=== PATIENT | male | born 1970 | race Two or more races ===

== ENCOUNTER 2016-11-27 11:19 | Inpatient (IN) | payer OTHER ==
[2016-11-27 11:47] VITALS: BMI 34.3
--- NOTE | 2016-11-27 13:26 | HP ---
CIWA Score - CIWA Score Nausea/Vomitin-No Nausea/No Vomiting Muscle Tremors: 4-Moderate,w/Arms Extend Anxiety: 4-Mod. Anxious/Guarded Agitation: 4-Moderately Restless Paroxysmal Sweats: 3 Orientation: 0-Oriented Tacttile Disturbances: 0-None Auditory Disturbances: 0-None Visual Disturbances: 0-None Headache: 1-Very Mild CIWA-Ar Total Score: 16 Admission ROS BHS - HPI Chief Complaint: I need to stop using and get my life back. Allergies/Adverse Reactions: Allergies Allergy/AdvReac Type Severity Reaction Status Date / Time No Known Allergies Allergy Verified 11/27/16 13:07 History of Present Illness: pt is a 46yr old male with a history of alcohol dependence seeking detox for treatment. Exam Limitations: No Limitations - Ebola screening Have you traveled outside of the country in the last 21 days: No Have you had contact with anyone from an Ebola affected area: No Have you been sick,other than usual withdrawal symptoms: No Do you have a fever: No - Review of Systems Constitutional: Chills, Diaphoresis, Loss of Appetite, Night Sweats, Unintentional Wgt. Loss EENT: reports: Tearing, Nose Congestion Respiratory: reports: Cough Cardiac: reports: No Symptoms Reported GI: reports: Diarrhea, Nausea, Poor Appetite, Poor Fluid Intake, Indigestion : reports: No Symptoms Reported Musculoskeletal: reports: Joint Pain Integumentary: reports: Flushing, Sweating Neuro: reports: Headache, Tingling, Tremors Endocrine: reports: Excessive Sweating, Flushing, Intolerance to Cold, Intolerance to Heat Hematology: reports: No Symptoms Reported Psychiatric: reports: Judgement Intact, Mood/Affect Appropiate, Orientated x3, Agitated, Anxious Other Systems: Reviewed and Negative Patient History - Patient Medical History Hx Anemia: No Hx Asthma: Yes (ALBUTEROL INHALER) Hx Chronic Obstructive Pulmonary Disease (COPD): No Hx Cancer: No Hx Cardiac Disorders: No Hx Congestive Heart Failure: No Hx Hypertension: Yes (ON MEDS) Hx Hypercholesterolemia: No Hx Pacemaker: No HX Cerebrovascular Accident: No Hx Seizures: No Hx Dementia: No Hx Diabetes: Yes (type 2 insulin dependent) Hx Gastrointestinal Disorders: Yes (GERD) Hx Liver Disease: No Hx Genitourinary Disorders: No Hx Sexually Transmitted Disorders: No Hx Renal Disease (ESRD): No Hx Thyroid Disease: No Hx Human Immunodeficiency Virus (HIV): No (NEGATIVE HX) Hx Hepatitis C: No Hx Depression: Yes (not seeing psychiatrist) Hx Suicide Attempt: No (DENIES) Hx Bipolar Disorder: No Hx Schizophrenia: No - Patient Surgical History Past Surgical History: Yes Hx Neurologic Surgery: No Hx Cataract Extraction: No Hx Cardiac Surgery: No Hx Lung Surgery: No Hx Breast Surgery: No Hx Breast Biopsy: No Hx Abdominal Surgery: No Hx Appendectomy: No Hx Cholecystectomy: No Hx Genitourinary Surgery: No Hx Section: No Hx Orthopedic Surgery: No Other Surgical History: removed cyst in the right buttock in 2013 Anesthesia Reaction: No - PPD History Previous Implant?: Yes Documented Results: Negative w/o proof PPD to be Administered?: Yes - Reproductive History Patient is a Female of Child Bearing Age (11 -55 yrs old): No - Smoking Cessation Smoking history: Current every day smoker Have you smoked in the past 12 months: Yes Aproximately how many cigarettes per day: 4 Hx Chewing Tobacco Use: No Initiated information on smoking cessation: Yes 'Breaking Loose' booklet given: 11/27/16 - Substance & Tx. History Hx Alcohol Use: Yes Hx Substance Use: Yes Substance Use Type: Alcohol, Cocaine Hx Substance Use Treatment: Yes - Substances Abused Crack Route: Smoking Frequency: Daily Amount used: $50 Age of first use: 23 Date of Last Use: 11/26/16 Alcohol-rum/beer Route: Oral Frequency: Daily Amount used: 1 pt./2-6 pks. Age of first use: 23 Date of Last Use: 11/26/16 Family Disease History - Family Disease History Family Disease History: Diabetes: Mother, Sister, CA: Mother, Respiratory: Mother, Brother, Sister, Daughter Admission Physical Exam S - Vital Signs Vital Signs: Vital Signs - 24 hr 11/27/16 11:46 Temperature 96.2 F L Pulse Rate 97 H Respiratory 20 Rate Blood Pressure 167/100 - Physical General Appearance: Yes: Appropriately Dressed, Moderate Distress, Obese, Tremorous, Irritable, Sweating, Anxious HEENTM: Yes: Normal Voice, Nasal Congestion, Rhinorrhea Respiratory: Yes: Lungs Clear, Normal Breath Sounds, No Respiratory Distress Neck: Yes: No masses,lesions,Nodules Breast: Yes: Within Normal Limits, No masses Cardiology: Yes: Regular Rhythm, Regular Rate, S1, S2 Abdominal: Yes: Normal Bowel Sounds, Non Tender, Soft Genitourinary: Yes: Within Normal Limits Back: Yes: Normal Inspection Musculoskeletal: Yes: full range of Motion Extremities: Yes: Normal Capillary Refill, Normal Inspection, Non-Tender, Tremors Neurological: Yes: Fully Oriented, Alert, Normal Response Integumentary: Yes: Normal Color, Diaphoresis Lymphatic: Yes: Within Normal Limits - Diagnostic (1) Alcohol dependence with uncomplicated withdrawal Current Visit: Yes Status: Chronic (2) Asthma Current Visit: Yes Status: Chronic Qualifiers: Asthma severity: mild intermittent Asthma complication type: uncomplicated Qualified Code(s): J45.20 - Mild intermittent asthma, uncomplicated (3) Diabetes type 2, uncontrolled Current Visit: Yes Status: Chronic Qualifiers: Diabetes mellitus complication status: without complication (4) H/O hearing loss Current Visit: Yes Status: Chronic Comment: childhood trauma (5) Hypertension Current Visit: Yes Status: Chronic Qualifiers: Hypertension type: essential hypertension Qualified Code(s): I10 - Essential (primary) hypertension (6) Nicotine dependence Current Visit: Yes Status: Chronic Qualifiers: Nicotine product type: cigarettes Substance use status: uncomplicated Qualified Code(s): F17.210 - Nicotine dependence, cigarettes, uncomplicated Cleared for Admission S - Detox or Rehab [facility] Level of Care: Medically Managed Detox Regimen/Protocol: Librium [facility] Breath Alcohol Content Breath Alcohol Content: 0 Urine Drug Screen - Results Drug Screen Negative: No Urine Drug Screen Results: YUE-Cocaine
[2016-11-27] MEDS ORDERED: ACETAMINOPHEN 325 MG TABLET (FP) PO PRN (14:44)
[2016-11-27] MEDS ORDERED: MENTHOL/PHENOL 1 EACH UD MM PRN (14:44)
[2016-11-27] MEDS ORDERED: diphenhydrAMINE HCL 50 MG CAPSULE PO PRN (14:44)
[2016-11-27] MEDS ORDERED: LOPERAMIDE HCL 2 MG CAPSULE PO PRN (14:44)
[2016-11-27] MEDS ORDERED: MAGNESIUM HYDROX 2400MG/30ML ORAL SUSPENSION 30 ML CUP PO PRN (14:44)
[2016-11-27] MEDS ORDERED: MAGNESIUM CITRATE 300 ML BOTTLE PO PRN (14:44)
[2016-11-27] MEDS ORDERED: IBUPROFEN 400 MG TABLET (FP) PO PRN (14:44)
[2016-11-27] MEDS ORDERED: P-EPHED 60MG/TRIPROLIDI 2.5MG TABLET PO PRN (14:44)
[2016-11-27] MEDS ORDERED: NICOTINE POLACRILEX 4 MG GUM BUC PRN (14:44)
[2016-11-27] MEDS ORDERED: MAG HYDROX/AL HYDROX/SIMETH 30 ML UNIT-DOSE CUP PO PRN (14:44)
[2016-11-27] MEDS ORDERED: hydrOXYzine PAMOATE 50 MG CAPSULE (FP) PO PRN (14:44)
[2016-11-27] MEDS ORDERED: chlordiazePOXIDE HCL 25 MG CAPSULE PO PRN (14:44)
[2016-11-27] MEDS ORDERED: ALBUTEROL SO4 6.7 GM HFA INHALER IH PRN (14:49)
[2016-11-27] MEDS ORDERED: SODIUM CHLORIDE NASAL SPRAY 44 ML BOTTLE NS PRN (14:50)
[2016-11-27] MEDS ORDERED: chlordiazePOXIDE HCL 25 MG CAPSULE PO ONE (15:41)
[2016-11-27] MEDS: amLODIPine BESYLATE 10 MG TABLET (FP) PO SCH (15:56)
[2016-11-27] MEDS: chlordiazePOXIDE HCL 25 MG CAPSULE PO SCH ×2 (17:10→22:40)
[2016-11-27] MEDS ORDERED: INSULIN (NOVOLOG) ASPART 100 UNITS/ML 10ML VIAL ONE (17:22)
--- NOTE | 2016-11-27 17:22 | CONSULT ---
[facility] Psychiatric Consult - Data Date of interview: 11/27/16 Admission source: [facility] Identifying data: Readmission to [facility] for this 46 y/o AA male seking detox treatment on for alcohol and cocaine dependence.Patient is single ( common-law),a father of three,homeless,unemployed and reportedly deprived of any source of income. Substance Abuse History: - Smoking Cessation. Smoking history: Current every day smoker. Have you smoked in the past 12 months: Yes. Aproximately how many cigarettes per day: 4. Hx Chewing Tobacco Use: No. Initiated information on smoking cessation: Yes. 'Breaking Loose' booklet given: 11/27/16. - Substance & Tx. History. Hx Alcohol Use: Yes. Hx Substance Use: Yes. Substance Use Type : Alcohol, Cocaine. Hx Substance Use Treatment: Yes. - Substances Abused. Crack. Route: Smoking. Frequency: Daily. Amount used: $50. Age of first use : 23. Date of Last Use: 11/26/16. Alcohol-rum/beer. Route: Oral. Frequency: Daily. Amount used: 1 pt./2-6 pks. Age of first use: 23. Date of Last Use: 11/26/16. Confirmed by the patient in this session. Medical History: Hypertension,GERD,hearing loss (left ear),bronchial asthma and diabetes mellitus. Psychiatric History: Patient denies. Physical/Sexual Abuse/Trauma History: Patient denies. Additional Comment: Urine Drug Screen Results: YUE-Cocaine.Noted. Mental Status Exam - Mental Status Exam Alert and Oriented to: Time, Place, Person Cognitive Function: Good Patient Appearance: Well Groomed Mood: Hopeful, Euthymic Affect: Appropriate, Normal Range Patient Behavior: Fatigued, Appropriate, Cooperative Speech Pattern: Clear, Appropriate Voice Loudness: Normal Thought Process: Goal Oriented Thought Disorder: Not Present Hallucinations: Denies Suicidal Ideation: Denies Homicidal Ideation: Denies Insight/Judgement: Poor Sleep: Poorly, Difficulty falling asleep Appetite: Good Muscle strength/Tone: Normal Gait/Station: Normal Psychiatric Findings - Problem List ([place] 1, 2,3) (1) Alcohol dependence with uncomplicated withdrawal Current Visit: Yes Status: Acute (2) Nicotine dependence Current Visit: Yes Status: Acute Qualifiers: Nicotine product type: cigarettes Substance use status: uncomplicated Qualified Code(s): F17.210 - Nicotine dependence, cigarettes, uncomplicated (3) Cocaine dependence Current Visit: Yes Status: Acute (4) Asthma Current Visit: Yes Status: Chronic Qualifiers: Asthma severity: mild intermittent Asthma complication type: uncomplicated Qualified Code(s): J45.20 - Mild intermittent asthma, uncomplicated (5) Diabetes type 2, uncontrolled Current Visit: Yes Status: Chronic Qualifiers: Diabetes mellitus complication status: without complication (6) H/O hearing loss Current Visit: Yes Status: Chronic Comment: childhood trauma (7) Hypertension Current Visit: Yes Status: Chronic Qualifiers: Hypertension type: essential hypertension Qualified Code(s): I10 - Essential (primary) hypertension (8) Insomnia Current Visit: Yes Status: Acute - Initial Treatment Plan Initial Treatment Plan: Psychoeducation.Detoxification.Zolpidem 10 mg po hs prn.Patient made aware of parasomnias.He agrees with this careplan.Observation.
[2016-11-27] MEDS ORDERED: ZOLPIDEM TARTRATE 10 MG TABLET (PARK CARE ONLY) PO PRN (17:30)
[2016-11-27] MEDS: metFORMIN HCL 500 MG TABLET (FP) PO SCH (17:35)
[2016-11-27] MEDS: INSULIN (NOVOLOG) ASPART 100 UNITS/ML 10ML VIAL SQ SCH (17:38)
[2016-11-27] MEDS: THIAMINE HCL 100 MG TABLET (FP) PO SCH (22:40)
[2016-11-27] MEDS: INSULIN DETEMIR 100 UNITS/ML MDV SQ SCH (22:43)
[2016-11-28 03:05] LABS: URINE APPEARANCE CLEAR; URINE BILIRUBIN NEGATIVE (NEGATIVE); URINE BLOOD NEGATIVE (NEGATIVE); URINE COLOR STRAW; URINE GLUCOSE (UA) 3+ (NEGATIVE); URINE KETONE NEGATIVE (NEGATIVE); URINE NITRITE NEGATIVE (NEGATIVE); URINE UROBILINOGEN NEGATIVE E.U./dl (0.2-1.0)
[2016-11-28 03:30] LABS: URINE LEUK ESTERASE 1+ (NEGATIVE); URINE PROTEIN 1+ (NEGATIVE)
[2016-11-28 03:42] LABS: URINE BACTERIA MODERATE /hpf (NONE SEEN); URINE HYALINE CAST 1 /lpf; URINE MUCUS RARE; URINE RBC 4 /hpf (0-3); URINE WBC 6 /hpf (3-5); YEAST FEW
[2016-11-28] MEDS: chlordiazePOXIDE HCL 25 MG CAPSULE PO SCH ×4 (06:21→23:18)
[2016-11-28] MEDS ORDERED: INSULIN (NOVOLOG) ASPART 100 UNITS/ML 10ML VIAL SQ SCH (07:00)
[2016-11-28] MEDS: metFORMIN HCL 500 MG TABLET (FP) PO SCH ×2 (07:30→17:06)
[2016-11-28] MEDS ORDERED: INSULIN (NOVOLOG) ASPART 100 UNITS/ML 10ML VIAL ONE ×3 (08:28→17:03)
[2016-11-28] MEDS: INSULIN (NOVOLOG) ASPART 100 UNITS/ML 10ML VIAL SQ SCH ×3 (08:33→17:09)
--- NOTE | 2016-11-28 10:44 | PN ---
S CIWA - CIWA Score Nausea/Vomitin Muscle Tremors: 3 Anxiety: 3 Agitation: 2 Paroxysmal Sweats: 1-Minimal Palms Moist Orientation: 0-Oriented Tacttile Disturbances: 1-Very Mild Itch/Numbness Auditory Disturbances: 1-Very Mild Visual Disturbances: 1-Very Mild Sensitivity Headache: 2-Mild CIWA-Ar Total Score: 17 BHS Progress Note (SOAP) Subjective: ALERT,IRRITABLE,ANXIOUS,INTERRUPTED SLEEP,TREMOR Objective: 11/28/16 10:41 Vital Signs Temperature 98.1 F 11/28/16 09:39 Pulse Rate 89 11/28/16 09:39 Respiratory Rate 18 11/28/16 09:39 Blood Pressure 154/99 11/28/16 09:39 O2 Sat by Pulse Oximetry (%) EKG NSR,NORMAL ECG Laboratory Last Values POC Glucometer 291 UNITS (()) 11/28/16 07:33 Urine Color Straw 11/27/16 23:04 Urine Appearance Clear 11/27/16 23:04 Urine pH 6.0 (5.0-8.0) 11/27/16 23:04 Ur Specific [place] 1.029 (1.001-1.035) 11/27/16 23:04 Urine Protein 1+ (NEGATIVE) H 11/27/16 23:04 Urine Glucose (UA) 3+ (NEGATIVE) H 11/27/16 23:04 Urine Ketones Negative (NEGATIVE) 11/27/16 23:04 Urine Blood Negative (NEGATIVE) 11/27/16 23:04 Urine Nitrite Negative (NEGATIVE) 11/27/16 23:04 Urine Bilirubin Negative (NEGATIVE) 11/27/16 23:04 Urine Urobilinogen Negative E.U./dl (0.2-1.0) 11/27/16 23:04 Ur Leukocyte Esterase 1+ (NEGATIVE) H 11/27/16 23:04 Urine RBC 4 /hpf (0-3) 11/27/16 23:04 Urine WBC 6 /hpf (3-5) 11/27/16 23:04 Ur Epithelial Cells Rare /hpf (FEW) 11/27/16 23:04 Urine Bacteria Moderate /hpf (NONE SEEN) 11/27/16 23:04 Hyaline Casts 1 /lpf 11/27/16 23:04 Urine Mucus Rare 11/27/16 23:04 Urine Yeast Few 11/27/16 23:04 LABS PENDING Assessment: 11/28/16 10:43 WITHDRAWAL SYMPTOM Plan: CONTINUE DETOX,BGM MONITORING
[2016-11-28] MEDS: PANTOPRAZOLE 20 MG TABLET (FP) PO SCH (10:49)
[2016-11-28] MEDS: PRENATAL VITAMINS W/ FOLIC ACID TABLET (FP) PO SCH (10:49)
[2016-11-28] MEDS: amLODIPine BESYLATE 10 MG TABLET (FP) PO SCH (10:49)
[2016-11-28] MEDS: NICOTINE 21 MG/24 HOURS TOPICAL PATCH TD SCH (10:51)
[2016-11-28 11:08] LABS: MCH 30.1 pg (25.7-33.7); MCHC 32.5 g/dl (32.0-35.9); MEAN CELL VOLUME 92.7 fl (80-96); MEAN PLT VOLUME 9.2 fl (7.5-11.1); PLATELET COUNT 164 K/MM3 (134-434); RDW 16.1 % (11.9-15.9); WHITE BLOOD COUNT 3.2 K/mm3 (4.0-10.0)
[2016-11-28 11:15] LABS: ALBUMIN 3.4 g/dl (3.4-5.0); ANION GAP 9 (8-16); CALCIUM 9.3 mg/dL (8.5-10.1); CO2 25 mmol/L (21-32)
[2016-11-28 11:19] LABS: ALK PHOS 184 U/L (45-117); BILIRUBIN,TOTAL 0.3 mg/dL (0.2-1.0); CREATININE 1.2 mg/dL (0.7-1.3); SGOT/AST 12 U/L (15-37); SGPT/ALT 28 U/L (12-78); TOT PROT 7.7 g/dl (6.4-8.2)
[2016-11-28 11:25] LABS: GLUCOSE,RANDOM 430 mg/dL (74-106)
--- NOTE | 2016-11-28 13:40 | EKG ---
Test Reason : Blood Pressure : / mmHG Vent. Rate : 072 BPM Atrial Rate : 072 BPM P-R Int : 180 ms QRS Dur : 098 ms QT Int : 376 ms P-R-T Axes : 058 -01 021 degrees QTc Int : 411 ms NORMAL SINUS RHYTHM NORMAL ECG NO PREVIOUS ECGS AVAILABLE Confirmed by AGNES ARNDT MD ([id number]) on 11/28/2016 1:40:05 PM Referred By: Confirmed By:AGNES ARNDT MD
[2016-11-28] MEDS: TOLNAFTATE 1% CREAM 15 GM TUBE TP SCH ×2 (14:26→23:07)
[2016-11-28] MEDS: guaiFENesin/D-METHORPHAN HB 10 ML UNIT-DOSE CUPS PO PRN (18:26)
[2016-11-28] MEDS: THIAMINE HCL 100 MG TABLET (FP) PO SCH ×2 (23:07→23:18)
[2016-11-28] MEDS: INSULIN DETEMIR 100 UNITS/ML MDV SQ SCH ×2 (23:07→23:20)
[2016-11-29] MEDS: metFORMIN HCL 500 MG TABLET (FP) PO SCH ×2 (07:39→17:45)
[2016-11-29] MEDS: chlordiazePOXIDE HCL 25 MG CAPSULE PO SCH ×2 (07:39→11:34)
[2016-11-29] MEDS: INSULIN (NOVOLOG) ASPART 100 UNITS/ML 10ML VIAL SQ SCH ×3 (07:40→17:20)
[2016-11-29] MEDS ORDERED: INSULIN (NOVOLOG) ASPART 100 UNITS/ML 10ML VIAL ONE ×2 (11:33→17:20)
[2016-11-29] MEDS: amLODIPine BESYLATE 10 MG TABLET (FP) PO SCH (11:34)
[2016-11-29] MEDS: PANTOPRAZOLE 20 MG TABLET (FP) PO SCH (11:34)
[2016-11-29] MEDS: NICOTINE 21 MG/24 HOURS TOPICAL PATCH TD SCH (11:34)
[2016-11-29] MEDS: TOLNAFTATE 1% CREAM 15 GM TUBE TP SCH ×2 (11:35→22:48)
[2016-11-29] MEDS: PRENATAL VITAMINS W/ FOLIC ACID TABLET (FP) PO SCH (11:35)
--- NOTE | 2016-11-29 13:26 | PN ---
[facility] CIWA - CIWA Score Nausea/Vomitin-No Nausea/No Vomiting Muscle Tremors: 3 Anxiety: 4-Mod. Anxious/Guarded Agitation: 4-Moderately Restless Paroxysmal Sweats: 3 Orientation: 0-Oriented Tacttile Disturbances: 0-None Auditory Disturbances: 0-None Visual Disturbances: 0-None Headache: 0-None Present CIWA-Ar Total Score: 14 BHS Progress Note (SOAP) Subjective: anxiety,tremors,sweating,interrupted sleep,restless Objective: 11/29/16 13:35 Vital Signs - 8 hr 11/29/16 11/29/16 06:00 10:00 Temperature 98.2 F 98.5 F Pulse Rate 82 109 H Respiratory 20 20 Rate Blood Pressure 149/101 137/101 Laboratory Last Values WBC 3.2 K/mm3 (4.0-10.0) L 11/28/16 06:20 RBC 4.74 M/mm3 (4.00-5.60) 11/28/16 06:20 Hgb 14.2 GM/dL (11.7-16.9) D 11/28/16 06:20 Hct 43.9 % (35.4-49) 11/28/16 06:20 MCV 92.7 fl (80-96) 11/28/16 06:20 MCHC 32.5 g/dl (32.0-35.9) 11/28/16 06:20 RDW 16.1 % (11.9-15.9) H 11/28/16 06:20 Plt Count 164 K/MM3 (134-434) 11/28/16 06:20 MPV 9.2 fl (7.5-11.1) 11/28/16 06:20 Sodium 138 mmol/L (136-145) 11/28/16 06:20 Potassium 4.1 mmol/L (3.5-5.1) 11/28/16 06:20 Chloride 104 mmol/L (98-107) 11/28/16 06:20 Carbon Dioxide 25 mmol/L (21-32) 11/28/16 06:20 Anion Gap 9 (8-16) 11/28/16 06:20 BUN 11 mg/dL (7-18) D 11/28/16 06:20 Creatinine 1.2 mg/dL (0.7-1.3) 11/28/16 06:20 Creat Clearance w eGFR > 60 (>60) 11/28/16 06:20 POC Glucometer 338 UNITS (()) 11/29/16 11:29 Random Glucose 430 mg/dL (74-106) H* 11/28/16 06:20 Calcium 9.3 mg/dL (8.5-10.1) 11/28/16 06:20 Total Bilirubin 0.3 mg/dL (0.2-1.0) 11/28/16 06:20 AST 12 U/L (15-37) L 11/28/16 06:20 ALT 28 U/L (12-78) 11/28/16 06:20 Alkaline Phosphatase 184 U/L (45-117) H D 11/28/16 06:20 Total Protein 7.7 g/dl (6.4-8.2) 11/28/16 06:20 Albumin 3.4 g/dl (3.4-5.0) 11/28/16 06:20 Urine Color Straw 11/27/16 23:04 Urine Appearance Clear 11/27/16 23:04 Urine pH 6.0 (5.0-8.0) 11/27/16 23:04 Ur Specific [place] 1.029 (1.001-1.035) 11/27/16 23:04 Urine Protein 1+ (NEGATIVE) H 11/27/16 23:04 Urine Glucose (UA) 3+ (NEGATIVE) H 11/27/16 23:04 Urine Ketones Negative (NEGATIVE) 11/27/16 23:04 Urine Blood Negative (NEGATIVE) 11/27/16 23:04 Urine Nitrite Negative (NEGATIVE) 11/27/16 23:04 Urine Bilirubin Negative (NEGATIVE) 11/27/16 23:04 Urine Urobilinogen Negative E.U./dl (0.2-1.0) 11/27/16 23:04 Ur Leukocyte Esterase 1+ (NEGATIVE) H 11/27/16 23:04 Urine RBC 4 /hpf (0-3) 11/27/16 23:04 Urine WBC 6 /hpf (3-5) 11/27/16 23:04 Ur Epithelial Cells Rare /hpf (FEW) 11/27/16 23:04 Urine Bacteria Moderate /hpf (NONE SEEN) 11/27/16 23:04 Hyaline Casts 1 /lpf 11/27/16 23:04 Urine Mucus Rare 11/27/16 23:04 Urine Yeast Few 11/27/16 23:04 RPR Titer Nonreactive (NONREACTIVE) 11/28/16 06:20 labs noted,repeat u/a Assessment: 11/29/16 13:36 withdrawal sx. Plan: continue detox
[2016-11-29] MEDS: chlordiazePOXIDE 5 MG CAPSULE PO SCH ×2 (17:44→22:48)
[2016-11-29] MEDS: INSULIN DETEMIR 100 UNITS/ML MDV SQ SCH (22:47)
[2016-11-29] MEDS: THIAMINE HCL 100 MG TABLET (FP) PO SCH (22:48)
[2016-11-30] MEDS: chlordiazePOXIDE 5 MG CAPSULE PO SCH ×2 (05:39→10:35)
[2016-11-30] MEDS ORDERED: INSULIN (NOVOLOG) ASPART 100 UNITS/ML 10ML VIAL ONE ×3 (07:35→17:21)
[2016-11-30] MEDS: metFORMIN HCL 500 MG TABLET (FP) PO SCH ×2 (07:46→17:40)
[2016-11-30] MEDS: INSULIN (NOVOLOG) ASPART 100 UNITS/ML 10ML VIAL SQ SCH ×3 (07:46→17:42)
[2016-11-30] MEDS: NICOTINE 21 MG/24 HOURS TOPICAL PATCH TD SCH (10:34)
[2016-11-30] MEDS: PANTOPRAZOLE 20 MG TABLET (FP) PO SCH (10:35)
[2016-11-30] MEDS: PRENATAL VITAMINS W/ FOLIC ACID TABLET (FP) PO SCH (10:35)
[2016-11-30] MEDS: TOLNAFTATE 1% CREAM 15 GM TUBE TP SCH ×2 (10:35→22:16)
[2016-11-30] MEDS: amLODIPine BESYLATE 10 MG TABLET (FP) PO SCH (10:35)
--- NOTE | 2016-11-30 11:17 | PN ---
BHS Progress Note (SOAP) Subjective: interrupted sleep, sweats, shakes, diarrhea, nee s and feet hurt Objective: 11/30/16 11:16 Vital Signs Temperature 96.8 F L 11/30/16 10:00 Pulse Rate 112 H 11/30/16 10:00 Respiratory Rate 18 11/30/16 10:00 Blood Pressure 145/102 11/30/16 10:00 O2 Sat by Pulse Oximetry (%) Laboratory Tests 11/27/16 11/27/16 11/27/16 13:26 16:31 21:54 WBC RBC Hgb Hct MCV MCHC RDW Plt Count MPV Sodium Potassium Chloride Carbon Dioxide Anion Gap BUN Creatinine Creat Clearance w eGFR POC Glucometer 351 351 222 Random Glucose Calcium Total Bilirubin AST ALT Alkaline Phosphatase Total Protein Albumin Urine Color Urine Appearance Urine pH Ur Specific [place] Urine Protein Urine Glucose (UA) Urine Ketones Urine Blood Urine Nitrite Urine Bilirubin Urine Urobilinogen Ur Leukocyte Esterase Urine RBC Urine WBC Ur Epithelial Cells Urine Bacteria Hyaline Casts Urine Mucus Urine Yeast RPR Titer 11/27/16 11/28/16 11/28/16 23:04 06:20 06:20 WBC 3.2 L RBC 4.74 Hgb 14.2 D Hct 43.9 MCV 92.7 MCHC 32.5 RDW 16.1 H Plt Count 164 MPV 9.2 Sodium 138 Potassium 4.1 Chloride 104 Carbon Dioxide 25 Anion Gap 9 BUN 11 D Creatinine 1.2 Creat Clearance w eGFR > 60 POC Glucometer Random Glucose 430 H* Calcium 9.3 Total Bilirubin 0.3 AST 12 L ALT 28 Alkaline Phosphatase 184 H D Total Protein 7.7 Albumin 3.4 Urine Color Straw Urine Appearance Clear Urine pH 6.0 Ur Specific [place] 1.029 Urine Protein 1+ H Urine Glucose (UA) 3+ H Urine Ketones Negative Urine Blood Negative Urine Nitrite Negative Urine Bilirubin Negative Urine Urobilinogen Negative Ur Leukocyte Esterase 1+ H Urine RBC 4 Urine WBC 6 Ur Epithelial Cells Rare Urine Bacteria Moderate Hyaline Casts 1 Urine Mucus Rare Urine Yeast Few RPR Titer 11/28/16 11/28/16 11/28/16 06:20 07:33 11:47 WBC RBC Hgb Hct MCV MCHC RDW Plt Count MPV Sodium Potassium Chloride Carbon Dioxide Anion Gap BUN Creatinine Creat Clearance w eGFR POC Glucometer 291 314 Random Glucose Calcium Total Bilirubin AST ALT Alkaline Phosphatase Total Protein Albumin Urine Color Urine Appearance Urine pH Ur Specific [place] Urine Protein Urine Glucose (UA) Urine Ketones Urine Blood Urine Nitrite Urine Bilirubin Urine Urobilinogen Ur Leukocyte Esterase Urine RBC Urine WBC Ur Epithelial Cells Urine Bacteria Hyaline Casts Urine Mucus Urine Yeast RPR Titer Nonreactive 11/28/16 11/29/16 11/29/16 16:40 11:29 16:44 WBC RBC Hgb Hct MCV MCHC RDW Plt Count MPV Sodium Potassium Chloride Carbon Dioxide Anion Gap BUN Creatinine Creat Clearance w eGFR POC Glucometer 238 338 272 Random Glucose Calcium Total Bilirubin AST ALT Alkaline Phosphatase Total Protein Albumin Urine Color Urine Appearance Urine pH Ur Specific [place] Urine Protein Urine Glucose (UA) Urine Ketones Urine Blood Urine Nitrite Urine Bilirubin pt aox3 in nad ambulating Urine Urobilinogen Ur Leukocyte Esterase Urine RBC Urine WBC Ur Epithelial Cells Urine Bacteria Hyaline Casts Urine Mucus Urine Yeast RPR Titer pt aox3 in nad ambulating Assessment: 11/30/16 11:16 withdrawl sx;s Plan: cont. detox increase fluids d/c in am
[2016-11-30] MEDS: chlordiazePOXIDE HCL 10 MG CAPSULE PO SCH ×2 (17:40→22:17)
[2016-11-30] MEDS ORDERED: ZOLPIDEM TARTRATE 5 MG TABLET PO ONE (22:05)
[2016-11-30] MEDS: METHYL SALICYLATE/MENTHOL OINT 30 GM TUBE TP SCH (22:16)
[2016-11-30] MEDS: guaiFENesin/D-METHORPHAN HB 10 ML UNIT-DOSE CUPS PO PRN (22:17)
[2016-11-30] MEDS: THIAMINE HCL 100 MG TABLET (FP) PO SCH (22:17)
[2016-11-30] MEDS: INSULIN DETEMIR 100 UNITS/ML MDV SQ SCH (22:50)
[2016-12-01] MEDS: chlordiazePOXIDE HCL 10 MG CAPSULE PO SCH ×2 (05:35→10:19)
[2016-12-01] MEDS: metFORMIN HCL 500 MG TABLET (FP) PO SCH (07:46)
[2016-12-01] MEDS: INSULIN (NOVOLOG) ASPART 100 UNITS/ML 10ML VIAL SQ SCH ×2 (07:47→11:38)
--- NOTE | 2016-12-01 09:31 | DS ---
[facility] Detox Discharge Summary Admission Date: 11/27/16 Discharge Date: 12/01/16 - History Present History: Alcohol Dependence, Cocaine Dependence - Physical Exam Results Vital Signs: Vital Signs Temperature 98.2 F 12/01/16 06:30 Pulse Rate 92 H 12/01/16 06:30 Respiratory Rate 20 12/01/16 06:30 Blood Pressure 123/87 12/01/16 06:30 O2 Sat by Pulse Oximetry (%) - Treatment Hospital Course: Detox Protocol Followed, Detoxed Safely, Responded well, Discharged Condition Good, Rehab Referral Accepted - Medication Discharge Medications: Ambulatory Orders Metformin HCl [Glucophage -] 1,000 mg PO BID 03/25/13 Albuterol Sulfate Inhaler - [Ventolin HFA Inhaler -] 2 inh PO Q6H PRN 07/04/14 Amlodipine Besylate [Norvasc -] 10 mg PO DAILY 11/14/14 Famotidine [Pepcid -] 20 mg PO BID 11/14/14 Insulin Glargine,Hum.rec.anlog [Lantus (10mL VIAL) -] 26 units SQ HS 11/14/14 - Diagnosis (1) Alcohol dependence with uncomplicated withdrawal Current Visit: Yes Status: Chronic (2) Asthma Current Visit: Yes Status: Chronic Qualifiers: Asthma severity: mild intermittent Asthma complication type: uncomplicated Qualified Code(s): J45.20 - Mild intermittent asthma, uncomplicated (3) Diabetes type 2, uncontrolled Current Visit: Yes Status: Chronic Qualifiers: Diabetes mellitus complication status: without complication (4) H/O hearing loss Current Visit: Yes Status: Chronic (5) Hypertension Current Visit: Yes Status: Chronic Qualifiers: Hypertension type: essential hypertension Qualified Code(s): I10 - Essential (primary) hypertension (6) Nicotine dependence Current Visit: Yes Status: Acute Qualifiers: Nicotine product type: cigarettes Substance use status: uncomplicated Qualified Code(s): F17.210 - Nicotine dependence, cigarettes, uncomplicated - AMA Did Patient Leave Against Medical Advice: No
[2016-12-01 10:02] VITALS: BP 151/92; PULSE 117; TEMP 97.7
[2016-12-01] MEDS: TOLNAFTATE 1% CREAM 15 GM TUBE TP SCH (10:18)
[2016-12-01] MEDS: NICOTINE 21 MG/24 HOURS TOPICAL PATCH TD SCH (10:18)
[2016-12-01] MEDS: METHYL SALICYLATE/MENTHOL OINT 30 GM TUBE TP SCH (10:18)
[2016-12-01] MEDS: PRENATAL VITAMINS W/ FOLIC ACID TABLET (FP) PO SCH (10:19)
[2016-12-01] MEDS: amLODIPine BESYLATE 10 MG TABLET (FP) PO SCH (10:19)
[2016-12-01] MEDS: PANTOPRAZOLE 20 MG TABLET (FP) PO SCH (10:19)
[2016-12-01] MEDS ORDERED: INSULIN (NOVOLOG) ASPART 100 UNITS/ML 10ML VIAL ONE (11:37)
== END 2016-12-01 12:13 | disposition other institution (70) | DRG 774 ==
LOC: YASAS 11:19 → Y6N 13:45
PROVIDERS: ADMIT Internal Medicine; ATTEND Internal Medicine
PROC: HZ2ZZZZ Detoxification Services for Substance Abuse Treatment (ICD-10-PCS; principal; 2016-12-01)
DX: F10.230 Alcohol dependence with withdrawal, uncomplicated (principal); F14.20 Cocaine dependence, uncomplicated; F17.210 Nicotine dependence, cigarettes, uncomplicated; I10 Essential (primary) hypertension; J45.20 Mild intermittent asthma, uncomplicated; E11.9 Type 2 diabetes mellitus without complications; Z79.4 Long term (current) use of insulin; Z79.84 Long term (current) use of oral hypoglycemic drugs; G47.00 Insomnia, unspecified
CPT/HCPCS: 36415; 80053; 81003; 81015; 85027; 86593; 93005; 93010

== ENCOUNTER 2016-12-01 12:19 | Inpatient (IN) | payer OTHER ==
[2016-12-01] MEDS ORDERED: guaiFENesin/D-METHORPHAN HB 10 ML UNIT-DOSE CUPS PO PRN (13:36)
[2016-12-01] MEDS ORDERED: ACETAMINOPHEN 325 MG TABLET (FP) PO PRN (13:36)
[2016-12-01] MEDS ORDERED: MENTHOL/PHENOL 1 EACH UD MM PRN (13:36)
[2016-12-01] MEDS ORDERED: MAG HYDROX/AL HYDROX/SIMETH 30 ML UNIT-DOSE CUP PO PRN (13:36)
[2016-12-01] MEDS ORDERED: MAGNESIUM CITRATE 300 ML BOTTLE PO PRN (13:36)
[2016-12-01] MEDS ORDERED: NICOTINE POLACRILEX 4 MG GUM BUC PRN (13:36)
[2016-12-01] MEDS ORDERED: P-EPHED 60MG/TRIPROLIDI 2.5MG TABLET PO PRN (13:36)
[2016-12-01] MEDS ORDERED: MAGNESIUM HYDROX 2400MG/30ML ORAL SUSPENSION 30 ML CUP PO PRN (13:36)
[2016-12-01] MEDS ORDERED: LOPERAMIDE HCL 2 MG CAPSULE PO PRN (13:36)
[2016-12-01 13:56] VITALS: BMI 33.4
--- NOTE | 2016-12-01 15:06 | HP ---
Psychiatrist Admission - Data Date of interview: 12/01/16 Admission source: 6N Identifying data: This is the second [facility] admission for this undomiciled 46 year old single black male, father of 3 , unemployed. Medical History: Arthritis, Diabetes Mellitus, HTN, Asthma, GERD. Obese. Smokes cigarettes, 4 daily; does consider himself to be addicted to Nicotine. Psychiatric History: Reports no history of psychiatric treatment Medical History: Arthritis, Diabetes Mellitus, HTN, Asthma, GERD. Obese. Smokes cigarettes, 4 daily.. Psychiatric History: Denies history of psychiatric treatment. Physical/Sexual Abuse/Trauma History: Denies history of sexual physical and verbal abuse. Additional Comment: Reports longest period of "clean time" was during a period of incarceration from 1994 to 1999. Vital Signs: Vital Signs - 24 hr 12/01/16 14:33 Temperature 97.5 F L Pulse Rate 107 H Respiratory 18 Rate Blood Pressure 139/94 Allergies/Adverse Reactions: Allergies Allergy/AdvReac Type Severity Reaction Status Date / Time No Known Allergies Allergy Verified 11/27/16 13:07 Date of last physical exam: 11/27/16 Concur with the findings of this exam: Yes - Substance Abuse/Tx History Hx Alcohol Use: Yes (1 pint of liquor, 2-6 pks of beer) Hx Substance Use: Yes Substance Use Type: Cocaine ($50 daily) Hx Substance Use Treatment: Yes - Admission Criteria Previous failed treatment: Yes Poor recovery environment: Yes Comorbidities: No Lacks judgement: Yes Mental Status Exam - Mental Status Exam Alert and Oriented to: Time, Place, Person Cognitive Function: Good Patient Appearance: Well Groomed Mood: Hopeful Affect: Appropriate, Mood Congruent Patient Behavior: Appropriate, Cooperative Speech Pattern: Clear, Appropriate Voice Loudness: Normal Thought Process: Intact, Goal Oriented Thought Disorder: Not Present Hallucinations: Denies Suicidal Ideation: Denies Homicidal Ideation: Denies Insight/Judgement: Fair Sleep: Fair Appetite: Good Muscle strength/Tone: Normal Gait/Station: Normal Psychiatric Findings - Problem List ([place] 1, 2,3) (1) Cocaine dependence Current Visit: No Status: Acute (2) Nicotine dependence Current Visit: No Status: Acute Qualifiers: (3) Asthma Current Visit: No Status: Chronic Qualifiers: (4) Diabetes type 2, uncontrolled Current Visit: No Status: Chronic (5) H/O hearing loss Current Visit: No Status: Chronic Comment: childhood trauma (6) Hypertension Current Visit: No Status: Chronic Qualifiers: (7) Alcohol dependence Current Visit: Yes Status: Acute - Initial Treatment Plan Initial Treatment Plan: will monitor progress as needed.
--- NOTE | 2016-12-01 16:20 | HP ---
[facility] Rehab Assess/Revision - Admission History Admitted to Rehab from: [facility] Date of Admission to Rehab: 12/01/16 - Vital signs Vital Signs: Vital Signs Period Temp Pulse Resp BP Sys/Leija Pulse Ox Last 24 Hr 97.5 F 107 18 139/94 - Findings Detox History & Physical reviewed: Yes Concur with findings: Yes Comments/Additional Findings: transferred from detox to rehab admission as per protocol
[2016-12-01] MEDS: metFORMIN HCL 500 MG TABLET (FP) PO SCH (17:02)
[2016-12-01] MEDS: INSULIN SLIDING SCALE (NOVOLOG) 1 VIAL SQ SCH (17:03)
[2016-12-01] MEDS ORDERED: INSULIN (NOVOLOG) ASPART 100 UNITS/ML 10ML VIAL ONE (21:21)
[2016-12-01] MEDS: INSULIN DETEMIR 100 UNITS/ML MDV SQ SCH (21:22)
[2016-12-01] MEDS: TOLNAFTATE 1% CREAM 15 GM TUBE TP SCH (21:23)
[2016-12-01] MEDS: THIAMINE HCL 100 MG TABLET (FP) PO SCH (21:23)
[2016-12-01] MEDS: diphenhydrAMINE HCL 50 MG CAPSULE PO PRN (21:24)
[2016-12-02] MEDS: INSULIN SLIDING SCALE (NOVOLOG) 1 VIAL SQ SCH ×4 (07:18→21:35)
[2016-12-02] MEDS: metFORMIN HCL 500 MG TABLET (FP) PO SCH ×2 (07:18→16:48)
[2016-12-02] MEDS ORDERED: INSULIN (NOVOLOG) ASPART 100 UNITS/ML 10ML VIAL ONE ×4 (07:20→22:16)
[2016-12-02] MEDS: amLODIPine BESYLATE 10 MG TABLET (FP) PO SCH (09:26)
[2016-12-02] MEDS: PRENATAL VITAMINS W/ FOLIC ACID TABLET (FP) PO SCH (09:26)
[2016-12-02] MEDS: TOLNAFTATE 1% CREAM 15 GM TUBE TP SCH ×2 (09:27→21:15)
[2016-12-02] MEDS: NICOTINE 21 MG/24 HOURS TOPICAL PATCH TD SCH (09:27)
[2016-12-02] MEDS: THIAMINE HCL 100 MG TABLET (FP) PO SCH (21:14)
[2016-12-02] MEDS: diphenhydrAMINE HCL 50 MG CAPSULE PO PRN (21:14)
[2016-12-02] MEDS: INSULIN DETEMIR 100 UNITS/ML MDV SQ SCH (21:14)
[2016-12-02] MEDS: METHYL SALICYLATE/MENTHOL OINT 30 GM TUBE TP SCH (21:15)
[2016-12-03] MEDS: metFORMIN HCL 500 MG TABLET (FP) PO SCH ×2 (06:51→16:39)
[2016-12-03] MEDS: INSULIN SLIDING SCALE (NOVOLOG) 1 VIAL SQ SCH ×4 (06:53→21:15)
[2016-12-03] MEDS: amLODIPine BESYLATE 10 MG TABLET (FP) PO SCH (09:37)
[2016-12-03] MEDS: PRENATAL VITAMINS W/ FOLIC ACID TABLET (FP) PO SCH (09:37)
[2016-12-03] MEDS: NICOTINE 21 MG/24 HOURS TOPICAL PATCH TD SCH (09:39)
[2016-12-03] MEDS: METHYL SALICYLATE/MENTHOL OINT 30 GM TUBE TP SCH ×2 (09:39→21:14)
[2016-12-03] MEDS: TOLNAFTATE 1% CREAM 15 GM TUBE TP SCH ×2 (09:40→22:55)
[2016-12-03] MEDS ORDERED: INSULIN (NOVOLOG) ASPART 100 UNITS/ML 10ML VIAL ONE ×3 (11:28→21:11)
[2016-12-03] MEDS: diphenhydrAMINE HCL 50 MG CAPSULE PO PRN (21:12)
[2016-12-03] MEDS: THIAMINE HCL 100 MG TABLET (FP) PO SCH (21:12)
[2016-12-03] MEDS: INSULIN DETEMIR 100 UNITS/ML MDV SQ SCH (21:14)
[2016-12-04] MEDS: metFORMIN HCL 500 MG TABLET (FP) PO SCH ×2 (07:17→16:26)
[2016-12-04] MEDS: INSULIN SLIDING SCALE (NOVOLOG) 1 VIAL SQ SCH ×4 (07:17→21:29)
[2016-12-04] MEDS ORDERED: INSULIN (NOVOLOG) ASPART 100 UNITS/ML 10ML VIAL ONE ×4 (07:26→21:27)
[2016-12-04] MEDS: PRENATAL VITAMINS W/ FOLIC ACID TABLET (FP) PO SCH (09:50)
[2016-12-04] MEDS: amLODIPine BESYLATE 10 MG TABLET (FP) PO SCH (09:50)
[2016-12-04] MEDS: NICOTINE 21 MG/24 HOURS TOPICAL PATCH TD SCH (09:50)
[2016-12-04] MEDS: METHYL SALICYLATE/MENTHOL OINT 30 GM TUBE TP SCH ×2 (09:50→21:26)
[2016-12-04] MEDS: TOLNAFTATE 1% CREAM 15 GM TUBE TP SCH ×2 (09:51→21:26)
[2016-12-04] MEDS: diphenhydrAMINE HCL 50 MG CAPSULE PO PRN (21:28)
[2016-12-04] MEDS: THIAMINE HCL 100 MG TABLET (FP) PO SCH (21:28)
[2016-12-04] MEDS: INSULIN DETEMIR 100 UNITS/ML MDV SQ SCH (21:29)
[2016-12-05] MEDS: metFORMIN HCL 500 MG TABLET (FP) PO SCH ×2 (07:06→16:55)
[2016-12-05] MEDS: INSULIN SLIDING SCALE (NOVOLOG) 1 VIAL SQ SCH ×4 (07:07→21:32)
[2016-12-05] MEDS ORDERED: INSULIN (NOVOLOG) ASPART 100 UNITS/ML 10ML VIAL ONE ×2 (07:07→11:42)
[2016-12-05] MEDS: PRENATAL VITAMINS W/ FOLIC ACID TABLET (FP) PO SCH (09:45)
[2016-12-05] MEDS: METHYL SALICYLATE/MENTHOL OINT 30 GM TUBE TP SCH ×2 (09:45→21:32)
[2016-12-05] MEDS: TOLNAFTATE 1% CREAM 15 GM TUBE TP SCH ×2 (09:45→21:28)
[2016-12-05] MEDS: amLODIPine BESYLATE 10 MG TABLET (FP) PO SCH (09:45)
[2016-12-05] MEDS: NICOTINE 21 MG/24 HOURS TOPICAL PATCH TD SCH (09:45)
[2016-12-05] MEDS: ALBUTEROL SO4 6.7 GM HFA INHALER IH PRN (09:46)
[2016-12-05] MEDS: THIAMINE HCL 100 MG TABLET (FP) PO SCH (21:30)
[2016-12-05] MEDS: diphenhydrAMINE HCL 50 MG CAPSULE PO PRN (21:31)
[2016-12-05] MEDS: INSULIN DETEMIR 100 UNITS/ML MDV SQ SCH (21:32)
[2016-12-06] MEDS: INSULIN SLIDING SCALE (NOVOLOG) 1 VIAL SQ SCH ×4 (07:23→21:09)
[2016-12-06] MEDS: metFORMIN HCL 500 MG TABLET (FP) PO SCH ×2 (07:23→16:40)
[2016-12-06] MEDS: PRENATAL VITAMINS W/ FOLIC ACID TABLET (FP) PO SCH (09:39)
[2016-12-06] MEDS: TOLNAFTATE 1% CREAM 15 GM TUBE TP SCH ×2 (09:39→21:10)
[2016-12-06] MEDS: amLODIPine BESYLATE 10 MG TABLET (FP) PO SCH (09:39)
[2016-12-06] MEDS: METHYL SALICYLATE/MENTHOL OINT 30 GM TUBE TP SCH ×2 (09:40→21:10)
[2016-12-06] MEDS: NICOTINE 21 MG/24 HOURS TOPICAL PATCH TD SCH (09:40)
[2016-12-06] MEDS ORDERED: INSULIN (NOVOLOG) ASPART 100 UNITS/ML 10ML VIAL ONE ×2 (11:42→21:56)
[2016-12-06] MEDS: INSULIN DETEMIR 100 UNITS/ML MDV SQ SCH (21:09)
[2016-12-06] MEDS: THIAMINE HCL 100 MG TABLET (FP) PO SCH (21:10)
[2016-12-06] MEDS: diphenhydrAMINE HCL 50 MG CAPSULE PO PRN (21:10)
[2016-12-07] MEDS: metFORMIN HCL 500 MG TABLET (FP) PO SCH ×2 (07:06→16:30)
[2016-12-07] MEDS: INSULIN SLIDING SCALE (NOVOLOG) 1 VIAL SQ SCH ×4 (07:10→21:29)
[2016-12-07] MEDS: PRENATAL VITAMINS W/ FOLIC ACID TABLET (FP) PO SCH (09:47)
[2016-12-07] MEDS: METHYL SALICYLATE/MENTHOL OINT 30 GM TUBE TP SCH ×2 (09:48→21:29)
[2016-12-07] MEDS: TOLNAFTATE 1% CREAM 15 GM TUBE TP SCH ×2 (09:48→21:25)
[2016-12-07] MEDS: NICOTINE 21 MG/24 HOURS TOPICAL PATCH TD SCH (09:48)
[2016-12-07] MEDS: amLODIPine BESYLATE 10 MG TABLET (FP) PO SCH (09:48)
[2016-12-07] MEDS: ALBUTEROL SO4 6.7 GM HFA INHALER IH PRN (10:01)
[2016-12-07] MEDS ORDERED: INSULIN (NOVOLOG) ASPART 100 UNITS/ML 10ML VIAL ONE ×3 (12:07→21:25)
[2016-12-07] MEDS: THIAMINE HCL 100 MG TABLET (FP) PO SCH (21:25)
[2016-12-07] MEDS: diphenhydrAMINE HCL 50 MG CAPSULE PO PRN (21:25)
[2016-12-07] MEDS: INSULIN DETEMIR 100 UNITS/ML MDV SQ SCH (21:29)
[2016-12-08] MEDS: metFORMIN HCL 500 MG TABLET (FP) PO SCH ×2 (06:24→17:02)
[2016-12-08] MEDS: INSULIN SLIDING SCALE (NOVOLOG) 1 VIAL SQ SCH ×4 (06:26→21:14)
[2016-12-08] MEDS: amLODIPine BESYLATE 10 MG TABLET (FP) PO SCH (09:51)
[2016-12-08] MEDS: PRENATAL VITAMINS W/ FOLIC ACID TABLET (FP) PO SCH (09:51)
[2016-12-08] MEDS: TOLNAFTATE 1% CREAM 15 GM TUBE TP SCH ×2 (09:52→23:24)
[2016-12-08] MEDS: METHYL SALICYLATE/MENTHOL OINT 30 GM TUBE TP SCH ×2 (09:52→23:24)
[2016-12-08] MEDS: NICOTINE 21 MG/24 HOURS TOPICAL PATCH TD SCH (09:53)
[2016-12-08] MEDS ORDERED: INSULIN (NOVOLOG) ASPART 100 UNITS/ML 10ML VIAL ONE ×3 (11:43→21:11)
[2016-12-08] MEDS ORDERED: PANTOPRAZOLE 40 MG TABLET (FP) PO ONE (14:49)
[2016-12-08] MEDS: IBUPROFEN 400 MG TABLET (FP) PO PRN (15:13)
[2016-12-08] MEDS: THIAMINE HCL 100 MG TABLET (FP) PO SCH (21:12)
[2016-12-08] MEDS: diphenhydrAMINE HCL 50 MG CAPSULE PO PRN (21:12)
[2016-12-08] MEDS: INSULIN DETEMIR 100 UNITS/ML MDV SQ SCH (21:14)
[2016-12-09] MEDS: INSULIN SLIDING SCALE (NOVOLOG) 1 VIAL SQ SCH ×4 (06:26→21:14)
[2016-12-09] MEDS ORDERED: INSULIN (NOVOLOG) ASPART 100 UNITS/ML 10ML VIAL ONE ×4 (06:26→22:14)
[2016-12-09] MEDS: metFORMIN HCL 500 MG TABLET (FP) PO SCH ×2 (06:26→16:49)
[2016-12-09] MEDS: METHYL SALICYLATE/MENTHOL OINT 30 GM TUBE TP SCH ×2 (09:27→21:15)
[2016-12-09] MEDS: NICOTINE 21 MG/24 HOURS TOPICAL PATCH TD SCH (09:27)
[2016-12-09] MEDS: amLODIPine BESYLATE 10 MG TABLET (FP) PO SCH (09:27)
[2016-12-09] MEDS: PRENATAL VITAMINS W/ FOLIC ACID TABLET (FP) PO SCH (09:27)
[2016-12-09] MEDS: PANTOPRAZOLE 40 MG TABLET (FP) PO SCH (09:27)
[2016-12-09] MEDS: TOLNAFTATE 1% CREAM 15 GM TUBE TP SCH ×2 (09:27→21:15)
[2016-12-09] MEDS: INSULIN DETEMIR 100 UNITS/ML MDV SQ SCH (21:14)
[2016-12-09] MEDS: THIAMINE HCL 100 MG TABLET (FP) PO SCH (21:15)
[2016-12-09] MEDS: diphenhydrAMINE HCL 50 MG CAPSULE PO PRN (21:15)
[2016-12-10] MEDS: INSULIN SLIDING SCALE (NOVOLOG) 1 VIAL SQ SCH ×4 (06:10→22:01)
[2016-12-10] MEDS: metFORMIN HCL 500 MG TABLET (FP) PO SCH ×2 (06:10→16:52)
[2016-12-10] MEDS: amLODIPine BESYLATE 10 MG TABLET (FP) PO SCH (09:34)
[2016-12-10] MEDS: NICOTINE 21 MG/24 HOURS TOPICAL PATCH TD SCH (09:34)
[2016-12-10] MEDS: PRENATAL VITAMINS W/ FOLIC ACID TABLET (FP) PO SCH (09:34)
[2016-12-10] MEDS: PANTOPRAZOLE 40 MG TABLET (FP) PO SCH (09:34)
[2016-12-10] MEDS: METHYL SALICYLATE/MENTHOL OINT 30 GM TUBE TP SCH ×2 (09:35→22:00)
[2016-12-10] MEDS: TOLNAFTATE 1% CREAM 15 GM TUBE TP SCH ×2 (09:35→22:01)
[2016-12-10] MEDS ORDERED: INSULIN (NOVOLOG) ASPART 100 UNITS/ML 10ML VIAL ONE (11:36)
[2016-12-10] MEDS: IBUPROFEN 400 MG TABLET (FP) PO PRN (16:52)
[2016-12-10] MEDS: THIAMINE HCL 100 MG TABLET (FP) PO SCH (21:51)
[2016-12-10] MEDS: diphenhydrAMINE HCL 50 MG CAPSULE PO PRN (21:51)
[2016-12-10] MEDS: INSULIN DETEMIR 100 UNITS/ML MDV SQ SCH (22:00)
[2016-12-11] MEDS: metFORMIN HCL 500 MG TABLET (FP) PO SCH ×2 (06:20→16:41)
[2016-12-11] MEDS: INSULIN SLIDING SCALE (NOVOLOG) 1 VIAL SQ SCH ×4 (06:22→21:13)
[2016-12-11] MEDS: IBUPROFEN 400 MG TABLET (FP) PO PRN (08:37)
[2016-12-11] MEDS: NICOTINE 21 MG/24 HOURS TOPICAL PATCH TD SCH (10:05)
[2016-12-11] MEDS: PANTOPRAZOLE 40 MG TABLET (FP) PO SCH (10:06)
[2016-12-11] MEDS: PRENATAL VITAMINS W/ FOLIC ACID TABLET (FP) PO SCH (10:06)
[2016-12-11] MEDS: amLODIPine BESYLATE 10 MG TABLET (FP) PO SCH (10:06)
[2016-12-11] MEDS: METHYL SALICYLATE/MENTHOL OINT 30 GM TUBE TP SCH ×2 (10:07→21:13)
[2016-12-11] MEDS: TOLNAFTATE 1% CREAM 15 GM TUBE TP SCH ×2 (10:07→21:13)
[2016-12-11] MEDS ORDERED: INSULIN (NOVOLOG) ASPART 100 UNITS/ML 10ML VIAL ONE ×2 (12:10→21:50)
[2016-12-11] MEDS: INSULIN DETEMIR 100 UNITS/ML MDV SQ SCH (21:12)
[2016-12-11] MEDS: THIAMINE HCL 100 MG TABLET (FP) PO SCH (21:13)
[2016-12-11] MEDS: diphenhydrAMINE HCL 50 MG CAPSULE PO PRN (21:13)
[2016-12-12] MEDS: metFORMIN HCL 500 MG TABLET (FP) PO SCH ×2 (06:44→16:35)
[2016-12-12] MEDS: INSULIN SLIDING SCALE (NOVOLOG) 1 VIAL SQ SCH ×4 (06:47→21:41)
[2016-12-12] MEDS ORDERED: INSULIN (NOVOLOG) ASPART 100 UNITS/ML 10ML VIAL ONE ×3 (06:53→16:35)
[2016-12-12] MEDS: amLODIPine BESYLATE 10 MG TABLET (FP) PO SCH (09:29)
[2016-12-12] MEDS: PRENATAL VITAMINS W/ FOLIC ACID TABLET (FP) PO SCH (09:29)
[2016-12-12] MEDS: NICOTINE 21 MG/24 HOURS TOPICAL PATCH TD SCH (09:29)
[2016-12-12] MEDS: PANTOPRAZOLE 40 MG TABLET (FP) PO SCH (09:29)
[2016-12-12] MEDS: METHYL SALICYLATE/MENTHOL OINT 30 GM TUBE TP SCH ×2 (09:29→21:41)
[2016-12-12] MEDS: TOLNAFTATE 1% CREAM 15 GM TUBE TP SCH ×2 (09:29→21:41)
[2016-12-12] MEDS: THIAMINE HCL 100 MG TABLET (FP) PO SCH (21:33)
[2016-12-12] MEDS: diphenhydrAMINE HCL 50 MG CAPSULE PO PRN (21:33)
[2016-12-12] MEDS: INSULIN DETEMIR 100 UNITS/ML MDV SQ SCH (21:41)
[2016-12-13] MEDS: metFORMIN HCL 500 MG TABLET (FP) PO SCH ×2 (06:54→16:34)
[2016-12-13] MEDS: INSULIN SLIDING SCALE (NOVOLOG) 1 VIAL SQ SCH ×4 (06:56→21:09)
[2016-12-13] MEDS ORDERED: INSULIN (NOVOLOG) ASPART 100 UNITS/ML 10ML VIAL ONE ×4 (07:47→21:06)
[2016-12-13] MEDS: TOLNAFTATE 1% CREAM 15 GM TUBE TP SCH ×2 (09:37→21:09)
[2016-12-13] MEDS: PANTOPRAZOLE 40 MG TABLET (FP) PO SCH (09:37)
[2016-12-13] MEDS: amLODIPine BESYLATE 10 MG TABLET (FP) PO SCH (09:37)
[2016-12-13] MEDS: PRENATAL VITAMINS W/ FOLIC ACID TABLET (FP) PO SCH (09:37)
[2016-12-13] MEDS: METHYL SALICYLATE/MENTHOL OINT 30 GM TUBE TP SCH ×2 (09:37→21:09)
[2016-12-13] MEDS: NICOTINE 21 MG/24 HOURS TOPICAL PATCH TD SCH (09:37)
[2016-12-13] MEDS: diphenhydrAMINE HCL 50 MG CAPSULE PO PRN (21:07)
[2016-12-13] MEDS: THIAMINE HCL 100 MG TABLET (FP) PO SCH (21:07)
[2016-12-13] MEDS: INSULIN DETEMIR 100 UNITS/ML MDV SQ SCH (21:09)
[2016-12-14] MEDS: INSULIN SLIDING SCALE (NOVOLOG) 1 VIAL SQ SCH ×4 (07:16→21:38)
[2016-12-14] MEDS: metFORMIN HCL 500 MG TABLET (FP) PO SCH ×2 (07:16→17:02)
[2016-12-14] MEDS ORDERED: INSULIN (NOVOLOG) ASPART 100 UNITS/ML 10ML VIAL ONE ×3 (07:17→22:17)
[2016-12-14] MEDS: PANTOPRAZOLE 40 MG TABLET (FP) PO SCH (09:47)
[2016-12-14] MEDS: amLODIPine BESYLATE 10 MG TABLET (FP) PO SCH (09:47)
[2016-12-14] MEDS: PRENATAL VITAMINS W/ FOLIC ACID TABLET (FP) PO SCH (09:47)
[2016-12-14] MEDS: IBUPROFEN 400 MG TABLET (FP) PO PRN (09:47)
[2016-12-14] MEDS: TOLNAFTATE 1% CREAM 15 GM TUBE TP SCH ×2 (09:48→21:38)
[2016-12-14] MEDS: NICOTINE 21 MG/24 HOURS TOPICAL PATCH TD SCH (09:49)
[2016-12-14] MEDS: METHYL SALICYLATE/MENTHOL OINT 30 GM TUBE TP SCH ×2 (09:49→21:39)
[2016-12-14] MEDS: diphenhydrAMINE HCL 50 MG CAPSULE PO PRN (21:39)
[2016-12-14] MEDS: INSULIN DETEMIR 100 UNITS/ML MDV SQ SCH (21:39)
[2016-12-14] MEDS: THIAMINE HCL 100 MG TABLET (FP) PO SCH (21:39)
[2016-12-15] MEDS: metFORMIN HCL 500 MG TABLET (FP) PO SCH ×2 (06:15→16:35)
[2016-12-15] MEDS: INSULIN SLIDING SCALE (NOVOLOG) 1 VIAL SQ SCH ×4 (06:16→21:32)
[2016-12-15] MEDS ORDERED: INSULIN (NOVOLOG) ASPART 100 UNITS/ML 10ML VIAL ONE ×4 (08:02→21:30)
[2016-12-15] MEDS: PRENATAL VITAMINS W/ FOLIC ACID TABLET (FP) PO SCH (09:38)
[2016-12-15] MEDS: PANTOPRAZOLE 40 MG TABLET (FP) PO SCH (09:39)
[2016-12-15] MEDS: amLODIPine BESYLATE 10 MG TABLET (FP) PO SCH (09:39)
[2016-12-15] MEDS: TOLNAFTATE 1% CREAM 15 GM TUBE TP SCH ×2 (09:39→21:33)
[2016-12-15] MEDS: ALBUTEROL SO4 6.7 GM HFA INHALER IH PRN (09:39)
[2016-12-15] MEDS: METHYL SALICYLATE/MENTHOL OINT 30 GM TUBE TP SCH ×2 (09:40→21:32)
[2016-12-15] MEDS: NICOTINE 21 MG/24 HOURS TOPICAL PATCH TD SCH (09:40)
[2016-12-15] MEDS: diphenhydrAMINE HCL 50 MG CAPSULE PO PRN (21:31)
[2016-12-15] MEDS: THIAMINE HCL 100 MG TABLET (FP) PO SCH (21:31)
[2016-12-15] MEDS: INSULIN DETEMIR 100 UNITS/ML MDV SQ SCH (21:32)
[2016-12-16] MEDS ORDERED: INSULIN (NOVOLOG) ASPART 100 UNITS/ML 10ML VIAL ONE ×3 (07:25→17:02)
[2016-12-16] MEDS: metFORMIN HCL 500 MG TABLET (FP) PO SCH ×2 (07:25→17:03)
[2016-12-16] MEDS: INSULIN SLIDING SCALE (NOVOLOG) 1 VIAL SQ SCH ×4 (07:25→21:05)
[2016-12-16] MEDS: NICOTINE 21 MG/24 HOURS TOPICAL PATCH TD SCH (09:34)
[2016-12-16] MEDS: PANTOPRAZOLE 40 MG TABLET (FP) PO SCH (09:34)
[2016-12-16] MEDS: METHYL SALICYLATE/MENTHOL OINT 30 GM TUBE TP SCH ×2 (09:34→22:51)
[2016-12-16] MEDS: PRENATAL VITAMINS W/ FOLIC ACID TABLET (FP) PO SCH (09:34)
[2016-12-16] MEDS: amLODIPine BESYLATE 10 MG TABLET (FP) PO SCH (09:34)
[2016-12-16] MEDS: TOLNAFTATE 1% CREAM 15 GM TUBE TP SCH ×2 (09:35→22:52)
[2016-12-16] MEDS: IBUPROFEN 400 MG TABLET (FP) PO PRN ×2 (11:24→21:10)
--- NOTE | 2016-12-16 15:11 | PN ---
BHS Progress Note (SOAP) Subjective: left buttock abscess Objective: 12/16/16 15:09 Vital Signs Temperature 97.9 F 12/16/16 07:38 Pulse Rate 102 H 12/16/16 10:02 Respiratory Rate 18 12/16/16 10:02 Blood Pressure 146/83 12/16/16 10:02 O2 Sat by Pulse Oximetry (%) left buttock abscess, tender 2.5 cm x 1 .5 Assessment: 12/16/16 15:10 left buttock abscess dm Plan: doxycycline 100mg bid warm compresses glycemic cntrol
[2016-12-16] MEDS: DOXYCYCLINE HYCLATE 100 MG TABLET PO SCH (17:42)
[2016-12-16] MEDS: diphenhydrAMINE HCL 50 MG CAPSULE PO PRN (21:08)
[2016-12-16] MEDS: THIAMINE HCL 100 MG TABLET (FP) PO SCH (21:09)
[2016-12-16] MEDS: INSULIN DETEMIR 100 UNITS/ML MDV SQ SCH (22:50)
[2016-12-17] MEDS: metFORMIN HCL 500 MG TABLET (FP) PO SCH ×2 (06:30→17:05)
[2016-12-17] MEDS: INSULIN SLIDING SCALE (NOVOLOG) 1 VIAL SQ SCH ×4 (06:33→21:23)
[2016-12-17] MEDS ORDERED: INSULIN (NOVOLOG) ASPART 100 UNITS/ML 10ML VIAL ONE ×4 (07:47→20:27)
[2016-12-17] MEDS: DOXYCYCLINE HYCLATE 100 MG TABLET PO SCH ×2 (09:32→17:58)
[2016-12-17] MEDS: METHYL SALICYLATE/MENTHOL OINT 30 GM TUBE TP SCH ×2 (09:32→22:32)
[2016-12-17] MEDS: NICOTINE 21 MG/24 HOURS TOPICAL PATCH TD SCH (09:32)
[2016-12-17] MEDS: amLODIPine BESYLATE 10 MG TABLET (FP) PO SCH (09:32)
[2016-12-17] MEDS: PANTOPRAZOLE 40 MG TABLET (FP) PO SCH (09:32)
[2016-12-17] MEDS: PRENATAL VITAMINS W/ FOLIC ACID TABLET (FP) PO SCH (09:32)
[2016-12-17] MEDS: IBUPROFEN 400 MG TABLET (FP) PO PRN ×2 (09:33→16:01)
[2016-12-17] MEDS: TOLNAFTATE 1% CREAM 15 GM TUBE TP SCH ×2 (09:33→22:32)
[2016-12-17] MEDS: THIAMINE HCL 100 MG TABLET (FP) PO SCH (21:22)
[2016-12-17] MEDS: diphenhydrAMINE HCL 50 MG CAPSULE PO PRN (21:22)
[2016-12-17] MEDS: INSULIN DETEMIR 100 UNITS/ML MDV SQ SCH (21:23)
[2016-12-18] MEDS: IBUPROFEN 400 MG TABLET (FP) PO PRN ×2 (06:15→17:42)
[2016-12-18] MEDS: metFORMIN HCL 500 MG TABLET (FP) PO SCH ×2 (07:37→16:46)
[2016-12-18] MEDS: INSULIN SLIDING SCALE (NOVOLOG) 1 VIAL SQ SCH ×4 (07:37→21:11)
[2016-12-18] MEDS ORDERED: INSULIN (NOVOLOG) ASPART 100 UNITS/ML 10ML VIAL ONE ×3 (07:38→22:54)
[2016-12-18] MEDS: METHYL SALICYLATE/MENTHOL OINT 30 GM TUBE TP SCH ×2 (09:33→21:12)
[2016-12-18] MEDS: TOLNAFTATE 1% CREAM 15 GM TUBE TP SCH ×2 (09:33→21:12)
[2016-12-18] MEDS: PANTOPRAZOLE 40 MG TABLET (FP) PO SCH (09:34)
[2016-12-18] MEDS: NICOTINE 21 MG/24 HOURS TOPICAL PATCH TD SCH (09:34)
[2016-12-18] MEDS: PRENATAL VITAMINS W/ FOLIC ACID TABLET (FP) PO SCH (09:34)
[2016-12-18] MEDS: amLODIPine BESYLATE 10 MG TABLET (FP) PO SCH (09:34)
[2016-12-18] MEDS: DOXYCYCLINE HYCLATE 100 MG TABLET PO SCH ×2 (09:35→17:41)
[2016-12-18] MEDS ORDERED: PT OWN MED DRAWER 7, Y5N ONE (19:13)
[2016-12-18] MEDS: diphenhydrAMINE HCL 50 MG CAPSULE PO PRN (21:10)
[2016-12-18] MEDS: THIAMINE HCL 100 MG TABLET (FP) PO SCH (21:10)
[2016-12-18] MEDS: INSULIN DETEMIR 100 UNITS/ML MDV SQ SCH (21:11)
[2016-12-19] MEDS: IBUPROFEN 400 MG TABLET (FP) PO PRN ×4 (00:06→23:47)
[2016-12-19] MEDS: diphenhydrAMINE HCL 50 MG CAPSULE PO PRN ×3 (00:07→23:47)
[2016-12-19] MEDS: metFORMIN HCL 500 MG TABLET (FP) PO SCH ×2 (07:13→16:42)
[2016-12-19] MEDS ORDERED: INSULIN (NOVOLOG) ASPART 100 UNITS/ML 10ML VIAL ONE ×4 (07:13→22:27)
[2016-12-19] MEDS: INSULIN SLIDING SCALE (NOVOLOG) 1 VIAL SQ SCH ×4 (07:13→21:18)
[2016-12-19] MEDS ORDERED: PT OWN MED DRAWER 7, Y5N ONE ×3 (09:33→22:29)
[2016-12-19] MEDS: METHYL SALICYLATE/MENTHOL OINT 30 GM TUBE TP SCH ×2 (09:34→21:19)
[2016-12-19] MEDS: TOLNAFTATE 1% CREAM 15 GM TUBE TP SCH ×2 (09:34→21:19)
[2016-12-19] MEDS: PRENATAL VITAMINS W/ FOLIC ACID TABLET (FP) PO SCH (09:34)
[2016-12-19] MEDS: amLODIPine BESYLATE 10 MG TABLET (FP) PO SCH (09:34)
[2016-12-19] MEDS: PANTOPRAZOLE 40 MG TABLET (FP) PO SCH (09:34)
[2016-12-19] MEDS: DOXYCYCLINE HYCLATE 100 MG TABLET PO SCH ×2 (09:34→17:29)
[2016-12-19] MEDS: NICOTINE 21 MG/24 HOURS TOPICAL PATCH TD SCH (09:36)
[2016-12-19] MEDS: INSULIN DETEMIR 100 UNITS/ML MDV SQ SCH (21:19)
[2016-12-19] MEDS: THIAMINE HCL 100 MG TABLET (FP) PO SCH (21:20)
[2016-12-20] MEDS: IBUPROFEN 400 MG TABLET (FP) PO PRN ×2 (06:11→13:21)
[2016-12-20] MEDS: metFORMIN HCL 500 MG TABLET (FP) PO SCH ×2 (07:29→16:42)
[2016-12-20] MEDS ORDERED: INSULIN (NOVOLOG) ASPART 100 UNITS/ML 10ML VIAL ONE ×4 (07:29→22:09)
[2016-12-20] MEDS: INSULIN SLIDING SCALE (NOVOLOG) 1 VIAL SQ SCH ×4 (07:29→21:13)
[2016-12-20] MEDS: PANTOPRAZOLE 40 MG TABLET (FP) PO SCH (09:31)
[2016-12-20] MEDS: DOXYCYCLINE HYCLATE 100 MG TABLET PO SCH ×2 (09:31→17:19)
[2016-12-20] MEDS: amLODIPine BESYLATE 10 MG TABLET (FP) PO SCH (09:31)
[2016-12-20] MEDS: METHYL SALICYLATE/MENTHOL OINT 30 GM TUBE TP SCH ×2 (09:31→21:13)
[2016-12-20] MEDS: PRENATAL VITAMINS W/ FOLIC ACID TABLET (FP) PO SCH (09:32)
[2016-12-20] MEDS: NICOTINE 21 MG/24 HOURS TOPICAL PATCH TD SCH (09:32)
[2016-12-20] MEDS: TOLNAFTATE 1% CREAM 15 GM TUBE TP SCH ×2 (09:32→21:13)
[2016-12-20] MEDS: diphenhydrAMINE HCL 50 MG CAPSULE PO PRN ×2 (21:11→23:29)
[2016-12-20] MEDS: THIAMINE HCL 100 MG TABLET (FP) PO SCH (21:11)
[2016-12-20] MEDS: INSULIN DETEMIR 100 UNITS/ML MDV SQ SCH (21:13)
[2016-12-21] MEDS: metFORMIN HCL 500 MG TABLET (FP) PO SCH (06:35)
[2016-12-21] MEDS: INSULIN SLIDING SCALE (NOVOLOG) 1 VIAL SQ SCH (06:37)
[2016-12-21] MEDS ORDERED: INSULIN (NOVOLOG) ASPART 100 UNITS/ML 10ML VIAL ONE (06:39)
--- NOTE | 2016-12-21 06:51 | PN ---
Psychiatric Progress Note Vital Signs: Vital Signs Period Temp Pulse Resp BP Sys/Leija Pulse Ox Last 24 Hr 97 18 142/93 Date of Session: 12/21/16 Chief Complaint:: Psychiatrist Discharge Note HPI: Patient addressing Alcohol and Cocaine Dependence comorbid with Nicotine Dependence ROS: Asthma, type II DM, HTN were medically managed Current Medications: Active Medications Generic Name Dose Route Start Last Admin Trade Name Freq PRN Reason Stop Dose Admin Acetaminophen 650 mg 12/01/16 13:36 12/17/16 21:22 Tylenol - PO 650 mg Q4H PRN Administration FEVER OR PAIN Al Hydroxide/Mg Hydroxide 30 ml 12/01/16 13:36 Mylanta Oral Suspension - PO Q6H PRN DYSPEPSIA Albuterol Sulfate 2 puff 12/01/16 13:38 12/15/16 09:39 Ventolin Hfa Inhaler - IH 2 inh Q6H PRN Administration ASTHMA Amlodipine Besylate 10 mg 12/02/16 10:00 12/20/16 09:31 Norvasc - PO 10 mg DAILY LAURA Administration Diphenhydramine HCl 50 mg 12/01/16 13:36 12/20/16 23:29 Benadryl - PO 50 mg HSMR1 PRN Administration FOR ITCHING Doxycycline Hyclate 100 mg 12/16/16 18:00 12/20/16 17:19 Vibratab - PO 100 mg BID@1000,1800 LAURA Administration Eucalyptus/Menthol/Phenol/Sorbitol 1 each 12/01/16 13:36 Cepastat Lozenge - MM Q4H PRN SORE THROAT Guaifenesin 10 ml 12/01/16 13:36 Robitussin Dm - PO Q6H PRN COUGH Ibuprofen 400 mg 12/01/16 13:36 12/20/16 13:21 Motrin - PO 400 mg Q6H PRN Administration PAIN Insulin Aspart 1 vial 12/02/16 22:00 12/21/16 06:37 Novolog Vial Sliding Scale - SQ 2 units ACHS LAURA Administration Protocol Insulin Detemir 26 units 12/01/16 22:00 12/20/16 21:13 Levemir Vial SQ 26 units HS LAURA Administration Loperamide HCl 4 mg 12/01/16 13:36 12/01/16 21:24 Imodium - PO 4 mg Q6H PRN Administration DIARRHEA Magnesium Hydroxide 30 ml 12/01/16 13:36 Milk Of Magnesia - PO DAILY PRN CONSTIPATION Metformin HCl 1,000 mg 12/01/16 16:30 12/21/16 06:35 Glucophage - PO 1,000 mg BID@0700,1630 LAURA Administration Methyl Salicylate 1 applic 12/02/16 22:00 12/20/16 21:13 Jay Jay-Leos - TP 1 applic BID LAURA Administration Nicotine 21 mg 12/02/16 10:00 12/20/16 09:32 Nicoderm Patch - TD Not Given DAILY LAURA Nicotine Polacrilex 4 mg 12/01/16 13:36 Nicorette Gum - BUC Q2H PRN NICOTINE REPLACEMENT RX Pantoprazole Sodium 40 mg 12/09/16 10:00 12/20/16 09:31 Protonix - PO 40 mg DAILY LAURA Administration Multivit/Folic Acid/Iron 1 tab 12/02/16 10:00 12/20/16 09:32 Vitamins (Sjr) - PO 1 tab DAILY LAURA Administration Pseudoephedrine/Triprolidine 1 combo 12/01/16 13:36 Actifed - PO TID PRN NASAL CONGESTION Thiamine HCl 100 mg 12/01/16 22:00 12/20/16 21:11 Vitamin B1 - PO 100 mg HS LAURA Administration Tolnaftate 1 applic 12/01/16 22:00 12/20/16 21:13 Tinactin 1% Cream - TP Not Given BID LAURA Current Side Effect: No Lab tests ordered: Yes Lab tests reviewed: Yes Provider note:: Patient has completed this program today. Has met his treatment goals and sravanthi continue to address his issues in outpatient treatment at [facility]. 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 He is stable for discharge today Total face to face time:: 35 Mental Status Exam - Mental Status Exam Alert and Oriented to: Time, Place, Person Cognitive Function: Fair Patient Appearance: Well Groomed Mood: Hopeful, Euthymic Affect: Appropriate Patient Behavior: Cooperative Speech Pattern: Clear Voice Loudness: Normal Thought Process: Intact, Goal Oriented Thought Disorder: Not Present Hallucinations: Denies Suicidal Ideation: Denies Homicidal Ideation: Denies Insight/Judgement: Fair Sleep: Fair Appetite: Good Muscle strength/Tone: Normal Gait/Station: Normal Psychiatric Treatment Plan - Problem List (1) Alcohol dependence Current Visit: Yes (2) Cocaine dependence Current Visit: No (3) Nicotine dependence Current Visit: No Qualifiers: (4) Asthma Current Visit: No Qualifiers: (5) Diabetes type 2, uncontrolled Current Visit: No (6) H/O hearing loss Current Visit: No Comment: childhood trauma (7) Hypertension Current Visit: No Qualifiers: Initial treatment plan: Patient is discharged today and referred to [facility] for outpatient treatment
[2016-12-21 07:25] VITALS: TEMP 98.3
[2016-12-21 10:15] VITALS: BP 135/92; PULSE 112
== END 2016-12-21 09:55 | disposition home or self-care (01) | DRG 772 ==
LOC: YASAS 12:19 → Y3W 12:21
PROVIDERS: ADMIT Psychiatry & Neurology Psychiatry; ATTEND Psychiatry & Neurology Psychiatry
PROC: HZ42ZZZ Group Counseling for Substance Abuse Treatment, Cognitive-Behavioral (ICD-10-PCS; principal; 2016-12-01)
DX: F10.20 Alcohol dependence, uncomplicated (principal); F14.20 Cocaine dependence, uncomplicated; F17.210 Nicotine dependence, cigarettes, uncomplicated; J45.909 Unspecified asthma, uncomplicated; E11.65 Type 2 diabetes mellitus with hyperglycemia; Z79.4 Long term (current) use of insulin; I10 Essential (primary) hypertension; H91.90 Unspecified hearing loss, unspecified ear; L02.31 Cutaneous abscess of buttock; E66.9 Obesity, unspecified; Z68.33 Body mass index [BMI] 33.0-33.9, adult; K21.9 Gastro-esophageal reflux disease without esophagitis

== ENCOUNTER 2017-02-10 11:04 | Inpatient (IN) | payer OTHER ==
[2017-02-10 13:21] VITALS: BMI 34.2
--- NOTE | 2017-02-10 14:49 | HP ---
CIWA Score - CIWA Score Nausea/Vomitin-Int. Nausea w/Dry Heave Muscle Tremors: 4-Moderate,w/Arms Extend Anxiety: 4-Mod. Anxious/Guarded Agitation: 3 Paroxysmal Sweats: 1-Minimal Palms Moist Orientation: 0-Oriented Tacttile Disturbances: 3-Moderate Itch/Numb/Burn Auditory Disturbances: 0-None Visual Disturbances: 0-None Headache: 1-Very Mild CIWA-Ar Total Score: 20 Admission ROS S - HPI Chief Complaint: DETOX TX FOR ALCOHOL DEPENDENCE. Allergies/Adverse Reactions: Allergies Allergy/AdvReac Type Severity Reaction Status Date / Time No Known Allergies Allergy Verified 11/27/16 13:07 History of Present Illness: 46 Y/O AA/MALE WITH A HX OF ALCOHOL AND COCAINE DEPENDENCE SEEKING DETOX TX Exam Limitations: No Limitations - Ebola screening Have you traveled outside of the country in the last 21 days: No Have you had contact with anyone from an Ebola affected area: No Have you been sick,other than usual withdrawal symptoms: No Do you have a fever: No - Review of Systems Constitutional: Chills, Night Sweats, Changes in sleep EENT: reports: Blurred Vision, Tearing, Nose Congestion, Sinus Pressure, Dental Problems (MISSING TEETH) Respiratory: reports: Shortness of Breath (HX ASTHMA), Wheezing Cardiac: reports: Chest Pain (ON/OFF---CHECKED OUT AT [facility] BUT TOLD "EVERYTHING IS ALRIGHT".), Lightheadedness, Chest Tightness (NO KNOWN CAUSE....ON/OFF) GI: reports: Constipated, Diarrhea, Nausea, Vomiting, Abdominal cramping : reports: Frequency Musculoskeletal: reports: Back Pain, Joint Pain (KNEE PAIN/WEAKNESS), Muscle Pain Integumentary: reports: Rash (ITCHY FEET), Other (RIGHT BUTTOCK SX FOR CYST LATER PART LAST YEAR 2015.) Neuro: reports: Headache, Tremors, Unsteady Gait, Dizziness Endocrine: reports: No Symptoms Reported Hematology: reports: Other (MILD VARICOSE VEINS ESPECIALLY LEFT LOWER LEG) Psychiatric: reports: Orientated x3, Anxious, Depressed Other Systems: Reviewed and Negative Patient History - Patient Medical History Hx Anemia: No Hx Asthma: Yes (MDI) Hx Chronic Obstructive Pulmonary Disease (COPD): No Hx Cancer: No Hx Cardiac Disorders: No Hx Congestive Heart Failure: No Hx Hypertension: Yes (ON NORVASC) Hx Hypercholesterolemia: No Hx Pacemaker: No HX Cerebrovascular Accident: No Hx Seizures: No Hx Dementia: No Hx Diabetes: Yes (METFORMIN 1000 MG BID) Hx Gastrointestinal Disorders: Yes (GERD-PEPCID) Hx Liver Disease: No Hx Genitourinary Disorders: No Hx Sexually Transmitted Disorders: No Hx Renal Disease (ESRD): No Hx Thyroid Disease: No Hx Human Immunodeficiency Virus (HIV): No (NEGATIVE HX) Hx Hepatitis C: No Hx Depression: No Hx Suicide Attempt: No (DENIES) Hx Bipolar Disorder: No Hx Schizophrenia: No - Patient Surgical History Past Surgical History: Yes Hx Neurologic Surgery: No Hx Cataract Extraction: No Hx Cardiac Surgery: No Hx Lung Surgery: No Hx Breast Surgery: No Hx Breast Biopsy: No Hx Abdominal Surgery: No Hx Appendectomy: No Hx Cholecystectomy: No Hx Genitourinary Surgery: No Hx Orthopedic Surgery: No Other Surgical History: removed cyst in the right buttock in 2013 & 2016. Anesthesia Reaction: No - PPD History Previous Implant?: Yes Documented Results: Negative w/proof Date: 11/29/16 Results: 0 mm PPD to be Administered?: No - Reproductive History Patient is a Female of Child Bearing Age (11 -55 yrs old): No (MALE) - Smoking Cessation Smoking history: Current every day smoker Have you smoked in the past 12 months: Yes Aproximately how many cigarettes per day: 4 Hx Chewing Tobacco Use: No Initiated information on smoking cessation: Yes 'Breaking Loose' booklet given: 02/10/17 - Substance & Tx. History Hx Alcohol Use: Yes (VODKA/BEER) Hx Substance Use: Yes (COCAINE) Substance Use Type: Alcohol, Cocaine Hx Substance Use Treatment: Yes ([facility]-DETOX) - Substances Abused Alcohol Route: Oral Frequency: Daily Amount used: 2 6PKS/I PT Age of first use: 23 Date of Last Use: 02/10/17 Cocaine Route: Smoking (AND INHALATION) Frequency: Daily Amount used: $50 Age of first use: 23 Date of Last Use: 02/09/17 Family Disease History - Family Disease History Family Disease History: Diabetes: Mother, Sister, CA: Mother, Respiratory: Mother, Brother, Sister, Daughter Admission Physical Exam BHS - Vital Signs Vital Signs: Vital Signs - 24 hr 02/10/17 13:19 Temperature 97.8 F Pulse Rate 97 H Respiratory 20 Rate Blood Pressure 142/94 - Physical General Appearance: Yes: Moderate Distress, Obese, Irritable, Anxious HEENTM: Yes: EOMI, Normocephalic, DENITA, Pharynx Normal, Nasal Congestion, Rhinorrhea Respiratory: Yes: Chest Non-Tender, Lungs Clear, Normal Breath Sounds, No Respiratory Distress Neck: Yes: No masses,lesions,Nodules, Supple, Trachea in good position Breast: Yes: Breast Exam Deferred Cardiology: Yes: Regular Rhythm, Regular Rate, S1, S2 Abdominal: Yes: Normal Bowel Sounds, Soft, Protuberent, Tenderness Genitourinary: Yes: Other (N/C) Back: Yes: Within Normal Limits, Vertebral Tenderness Musculoskeletal: Yes: Gait Steady Extremities: Yes: Normal Range of Motion, Non-Tender 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 NML intact, Fully Oriented, Alert Integumentary: Yes: Dry, Warm, Rash (DRY SCALY FEET) Lymphatic: Yes: Within Normal Limits - Diagnostic (1) Nicotine dependence Current Visit: Yes Status: Acute Qualifiers: Nicotine product type: cigarettes Substance use status: in withdrawal Qualified Code(s): F17.213 - Nicotine dependence, cigarettes, with withdrawal (2) Alcohol dependence with uncomplicated withdrawal Current Visit: Yes Status: Acute (3) Asthma Current Visit: Yes Status: Chronic Qualifiers: Asthma severity: mild intermittent Asthma complication type: uncomplicated Qualified Code(s): J45.20 - Mild intermittent asthma, uncomplicated (4) Diabetes type 2, uncontrolled Current Visit: Yes Status: Chronic (5) Hypertension Current Visit: Yes Status: Chronic Qualifiers: Hypertension type: essential hypertension Qualified Code(s): I10 - Essential (primary) hypertension (6) Cocaine dependence, uncomplicated Current Visit: Yes Status: Acute (7) Tinea pedis Current Visit: Yes Status: Acute Qualifiers: Laterality: bilateral Qualified Code(s): B35.3 - Tinea pedis Cleared for Admission BHS - Detox or Rehab [facility] Level of Care: Medically Managed Detox Regimen/Protocol: Librium [facility] Breath Alcohol Content Breath Alcohol Content: 0 Urine Drug Screen - Results Drug Screen Negative: No Urine Drug Screen Results: YUE-Cocaine, OPI-Opiates, BZO-Benzodiazepines
[2017-02-10] MEDS ORDERED: chlordiazePOXIDE HCL 25 MG CAPSULE PO PRN (15:03)
[2017-02-10] MEDS ORDERED: MAG HYDROX/AL HYDROX/SIMETH 30 ML UNIT-DOSE CUP PO PRN (15:03)
[2017-02-10] MEDS ORDERED: MENTHOL/PHENOL 1 EACH UD MM PRN (15:03)
[2017-02-10] MEDS ORDERED: P-EPHED 60MG/TRIPROLIDI 2.5MG TABLET PO PRN (15:03)
[2017-02-10] MEDS ORDERED: LOPERAMIDE HCL 2 MG CAPSULE PO PRN (15:03)
[2017-02-10] MEDS ORDERED: NICOTINE POLACRILEX 2 MG GUM BC PRN (15:03)
[2017-02-10] MEDS ORDERED: IBUPROFEN 400 MG TABLET (FP) PO PRN (15:03)
[2017-02-10] MEDS ORDERED: guaiFENesin/D-METHORPHAN HB 10 ML UNIT-DOSE CUPS PO PRN (15:03)
[2017-02-10] MEDS ORDERED: MAGNESIUM CITRATE 300 ML BOTTLE PO PRN (15:03)
[2017-02-10] MEDS ORDERED: MAGNESIUM HYDROX 2400MG/30ML ORAL SUSPENSION 30 ML CUP PO PRN (15:03)
[2017-02-10] MEDS ORDERED: hydrOXYzine PAMOATE 25 MG CAPSULE (FP) PO PRN (15:03)
[2017-02-10] MEDS ORDERED: ALBUTEROL SO4 6.7 GM HFA INHALER IH PRN (16:24)
[2017-02-10] MEDS ORDERED: chlordiazePOXIDE HCL 25 MG CAPSULE PO ONE (17:45)
[2017-02-10] MEDS ORDERED: INSULIN (NOVOLOG) ASPART 100 UNITS/ML 10ML VIAL ONE ×2 (18:47→22:08)
[2017-02-10] MEDS: metFORMIN HCL 500 MG TABLET (FP) PO SCH (18:48)
[2017-02-10] MEDS: NICOTINE 14 MG/24 HOURS TOPICAL PATCH TD SCH (18:49)
[2017-02-10] MEDS: chlordiazePOXIDE HCL 25 MG CAPSULE PO SCH ×2 (18:49→22:04)
[2017-02-10] MEDS: INSULIN SLIDING SCALE (NOVOLOG) 1 VIAL SQ SCH ×2 (18:49→22:08)
[2017-02-10] MEDS: ACETAMINOPHEN 325 MG TABLET (FP) PO PRN (18:52)
[2017-02-10 21:35] LABS: URINE APPEARANCE CLEAR; URINE BILIRUBIN NEGATIVE (NEGATIVE); URINE BLOOD NEGATIVE (NEGATIVE); URINE COLOR STRAW; URINE GLUCOSE (UA) 3+ (NEGATIVE); URINE KETONE NEGATIVE (NEGATIVE); URINE NITRITE NEGATIVE (NEGATIVE); URINE UROBILINOGEN NEGATIVE E.U./dl (0.2-1.0)
[2017-02-10 21:40] LABS: URINE LEUK ESTERASE TRACE (NEGATIVE); URINE PROTEIN 1+ (NEGATIVE)
[2017-02-10 22:03] LABS: URINE RBC 2 /hpf (0-3); URINE WBC 9 /hpf (3-5)
[2017-02-10] MEDS: THIAMINE HCL 100 MG TABLET (FP) PO SCH (22:04)
[2017-02-10] MEDS: RANITIDINE HCL 150 MG TABLET (FP) PO SCH (22:04)
[2017-02-10] MEDS: TOLNAFTATE 1% CREAM 15 GM TUBE TP SCH (22:05)
[2017-02-10] MEDS: diphenhydrAMINE HCL 50 MG CAPSULE PO PRN (22:09)
[2017-02-10] MEDS: INSULIN DETEMIR 100 UNITS/ML MDV SQ SCH (22:09)
[2017-02-11] MEDS: chlordiazePOXIDE HCL 25 MG CAPSULE PO SCH ×4 (06:03→22:12)
[2017-02-11] MEDS: metFORMIN HCL 500 MG TABLET (FP) PO SCH ×2 (06:05→16:59)
[2017-02-11] MEDS ORDERED: INSULIN (NOVOLOG) ASPART 100 UNITS/ML 10ML VIAL ONE ×4 (06:37→21:28)
[2017-02-11] MEDS: INSULIN SLIDING SCALE (NOVOLOG) 1 VIAL SQ SCH ×4 (06:58→21:34)
[2017-02-11] MEDS: RANITIDINE HCL 150 MG TABLET (FP) PO SCH ×2 (10:07→22:12)
[2017-02-11] MEDS: PRENATAL VITAMINS W/ FOLIC ACID TABLET (FP) PO SCH (10:07)
[2017-02-11] MEDS: amLODIPine BESYLATE 10 MG TABLET (FP) PO SCH (10:07)
[2017-02-11] MEDS: ASPIRIN 81 MG CHEWABLE TABLETS PO SCH (10:07)
[2017-02-11] MEDS: TOLNAFTATE 1% CREAM 15 GM TUBE TP SCH ×2 (10:08→22:12)
[2017-02-11] MEDS: NICOTINE 14 MG/24 HOURS TOPICAL PATCH TD SCH (10:08)
[2017-02-11] MEDS: ACETAMINOPHEN 325 MG TABLET (FP) PO PRN ×3 (10:08→22:26)
[2017-02-11 10:11] LABS: MCH 30.3 pg (25.7-33.7); MCHC 32.9 g/dl (32.0-35.9); MEAN PLT VOLUME 9.3 fl (7.5-11.1); PLATELET COUNT 195 K/MM3 (134-434); RDW 14.8 % (11.9-15.9); WHITE BLOOD COUNT 3.6 K/mm3 (4.0-10.0)
[2017-02-11 10:32] LABS: ALBUMIN 3.3 g/dl (3.4-5.0); ANION GAP 11 (8-16); CO2 25 mmol/L (21-32)
[2017-02-11 10:37] LABS: ALK PHOS 168 U/L (45-117); BILIRUBIN,TOTAL 0.4 mg/dL (0.2-1.0); COCKROFT - GAULT 118.55; CREATININE 1.1 mg/dL (0.7-1.3); SGOT/AST 15 U/L (15-37); SGPT/ALT 37 U/L (12-78); TOT PROT 7.3 g/dl (6.4-8.2)
[2017-02-11 10:39] LABS: GLUCOSE,RANDOM 358 mg/dL (74-106)
--- NOTE | 2017-02-11 11:15 | PN ---
[facility] CIWA - CIWA Score Nausea/Vomitin-No Nausea/No Vomiting Muscle Tremors: 4-Moderate,w/Arms Extend Anxiety: 4-Mod. Anxious/Guarded Agitation: 4-Moderately Restless Paroxysmal Sweats: 1-Minimal Palms Moist Orientation: 0-Oriented Tacttile Disturbances: 3-Moderate Itch/Numb/Burn Auditory Disturbances: 0-None Visual Disturbances: 0-None Headache: 0-None Present CIWA-Ar Total Score: 16 BHS Progress Note (SOAP) Subjective: ANXIETY,SWEATS, TREMORS, INTERMITTENT SLEEP. Objective: 02/11/17 11:09 Vital Signs Temperature 97.5 F L 02/11/17 09:18 Pulse Rate 83 02/11/17 09:18 Respiratory Rate 18 02/11/17 09:18 Blood Pressure 159/115 02/11/17 09:18 O2 Sat by Pulse Oximetry (%) Laboratory Last Values WBC 3.6 K/mm3 (4.0-10.0) L 02/11/17 06:00 RBC 4.82 M/mm3 (4.00-5.60) 02/11/17 06:00 Hgb 14.6 GM/dL (11.7-16.9) 02/11/17 06:00 Hct 44.4 % (35.4-49) 02/11/17 06:00 MCV 92.0 fl (80-96) 02/11/17 06:00 MCHC 32.9 g/dl (32.0-35.9) 02/11/17 06:00 RDW 14.8 % (11.9-15.9) 02/11/17 06:00 Plt Count 195 K/MM3 (134-434) 02/11/17 06:00 MPV 9.3 fl (7.5-11.1) 02/11/17 06:00 Sodium 138 mmol/L (136-145) 02/11/17 06:00 Potassium 4.2 mmol/L (3.5-5.1) 02/11/17 06:00 Chloride 102 mmol/L (98-107) 02/11/17 06:00 Carbon Dioxide 25 mmol/L (21-32) 02/11/17 06:00 Anion Gap 11 (8-16) 02/11/17 06:00 BUN 12 mg/dL (7-18) 02/11/17 06:00 Creatinine 1.1 mg/dL (0.7-1.3) 02/11/17 06:00 Creat Clearance w eGFR > 60 (>60) 02/11/17 06:00 POC Glucometer 301 UNITS (()) 02/11/17 06:02 Random Glucose 358 mg/dL (74-106) H* 02/11/17 06:00 Calcium 9.0 mg/dL (8.5-10.1) 02/11/17 06:00 Total Bilirubin 0.4 mg/dL (0.2-1.0) D 02/11/17 06:00 AST 15 U/L (15-37) D 02/11/17 06:00 ALT 37 U/L (12-78) D 02/11/17 06:00 Alkaline Phosphatase 168 U/L (45-117) H 02/11/17 06:00 Total Protein 7.3 g/dl (6.4-8.2) 02/11/17 06:00 Albumin 3.3 g/dl (3.4-5.0) L 02/11/17 06:00 Urine Color Straw 02/10/17 21:20 Urine Appearance Clear 02/10/17 21:20 Urine pH 6.0 (5.0-8.0) 02/10/17 21:20 Ur Specific [place] 1.022 (1.001-1.035) 02/10/17 21:20 Urine Protein 1+ (NEGATIVE) H 02/10/17 21:20 Urine Glucose (UA) 3+ (NEGATIVE) H 02/10/17 21:20 Urine Ketones Negative (NEGATIVE) 02/10/17 21:20 Urine Blood Negative (NEGATIVE) 02/10/17 21:20 Urine Nitrite Negative (NEGATIVE) 02/10/17 21:20 Urine Bilirubin Negative (NEGATIVE) 02/10/17 21:20 Urine Urobilinogen Negative E.U./dl (0.2-1.0) 02/10/17 21:20 Ur Leukocyte Esterase Trace (NEGATIVE) H 02/10/17 21:20 Urine RBC 2 /hpf (0-3) 02/10/17 21:20 Urine WBC 9 /hpf (3-5) 02/10/17 21:20 Assessment: 02/11/17 11:09 WITHDRAWAL SX Plan: CONTINUE DETOX
--- NOTE | 2017-02-11 13:34 | EKG ---
Test Reason : Blood Pressure : / mmHG Vent. Rate : 085 BPM Atrial Rate : 085 BPM P-R Int : 180 ms QRS Dur : 098 ms QT Int : 366 ms P-R-T Axes : 060 -03 028 degrees QTc Int : 435 ms NORMAL SINUS RHYTHM POSSIBLE LEFT ATRIAL ENLARGEMENT BORDERLINE ECG WHEN COMPARED WITH ECG OF 27-NOV-2016 14:44, NO SIGNIFICANT CHANGE WAS FOUND Confirmed by JAVIER GAINES MD ([id number]) on 02/11/2017 1:34:28 PM Referred By: Confirmed By:JAVIER GAINES MD
[2017-02-11] MEDS ORDERED: chlordiazePOXIDE HCL 25 MG CAPSULE PO ONE (14:00)
[2017-02-11 20:23] LABS: URINE APPEARANCE CLEAR; URINE BILIRUBIN NEGATIVE (NEGATIVE); URINE BLOOD NEGATIVE (NEGATIVE); URINE COLOR STRAW; URINE GLUCOSE (UA) 3+ (NEGATIVE); URINE KETONE NEGATIVE (NEGATIVE); URINE NITRITE NEGATIVE (NEGATIVE); URINE UROBILINOGEN NEGATIVE E.U./dl (0.2-1.0)
[2017-02-11 21:19] LABS: URINE LEUK ESTERASE 1+ (NEGATIVE); URINE PROTEIN 1+ (NEGATIVE)
[2017-02-11] MEDS: INSULIN DETEMIR 100 UNITS/ML MDV SQ SCH (21:34)
[2017-02-11] MEDS ORDERED: cloNIDine HCL 0.1 MG TABLET PO ONE (21:58)
[2017-02-11] MEDS: THIAMINE HCL 100 MG TABLET (FP) PO SCH (22:12)
[2017-02-11] MEDS: diphenhydrAMINE HCL 50 MG CAPSULE PO PRN (22:25)
[2017-02-11 22:48] LABS: URINE RBC 8 /hpf (0-3); URINE WBC 27 /hpf (3-5)
[2017-02-11 22:49] LABS: CALCIUM OXALATE CRYSTALS RARE /hpf (NONE SEEN); URINE BACTERIA RARE /hpf (NONE SEEN); URINE MUCUS RARE
[2017-02-12] MEDS: metFORMIN HCL 500 MG TABLET (FP) PO SCH ×2 (06:02→17:33)
[2017-02-12] MEDS: INSULIN SLIDING SCALE (NOVOLOG) 1 VIAL SQ SCH ×4 (06:04→21:45)
[2017-02-12] MEDS ORDERED: INSULIN (NOVOLOG) ASPART 100 UNITS/ML 10ML VIAL ONE ×5 (06:04→21:46)
[2017-02-12] MEDS: ACETAMINOPHEN 325 MG TABLET (FP) PO PRN (06:08)
[2017-02-12] MEDS: chlordiazePOXIDE HCL 25 MG CAPSULE PO SCH ×2 (06:09→10:05)
[2017-02-12] MEDS: IBUPROFEN 400 MG TABLET (FP) PO PRN ×2 (10:04→21:47)
[2017-02-12] MEDS: PRENATAL VITAMINS W/ FOLIC ACID TABLET (FP) PO SCH (10:05)
[2017-02-12] MEDS: TOLNAFTATE 1% CREAM 15 GM TUBE TP SCH ×2 (10:05→21:50)
[2017-02-12] MEDS: NICOTINE 14 MG/24 HOURS TOPICAL PATCH TD SCH (10:05)
[2017-02-12] MEDS: ASPIRIN 81 MG CHEWABLE TABLETS PO SCH (10:05)
[2017-02-12] MEDS: amLODIPine BESYLATE 10 MG TABLET (FP) PO SCH (10:05)
[2017-02-12] MEDS: RANITIDINE HCL 150 MG TABLET (FP) PO SCH ×2 (10:06→21:47)
--- NOTE | 2017-02-12 12:12 | PN ---
[facility] CIWA - CIWA Score Nausea/Vomitin-No Nausea/No Vomiting Muscle Tremors: 3 Anxiety: 4-Mod. Anxious/Guarded Agitation: 4-Moderately Restless Paroxysmal Sweats: 3 Orientation: 0-Oriented Tacttile Disturbances: 1-Very Mild Itch/Numbness Auditory Disturbances: 0-None Visual Disturbances: 0-None Headache: 0-None Present CIWA-Ar Total Score: 15 BHS Progress Note (SOAP) Subjective: Anxiety,tremors,sweating,interrupted sleep,restless. Objective: 02/12/17 12:10 Vital Signs - 8 hr 02/12/17 02/12/17 06:35 09:25 Temperature 96.6 F L 96.9 F L Pulse Rate 86 105 H Respiratory 18 20 Rate Blood Pressure 126/92 135/91 Laboratory Tests 02/10/17 02/10/17 02/10/17 16:07 18:42 21:20 WBC RBC Hgb Hct MCV MCHC RDW Plt Count MPV Sodium Potassium Chloride Carbon Dioxide Anion Gap BUN Creatinine Creat Clearance w eGFR POC Glucometer 427 337 Random Glucose Calcium Total Bilirubin AST ALT Alkaline Phosphatase Total Protein Albumin Urine Color Straw Urine Appearance Clear Urine pH 6.0 Ur Specific [place] 1.022 Urine Protein 1+ H Urine Glucose (UA) 3+ H Urine Ketones Negative Urine Blood Negative Urine Nitrite Negative Urine Bilirubin Negative Urine Urobilinogen Negative Ur Leukocyte Esterase Trace H Urine RBC 2 Urine WBC 9 Ur Epithelial Cells Calcium Oxalate Crystal Urine Bacteria Urine Mucus RPR Titer 02/10/17 02/11/17 02/11/17 22:05 06:00 06:00 WBC 3.6 L RBC 4.82 Hgb 14.6 Hct 44.4 MCV 92.0 MCHC 32.9 RDW 14.8 Plt Count 195 MPV 9.3 Sodium 138 Potassium 4.2 Chloride 102 Carbon Dioxide 25 Anion Gap 11 BUN 12 Creatinine 1.1 Creat Clearance w eGFR > 60 POC Glucometer 269 Random Glucose 358 H* Calcium 9.0 Total Bilirubin 0.4 D AST 15 D ALT 37 D Alkaline Phosphatase 168 H Total Protein 7.3 Albumin 3.3 L Urine Color Urine Appearance Urine pH Ur Specific [place] Urine Protein Urine Glucose (UA) Urine Ketones Urine Blood Urine Nitrite Urine Bilirubin Urine Urobilinogen Ur Leukocyte Esterase Urine RBC Urine WBC Ur Epithelial Cells Calcium Oxalate Crystal Urine Bacteria Urine Mucus RPR Titer 02/11/17 02/11/1702/11/17 06:00 06:02 11:36 WBC RBC Hgb Hct MCV MCHC RDW Plt Count MPV Sodium Potassium Chloride Carbon Dioxide Anion Gap BUN Creatinine Creat Clearance w eGFR POC Glucometer 301 314 Random Glucose Calcium Total Bilirubin AST ALT Alkaline Phosphatase Total Protein Albumin Urine Color Urine Appearance Urine pH Ur Specific [place] Urine Protein Urine Glucose (UA) Urine Ketones Urine Blood Urine Nitrite Urine Bilirubin Urine Urobilinogen Ur Leukocyte Esterase Urine RBC Urine WBC Ur Epithelial Cells Calcium Oxalate Crystal Urine Bacteria Urine Mucus RPR Titer Nonreactive 02/11/17 02/11/17 02/11/17 16:25 19:45 21:22 WBC RBC Hgb Hct MCV MCHC RDW Plt Count MPV Sodium Potassium Chloride Carbon Dioxide Anion Gap BUN Creatinine Creat Clearance w eGFR POC Glucometer 305 312 Random Glucose Calcium Total Bilirubin AST ALT Alkaline Phosphatase Total Protein Albumin Urine Color Straw Urine Appearance Clear Urine pH 7.0 Ur Specific [place] 1.022 Urine Protein 1+ H Urine Glucose (UA) 3+ H Urine Ketones Negative Urine Blood Negative Urine Nitrite Negative Urine Bilirubin Negative Urine Urobilinogen Negative Ur Leukocyte Esterase 1+ H Urine RBC 8 Urine WBC 27 Ur Epithelial Cells Rare Calcium Oxalate Crystal Rare Urine Bacteria Rare Urine Mucus Rare RPR Titer 02/12/17 02/12/17 06:01 11:47 WBC RBC Hgb Hct MCV MCHC RDW Plt Count MPV Sodium Potassium Chloride Carbon Dioxide Anion Gap BUN Creatinine Creat Clearance w eGFR POC Glucometer 244 267 Random Glucose Calcium Total Bilirubin AST ALT Alkaline Phosphatase Total Protein Albumin Urine Color Urine Appearance Urine pH Ur Specific [place] Urine Protein Urine Glucose (UA) Urine Ketones Urine Blood Urine Nitrite Urine Bilirubin Urine Urobilinogen Ur Leukocyte Esterase Urine RBC Urine WBC Ur Epithelial Cells Calcium Oxalate Crystal Urine Bacteria Urine Mucus RPR Titer labs noted Assessment: 02/12/17 12:11 Withdrawal sx. Plan: Continue detox
[2017-02-12] MEDS: chlordiazePOXIDE 5 MG CAPSULE PO SCH ×2 (17:34→22:01)
[2017-02-12] MEDS: THIAMINE HCL 100 MG TABLET (FP) PO SCH (21:47)
[2017-02-12] MEDS: diphenhydrAMINE HCL 50 MG CAPSULE PO PRN (21:47)
[2017-02-12] MEDS: INSULIN DETEMIR 100 UNITS/ML MDV SQ SCH (21:49)
[2017-02-13] MEDS: IBUPROFEN 400 MG TABLET (FP) PO PRN (05:50)
[2017-02-13] MEDS: chlordiazePOXIDE 5 MG CAPSULE PO SCH ×2 (05:51→10:16)
[2017-02-13] MEDS: metFORMIN HCL 500 MG TABLET (FP) PO SCH ×2 (08:00→16:30)
[2017-02-13] MEDS: INSULIN SLIDING SCALE (NOVOLOG) 1 VIAL SQ SCH ×4 (08:12→22:05)
[2017-02-13] MEDS: RANITIDINE HCL 150 MG TABLET (FP) PO SCH ×2 (10:15→22:04)
[2017-02-13] MEDS: ASPIRIN 81 MG CHEWABLE TABLETS PO SCH (10:15)
[2017-02-13] MEDS: amLODIPine BESYLATE 10 MG TABLET (FP) PO SCH (10:15)
[2017-02-13] MEDS: NICOTINE 14 MG/24 HOURS TOPICAL PATCH TD SCH (10:16)
[2017-02-13] MEDS: PRENATAL VITAMINS W/ FOLIC ACID TABLET (FP) PO SCH (10:16)
[2017-02-13] MEDS: TOLNAFTATE 1% CREAM 15 GM TUBE TP SCH ×2 (10:16→22:46)
[2017-02-13] MEDS ORDERED: INSULIN (NOVOLOG) ASPART 100 UNITS/ML 10ML VIAL ONE ×3 (11:14→21:58)
[2017-02-13] MEDS: LIDOCAINE 5% TOPICAL PATCH TP SCH (11:15)
--- NOTE | 2017-02-13 15:31 | PN ---
BHS Progress Note (SOAP) Subjective: Stomach Ache, Sweating, Interrupted sleep, Back Ache, Diarrhea, Tremors. Objective: PT. A & O X 3, OBSERVED AMBULATING ON UNIT. PT. DENIES CHEST PAIN. 02/13/17 15:28 Vital Signs Temperature 98.0 F 02/13/17 13:43 Pulse Rate 104 H 02/13/17 13:43 Respiratory Rate 18 02/13/17 13:43 Blood Pressure 140/96 02/13/17 13:43 O2 Sat by Pulse Oximetry (%) Laboratory Last Values WBC 3.6 K/mm3 (4.0-10.0) L 02/11/17 06:00 RBC 4.82 M/mm3 (4.00-5.60) 02/11/17 06:00 Hgb 14.6 GM/dL (11.7-16.9) 02/11/17 06:00 Hct 44.4 % (35.4-49) 02/11/17 06:00 MCV 92.0 fl (80-96) 02/11/17 06:00 MCHC 32.9 g/dl (32.0-35.9) 02/11/17 06:00 RDW 14.8 % (11.9-15.9) 02/11/17 06:00 Plt Count 195 K/MM3 (134-434) 02/11/17 06:00 MPV 9.3 fl (7.5-11.1) 02/11/17 06:00 Sodium 138 mmol/L (136-145) 02/11/17 06:00 Potassium 4.2 mmol/L (3.5-5.1) 02/11/17 06:00 Chloride 102 mmol/L (98-107) 02/11/17 06:00 Carbon Dioxide 25 mmol/L (21-32) 02/11/17 06:00 Anion Gap 11 (8-16) 02/11/17 06:00 BUN 12 mg/dL (7-18) 02/11/17 06:00 Creatinine 1.1 mg/dL (0.7-1.3) 02/11/17 06:00 Creat Clearance w eGFR > 60 (>60) 02/11/17 06:00 POC Glucometer 353 UNITS (()) 02/13/17 10:44 Random Glucose 358 mg/dL (74-106) H* 02/11/17 06:00 Calcium 9.0 mg/dL (8.5-10.1) 02/11/17 06:00 Total Bilirubin 0.4 mg/dL (0.2-1.0) D 02/11/17 06:00 AST 15 U/L (15-37) D 02/11/17 06:00 ALT 37 U/L (12-78) D 02/11/17 06:00 Alkaline Phosphatase 168 U/L (45-117) H 02/11/17 06:00 Total Protein 7.3 g/dl (6.4-8.2) 02/11/17 06:00 Albumin 3.3 g/dl (3.4-5.0) L 02/11/17 06:00 Urine Color Straw 02/11/17 19:45 Urine Appearance Clear 02/11/17 19:45 Urine pH 7.0 (5.0-8.0) 02/11/17 19:45 Ur Specific [place] 1.022 (1.001-1.035) 02/11/17 19:45 Urine Protein 1+ (NEGATIVE) H 02/11/17 19:45 Urine Glucose (UA) 3+ (NEGATIVE) H 02/11/17 19:45 Urine Ketones Negative (NEGATIVE) 02/11/17 19:45 Urine Blood Negative (NEGATIVE) 02/11/17 19:45 Urine Nitrite Negative (NEGATIVE) 02/11/17 19:45 Urine Bilirubin Negative (NEGATIVE) 02/11/17 19:45 Urine Urobilinogen Negative E.U./dl (0.2-1.0) 02/11/17 19:45 Ur Leukocyte Esterase 1+ (NEGATIVE) H 02/11/17 19:45 Urine RBC 8 /hpf (0-3) 02/11/17 19:45 Urine WBC 27 /hpf (3-5) 02/11/17 19:45 Ur Epithelial Cells Rare /hpf (FEW) 02/11/17 19:45 Calcium Oxalate Crystal Rare /hpf (NONE SEEN) 02/11/17 19:45 Urine Bacteria Rare /hpf (NONE SEEN) 02/11/17 19:45 Urine Mucus Rare 02/11/17 19:45 RPR Titer Nonreactive (NONREACTIVE) 02/11/17 06:00 LABS NOTED. Assessment: 02/13/17 15:30 WITHDRAWAL SYMPTOMS. Plan: CONTINUE DETOX. ADVISED PATIENT TO FOLLOW-UP WITH SALES PROJECT ENGINEER / REHAB MEDICAL PROVIDER AFTER DISCHARGE FROM DETOX FOR GENERAL MEDICAL ASSESSMENT AND FOR ABNORMAL ADMISSION LAB VALUES.
[2017-02-13] MEDS: chlordiazePOXIDE HCL 10 MG CAPSULE PO SCH ×2 (17:39→22:05)
[2017-02-13] MEDS: THIAMINE HCL 100 MG TABLET (FP) PO SCH (22:04)
[2017-02-13] MEDS: INSULIN DETEMIR 100 UNITS/ML MDV SQ SCH (22:05)
[2017-02-13] MEDS: cloNIDine HCL 0.1 MG TABLET PO PRN (22:05)
[2017-02-13] MEDS: diphenhydrAMINE HCL 50 MG CAPSULE PO PRN (22:07)
[2017-02-14] MEDS: chlordiazePOXIDE HCL 10 MG CAPSULE PO SCH ×2 (05:30→10:05)
[2017-02-14] MEDS: IBUPROFEN 400 MG TABLET (FP) PO PRN ×2 (05:31→23:31)
[2017-02-14] MEDS ORDERED: INSULIN (NOVOLOG) ASPART 100 UNITS/ML 10ML VIAL ONE ×3 (06:12→16:35)
[2017-02-14] MEDS: metFORMIN HCL 500 MG TABLET (FP) PO SCH ×2 (07:09→16:46)
[2017-02-14] MEDS: INSULIN SLIDING SCALE (NOVOLOG) 1 VIAL SQ SCH ×4 (07:10→22:22)
[2017-02-14] MEDS: PRENATAL VITAMINS W/ FOLIC ACID TABLET (FP) PO SCH (10:05)
[2017-02-14] MEDS: TOLNAFTATE 1% CREAM 15 GM TUBE TP SCH ×2 (10:05→22:22)
[2017-02-14] MEDS: ASPIRIN 81 MG CHEWABLE TABLETS PO SCH (10:05)
[2017-02-14] MEDS: LIDOCAINE 5% TOPICAL PATCH TP SCH (10:05)
[2017-02-14] MEDS: amLODIPine BESYLATE 10 MG TABLET (FP) PO SCH (10:05)
[2017-02-14] MEDS: RANITIDINE HCL 150 MG TABLET (FP) PO SCH ×2 (10:05→22:25)
[2017-02-14] MEDS: NICOTINE 14 MG/24 HOURS TOPICAL PATCH TD SCH (10:05)
[2017-02-14] MEDS: LEVOFLOXACIN 500 MG TABLET (FP) PO SCH (14:55)
--- NOTE | 2017-02-14 14:57 | PN ---
S Progress Note (SOAP) Subjective: Stomach ache, diarrhea, interrupted sleep Objective: 02/14/17 14:52 Last Vital Signs Temp Pulse Resp BP Pulse Ox 98 F 71 20 142/101 02/14/17 13:37 02/14/17 13:37 02/14/17 13:37 02/14/17 13:37 Laboratory Tests 02/10/17 02/10/17 02/10/17 16:07 18:42 21:20 WBC RBC Hgb Hct MCV MCHC RDW Plt Count MPV Sodium Potassium Chloride Carbon Dioxide Anion Gap BUN Creatinine Creat Clearance w eGFR POC Glucometer 427 337 Random Glucose Calcium Total Bilirubin AST ALT Alkaline Phosphatase Total Protein Albumin Urine Color Straw Urine Appearance Clear Urine pH 6.0 Ur Specific [place] 1.022 Urine Protein 1+ H Urine Glucose (UA) 3+ H Urine Ketones Negative Urine Blood Negative Urine Nitrite Negative Urine Bilirubin Negative Urine Urobilinogen Negative Ur Leukocyte Esterase Trace H Urine RBC 2 Urine WBC 9 Ur Epithelial Cells Calcium Oxalate Crystal Urine Bacteria Urine Mucus RPR Titer 02/10/17 02/11/17 02/11/17 22:05 06:00 06:00 WBC 3.6 L RBC 4.82 Hgb 14.6 Hct 44.4 MCV 92.0 MCHC 32.9 RDW 14.8 Plt Count 195 MPV 9.3 Sodium 138 Potassium 4.2 Chloride 102 Carbon Dioxide 25 Anion Gap 11 BUN 12 Creatinine 1.1 Creat Clearance w eGFR > 60 POC Glucometer 269 Random Glucose 358 H* Calcium 9.0 Total Bilirubin 0.4 D AST 15 D ALT 37 D Alkaline Phosphatase 168 H Total Protein 7.3 Albumin 3.3 L Urine Color Urine Appearance Urine pH Ur Specific [place] Urine Protein Urine Glucose (UA) Urine Ketones Urine Blood Urine Nitrite Urine Bilirubin Urine Urobilinogen Ur Leukocyte Esterase Urine RBC Urine WBC Ur Epithelial Cells Calcium Oxalate Crystal Urine Bacteria Urine Mucus RPR Titer 02/11/17 02/11/17 02/11/17 06:00 06:02 11:36 WBC RBC Hgb Hct MCV MCHC RDW Plt Count MPV Sodium Potassium Chloride Carbon Dioxide Anion Gap BUN Creatinine Creat Clearance w eGFR POC Glucometer 301 314 Random Glucose Calcium Total Bilirubin AST ALT Alkaline Phosphatase Total Protein Albumin Urine Color Urine Appearance Urine pH Ur Specific [place] Urine Protein Urine Glucose (UA) Urine Ketones Urine Blood Urine Nitrite Urine Bilirubin Urine Urobilinogen Ur Leukocyte Esterase Urine RBC Urine WBC Ur Epithelial Cells Calcium Oxalate Crystal Urine Bacteria Urine Mucus RPR Titer Nonreactive 02/11/17 02/11/17 02/11/17 16:25 19:45 21:22 WBC RBC Hgb Hct MCV MCHC RDW Plt Count MPV Sodium Potassium Chloride Carbon Dioxide Anion Gap BUN Creatinine Creat Clearance w eGFR POC Glucometer 305 312 Random Glucose Calcium Total Bilirubin AST ALT Alkaline Phosphatase Total Protein Albumin Urine Color Straw Urine Appearance Clear Urine pH 7.0 Ur Specific [place] 1.022 Urine Protein 1+ H Urine Glucose (UA) 3+ H Urine Ketones Negative Urine Blood Negative Urine Nitrite Negative Urine Bilirubin Negative Urine Urobilinogen Negative Ur Leukocyte Esterase 1+ H Urine RBC 8 Urine WBC 27 Ur Epithelial Cells Rare Calcium Oxalate Crystal Rare Urine Bacteria Rare Urine Mucus Rare RPR Titer 02/12/17 02/12/17 02/12/17 06:01 11:47 16:43 WBC RBC Hgb Hct MCV MCHC RDW Plt Count MPV Sodium Potassium Chloride Carbon Dioxide Anion Gap BUN Creatinine Creat Clearance w eGFR POC Glucometer 244 267 207 Random Glucose Calcium Total Bilirubin AST ALT Alkaline Phosphatase Total Protein Albumin Urine Color Urine Appearance Urine pH Ur Specific [place] Urine Protein Urine Glucose (UA) Urine Ketones Urine Blood Urine Nitrite Urine Bilirubin Urine Urobilinogen Ur Leukocyte Esterase Urine RBC Urine WBC Ur Epithelial Cells Calcium Oxalate Crystal Urine Bacteria Urine Mucus RPR Titer 02/12/17 02/13/17 02/13/17 21:41 05:54 10:44 WBC RBC Hgb Hct MCV MCHC RDW Plt Count MPV Sodium Potassium Chloride Carbon Dioxide Anion Gap BUN Creatinine Creat Clearance w eGFR POC Glucometer 367 153 353 Random Glucose Calcium Total Bilirubin AST ALT Alkaline Phosphatase Total Protein Albumin Urine Color Urine Appearance Urine pH Ur Specific [place] Urine Protein Urine Glucose (UA) Urine Ketones Urine Blood Urine Nitrite Urine Bilirubin Urine Urobilinogen Ur Leukocyte Esterase Urine RBC Urine WBC Ur Epithelial Cells Calcium Oxalate Crystal Urine Bacteria Urine Mucus RPR Titer 02/13/17 02/13/17 02/14/17 16:25 21:38 05:33 WBC RBC Hgb Hct MCV MCHC RDW Plt Count MPV Sodium Potassium Chloride Carbon Dioxide Anion Gap BUN Creatinine Creat Clearance w eGFR POC Glucometer 240 304 240 Random Glucose Calcium Total Bilirubin AST ALT Alkaline Phosphatase Total Protein Albumin Urine Color Urine Appearance Urine pH Ur Specific [place] Urine Protein Urine Glucose (UA) Urine Ketones Urine Blood Urine Nitrite Urine Bilirubin Urine Urobilinogen Ur Leukocyte Esterase Urine RBC Urine WBC Ur Epithelial Cells Calcium Oxalate Crystal Urine Bacteria Urine Mucus RPR Titer 02/14/17 11:25 WBC RBC Hgb Hct MCV MCHC RDW Plt Count MPV Sodium Potassium Chloride Carbon Dioxide Anion Gap BUN Creatinine Creat Clearance w eGFR POC Glucometer 301 Random Glucose Calcium Total Bilirubin AST ALT Alkaline Phosphatase Total Protein Albumin Urine Color Urine Appearance Urine pH Ur Specific [place] Urine Protein Urine Glucose (UA) Urine Ketones Urine Blood Urine Nitrite Urine Bilirubin Urine Urobilinogen Ur Leukocyte Esterase Urine RBC Urine WBC Ur Epithelial Cells Calcium Oxalate Crystal Urine Bacteria Urine Mucus RPR Titer Labs noted: As per microbiology report for Urine C&S: Strep Agalactiae group B > 100,000 and E. coli >10,000, sensitivity to levaquin <2 Assessment: 02/14/17 14:55 Withdrawal symptoms Noted with complicated UTI Plan: Continue detox Complicated UTI: encouraged to drink lots of water, start levaquin 500mg PO daily x 10 days (first dose today), follow up with PCP within 1-2 weeks post discharge, recommends Urology consult outpatient (can be arranged by PCP).
[2017-02-14] MEDS: diphenhydrAMINE HCL 50 MG CAPSULE PO PRN ×2 (22:21→23:31)
[2017-02-14] MEDS: THIAMINE HCL 100 MG TABLET (FP) PO SCH (22:21)
[2017-02-14] MEDS: INSULIN DETEMIR 100 UNITS/ML MDV SQ SCH (22:22)
[2017-02-15] MEDS: IBUPROFEN 400 MG TABLET (FP) PO PRN ×3 (06:03→22:04)
[2017-02-15] MEDS: metFORMIN HCL 500 MG TABLET (FP) PO SCH ×2 (06:06→17:28)
[2017-02-15] MEDS: cloNIDine HCL 0.1 MG TABLET PO PRN (06:06)
[2017-02-15] MEDS ORDERED: INSULIN (NOVOLOG) ASPART 100 UNITS/ML 10ML VIAL ONE ×4 (06:28→21:24)
[2017-02-15] MEDS: LEVOFLOXACIN 500 MG TABLET (FP) PO SCH (06:29)
[2017-02-15] MEDS: INSULIN SLIDING SCALE (NOVOLOG) 1 VIAL SQ SCH ×4 (06:30→22:09)
[2017-02-15] MEDS: PRENATAL VITAMINS W/ FOLIC ACID TABLET (FP) PO SCH (10:05)
[2017-02-15] MEDS: ASPIRIN 81 MG CHEWABLE TABLETS PO SCH (10:05)
[2017-02-15] MEDS: RANITIDINE HCL 150 MG TABLET (FP) PO SCH ×2 (10:05→22:04)
[2017-02-15] MEDS: LIDOCAINE 5% TOPICAL PATCH TP SCH (10:05)
[2017-02-15] MEDS: amLODIPine BESYLATE 10 MG TABLET (FP) PO SCH (10:05)
[2017-02-15] MEDS: NICOTINE 14 MG/24 HOURS TOPICAL PATCH TD SCH (10:05)
[2017-02-15] MEDS: TOLNAFTATE 1% CREAM 15 GM TUBE TP SCH ×2 (10:06→22:04)
--- NOTE | 2017-02-15 11:47 | PN ---
[facility] Progress Note (SOAP) Subjective: Pt. has completed detox,however he will be picked up for rehab tomorrow. Objective: 02/15/17 11:46 Vital Signs - 8 hr 02/15/17 02/15/17 06:44 09:17 Temperature 96.7 F L 97.1 F L Pulse Rate 87 88 Respiratory 18 20 Rate Blood Pressure 159/115 141/106 Laboratory Last Values WBC 3.6 K/mm3 (4.0-10.0) L 02/11/17 06:00 RBC 4.82 M/mm3 (4.00-5.60) 02/11/17 06:00 Hgb 14.6 GM/dL (11.7-16.9) 02/11/17 06:00 Hct 44.4 % (35.4-49) 02/11/17 06:00 MCV 92.0 fl (80-96) 02/11/17 06:00 MCHC 32.9 g/dl (32.0-35.9) 02/11/17 06:00 RDW 14.8 % (11.9-15.9) 02/11/17 06:00 Plt Count 195 K/MM3 (134-434) 02/11/17 06:00 MPV 9.3 fl (7.5-11.1) 02/11/17 06:00 Sodium 138 mmol/L (136-145) 02/11/17 06:00 Potassium 4.2 mmol/L (3.5-5.1) 02/11/17 06:00 Chloride 102 mmol/L (98-107) 02/11/17 06:00 Carbon Dioxide 25 mmol/L (21-32) 02/11/17 06:00 Anion Gap 11 (8-16) 02/11/17 06:00 BUN 12 mg/dL (7-18) 02/11/17 06:00 Creatinine 1.1 mg/dL (0.7-1.3) 02/11/17 06:00 Creat Clearance w eGFR > 60 (>60) 02/11/17 06:00 POC Glucometer 265 UNITS (()) 02/15/17 06:05 Random Glucose 358 mg/dL (74-106) H* 02/11/17 06:00 Calcium 9.0 mg/dL (8.5-10.1) 02/11/17 06:00 Total Bilirubin 0.4 mg/dL (0.2-1.0) D 02/11/17 06:00 AST 15 U/L (15-37) D 02/11/17 06:00 ALT 37 U/L (12-78) D 02/11/17 06:00 Alkaline Phosphatase 168 U/L (45-117) H 02/11/17 06:00 Total Protein 7.3 g/dl (6.4-8.2) 02/11/17 06:00 Albumin 3.3 g/dl (3.4-5.0) L 02/11/17 06:00 Urine Color Straw 02/11/17 19:45 Urine Appearance Clear 02/11/17 19:45 Urine pH 7.0 (5.0-8.0) 02/11/17 19:45 Ur Specific [place] 1.022 (1.001-1.035) 02/11/17 19:45 Urine Protein 1+ (NEGATIVE) H 02/11/17 19:45 Urine Glucose (UA) 3+ (NEGATIVE) H 02/11/17 19:45 Urine Ketones Negative (NEGATIVE) 02/11/17 19:45 Urine Blood Negative (NEGATIVE) 02/11/17 19:45 Urine Nitrite Negative (NEGATIVE) 02/11/17 19:45 Urine Bilirubin Negative (NEGATIVE) 02/11/17 19:45 Urine Urobilinogen Negative E.U./dl (0.2-1.0) 02/11/17 19:45 Ur Leukocyte Esterase 1+ (NEGATIVE) H 02/11/17 19:45 Urine RBC 8 /hpf (0-3) 02/11/17 19:45 Urine WBC 27 /hpf (3-5) 02/11/17 19:45 Ur Epithelial Cells Rare /hpf (FEW) 02/11/17 19:45 Calcium Oxalate Crystal Rare /hpf (NONE SEEN) 02/11/17 19:45 Urine Bacteria Rare /hpf (NONE SEEN) 02/11/17 19:45 Urine Mucus Rare 02/11/17 19:45 RPR Titer Nonreactive (NONREACTIVE) 02/11/17 06:00 Microbiology 02/11/17 19:45 Urine - Urine Clean Catch Urine Culture - Preliminary Strep Agalactiae Group B Escherichia Coli on levaquin for UTI Assessment: 02/15/17 11:46 Withdrawal sx. UTI Plan: Continue present care
[2017-02-15] MEDS ORDERED: INSULIN DETEMIR 100 UNITS/ML MDV SQ ONE (21:26)
[2017-02-15] MEDS: THIAMINE HCL 100 MG TABLET (FP) PO SCH (22:04)
[2017-02-15] MEDS: INSULIN DETEMIR 100 UNITS/ML MDV SQ SCH (22:08)
[2017-02-16] MEDS: LEVOFLOXACIN 500 MG TABLET (FP) PO SCH (05:15)
[2017-02-16] MEDS: metFORMIN HCL 500 MG TABLET (FP) PO SCH (06:05)
[2017-02-16] MEDS: INSULIN SLIDING SCALE (NOVOLOG) 1 VIAL SQ SCH ×2 (06:07→11:27)
[2017-02-16] MEDS ORDERED: INSULIN (NOVOLOG) ASPART 100 UNITS/ML 10ML VIAL ONE ×2 (06:08→11:27)
[2017-02-16] MEDS: ASPIRIN 81 MG CHEWABLE TABLETS PO SCH (09:36)
[2017-02-16] MEDS: RANITIDINE HCL 150 MG TABLET (FP) PO SCH (09:36)
[2017-02-16] MEDS: PRENATAL VITAMINS W/ FOLIC ACID TABLET (FP) PO SCH (09:36)
[2017-02-16] MEDS: TOLNAFTATE 1% CREAM 15 GM TUBE TP SCH (09:36)
[2017-02-16] MEDS: LIDOCAINE 5% TOPICAL PATCH TP SCH (09:36)
[2017-02-16] MEDS: amLODIPine BESYLATE 10 MG TABLET (FP) PO SCH (09:36)
[2017-02-16] MEDS: IBUPROFEN 400 MG TABLET (FP) PO PRN (09:38)
[2017-02-16] MEDS: NICOTINE 14 MG/24 HOURS TOPICAL PATCH TD SCH (09:40)
--- NOTE | 2017-02-16 10:07 | DS ---
[facility] Detox Discharge Summary Admission Date: 02/10/17 Discharge Date: 02/16/17 - History Present History: Alcohol Dependence, Cocaine Dependence Pertinent Past History: HTN Type II DM - Physical Exam Results Vital Signs: Vital Signs Temperature 98.4 F 02/16/17 09:47 Pulse Rate 91 H 02/16/17 09:47 Respiratory Rate 18 02/16/17 09:47 Blood Pressure 154/112 02/16/17 09:47 O2 Sat by Pulse Oximetry (%) Pertinent Admission Physical Exam Findings: Withdrawal sx. Laboratory Last Values WBC 3.6 K/mm3 (4.0-10.0) L 02/11/17 06:00 RBC 4.82 M/mm3 (4.00-5.60) 02/11/17 06:00 Hgb 14.6 GM/dL (11.7-16.9) 02/11/17 06:00 Hct 44.4 % (35.4-49) 02/11/17 06:00 MCV 92.0 fl (80-96) 02/11/17 06:00 MCHC 32.9 g/dl (32.0-35.9) 02/11/17 06:00 RDW 14.8 % (11.9-15.9) 02/11/17 06:00 Plt Count 195 K/MM3 (134-434) 02/11/17 06:00 MPV 9.3 fl (7.5-11.1) 02/11/17 06:00 Sodium 138 mmol/L (136-145) 02/11/17 06:00 Potassium 4.2 mmol/L (3.5-5.1) 02/11/17 06:00 Chloride 102 mmol/L (98-107) 02/11/17 06:00 Carbon Dioxide 25 mmol/L (21-32) 02/11/17 06:00 Anion Gap 11 (8-16) 02/11/17 06:00 BUN 12 mg/dL (7-18) 02/11/17 06:00 Creatinine 1.1 mg/dL (0.7-1.3) 02/11/17 06:00 Creat Clearance w eGFR > 60 (>60) 02/11/17 06:00 POC Glucometer 285 UNITS (()) 02/16/17 05:17 Random Glucose 358 mg/dL (74-106) H* 02/11/17 06:00 Calcium 9.0 mg/dL (8.5-10.1) 02/11/17 06:00 Total Bilirubin 0.4 mg/dL (0.2-1.0) D 02/11/17 06:00 AST 15 U/L (15-37) D 02/11/17 06:00 ALT 37 U/L (12-78) D 02/11/17 06:00 Alkaline Phosphatase 168 U/L (45-117) H 02/11/17 06:00 Total Protein 7.3 g/dl (6.4-8.2) 02/11/17 06:00 Albumin 3.3 g/dl (3.4-5.0) L 02/11/17 06:00 Urine Color Straw 02/11/17 19:45 Urine Appearance Clear 02/11/17 19:45 Urine pH 7.0 (5.0-8.0) 02/11/17 19:45 Ur Specific [place] 1.022 (1.001-1.035) 02/11/17 19:45 Urine Protein 1+ (NEGATIVE) H 02/11/17 19:45 Urine Glucose (UA) 3+ (NEGATIVE) H 02/11/17 19:45 Urine Ketones Negative (NEGATIVE) 02/11/17 19:45 Urine Blood Negative (NEGATIVE) 02/11/17 19:45 Urine Nitrite Negative (NEGATIVE) 02/11/17 19:45 Urine Bilirubin Negative (NEGATIVE) 02/11/17 19:45 Urine Urobilinogen Negative E.U./dl (0.2-1.0) 02/11/17 19:45 Ur Leukocyte Esterase 1+ (NEGATIVE) H 02/11/17 19:45 Urine RBC 8 /hpf (0-3) 02/11/17 19:45 Urine WBC 27 /hpf (3-5) 02/11/17 19:45 Ur Epithelial Cells Rare /hpf (FEW) 02/11/17 19:45 Calcium Oxalate Crystal Rare /hpf (NONE SEEN) 02/11/17 19:45 Urine Bacteria Rare /hpf (NONE SEEN) 02/11/17 19:45 Urine Mucus Rare 02/11/17 19:45 RPR Titer Nonreactive (NONREACTIVE) 02/11/17 06:00 labs noted - Treatment Hospital Course: Detox Protocol Followed, Detoxed Safely, Responded well, Discharged Condition Good, Rehab Referral Accepted Patient has Accepted a Rehab Referral to: [facility] - Medication Discharge Medications: Ambulatory Orders Insulin Glargine,Hum.rec.anlog [Lantus (10mL VIAL) -] 26 units SQ HS 11/14/14 Levofloxacin [Levaquin] 500 mg PO DAILY 9 Days 02/14/17 Albuterol Sulfate Inhaler - [Ventolin HFA Inhaler -] 2 inh PO Q4H PRN #1 inhaler 02/16/17 Amlodipine Besylate [Norvasc -] 10 mg PO DAILY #30 tablet 02/16/17 Aspirin [ASA -] 81 mg PO DAILY #30 mg 02/16/17 Famotidine [Pepcid -] 20 mg PO BID #60 mg 02/16/17 Levofloxacin [Levaquin -] 500 mg PO DAILY@0600 #5 tablet 02/16/17 Metformin HCl [Glucophage -] 1,000 mg PO BID #60 tablet 02/16/17 - Diagnosis (1) Alcohol dependence with uncomplicated withdrawal Current Visit: Yes Status: Acute (2) Cocaine dependence, uncomplicated Current Visit: Yes Status: Acute (3) Nicotine dependence Current Visit: Yes Status: Acute Qualifiers: Nicotine product type: cigarettes Substance use status: in withdrawal Qualified Code(s): F17.213 - Nicotine dependence, cigarettes, with withdrawal (4) Tinea pedis Current Visit: Yes Status: Acute Qualifiers: Laterality: bilateral Qualified Code(s): B35.3 - Tinea pedis (5) Asthma Current Visit: Yes Status: Chronic Qualifiers: Asthma severity: mild intermittent Asthma complication type: uncomplicated Qualified Code(s): J45.20 - Mild intermittent asthma, uncomplicated (6) Diabetes type 2, uncontrolled Current Visit: Yes Status: Chronic Qualifiers: Diabetes mellitus complication status: without complication 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
[2017-02-16 13:10] VITALS: BP 143/98; PULSE 114; TEMP 98.7
== END 2017-02-16 13:17 | disposition home or self-care (01) | DRG 774 ==
LOC: YASAS 11:04 → Y3N 17:17
PROVIDERS: ADMIT Internal Medicine; ATTEND Internal Medicine
PROC: HZ2ZZZZ Detoxification Services for Substance Abuse Treatment (ICD-10-PCS; principal; 2017-02-10)
DX: F10.230 Alcohol dependence with withdrawal, uncomplicated (principal); F14.20 Cocaine dependence, uncomplicated; F17.210 Nicotine dependence, cigarettes, uncomplicated; J45.20 Mild intermittent asthma, uncomplicated; I10 Essential (primary) hypertension; G47.00 Insomnia, unspecified; N39.0 Urinary tract infection, site not specified; E11.65 Type 2 diabetes mellitus with hyperglycemia; E66.9 Obesity, unspecified; Z68.34 Body mass index [BMI] 34.0-34.9, adult; K21.9 Gastro-esophageal reflux disease without esophagitis; B95.1 Streptococcus, group B, as the cause of diseases classified elsewhere; B35.3 Tinea pedis
CPT/HCPCS: 36415; 80053; 81003; 81015; 85027; 86593; 87086; 87186; 93005; 93010

== ENCOUNTER 2017-07-19 14:33 | Inpatient (IN) | payer OTHER ==
[2017-07-19 16:23] VITALS: BMI 32.8
--- NOTE | 2017-07-19 21:15 | HP ---
CIWA Score - CIWA Score Nausea/Vomitin Muscle Tremors: 4-Moderate,w/Arms Extend Anxiety: 4-Mod. Anxious/Guarded Agitation: 4-Moderately Restless Paroxysmal Sweats: 3 Orientation: 0-Oriented Tacttile Disturbances: 0-None Auditory Disturbances: 0-None Visual Disturbances: 0-None Headache: 2-Mild CIWA-Ar Total Score: 20 Admission ROS BHS - HPI Chief Complaint: C/O ALCOHOL WITHDRAWAL SX'S. SEEKING DETOX TXMENT Allergies/Adverse Reactions: Allergies Allergy/AdvReac Type Severity Reaction Status Date / Time tomato Allergy Severe Nausea Verified 07/19/17 17:31 No Known Drug Allergies Allergy Verified 07/19/17 17:31 History of Present Illness: 46 Y.O. MALE WITH LONG HISOTRY OF ALCOHOLISM ADMITTED TO DETOX. CLIENT IS KNOWN TO [facility]. LAST HERE 12/2016. REFERRED BY OUTREACH PERSON. REPORTS LONGEST CLEAN TIME 5 YEARS WHILE INCARCERATED. DETOX: 5X REHAB: 5X Exam Limitations: No Limitations - Ebola screening Have you traveled outside of the country in the last 21 days: No Have you had contact with anyone from an Ebola affected area: No Have you been sick,other than usual withdrawal symptoms: No - Review of Systems Constitutional: Chills, Loss of Appetite, Malaise, Night Sweats, Changes in sleep EENT: reports: Nose Congestion, Other (GAKONA L EAR) Respiratory: reports: Cough Cardiac: reports: No Symptoms Reported GI: reports: Nausea, Poor Appetite : reports: No Symptoms Reported Musculoskeletal: reports: Back Pain Integumentary: reports: No Symptoms Reported Neuro: reports: No Symptoms reported Endocrine: reports: Other (DM) Hematology: reports: No Symptoms Reported Psychiatric: reports: Anxious Other Systems: Reviewed and Negative Patient History - Patient Medical History Hx Anemia: No Hx Asthma: Yes (Pt is on MDI.) Hx Chronic Obstructive Pulmonary Disease (COPD): No Hx Cancer: No Hx Cardiac Disorders: No Hx Congestive Heart Failure: No Hx Hypertension: Yes (on meds.) Hx Hypercholesterolemia: No Hx Pacemaker: No HX Cerebrovascular Accident: No Hx Seizures: No Hx Dementia: No Hx Diabetes: Yes (Type II) Hx Gastrointestinal Disorders: Yes (GERD) Hx Liver Disease: No Hx Genitourinary Disorders: No Hx Sexually Transmitted Disorders: No Hx Renal Disease (ESRD): No Hx Thyroid Disease: No Hx Human Immunodeficiency Virus (HIV): No Hx Hepatitis C: No Hx Depression: No Hx Suicide Attempt: No Hx Bipolar Disorder: No Hx Schizophrenia: No Other Medical History: DENIES - Patient Surgical History Past Surgical History: Yes Hx Neurologic Surgery: No Hx Cataract Extraction: No Hx Cardiac Surgery: No Hx Lung Surgery: No Hx Breast Surgery: No Hx Breast Biopsy: No Hx Abdominal Surgery: No Hx Appendectomy: No Hx Cholecystectomy: No Hx Genitourinary Surgery: No Hx Section: No Hx Orthopedic Surgery: No Other Surgical History: removed cyst in the right buttock in 2013 & 2015. Anesthesia Reaction: No - PPD History Previous Implant?: Yes Documented Results: Negative w/proof Implanted On Prior [facility] Admission?: Yes Date: 11/29/16 Results: 0 mm PPD to be Administered?: No - Smoking Cessation Smoking history: Current every day smoker Have you smoked in the past 12 months: Yes Aproximately how many cigarettes per day: 4 Cigars Per Day: 0 Hx Chewing Tobacco Use: No Initiated information on smoking cessation: Yes 'Breaking Loose' booklet given: 07/19/17 - Substance & Tx. History Hx Alcohol Use: Yes Hx Substance Use: Yes Substance Use Type: Alcohol, Cocaine Hx Substance Use Treatment: Yes ([facility]) - Substances Abused Alcohol Route: Oral Frequency: Daily Amount used: 1 pint cognac Age of first use: 23 Date of Last Use: 07/18/17 Crack Route: Smoking Frequency: Daily Amount used: $50 Age of first use: 23 Date of Last Use: 07/18/17 Family Disease History - Family Disease History Family Disease History: Diabetes: Mother, Sister, CA: Mother, Respiratory: Mother, Brother, Sister, Daughter Admission Physical Exam [facility] - Vital Signs Vital Signs: Vital Signs - 24 hr 07/19/17 16:20 Temperature 97.2 F L Pulse Rate 89 Respiratory 20 Rate Blood Pressure 147/104 - Physical General Appearance: Yes: Tremorous, Other (MALODUROUS) HEENTM: Yes: EOMI, Normocephalic, Pharynx Normal, Nasal Congestion, Other (POOR DENTITION) Respiratory: Yes: Chest Non-Tender, Lungs Clear, Normal Breath Sounds, No Respiratory Distress, No Accessory Muscle Use Neck: Yes: No masses,lesions,Nodules, Supple, Trachea in good position Breast: Yes: Breast Exam Deferred Cardiology: Yes: Regular Rhythm, Regular Rate, S1, S2 Abdominal: Yes: Normal Bowel Sounds, Non Tender, Soft Genitourinary: Yes: Within Normal Limits Back: Yes: Normal Inspection Musculoskeletal: Yes: full range of Motion, Gait Steady Extremities: Yes: Non-Tender, Tremors Neurological: Yes: Fully Oriented, Alert, Motor Strength 5/5 Integumentary: Yes: Normal Color, Dry, Warm Lymphatic: Yes: Within Normal Limits - Diagnostic (1) Alcohol dependence with uncomplicated withdrawal Current Visit: Yes Status: Chronic (2) Cocaine dependence, uncomplicated Current Visit: Yes Status: Chronic (3) Nicotine dependence Current Visit: Yes Status: Chronic Qualifiers: Nicotine product type: cigarettes Substance use status: in withdrawal Qualified Code(s): F17.213 - Nicotine dependence, cigarettes, with withdrawal; F17.213 - Nicotine dependence, cigarettes, with withdrawal (4) Asthma Current Visit: Yes Status: Chronic Qualifiers: Asthma severity: mild Asthma complication type: uncomplicated Qualified Code(s): - (5) Diabetes type 2, uncontrolled Current Visit: Yes Status: Chronic Qualifiers: Diabetes mellitus complication status: without complication 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: without oil heaterman use Qualified Code(s): E11.65 - Type 2 diabetes mellitus with hyperglycemia; E11.65 - Type 2 diabetes mellitus with hyperglycemia; E11.65 - Type 2 diabetes mellitus with hyperglycemia; E11.65 - Type 2 diabetes mellitus with hyperglycemia (6) H/O hearing loss Current Visit: Yes Status: Chronic Comment: childhood trauma (7) Hypertension Current Visit: Yes Status: Chronic Qualifiers: Hypertension type: essential hypertension Qualified Code(s): I10 - Essential (primary) hypertension; I10 - Essential (primary) hypertension; I10 - Essential (primary) hypertension Cleared for Admission [facility] - Detox or Rehab [facility] Level of Care: Medically Managed Detox Regimen/Protocol: Librium [facility] Breath Alcohol Content Breath Alcohol Content: 0 Urine Drug Screen - Results Drug Screen Negative: No Urine Drug Screen Results: YUE-Cocaine
[2017-07-19] MEDS ORDERED: MAGNESIUM CITRATE 300 ML BOTTLE PO PRN (21:16)
[2017-07-19] MEDS ORDERED: P-EPHED 60MG/TRIPROLIDI 2.5MG TABLET PO PRN (21:16)
[2017-07-19] MEDS ORDERED: NICOTINE POLACRILEX 2 MG GUM BC PRN (21:16)
[2017-07-19] MEDS ORDERED: MAGNESIUM HYDROX 2400MG/30ML ORAL SUSPENSION 30 ML CUP PO PRN (21:16)
[2017-07-19] MEDS ORDERED: hydrOXYzine PAMOATE 50 MG CAPSULE (FP) PO PRN (21:16)
[2017-07-19] MEDS ORDERED: MAG HYDROX/AL HYDROX/SIMETH 30 ML UNIT-DOSE CUP PO PRN (21:16)
[2017-07-19] MEDS ORDERED: guaiFENesin/D-METHORPHAN HB 10 ML UNIT-DOSE CUPS PO PRN (21:16)
[2017-07-19] MEDS ORDERED: MENTHOL/PHENOL 1 EACH UD MM PRN (21:16)
[2017-07-19] MEDS ORDERED: chlordiazePOXIDE HCL 25 MG CAPSULE PO PRN (21:16)
[2017-07-19] MEDS ORDERED: ACETAMINOPHEN 325 MG TABLET (FP) PO PRN (21:16)
[2017-07-19] MEDS ORDERED: ALBUTEROL SO4 18 GM HFA INHALER IH PRN (21:18)
[2017-07-19] MEDS: chlordiazePOXIDE HCL 25 MG CAPSULE PO SCH (22:38)
[2017-07-19] MEDS: THIAMINE HCL 100 MG TABLET (FP) PO SCH (22:38)
[2017-07-19] MEDS: diphenhydrAMINE HCL 50 MG CAPSULE PO PRN (22:39)
[2017-07-19] MEDS: INSULIN DETEMIR 100 UNITS/ML MDV SQ SCH (22:42)
[2017-07-19] MEDS: NICOTINE 14 MG/24 HOURS TOPICAL PATCH TD SCH (22:47)
[2017-07-19 23:23] LABS: URINE APPEARANCE SLCLOUDY; URINE BILIRUBIN NEGATIVE (NEGATIVE); URINE BLOOD 1+ (NEGATIVE); URINE COLOR LTYELLOW; URINE GLUCOSE (UA) 3+ (NEGATIVE); URINE KETONE NEGATIVE (NEGATIVE); URINE NITRITE NEGATIVE (NEGATIVE); URINE UROBILINOGEN NEGATIVE mg/dL (0.2-1.0)
[2017-07-19 23:29] LABS: URINE LEUK ESTERASE 3+ (NEGATIVE); URINE PROTEIN 2+ (NEGATIVE)
[2017-07-19 23:31] LABS: URINE MUCUS RARE; URINE RBC 9 /hpf (0-3); URINE WBC 50 /hpf (3-5)
[2017-07-20] MEDS: chlordiazePOXIDE HCL 25 MG CAPSULE PO SCH ×4 (06:05→23:33)
[2017-07-20] MEDS: metFORMIN HCL 500 MG TABLET (FP) PO SCH ×2 (06:54→17:29)
[2017-07-20 09:36] LABS: MCH 30.6 pg (25.7-33.7); MCHC 33.1 g/dl (32.0-35.9); MEAN CELL VOLUME 92.6 fl (80-96); MEAN PLT VOLUME 8.6 fl (7.5-11.1); PLATELET COUNT 164 K/MM3 (134-434); RDW 14.1 % (11.9-15.9); WHITE BLOOD COUNT 4.1 K/mm3 (4.0-10.0)
--- NOTE | 2017-07-20 09:57 | EKG ---
Test Reason : Blood Pressure : / mmHG Vent. Rate : 065 BPM Atrial Rate : 065 BPM P-R Int : 180 ms QRS Dur : 094 ms QT Int : 396 ms P-R-T Axes : 058 -11 025 degrees QTc Int : 411 ms NORMAL SINUS RHYTHM NORMAL ECG WHEN COMPARED WITH ECG OF 10-FEB-2017 17:54, NO SIGNIFICANT CHANGE WAS FOUND Confirmed by DEMETRIUS DE LA TORRE MD ([id number]) on 07/20/2017 9:57:12 AM Referred By: Confirmed By:DEMETRIUS DE LA TORRE MD
[2017-07-20 10:21] LABS: ALBUMIN 2.9 g/dl (3.4-5.0); ALK PHOS 136 U/L (45-117); ANION GAP 7 (8-16); BILIRUBIN,TOTAL 0.2 mg/dL (0.2-1.0); CO2 27 mmol/L (21-32); CREATININE 1.1 mg/dL (0.7-1.3); SGOT/AST 11 U/L (15-37); SGPT/ALT 22 U/L (12-78); TOT PROT 6.7 g/dl (6.4-8.2)
[2017-07-20 10:30] LABS: GLUCOSE,RANDOM 403 mg/dL (74-106)
[2017-07-20] MEDS: amLODIPine BESYLATE 10 MG TABLET (FP) PO SCH (10:40)
[2017-07-20] MEDS: ASPIRIN 81 MG CHEWABLE TABLETS PO SCH (10:40)
[2017-07-20] MEDS: PANTOPRAZOLE 20 MG TABLET (FP) PO SCH (10:40)
[2017-07-20] MEDS: PRENATAL VITAMINS W/ FOLIC ACID TABLET (FP) PO SCH (10:40)
[2017-07-20] MEDS: LOPERAMIDE HCL 2 MG CAPSULE PO PRN (10:42)
[2017-07-20] MEDS: NICOTINE 14 MG/24 HOURS TOPICAL PATCH TD SCH (10:43)
[2017-07-20] MEDS: INSULIN SLIDING SCALE (NOVOLOG) 1 VIAL SQ SCH ×3 (11:46→22:28)
[2017-07-20] MEDS ORDERED: INSULIN (NOVOLOG) ASPART 100 UNITS/ML 10ML VIAL ONE ×3 (11:47→22:30)
--- NOTE | 2017-07-20 12:40 | PN ---
[facility] CIWA - CIWA Score Nausea/Vomitin-No Nausea/No Vomiting Muscle Tremors: 4-Moderate,w/Arms Extend Anxiety: 4-Mod. Anxious/Guarded Agitation: 4-Moderately Restless Paroxysmal Sweats: 1-Minimal Palms Moist Orientation: 0-Oriented Tacttile Disturbances: 3-Moderate Itch/Numb/Burn Auditory Disturbances: 0-None Visual Disturbances: 0-None Headache: 0-None Present CIWA-Ar Total Score: 16 S Progress Note (SOAP) Subjective: ANXIETY,TREMORS, SWEATS,FATIGUE. ELEVATED BP--PT STATES HAS NOT TAKEN BP MED FOR ONE WEEK. Objective: 07/20/17 12:36 Vital Signs Temperature 97.8 F 07/20/17 09:13 Pulse Rate 85 07/20/17 09:13 Respiratory Rate 18 07/20/17 09:13 Blood Pressure 165/110 07/20/17 09:13 O2 Sat by Pulse Oximetry (%) Laboratory Last Values WBC 4.1 K/mm3 (4.0-10.0) 07/20/17 08:00 RBC 4.76 M/mm3 (4.00-5.60) 07/20/17 08:00 Hgb 14.6 GM/dL (11.7-16.9) 07/20/17 08:00 Hct 44.1 % (35.4-49) 07/20/17 08:00 MCV 92.6 fl (80-96) 07/20/17 08:00 MCH 30.6 pg (25.7-33.7) 07/20/17 08:00 MCHC 33.1 g/dl (32.0-35.9) 07/20/17 08:00 RDW 14.1 % (11.9-15.9) 07/20/17 08:00 Plt Count 164 K/MM3 (134-434) 07/20/17 08:00 MPV 8.6 fl (7.5-11.1) 07/20/17 08:00 Sodium 139 mmol/L (136-145) 07/20/17 08:00 Potassium 4.0 mmol/L (3.5-5.1) 07/20/17 08:00 Chloride 105 mmol/L (98-107) 07/20/17 08:00 Carbon Dioxide 27 mmol/L (21-32) 07/20/17 08:00 Anion Gap 7 (8-16) L 07/20/17 08:00 BUN 15 mg/dL (7-18) D 07/20/17 08:00 Creatinine 1.1 mg/dL (0.7-1.3) 07/20/17 08:00 Creat Clearance w eGFR > 60 (>60) 07/20/17 08:00 POC Glucometer 332 UNITS (()) 07/20/17 11:42 Random Glucose 403 mg/dL (74-106) H* 07/20/17 08:00 Calcium 9.0 mg/dL (8.5-10.1) 07/20/17 08:00 Total Bilirubin 0.2 mg/dL (0.2-1.0) D 07/20/17 08:00 AST 11 U/L (15-37) L D 07/20/17 08:00 ALT 22 U/L (12-78) D 07/20/17 08:00 Alkaline Phosphatase 136 U/L (45-117) H 07/20/17 08:00 Total Protein 6.7 g/dl (6.4-8.2) 07/20/17 08:00 Albumin 2.9 g/dl (3.4-5.0) L 07/20/17 08:00 Urine Color Ltyellow 07/19/17 23:10 Urine Appearance Slcloudy 07/19/17 23:10 Urine pH 6.0 (5.0-8.0) 07/19/17 23:10 Ur Specific [place] 1.025 (1.005-1.025) 07/19/17 23:10 Urine Protein 2+ (NEGATIVE) H 07/19/17 23:10 Urine Glucose (UA) 3+ (NEGATIVE) H 07/19/17 23:10 Urine Ketones Negative (NEGATIVE) 07/19/17 23:10 Urine Blood 1+ (NEGATIVE) H 07/19/17 23:10 Urine Nitrite Negative (NEGATIVE) 07/19/17 23:10 Urine Bilirubin Negative (NEGATIVE) 07/19/17 23:10 Urine Urobilinogen Negative mg/dL (0.2-1.0) 07/19/17 23:10 Urine RBC 9 /hpf (0-3) 07/19/17 23:10 Urine WBC 50 /hpf (3-5) 07/19/17 23:10 Ur Epithelial Cells Rare /hpf (FEW) 07/19/17 23:10 Urine Mucus Rare 07/19/17 23:10 RPR Titer Nonreactive (NONREACTIVE) 07/20/17 08:00 LABS NOTED Assessment: 07/20/17 12:36 WITHDRAWAL SX Plan: CONTINUE DETOX REPEAT UA
[2017-07-20] MEDS: THIAMINE HCL 100 MG TABLET (FP) PO SCH (22:26)
[2017-07-20] MEDS: INSULIN DETEMIR 100 UNITS/ML MDV SQ SCH (22:26)
[2017-07-20] MEDS: cloNIDine HCL 0.1 MG TABLET PO SCH (22:26)
[2017-07-21] MEDS: chlordiazePOXIDE HCL 25 MG CAPSULE PO SCH ×3 (06:32→17:26)
[2017-07-21] MEDS ORDERED: INSULIN (NOVOLOG) ASPART 100 UNITS/ML 10ML VIAL ONE ×4 (06:45→21:16)
[2017-07-21] MEDS: metFORMIN HCL 500 MG TABLET (FP) PO SCH ×2 (06:48→17:26)
[2017-07-21] MEDS: INSULIN SLIDING SCALE (NOVOLOG) 1 VIAL SQ SCH ×4 (06:48→22:21)
[2017-07-21] MEDS: PANTOPRAZOLE 20 MG TABLET (FP) PO SCH (10:17)
[2017-07-21] MEDS: ASPIRIN 81 MG CHEWABLE TABLETS PO SCH (10:17)
[2017-07-21] MEDS: amLODIPine BESYLATE 10 MG TABLET (FP) PO SCH (10:17)
[2017-07-21] MEDS: PRENATAL VITAMINS W/ FOLIC ACID TABLET (FP) PO SCH (10:17)
[2017-07-21] MEDS: cloNIDine HCL 0.1 MG TABLET PO SCH ×2 (10:18→22:17)
[2017-07-21] MEDS: LOPERAMIDE HCL 2 MG CAPSULE PO PRN (10:19)
[2017-07-21] MEDS: NICOTINE 14 MG/24 HOURS TOPICAL PATCH TD SCH (10:45)
--- NOTE | 2017-07-21 12:47 | PN ---
[facility] CIWA - CIWA Score Nausea/Vomitin-No Nausea/No Vomiting Muscle Tremors: 4-Moderate,w/Arms Extend Anxiety: 4-Mod. Anxious/Guarded Agitation: 4-Moderately Restless Paroxysmal Sweats: 1-Minimal Palms Moist Orientation: 0-Oriented Tacttile Disturbances: 3-Moderate Itch/Numb/Burn Auditory Disturbances: 0-None Visual Disturbances: 0-None Headache: 0-None Present CIWA-Ar Total Score: 16 S Progress Note (SOAP) Subjective: ANXIETY,SWEATS,BACK PAIN,IRRITABILITY,INTERMITTENT SLEEP,FATIGUE. Objective: 07/21/17 12:47 Vital Signs 07/21/17 07/21/17 06:28 09:25 Temperature 97.8 F 97.8 F Pulse Rate 102 H 110 H Respiratory 18 20 Rate Blood Pressure 135/84 150/91 Laboratory Last Values WBC 4.1 K/mm3 (4.0-10.0) 07/20/17 08:00 RBC 4.76 M/mm3 (4.00-5.60) 07/20/17 08:00 Hgb 14.6 GM/dL (11.7-16.9) 07/20/17 08:00 Hct 44.1 % (35.4-49) 07/20/17 08:00 MCV 92.6 fl (80-96) 07/20/17 08:00 MCH 30.6 pg (25.7-33.7) 07/20/17 08:00 MCHC 33.1 g/dl (32.0-35.9) 07/20/17 08:00 RDW 14.1 % (11.9-15.9) 07/20/17 08:00 Plt Count 164 K/MM3 (134-434) 07/20/17 08:00 MPV 8.6 fl (7.5-11.1) 07/20/17 08:00 Sodium 139 mmol/L (136-145) 07/20/17 08:00 Potassium 4.0 mmol/L (3.5-5.1) 07/20/17 08:00 Chloride 105 mmol/L (98-107) 07/20/17 08:00 Carbon Dioxide 27 mmol/L (21-32) 07/20/17 08:00 Anion Gap 7 (8-16) L 07/20/17 08:00 BUN 15 mg/dL (7-18) D 07/20/17 08:00 Creatinine 1.1 mg/dL (0.7-1.3) 07/20/17 08:00 Creat Clearance w eGFR > 60 (>60) 07/20/17 08:00 POC Glucometer 339 UNITS (()) 07/21/17 11:42 Random Glucose 403 mg/dL (74-106) H* 07/20/17 08:00 Calcium 9.0 mg/dL (8.5-10.1) 07/20/17 08:00 Total Bilirubin 0.2 mg/dL (0.2-1.0) D 07/20/17 08:00 AST 11 U/L (15-37) L D 07/20/17 08:00 ALT 22 U/L (12-78) D 07/20/17 08:00 Alkaline Phosphatase 136 U/L (45-117) H 07/20/17 08:00 Total Protein 6.7 g/dl (6.4-8.2) 07/20/17 08:00 Albumin 2.9 g/dl (3.4-5.0) L 07/20/17 08:00 Urine Color Ltyellow 07/19/17 23:10 Urine Appearance Slcloudy 07/19/17 23:10 Urine pH 6.0 (5.0-8.0) 07/19/17 23:10 Ur Specific [place] 1.025 (1.005-1.025) 07/19/17 23:10 Urine Protein 2+ (NEGATIVE) H 07/19/17 23:10 Urine Glucose (UA) 3+ (NEGATIVE) H 07/19/17 23:10 Urine Ketones Negative (NEGATIVE) 07/19/17 23:10 Urine Blood 1+ (NEGATIVE) H 07/19/17 23:10 Urine Nitrite Negative (NEGATIVE) 07/19/17 23:10 Urine Bilirubin Negative (NEGATIVE) 07/19/17 23:10 Urine Urobilinogen Negative mg/dL (0.2-1.0) 07/19/17 23:10 Urine RBC 9 /hpf (0-3) 07/19/17 23:10 Urine WBC 50 /hpf (3-5) 07/19/17 23:10 Ur Epithelial Cells Rare /hpf (FEW) 07/19/17 23:10 Urine Mucus Rare 07/19/17 23:10 RPR Titer Nonreactive (NONREACTIVE) 07/20/17 08:00 Assessment: 07/21/17 12:49 WITHDRAWAL SX Plan: CONTINUE DETOX
[2017-07-21 13:54] LABS: URINE APPEARANCE CLOUDY; URINE BILIRUBIN NEGATIVE (NEGATIVE); URINE BLOOD 2+ (NEGATIVE); URINE COLOR LTYELLOW; URINE GLUCOSE (UA) 3+ (NEGATIVE); URINE KETONE NEGATIVE (NEGATIVE); URINE NITRITE NEGATIVE (NEGATIVE); URINE UROBILINOGEN NEGATIVE mg/dL (0.2-1.0)
[2017-07-21 13:59] LABS: URINE LEUK ESTERASE 3+ (NEGATIVE); URINE PROTEIN 2+ (NEGATIVE)
[2017-07-21 14:03] LABS: URINE BACTERIA RARE /hpf (NONE SEEN); URINE RBC 6 /hpf (0-3); URINE WBC 97 /hpf (3-5)
[2017-07-21] MEDS: THIAMINE HCL 100 MG TABLET (FP) PO SCH (22:17)
[2017-07-21] MEDS: chlordiazePOXIDE 5 MG CAPSULE PO SCH (22:17)
[2017-07-21] MEDS: INSULIN DETEMIR 100 UNITS/ML MDV SQ SCH (22:21)
[2017-07-21] MEDS: diphenhydrAMINE HCL 50 MG CAPSULE PO PRN (23:08)
[2017-07-22] MEDS: chlordiazePOXIDE 5 MG CAPSULE PO SCH ×3 (05:35→17:44)
[2017-07-22] MEDS: metFORMIN HCL 500 MG TABLET (FP) PO SCH ×2 (07:47→17:44)
[2017-07-22] MEDS ORDERED: INSULIN (NOVOLOG) ASPART 100 UNITS/ML 10ML VIAL ONE ×4 (08:03→22:04)
[2017-07-22] MEDS: INSULIN SLIDING SCALE (NOVOLOG) 1 VIAL SQ SCH ×4 (08:07→22:44)
[2017-07-22] MEDS: cloNIDine HCL 0.1 MG TABLET PO SCH ×2 (10:36→22:38)
[2017-07-22] MEDS: PANTOPRAZOLE 20 MG TABLET (FP) PO SCH (10:36)
[2017-07-22] MEDS: amLODIPine BESYLATE 10 MG TABLET (FP) PO SCH (10:36)
[2017-07-22] MEDS: ASPIRIN 81 MG CHEWABLE TABLETS PO SCH (10:36)
[2017-07-22] MEDS: PRENATAL VITAMINS W/ FOLIC ACID TABLET (FP) PO SCH (10:37)
[2017-07-22] MEDS: NICOTINE 14 MG/24 HOURS TOPICAL PATCH TD SCH (10:37)
--- NOTE | 2017-07-22 11:34 | PN ---
[facility] Progress Note (SOAP) Subjective: ANXIETY,SWEATS,LOWER BACK PAIN. Objective: 07/22/17 11:31 Vital Signs Temperature 95.7 F L 07/22/17 09:02 Pulse Rate 110 H 07/22/17 09:02 Respiratory Rate 20 07/22/17 09:02 Blood Pressure 126/97 07/22/17 09:02 O2 Sat by Pulse Oximetry (%) Laboratory Tests 07/19/17 07/19/17 07/19/17 17:47 22:33 23:10 WBC RBC Hgb Hct MCV MCH MCHC RDW Plt Count MPV Sodium Potassium Chloride Carbon Dioxide Anion Gap BUN Creatinine Creat Clearance w eGFR POC Glucometer 304 371 Random Glucose Calcium Total Bilirubin AST ALT Alkaline Phosphatase Total Protein Albumin Urine Color Ltyellow Urine Appearance Slcloudy Urine pH 6.0 Ur Specific [place] 1.025 Urine Protein 2+ H Urine Glucose (UA) 3+ H Urine Ketones Negative Urine Blood 1+ H Urine Nitrite Negative Urine Bilirubin Negative Urine Urobilinogen Negative Urine RBC 9 Urine WBC 50 Ur Epithelial Cells Rare Urine Bacteria Urine Mucus Rare RPR Titer 07/20/17 07/20/17 07/20/17 06:04 08:00 08:00 WBC 4.1 RBC 4.76 Hgb 14.6 Hct 44.1 MCV 92.6 MCH 30.6 MCHC 33.1 RDW 14.1 Plt Count 164 MPV 8.6 Sodium 139 Potassium 4.0 Chloride 105 Carbon Dioxide 27 Anion Gap 7 L BUN 15 D Creatinine 1.1 Creat Clearance w eGFR > 60 POC Glucometer 275 Random Glucose 403 H* Calcium 9.0 Total Bilirubin 0.2 D AST 11 L D ALT 22 D Alkaline Phosphatase 136 H Total Protein 6.7 Albumin 2.9 L Urine Color Urine Appearance Urine pH Ur Specific [place] Urine Protein Urine Glucose (UA) Urine Ketones Urine Blood Urine Nitrite Urine Bilirubin Urine Urobilinogen Urine RBC Urine WBC Ur Epithelial Cells Urine Bacteria Urine Mucus RPR Titer 07/20/17 07/20/17 07/20/17 08:00 11:42 16:26 WBC RBC Hgb Hct MCV MCH MCHC RDW Plt Count MPV Sodium Potassium Chloride Carbon Dioxide Anion Gap BUN Creatinine Creat Clearance w eGFR POC Glucometer 332 220 Random Glucose Calcium Total Bilirubin AST ALT Alkaline Phosphatase Total Protein Albumin Urine Color Urine Appearance Urine pH Ur Specific [place] Urine Protein Urine Glucose (UA) Urine Ketones Urine Blood Urine Nitrite Urine Bilirubin Urine Urobilinogen Urine RBC Urine WBC Ur Epithelial Cells Urine Bacteria Urine Mucus RPR Titer Nonreactive 07/20/17 07/21/17 07/21/17 21:25 06:39 10:50 WBC RBC Hgb Hct MCV MCH MCHC RDW Plt Count MPV Sodium Potassium Chloride Carbon Dioxide Anion Gap BUN Creatinine Creat Clearance w eGFR POC Glucometer 311 289 Random Glucose Calcium Total Bilirubin AST ALT Alkaline Phosphatase Total Protein Albumin Urine Color Ltyellow Urine Appearance Cloudy Urine pH 5.0 Ur Specific [place] 1.025 Urine Protein 2+ H Urine Glucose (UA) 3+ H Urine Ketones Negative Urine Blood 2+ H Urine Nitrite Negative Urine Bilirubin Negative Urine Urobilinogen Negative Urine RBC 6 Urine WBC 97 Ur Epithelial Cells Rare Urine Bacteria Rare Urine Mucus RPR Titer 07/21/17 07/21/17 07/21/17 11:42 16:25 20:49 WBC RBC Hgb Hct MCV MCH MCHC RDW Plt Count MPV Sodium Potassium Chloride Carbon Dioxide Anion Gap BUN Creatinine Creat Clearance w eGFR POC Glucometer 339 283 226 Random Glucose Calcium Total Bilirubin AST ALT Alkaline Phosphatase Total Protein Albumin Urine Color Urine Appearance Urine pH Ur Specific [place] Urine Protein Urine Glucose (UA) Urine Ketones Urine Blood Urine Nitrite Urine Bilirubin Urine Urobilinogen Urine RBC Urine WBC Ur Epithelial Cells Urine Bacteria Urine Mucus RPR Titer 07/22/17 07/22/17 05:32 10:40 WBC RBC Hgb Hct MCV MCH MCHC RDW Plt Count MPV Sodium Potassium Chloride Carbon Dioxide Anion Gap BUN Creatinine Creat Clearance w eGFR POC Glucometer 306 275 Random Glucose Calcium Total Bilirubin AST ALT Alkaline Phosphatase Total Protein Albumin Urine Color Urine Appearance Urine pH Ur Specific [place] Urine Protein Urine Glucose (UA) Urine Ketones Urine Blood Urine Nitrite Urine Bilirubin Urine Urobilinogen Urine RBC Urine WBC Ur Epithelial Cells Urine Bacteria Urine Mucus RPR Titer Assessment: 07/22/17 11:32 WITHDRAWAL SX Plan: CONTINUE DETOX UA;UC TODAY
[2017-07-22] MEDS: IBUPROFEN 400 MG TABLET (FP) PO PRN ×2 (11:47→22:40)
--- NOTE | 2017-07-22 22:06 | PN ---
[facility] Progress Note Note: received nurse call that the patient refuses librium 15 mg due to sleepiness fall precaution continue detox
[2017-07-22 22:11] LABS: URINE APPEARANCE SLCLOUDY; URINE BILIRUBIN NEGATIVE (NEGATIVE); URINE BLOOD 1+ (NEGATIVE); URINE COLOR LTYELLOW; URINE GLUCOSE (UA) 3+ (NEGATIVE); URINE KETONE TRACE (NEGATIVE); URINE NITRITE NEGATIVE (NEGATIVE); URINE UROBILINOGEN NEGATIVE mg/dL (0.2-1.0)
[2017-07-22 22:14] LABS: URINE PROTEIN 1+ (NEGATIVE)
[2017-07-22 22:19] LABS: URINE HYALINE CAST 3 /lpf; URINE MUCUS RARE; URINE RBC 19 /hpf (0-3); URINE WBC 61 /hpf (3-5)
[2017-07-22] MEDS: chlordiazePOXIDE HCL 10 MG CAPSULE PO SCH (22:38)
[2017-07-22] MEDS: THIAMINE HCL 100 MG TABLET (FP) PO SCH (22:38)
[2017-07-22] MEDS: diphenhydrAMINE HCL 50 MG CAPSULE PO PRN (22:40)
[2017-07-22] MEDS: INSULIN DETEMIR 100 UNITS/ML MDV SQ SCH (22:43)
[2017-07-22 23:19] LABS: URINE LEUK ESTERASE 1+ (NEGATIVE)
[2017-07-23] MEDS: chlordiazePOXIDE HCL 10 MG CAPSULE PO SCH ×3 (05:39→18:43)
[2017-07-23] MEDS ORDERED: INSULIN (NOVOLOG) ASPART 100 UNITS/ML 10ML VIAL ONE ×2 (06:45→17:00)
[2017-07-23] MEDS: metFORMIN HCL 500 MG TABLET (FP) PO SCH ×2 (06:48→18:40)
[2017-07-23] MEDS: INSULIN SLIDING SCALE (NOVOLOG) 1 VIAL SQ SCH ×3 (06:49→18:38)
--- NOTE | 2017-07-23 09:13 | DS ---
[facility] Detox Discharge Summary Admission Date: 07/19/17 Discharge Date: 07/23/17 - History Present History: Alcohol Dependence, Cocaine Dependence Additional Comments: DETOX COMPLETED. ALERT AND ORIENTED X 3. NAD. PT ENCOURAGED TO FOLLOW UP WITH PMD AT [facility]. Pertinent Past History: HTN, ASTHMA, DM TYPE 2, TINEA PEDIS, NICOTINE DEPENDENCE, INSOMNIA, H/O HEARING LOSS - Physical Exam Results Vital Signs: Vital Signs Temperature 96.6 F L 07/23/17 06:49 Pulse Rate 83 07/23/17 06:49 Respiratory Rate 16 07/23/17 06:49 Blood Pressure 124/90 07/23/17 06:49 O2 Sat by Pulse Oximetry (%) Laboratory Last Values WBC 4.1 K/mm3 (4.0-10.0) 07/20/17 08:00 RBC 4.76 M/mm3 (4.00-5.60) 07/20/17 08:00 Hgb 14.6 GM/dL (11.7-16.9) 07/20/17 08:00 Hct 44.1 % (35.4-49) 07/20/17 08:00 MCV 92.6 fl (80-96) 07/20/17 08:00 MCH 30.6 pg (25.7-33.7) 07/20/17 08:00 MCHC 33.1 g/dl (32.0-35.9) 07/20/17 08:00 RDW 14.1 % (11.9-15.9) 07/20/17 08:00 Plt Count 164 K/MM3 (134-434) 07/20/17 08:00 MPV 8.6 fl (7.5-11.1) 07/20/17 08:00 Sodium 139 mmol/L (136-145) 07/20/17 08:00 Potassium 4.0 mmol/L (3.5-5.1) 07/20/17 08:00 Chloride 105 mmol/L (98-107) 07/20/17 08:00 Carbon Dioxide 27 mmol/L (21-32) 07/20/17 08:00 Anion Gap 7 (8-16) L 07/20/17 08:00 BUN 15 mg/dL (7-18) D 07/20/17 08:00 Creatinine 1.1 mg/dL (0.7-1.3) 07/20/17 08:00 Creat Clearance w eGFR > 60 (>60) 07/20/17 08:00 POC Glucometer 254 UNITS (()) 07/23/17 05:38 Random Glucose 403 mg/dL (74-106) H* 07/20/17 08:00 Calcium 9.0 mg/dL (8.5-10.1) 07/20/17 08:00 Total Bilirubin 0.2 mg/dL (0.2-1.0) D 07/20/17 08:00 AST 11 U/L (15-37) L D 07/20/17 08:00 ALT 22 U/L (12-78) D 07/20/17 08:00 Alkaline Phosphatase 136 U/L (45-117) H 07/20/17 08:00 Total Protein 6.7 g/dl (6.4-8.2) 07/20/17 08:00 Albumin 2.9 g/dl (3.4-5.0) L 07/20/17 08:00 Urine Color Ltyellow 07/22/17 21:30 Urine Appearance Slcloudy 07/22/17 21:30 Urine pH 6.0 (5.0-8.0) 07/22/17 21:30 Ur Specific [place] 1.020 (1.005-1.025) 07/22/17 21:30 Urine Protein 1+ (NEGATIVE) H 07/22/17 21:30 Urine Glucose (UA) 3+ (NEGATIVE) H 07/22/17 21:30 Urine Ketones Trace (NEGATIVE) H 07/22/17 21:30 Urine Blood 1+ (NEGATIVE) H 07/22/17 21:30 Urine Nitrite Negative (NEGATIVE) 07/22/17 21:30 Urine Bilirubin Negative (NEGATIVE) 07/22/17 21:30 Urine Urobilinogen Negative mg/dL (0.2-1.0) 07/22/17 21:30 Ur Leukocyte Esterase 1+ (NEGATIVE) H 07/22/17 21:30 Urine RBC 19 /hpf (0-3) 07/22/17 21:30 Urine WBC 61 /hpf (3-5) 07/22/17 21:30 Ur Epithelial Cells Few /hpf (FEW) 07/22/17 21:30 Urine Bacteria Rare /hpf (NONE SEEN) 07/21/17 10:50 Hyaline Casts 3 /lpf 07/22/17 21:30 Urine Mucus Rare 07/22/17 21:30 RPR Titer Nonreactive (NONREACTIVE) 07/20/17 08:00 LABS REVIEWED, POORLY CONTROLLED DM, REFERRED TO PMD FOR FOLLOW UP. - Treatment Hospital Course: Detox Protocol Followed, Detoxed Safely, Responded well, Discharged Condition Good, Rehab Referral Accepted Patient has Accepted a Rehab Referral to: [facility] - Medication Discharge Medications: Ambulatory Orders Insulin Glargine,Hum.rec.anlog [Lantus (10mL VIAL) -] 26 units SQ HS 11/14/14 Albuterol Sulfate Inhaler - [Ventolin HFA Inhaler -] 2 inh PO Q4H PRN #1 inhaler 02/16/17 Amlodipine Besylate [Norvasc -] 10 mg PO DAILY #30 tablet 02/16/17 Aspirin [ASA -] 81 mg PO DAILY #30 mg 02/16/17 Famotidine [Pepcid -] 20 mg PO BID #60 mg 02/16/17 Metformin HCl [Glucophage -] 1,000 mg PO BID #60 tablet 02/16/17 - Diagnosis (1) Alcohol dependence with uncomplicated withdrawal Current Visit: Yes Status: Acute (2) Cocaine dependence, uncomplicated Current Visit: Yes Status: Acute (3) Nicotine dependence Current Visit: Yes Status: Acute Qualifiers: Nicotine product type: cigarettes Substance use status: in withdrawal Qualified Code(s): F17.213 - Nicotine dependence, cigarettes, with withdrawal; F17.213 - Nicotine dependence, cigarettes, with withdrawal (4) Asthma Current Visit: Yes Status: Chronic Qualifiers: Asthma severity: mild Asthma complication type: uncomplicated (5) Diabetes type 2, uncontrolled Current Visit: Yes Status: Chronic Qualifiers: Diabetes mellitus complication status: with hyperglycemia Diabetes mellitus meterman insulin use: without meterman use Qualified Code(s): E11.65 - Type 2 diabetes mellitus with hyperglycemia; E11.65 - Type 2 diabetes mellitus with hyperglycemia; E11.65 - Type 2 diabetes mellitus with hyperglycemia; E11.65 - Type 2 diabetes mellitus with hyperglycemia (6) H/O hearing loss Current Visit: Yes Status: Chronic (7) Hypertension Current Visit: Yes Status: Chronic Qualifiers: Hypertension type: essential hypertension Qualified Code(s): I10 - Essential (primary) hypertension; I10 - Essential (primary) hypertension; I10 - Essential (primary) hypertension (8) Insomnia Current Visit: Yes Status: Chronic (9) Tinea pedis Current Visit: No Status: Chronic Qualifiers: Laterality: bilateral Qualified Code(s): B35.3 - Tinea pedis; B35.3 - Tinea pedis - AMA Did Patient Leave Against Medical Advice: No
[2017-07-23] MEDS: PRENATAL VITAMINS W/ FOLIC ACID TABLET (FP) PO SCH (10:35)
[2017-07-23] MEDS: PANTOPRAZOLE 20 MG TABLET (FP) PO SCH (10:35)
[2017-07-23] MEDS: ASPIRIN 81 MG CHEWABLE TABLETS PO SCH (10:35)
[2017-07-23] MEDS: amLODIPine BESYLATE 10 MG TABLET (FP) PO SCH (10:35)
[2017-07-23] MEDS: NICOTINE 14 MG/24 HOURS TOPICAL PATCH TD SCH (10:35)
[2017-07-23] MEDS: cloNIDine HCL 0.1 MG TABLET PO SCH (10:35)
[2017-07-23 17:29] VITALS: BP 128/84; PULSE 99; TEMP 98.6
== END 2017-07-23 18:04 | disposition other institution (70) | DRG 774 ==
LOC: YASAS 14:33 → Y3N 18:50
PROVIDERS: ADMIT Internal Medicine; ATTEND Internal Medicine
PROC: HZ2ZZZZ Detoxification Services for Substance Abuse Treatment (ICD-10-PCS; principal; 2017-07-19)
DX: F10.230 Alcohol dependence with withdrawal, uncomplicated (principal); F14.20 Cocaine dependence, uncomplicated; F17.213 Nicotine dependence, cigarettes, with withdrawal; J45.20 Mild intermittent asthma, uncomplicated; E11.65 Type 2 diabetes mellitus with hyperglycemia; H91.92 Unspecified hearing loss, left ear; I10 Essential (primary) hypertension; G47.00 Insomnia, unspecified; B35.3 Tinea pedis; K21.9 Gastro-esophageal reflux disease without esophagitis; Z91.018 Allergy to other foods; Z79.4 Long term (current) use of insulin; Z79.84 Long term (current) use of oral hypoglycemic drugs
CPT/HCPCS: 36415; 80053; 81003; 81015; 85027; 86593; 87086; 87186; 93005; 93010

== ENCOUNTER 2017-07-23 18:29 | Inpatient (IN) | payer OTHER ==
[2017-07-23] MEDS ORDERED: MAGNESIUM CITRATE 300 ML BOTTLE PO PRN (19:26)
[2017-07-23] MEDS ORDERED: P-EPHED 60MG/TRIPROLIDI 2.5MG TABLET PO PRN (19:26)
[2017-07-23] MEDS ORDERED: NICOTINE POLACRILEX 2 MG GUM BUC PRN (19:26)
[2017-07-23] MEDS ORDERED: LOPERAMIDE HCL 2 MG CAPSULE PO PRN (19:26)
[2017-07-23] MEDS ORDERED: NICOTINE 14 MG/24 HOURS TOPICAL PATCH TD PRN (19:26)
[2017-07-23] MEDS ORDERED: IBUPROFEN 400 MG TABLET (FP) PO PRN (19:26)
[2017-07-23] MEDS ORDERED: guaiFENesin/D-METHORPHAN HB 10 ML UNIT-DOSE CUPS PO PRN (19:26)
[2017-07-23] MEDS ORDERED: MAGNESIUM HYDROX 2400MG/30ML ORAL SUSPENSION 30 ML CUP PO PRN (19:26)
[2017-07-23] MEDS ORDERED: MENTHOL/PHENOL 1 EACH UD MM PRN (19:26)
[2017-07-23] MEDS ORDERED: ALBUTEROL SO4 2.5/IPRATROPIUM 0.5 INH SOL 3 ML VIAL.NEB. NEB PRN (19:27)
[2017-07-23] MEDS ORDERED: ALBUTEROL SO4 18 GM HFA INHALER IH PRN (19:27)
--- NOTE | 2017-07-23 19:36 | HP ---
RISSA ROMANO Rehab Assess/Revision - Admission History Admitted to Rehab from: [facility] [place] Date of Admission to Rehab: 07/23/17 - Findings Detox History & Physical reviewed: Yes Concur with findings: Yes Comments/Additional Findings: TRANSFERRED FROM DETOX TO REHAB ADMISSION PER PROTOCOL
--- NOTE | 2017-07-23 19:36 | HP ---
Admission ROS [facility] Allergies/Adverse Reactions: Allergies Allergy/AdvReac Type Severity Reaction Status Date / Time tomato Allergy Severe Nausea Verified 07/19/17 17:31 No Known Drug Allergies Allergy Verified 07/19/17 17:31 - Ebola screening Have you traveled outside of the country in the last 21 days: No Have you had contact with anyone from an Ebola affected area: No Do you have a fever: No Patient History - Patient Medical History Hx Anemia: No Hx Asthma: Yes Hx Chronic Obstructive Pulmonary Disease (COPD): No Hx Cancer: No Hx Cardiac Disorders: No Hx Congestive Heart Failure: No Hx Hypertension: Yes Hx Hypercholesterolemia: No Hx Pacemaker: No HX Cerebrovascular Accident: No Hx Seizures: No Hx Dementia: No Hx Diabetes: Yes Hx Gastrointestinal Disorders: Yes (GERD) Hx Liver Disease: No Hx Genitourinary Disorders: No Hx Sexually Transmitted Disorders: No Hx Renal Disease (ESRD): No Hx Thyroid Disease: No Hx Human Immunodeficiency Virus (HIV): No Hx Hepatitis C: No Hx Depression: No Hx Suicide Attempt: No Hx Bipolar Disorder: No Hx Schizophrenia: No - Patient Surgical History Past Surgical History: Yes Hx Neurologic Surgery: No Hx Cataract Extraction: No Hx Cardiac Surgery: No Hx Lung Surgery: No Hx Breast Surgery: No Hx Breast Biopsy: No Hx Abdominal Surgery: No Hx Appendectomy: No Hx Cholecystectomy: No Hx Genitourinary Surgery: No Hx Section: No Hx Orthopedic Surgery: No Other Surgical History: removed cyst in the right buttock in 2013 & 2015. Anesthesia Reaction: No - PPD History Previous Implant?: Yes Documented Results: Negative w/proof Implanted On Prior [facility] Admission?: Yes Date: 11/29/16 Results: 0MM - Smoking Cessation Smoking history: Smoker current status UNK Aproximately how many cigarettes per day: 0 Cigars Per Day: 0 Hx Chewing Tobacco Use: No Initiated information on smoking cessation: No - Substances Abused Alcohol Route: Oral Frequency: Daily Amount used: 1 pint of cognac, 6pack beer Age of first use: 23 Date of Last Use: 07/18/17 Crack Route: Smoking Frequency: Daily Amount used: $50 Age of first use: 23 Date of Last Use: 07/18/17 Family Disease History - Family Disease History Family Disease History: Diabetes: Mother, Sister, CA: Mother, Respiratory: Mother, Brother, Sister, Daughter [facility] Breath Alcohol Content Breath Alcohol Content: 0 Inpatient Rehab Admission - Initial Determination Are CD services needed?: Yes Free of communicable disease: Yes Not in need of hospitalization: Yes - Rehab Admission Criteria Previous failed treatment: Yes Poor recovery environment: Yes Comorbidities: Yes Lacks judgement: No Patient is meeting Inpatient Rehab admission criteria:: Yes
[2017-07-23] MEDS: INSULIN DETEMIR 100 UNITS/ML MDV SQ SCH (21:24)
[2017-07-23] MEDS: RANITIDINE HCL 150 MG TABLET (FP) PO SCH (21:24)
[2017-07-23] MEDS: diphenhydrAMINE HCL 50 MG CAPSULE PO PRN (21:24)
[2017-07-23] MEDS: THIAMINE HCL 100 MG TABLET (FP) PO SCH (21:24)
[2017-07-23] MEDS: ACETAMINOPHEN 325 MG TABLET (FP) PO PRN (21:25)
[2017-07-24] MEDS: diphenhydrAMINE HCL 50 MG CAPSULE PO PRN ×2 (01:19→21:15)
[2017-07-24] MEDS: ACETAMINOPHEN 325 MG TABLET (FP) PO PRN ×3 (06:48→21:19)
[2017-07-24] MEDS: metFORMIN HCL 500 MG TABLET (FP) PO SCH ×2 (06:48→16:46)
[2017-07-24] MEDS ORDERED: INSULIN (NOVOLOG) ASPART 100 UNITS/ML 10ML VIAL ONE ×4 (06:57→20:52)
[2017-07-24] MEDS: INSULIN SLIDING SCALE (NOVOLOG) 1 VIAL SQ SCH ×4 (07:17→21:16)
[2017-07-24] MEDS: ASPIRIN 81 MG CHEWABLE TABLETS PO SCH (10:04)
[2017-07-24] MEDS: PRENATAL VITAMINS W/ FOLIC ACID TABLET (FP) PO SCH (10:04)
[2017-07-24] MEDS: amLODIPine BESYLATE 10 MG TABLET (FP) PO SCH (10:05)
[2017-07-24] MEDS: RANITIDINE HCL 150 MG TABLET (FP) PO SCH ×2 (10:05→21:15)
[2017-07-24] MEDS: THIAMINE HCL 100 MG TABLET (FP) PO SCH (21:15)
[2017-07-24] MEDS: INSULIN DETEMIR 100 UNITS/ML MDV SQ SCH (21:17)
[2017-07-25] MEDS ORDERED: INSULIN (NOVOLOG) ASPART 100 UNITS/ML 10ML VIAL ONE ×4 (03:50→16:35)
[2017-07-25] MEDS: ACETAMINOPHEN 325 MG TABLET (FP) PO PRN ×2 (06:52→21:07)
[2017-07-25] MEDS: metFORMIN HCL 500 MG TABLET (FP) PO SCH ×2 (06:52→16:37)
[2017-07-25] MEDS: INSULIN SLIDING SCALE (NOVOLOG) 1 VIAL SQ SCH ×4 (06:57→21:10)
[2017-07-25] MEDS: amLODIPine BESYLATE 10 MG TABLET (FP) PO SCH ×2 (07:31→10:06)
[2017-07-25] MEDS: ASPIRIN 81 MG CHEWABLE TABLETS PO SCH (10:06)
[2017-07-25] MEDS: PRENATAL VITAMINS W/ FOLIC ACID TABLET (FP) PO SCH (10:06)
[2017-07-25] MEDS: RANITIDINE HCL 150 MG TABLET (FP) PO SCH ×2 (10:06→21:06)
[2017-07-25] MEDS: THIAMINE HCL 100 MG TABLET (FP) PO SCH (21:06)
[2017-07-25] MEDS: diphenhydrAMINE HCL 50 MG CAPSULE PO PRN (21:06)
[2017-07-25] MEDS: INSULIN DETEMIR 100 UNITS/ML MDV SQ SCH (21:08)
[2017-07-26] MEDS: INSULIN SLIDING SCALE (NOVOLOG) 1 VIAL SQ SCH ×4 (06:15→21:18)
[2017-07-26] MEDS: metFORMIN HCL 500 MG TABLET (FP) PO SCH ×2 (06:15→17:00)
[2017-07-26] MEDS: ACETAMINOPHEN 325 MG TABLET (FP) PO PRN (06:17)
[2017-07-26] MEDS ORDERED: INSULIN (NOVOLOG) ASPART 100 UNITS/ML 10ML VIAL ONE ×4 (06:41→22:11)
--- NOTE | 2017-07-26 09:27 | HP ---
Psychiatrist Admission - Data Date of interview: 07/26/17 Identifying data: This is the third [facility] inpatient [facility] [place] admission for this undomiciled 46 year old single black male, father of 3, unemployed. Medical History: Arthritis, Diabetes Mellitus, HTN, Asthma, GERD, removed cyst in the right buttock in 2014 & 2016, Obesity. Smokes cigarettes, 4 daily. Psychiatric History: Denies history of psychiatric treatment Physical/Sexual Abuse/Trauma History: Denies history of sexual physical and verbal abuse. Additional Comment: Reports longest period of "clean time" was during a period of incarceration from 1994 to 1999. Vital Signs: Vital Signs - 24 hr 07/25/17 07/26/17 07/26/17 10:00 00:30 03:30 Temperature Pulse Rate 117 H Respiratory 16 16 Rate Blood Pressure 133/91 07/26/17 06:40 Temperature 98.4 F Pulse Rate 95 H Respiratory 18 Rate Blood Pressure 133/94 Allergies/Adverse Reactions: Allergies Allergy/AdvReac Type Severity Reaction Status Date / Time tomato Allergy Severe Nausea Verified 07/19/17 17:31 No Known Drug Allergies Allergy Verified 07/19/17 17:31 Date of last physical exam: 07/19/17 Concur with the findings of this exam: Yes - Substance Abuse/Tx History Hx Alcohol Use: Yes (started at age of 23) Hx Substance Use: Yes Substance Use Type: Alcohol (daily 1 pint of cognag/beer 12cans), Cocaine ( started at age of 23, daily use for $50) Hx Substance Use Treatment: Yes Mental Status Exam - Mental Status Exam Alert and Oriented to: Time, Place, Person Cognitive Function: Good Patient Appearance: Well Groomed Mood: Anxious Affect: Appropriate, Mood Congruent Patient Behavior: Appropriate, Cooperative Speech Pattern: Clear, Appropriate Voice Loudness: Normal Thought Process: Intact, Goal Oriented Thought Disorder: Not Present Hallucinations: Denies Suicidal Ideation: Denies Homicidal Ideation: Denies Insight/Judgement: Fair Sleep: Fair Appetite: Good Muscle strength/Tone: Normal Gait/Station: Normal Psychiatric Findings - Problem List ([place] 1, 2,3) (1) Nicotine dependence Current Visit: No Status: Acute Qualifiers: Nicotine product type: cigarettes Substance use status: in withdrawal Qualified Code(s): F17.213 - Nicotine dependence, cigarettes, with withdrawal; F17.213 - Nicotine dependence, cigarettes, with withdrawal (2) Cocaine dependence Current Visit: Yes Status: Acute (3) Alcohol dependence Current Visit: Yes Status: Acute
[2017-07-26] MEDS: PRENATAL VITAMINS W/ FOLIC ACID TABLET (FP) PO SCH (10:13)
[2017-07-26] MEDS: amLODIPine BESYLATE 10 MG TABLET (FP) PO SCH (10:13)
[2017-07-26] MEDS: ASPIRIN 81 MG CHEWABLE TABLETS PO SCH (10:13)
[2017-07-26] MEDS: RANITIDINE HCL 150 MG TABLET (FP) PO SCH ×2 (10:13→21:14)
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
[2017-07-26] MEDS: GABAPENTIN 100 MG CAPSULE (FP) PO SCH ×2 (14:45→21:14)
[2017-07-26] MEDS: LIDOCAINE 5% TOPICAL PATCH TP SCH (14:45)
[2017-07-26] MEDS: CYCLOBENZAPRINE HCL 10 MG TABLET (FP) PO SCH ×2 (14:45→21:14)
[2017-07-26] MEDS: THIAMINE HCL 100 MG TABLET (FP) PO SCH (21:14)
[2017-07-26] MEDS: diphenhydrAMINE HCL 50 MG CAPSULE PO PRN (21:14)
[2017-07-26] MEDS: LIDOCAINE PATCH REMOVAL MC SCH (21:15)
[2017-07-26] MEDS: AMITRIPTYLINE HCL 25 MG TABLET (FP) PO SCH (21:15)
[2017-07-26] MEDS: INSULIN DETEMIR 100 UNITS/ML MDV SQ SCH (21:16)
[2017-07-27] MEDS: INSULIN SLIDING SCALE (NOVOLOG) 1 VIAL SQ SCH ×4 (06:34→21:24)
[2017-07-27] MEDS: metFORMIN HCL 500 MG TABLET (FP) PO SCH ×2 (06:34→17:21)
[2017-07-27] MEDS: GABAPENTIN 100 MG CAPSULE (FP) PO SCH ×3 (06:34→21:22)
[2017-07-27] MEDS: CYCLOBENZAPRINE HCL 10 MG TABLET (FP) PO SCH ×3 (06:34→21:22)
[2017-07-27] MEDS ORDERED: INSULIN (NOVOLOG) ASPART 100 UNITS/ML 10ML VIAL ONE ×4 (06:50→22:26)
[2017-07-27] MEDS: PRENATAL VITAMINS W/ FOLIC ACID TABLET (FP) PO SCH (10:31)
[2017-07-27] MEDS: RANITIDINE HCL 150 MG TABLET (FP) PO SCH ×2 (10:31→21:22)
[2017-07-27] MEDS: amLODIPine BESYLATE 10 MG TABLET (FP) PO SCH (10:31)
[2017-07-27] MEDS: ASPIRIN 81 MG CHEWABLE TABLETS PO SCH (10:31)
[2017-07-27] MEDS: ACETAMINOPHEN 325 MG TABLET (FP) PO PRN ×2 (10:33→21:25)
[2017-07-27] MEDS: LIDOCAINE 5% TOPICAL PATCH TP SCH (10:34)
[2017-07-27] MEDS: INSULIN DETEMIR 100 UNITS/ML MDV SQ SCH (21:23)
[2017-07-27] MEDS: AMITRIPTYLINE HCL 25 MG TABLET (FP) PO SCH (21:23)
[2017-07-27] MEDS: diphenhydrAMINE HCL 50 MG CAPSULE PO PRN (21:24)
[2017-07-27] MEDS: LIDOCAINE PATCH REMOVAL MC SCH (21:24)
[2017-07-27] MEDS: THIAMINE HCL 100 MG TABLET (FP) PO SCH (21:24)
[2017-07-28] MEDS: GABAPENTIN 100 MG CAPSULE (FP) PO SCH ×3 (06:43→21:13)
[2017-07-28] MEDS: metFORMIN HCL 500 MG TABLET (FP) PO SCH ×2 (06:43→17:10)
[2017-07-28] MEDS: CYCLOBENZAPRINE HCL 10 MG TABLET (FP) PO SCH ×3 (06:44→21:13)
[2017-07-28] MEDS: INSULIN SLIDING SCALE (NOVOLOG) 1 VIAL SQ SCH ×4 (06:44→21:12)
[2017-07-28] MEDS ORDERED: INSULIN (NOVOLOG) ASPART 100 UNITS/ML 10ML VIAL ONE ×2 (07:00→12:14)
[2017-07-28] MEDS: PRENATAL VITAMINS W/ FOLIC ACID TABLET (FP) PO SCH (10:12)
[2017-07-28] MEDS: ASPIRIN 81 MG CHEWABLE TABLETS PO SCH (10:12)
[2017-07-28] MEDS: RANITIDINE HCL 150 MG TABLET (FP) PO SCH ×2 (10:12→21:13)
[2017-07-28] MEDS: LIDOCAINE 5% TOPICAL PATCH TP SCH (10:12)
[2017-07-28] MEDS: amLODIPine BESYLATE 10 MG TABLET (FP) PO SCH (10:12)
[2017-07-28] MEDS: INSULIN DETEMIR 100 UNITS/ML MDV SQ SCH (21:12)
[2017-07-28] MEDS: AMITRIPTYLINE HCL 25 MG TABLET (FP) PO SCH (21:13)
[2017-07-28] MEDS: THIAMINE HCL 100 MG TABLET (FP) PO SCH (21:13)
[2017-07-28] MEDS: diphenhydrAMINE HCL 50 MG CAPSULE PO PRN (21:13)
[2017-07-28] MEDS: ACETAMINOPHEN 325 MG TABLET (FP) PO PRN (21:14)
[2017-07-28] MEDS: LIDOCAINE PATCH REMOVAL MC SCH (21:25)
[2017-07-29] MEDS: metFORMIN HCL 500 MG TABLET (FP) PO SCH ×2 (06:28→16:53)
[2017-07-29] MEDS: CYCLOBENZAPRINE HCL 10 MG TABLET (FP) PO SCH ×3 (06:29→21:10)
[2017-07-29] MEDS: ACETAMINOPHEN 325 MG TABLET (FP) PO PRN ×2 (06:29→16:56)
[2017-07-29] MEDS: INSULIN SLIDING SCALE (NOVOLOG) 1 VIAL SQ SCH ×4 (06:29→21:13)
[2017-07-29] MEDS: GABAPENTIN 100 MG CAPSULE (FP) PO SCH ×3 (06:29→21:10)
[2017-07-29] MEDS ORDERED: INSULIN (NOVOLOG) ASPART 100 UNITS/ML 10ML VIAL ONE ×4 (06:46→22:11)
[2017-07-29] MEDS: PRENATAL VITAMINS W/ FOLIC ACID TABLET (FP) PO SCH (10:00)
[2017-07-29] MEDS: RANITIDINE HCL 150 MG TABLET (FP) PO SCH ×2 (10:00→21:10)
[2017-07-29] MEDS: ASPIRIN 81 MG CHEWABLE TABLETS PO SCH (10:00)
[2017-07-29] MEDS: amLODIPine BESYLATE 10 MG TABLET (FP) PO SCH (10:00)
[2017-07-29] MEDS: LIDOCAINE 5% TOPICAL PATCH TP SCH (10:01)
[2017-07-29] MEDS: THIAMINE HCL 100 MG TABLET (FP) PO SCH (21:10)
[2017-07-29] MEDS: AMITRIPTYLINE HCL 25 MG TABLET (FP) PO SCH (21:10)
[2017-07-29] MEDS: INSULIN DETEMIR 100 UNITS/ML MDV SQ SCH (21:11)
[2017-07-29] MEDS: LIDOCAINE PATCH REMOVAL MC SCH (21:12)
[2017-07-30] MEDS: metFORMIN HCL 500 MG TABLET (FP) PO SCH ×2 (06:31→16:50)
[2017-07-30] MEDS: CYCLOBENZAPRINE HCL 10 MG TABLET (FP) PO SCH ×3 (06:31→21:15)
[2017-07-30] MEDS: GABAPENTIN 100 MG CAPSULE (FP) PO SCH ×3 (06:31→21:15)
[2017-07-30] MEDS: ACETAMINOPHEN 325 MG TABLET (FP) PO PRN (06:32)
[2017-07-30] MEDS ORDERED: INSULIN (NOVOLOG) ASPART 100 UNITS/ML 10ML VIAL ONE ×2 (07:14→12:52)
[2017-07-30] MEDS: INSULIN SLIDING SCALE (NOVOLOG) 1 VIAL SQ SCH ×4 (07:29→21:16)
[2017-07-30] MEDS: LIDOCAINE 5% TOPICAL PATCH TP SCH (09:58)
[2017-07-30] MEDS: amLODIPine BESYLATE 10 MG TABLET (FP) PO SCH (09:58)
[2017-07-30] MEDS: RANITIDINE HCL 150 MG TABLET (FP) PO SCH ×2 (09:58→21:15)
[2017-07-30] MEDS: ASPIRIN 81 MG CHEWABLE TABLETS PO SCH (09:58)
[2017-07-30] MEDS: PRENATAL VITAMINS W/ FOLIC ACID TABLET (FP) PO SCH (09:58)
[2017-07-30] MEDS ORDERED: cloNIDine HCL 0.1 MG TABLET PO ONE (11:51)
[2017-07-30] MEDS: AMITRIPTYLINE HCL 25 MG TABLET (FP) PO SCH (21:15)
[2017-07-30] MEDS: THIAMINE HCL 100 MG TABLET (FP) PO SCH (21:15)
[2017-07-30] MEDS: INSULIN DETEMIR 100 UNITS/ML MDV SQ SCH (21:16)
[2017-07-30] MEDS: LIDOCAINE PATCH REMOVAL MC SCH (21:17)
[2017-07-30] MEDS: diphenhydrAMINE HCL 50 MG CAPSULE PO PRN (21:18)
[2017-07-31] MEDS: CYCLOBENZAPRINE HCL 10 MG TABLET (FP) PO SCH ×3 (06:49→21:09)
[2017-07-31] MEDS: INSULIN SLIDING SCALE (NOVOLOG) 1 VIAL SQ SCH ×4 (06:50→21:09)
[2017-07-31] MEDS: GABAPENTIN 100 MG CAPSULE (FP) PO SCH ×3 (06:50→21:09)
[2017-07-31] MEDS: metFORMIN HCL 500 MG TABLET (FP) PO SCH ×2 (06:50→17:00)
[2017-07-31] MEDS ORDERED: INSULIN (NOVOLOG) ASPART 100 UNITS/ML 10ML VIAL ONE ×4 (07:10→22:04)
[2017-07-31] MEDS: amLODIPine BESYLATE 10 MG TABLET (FP) PO SCH (10:28)
[2017-07-31] MEDS: ASPIRIN 81 MG CHEWABLE TABLETS PO SCH (10:28)
[2017-07-31] MEDS: PRENATAL VITAMINS W/ FOLIC ACID TABLET (FP) PO SCH (10:28)
[2017-07-31] MEDS: RANITIDINE HCL 150 MG TABLET (FP) PO SCH ×2 (10:28→21:09)
[2017-07-31] MEDS: ACETAMINOPHEN 325 MG TABLET (FP) PO PRN ×2 (10:29→21:11)
[2017-07-31] MEDS: LIDOCAINE 5% TOPICAL PATCH TP SCH (10:29)
[2017-07-31] MEDS: MAG HYDROX/AL HYDROX/SIMETH 30 ML UNIT-DOSE CUP PO PRN (20:41)
[2017-07-31] MEDS: diphenhydrAMINE HCL 50 MG CAPSULE PO PRN (21:09)
[2017-07-31] MEDS: AMITRIPTYLINE HCL 25 MG TABLET (FP) PO SCH (21:09)
[2017-07-31] MEDS: THIAMINE HCL 100 MG TABLET (FP) PO SCH (21:09)
[2017-07-31] MEDS: INSULIN DETEMIR 100 UNITS/ML MDV SQ SCH (21:10)
[2017-07-31] MEDS: LIDOCAINE PATCH REMOVAL MC SCH (21:11)
[2017-08-01] MEDS: metFORMIN HCL 500 MG TABLET (FP) PO SCH ×2 (07:03→17:00)
[2017-08-01] MEDS: INSULIN SLIDING SCALE (NOVOLOG) 1 VIAL SQ SCH ×4 (07:04→21:10)
[2017-08-01] MEDS: GABAPENTIN 100 MG CAPSULE (FP) PO SCH ×3 (07:04→21:11)
[2017-08-01] MEDS: CYCLOBENZAPRINE HCL 10 MG TABLET (FP) PO SCH ×3 (07:04→21:11)
[2017-08-01] MEDS: ACETAMINOPHEN 325 MG TABLET (FP) PO PRN (07:06)
[2017-08-01] MEDS ORDERED: INSULIN (NOVOLOG) ASPART 100 UNITS/ML 10ML VIAL ONE ×3 (07:18→21:48)
[2017-08-01] MEDS: ASPIRIN 81 MG CHEWABLE TABLETS PO SCH (10:06)
[2017-08-01] MEDS: RANITIDINE HCL 150 MG TABLET (FP) PO SCH ×2 (10:06→21:11)
[2017-08-01] MEDS: PRENATAL VITAMINS W/ FOLIC ACID TABLET (FP) PO SCH (10:06)
[2017-08-01] MEDS: LIDOCAINE 5% TOPICAL PATCH TP SCH (10:06)
[2017-08-01] MEDS: amLODIPine BESYLATE 10 MG TABLET (FP) PO SCH (10:06)
[2017-08-01] MEDS: MAG HYDROX/AL HYDROX/SIMETH 30 ML UNIT-DOSE CUP PO PRN (19:32)
[2017-08-01] MEDS: INSULIN DETEMIR 100 UNITS/ML MDV SQ SCH (21:09)
[2017-08-01] MEDS: THIAMINE HCL 100 MG TABLET (FP) PO SCH (21:11)
[2017-08-01] MEDS: diphenhydrAMINE HCL 50 MG CAPSULE PO PRN (21:11)
[2017-08-01] MEDS: AMITRIPTYLINE HCL 25 MG TABLET (FP) PO SCH (21:11)
[2017-08-01] MEDS: LIDOCAINE PATCH REMOVAL MC SCH (21:12)
[2017-08-02] MEDS: GABAPENTIN 100 MG CAPSULE (FP) PO SCH ×3 (06:34→21:16)
[2017-08-02] MEDS: CYCLOBENZAPRINE HCL 10 MG TABLET (FP) PO SCH ×3 (06:34→21:16)
[2017-08-02] MEDS: metFORMIN HCL 500 MG TABLET (FP) PO SCH ×2 (06:34→16:58)
[2017-08-02] MEDS: ACETAMINOPHEN 325 MG TABLET (FP) PO PRN ×2 (06:35→21:18)
[2017-08-02] MEDS: INSULIN SLIDING SCALE (NOVOLOG) 1 VIAL SQ SCH ×4 (06:36→21:20)
[2017-08-02] MEDS ORDERED: INSULIN (NOVOLOG) ASPART 100 UNITS/ML 10ML VIAL ONE ×3 (06:40→23:13)
[2017-08-02] MEDS: amLODIPine BESYLATE 10 MG TABLET (FP) PO SCH (09:53)
[2017-08-02] MEDS: PRENATAL VITAMINS W/ FOLIC ACID TABLET (FP) PO SCH (09:53)
[2017-08-02] MEDS: LIDOCAINE 5% TOPICAL PATCH TP SCH (09:53)
[2017-08-02] MEDS: RANITIDINE HCL 150 MG TABLET (FP) PO SCH ×2 (09:53→21:16)
[2017-08-02] MEDS: ASPIRIN 81 MG CHEWABLE TABLETS PO SCH (09:53)
[2017-08-02] MEDS: AMITRIPTYLINE HCL 25 MG TABLET (FP) PO SCH (21:16)
[2017-08-02] MEDS: LIDOCAINE PATCH REMOVAL MC SCH (21:16)
[2017-08-02] MEDS: THIAMINE HCL 100 MG TABLET (FP) PO SCH (21:17)
[2017-08-02] MEDS: diphenhydrAMINE HCL 50 MG CAPSULE PO PRN (21:17)
[2017-08-02] MEDS: INSULIN DETEMIR 100 UNITS/ML MDV SQ SCH (21:17)
[2017-08-02] MEDS: MAG HYDROX/AL HYDROX/SIMETH 30 ML UNIT-DOSE CUP PO PRN (23:47)
[2017-08-03] MEDS: diphenhydrAMINE HCL 50 MG CAPSULE PO PRN (02:32)
[2017-08-03] MEDS: CYCLOBENZAPRINE HCL 10 MG TABLET (FP) PO SCH ×2 (06:45→13:02)
[2017-08-03] MEDS: GABAPENTIN 100 MG CAPSULE (FP) PO SCH ×2 (06:45→13:02)
[2017-08-03] MEDS: metFORMIN HCL 500 MG TABLET (FP) PO SCH (06:45)
[2017-08-03] MEDS: ACETAMINOPHEN 325 MG TABLET (FP) PO PRN (06:46)
[2017-08-03] MEDS: INSULIN SLIDING SCALE (NOVOLOG) 1 VIAL SQ SCH ×2 (06:47→11:59)
[2017-08-03 07:13] VITALS: TEMP 98.1
[2017-08-03] MEDS ORDERED: INSULIN (NOVOLOG) ASPART 100 UNITS/ML 10ML VIAL ONE ×2 (07:33→12:07)
[2017-08-03] MEDS: PRENATAL VITAMINS W/ FOLIC ACID TABLET (FP) PO SCH (09:35)
[2017-08-03] MEDS: LIDOCAINE 5% TOPICAL PATCH TP SCH (09:35)
[2017-08-03] MEDS: ASPIRIN 81 MG CHEWABLE TABLETS PO SCH (09:35)
[2017-08-03] MEDS: RANITIDINE HCL 150 MG TABLET (FP) PO SCH (09:35)
[2017-08-03] MEDS: amLODIPine BESYLATE 10 MG TABLET (FP) PO SCH (09:35)
[2017-08-03 11:39] VITALS: BP 133/93; PULSE 122
[2017-08-03] MEDS: MAG HYDROX/AL HYDROX/SIMETH 30 ML UNIT-DOSE CUP PO PRN (12:03)
--- NOTE | 2017-08-03 15:38 | PN ---
Psychiatric Progress Note Vital Signs: Vital Signs Period Temp Pulse Resp BP Sys/Leija Pulse Ox Last 24 Hr 98.1 F 103-122 16-18 133-134/93-95 Date of Session: 08/03/17 Chief Complaint:: discharge visit HPI: Patient is addressing alcohol, cocaine, nicotine dependence. ROS: WNL Current Medications: Active Medications Generic Name Dose Route Start Last Admin Trade Name Freq PRN Reason Stop Dose Admin Acetaminophen 650 mg 07/23/17 19:26 08/03/17 06:46 Tylenol - PO 650 mg Q4H PRN Administration FEVER OR PAIN Al Hydroxide/Mg Hydroxide 30 ml 07/23/17 19:26 08/03/17 12:03 Mylanta Oral Suspension - PO 30 ml Q6H PRN Administration DYSPEPSIA Albuterol Sulfate 2 puff 07/23/17 19:27 Ventolin Hfa Inhaler - IH Q4H PRN SHORT OF BREATH/WHEEZING Amitriptyline HCl 50 mg 07/26/17 22:00 08/02/17 21:16 Elavil - PO 50 mg HS LAURA Administration Amlodipine Besylate 10 mg 07/24/17 10:00 08/03/17 09:35 Norvasc - PO 10 mg DAILY LAURA Administration Aspirin 81 mg 07/24/17 10:00 08/03/17 09:35 Asa - PO 81 mg DAILY LAURA Administration Cyclobenzaprine HCl 10 mg 07/26/17 14:00 08/03/17 13:02 Flexeril - PO 10 mg TID LAURA Administration Diphenhydramine HCl 50 mg 07/23/17 19:26 08/03/17 02:32 Benadryl - PO 50 mg HSMR1 PRN Administration FOR ITCHING Eucalyptus/Menthol/Phenol/Sorbitol 1 each 07/23/17 19:26 Cepastat Lozenge - MM Q4H PRN SORE THROAT Gabapentin 100 mg 07/26/17 14:00 08/03/17 13:02 Neurontin - PO 100 mg TID LAURA Administration Guaifenesin 10 ml 07/23/17 19:26 Robitussin Dm - PO Q6H PRN COUGH Insulin Aspart 1 vial 07/24/17 07:00 08/03/17 11:59 Novolog Vial Sliding Scale - SQ 6 units ACHS LAURA Administration Protocol Insulin Detemir 26 units 07/23/17 22:00 10/16/17 21:17 Levemir Vial SQ 26 units HS LAURA Administration Lidocaine 1 patch 07/26/17 12:51 08/03/17 09:35 Lidoderm Patch - TP 1 patch DAILY LAURA Administration Loperamide HCl 4 mg 07/23/17 19:26 Imodium - PO Q6H PRN DIARRHEA Magnesium Hydroxide 30 ml 07/23/17 19:26 Milk Of Magnesia - PO DAILY PRN CONSTIPATION Metformin HCl 1,000 mg 07/24/17 07:00 08/03/17 06:45 Glucophage - PO 1,000 mg BID@0700,1630 LAURA Administration Miscellaneous 1 each 07/26/17 22:00 08/02/17 21:16 Lidoderm Patch Removal MC 1 each DAILY@2200 LAURA Administration Nicotine 14 mg 07/23/17 19:26 Nicoderm Patch - TD DAILY PRN WITHDRAWAL(CONT SUBST) Nicotine Polacrilex 2 mg 07/23/17 19:26 Nicorette Gum - BUC Q2H PRN NICOTINE REPLACEMENT RX Multivit/Folic Acid/Iron 1 tab 07/24/17 10:00 08/03/17 09:35 Vitamins (Sjr) - PO 1 tab DAILY LAURA Administration Pseudoephedrine/Triprolidine 1 combo 07/23/17 19:26 Actifed - PO TID PRN NASAL CONGESTION Ranitidine HCl 150 mg 07/23/17 22:00 08/03/17 09:35 Zantac - PO 150 mg BID LAURA Administration Thiamine HCl 100 mg 07/23/17 22:00 08/02/17 21:17 Vitamin B1 - PO 100 mg HS LAURA Administration Current Side Effect: No Lab tests ordered: No Lab tests reviewed: Yes Provider note:: Patient requested to be discraged today, he completed 11 days, met his short term goals, will continue to address his issues at [place], W[facility] and Able treatment prograam. Patient was encouraged to continue maintain abstinence and utilize all supports to prevent relapses, patient is stable for dischare today. Total face to face time:: 15 Mental Status Exam - Mental Status Exam Alert and Oriented to: Time, Place, Person Cognitive Function: Good Patient Appearance: Well Groomed Mood: Hopeful Affect: Appropriate, Mood Congruent Patient Behavior: Appropriate, Cooperative Speech Pattern: Clear, Appropriate Voice Loudness: Normal Thought Process: Intact, Goal Oriented Thought Disorder: Not Present Hallucinations: Denies Suicidal Ideation: Denies Homicidal Ideation: Denies Insight/Judgement: Fair Sleep: Fair Appetite: Fair Muscle strength/Tone: Normal Gait/Station: Normal Psychiatric Treatment Plan - Problem List (1) Nicotine dependence Current Visit: No Qualifiers: Nicotine product type: cigarettes Substance use status: in withdrawal Qualified Code(s): F17.213 - Nicotine dependence, cigarettes, with withdrawal; F17.213 - Nicotine dependence, cigarettes, with withdrawal (2) Cocaine dependence Current Visit: Yes (3) Alcohol dependence Current Visit: Yes
== END 2017-08-03 16:02 | disposition home or self-care (01) | DRG 772 ==
LOC: YASAS 18:29 → Y5N 18:31
PROVIDERS: ADMIT Psychiatry & Neurology Psychiatry; ATTEND Psychiatry & Neurology Psychiatry
PROC: HZ42ZZZ Group Counseling for Substance Abuse Treatment, Cognitive-Behavioral (ICD-10-PCS; principal; 2017-07-23)
DX: F10.20 Alcohol dependence, uncomplicated (principal); F14.20 Cocaine dependence, uncomplicated; F17.213 Nicotine dependence, cigarettes, with withdrawal; I10 Essential (primary) hypertension; E11.9 Type 2 diabetes mellitus without complications; J45.909 Unspecified asthma, uncomplicated; K21.9 Gastro-esophageal reflux disease without esophagitis; M12.9 Arthropathy, unspecified

== ENCOUNTER 2018-11-22 11:09 | Inpatient (IN) | payer OTHER ==
[2018-11-22 12:44] VITALS: BMI 34.0
--- NOTE | 2018-11-22 14:59 | HP ---
CIWA Score Nausea/Vomitin Muscle Tremors: 3 Anxiety: 2 Agitation: 2 Paroxysmal Sweats: 1-Minimal Palms Moist Orientation: 0-Oriented Tacttile Disturbances: 1-Very Mild Itch/Numbness Auditory Disturbances: 1-Very Mild Visual Disturbances: 0-None Headache: 2-Mild CIWA-Ar Total Score: 15 - Admission Criteria [facility]AS[facility] Guidelines: Admission for Medically Managed Detox: Requires at least one of the followin. CIWA greater than 12 2. Seizures within the past 24 hours 3. Delirium tremens within the past 24 hours 4. Hallucinations within the past 24 hours 5. Acute intervention needed for co occurring medical disorder 6. Acute intervention needed for co occurring psychiatric disorder 7. Severe withdrawal that cannot be handled at a lower level of care (continued vomiting, continued diarrhea, abnormal vital signs) requiring intravenous medication and/or fluids 8. Admission ROS S - HPI Chief Complaint: i need help to stop drinking alcohol and cocaine Allergies/Adverse Reactions: Allergies Allergy/AdvReac Type Severity Reaction Status Date / Time tomato Allergy Severe Nausea Verified 07/19/17 17:31 No Known Drug Allergies Allergy Verified 07/19/17 17:31 History of Present Illness: this 48 years old male with alcohol and cocaine dependence,seeking detox, withdrawal symptom,last treatment [facility] detox 07/19/17 to 07/23/17 and rehab history of hypertension,iddm,asthma old cva with right side weakness insomnia cane for ambulatory aid longest period of sobriety 5 years - Ebola screening Have you traveled outside of the country in the last 21 days: No Have you had contact with anyone from an Ebola affected area: No Have you been sick,other than usual withdrawal symptoms: No Do you have a fever: No - Review of Systems Constitutional: Loss of Appetite, Malaise, Night Sweats, Changes in sleep, Weakness EENT: reports: Nose Congestion Cardiac: reports: Palpitations GI: reports: Nausea, Poor Appetite, Abdominal cramping : reports: No Symptoms Reported Musculoskeletal: reports: Back Pain Integumentary: reports: Dryness Neuro: reports: Headache, Tremors Endocrine: reports: No Symptoms Reported Hematology: reports: Anemia Psychiatric: reports: No Sypmtoms Reported, Judgement Intact, Mood/Affect Appropiate, Orientated x3 Other Systems: Reviewed and Negative (insomnia) Patient History - Patient Medical History Hx Anemia: No Hx Asthma: Yes Hx Chronic Obstructive Pulmonary Disease (COPD): No Hx Cancer: No Hx Cardiac Disorders: No Hx Congestive Heart Failure: No Hx Hypertension: Yes (on med) Hx Hypercholesterolemia: No Hx Pacemaker: No HX Cerebrovascular Accident: No Hx Seizures: No Hx Dementia: No Hx Diabetes: Yes (iddm) Hx Gastrointestinal Disorders: Yes (GERD) Hx Liver Disease: No Hx Genitourinary Disorders: No Hx Sexually Transmitted Disorders: No Hx Renal Disease (ESRD): No Hx Thyroid Disease: No Hx Human Immunodeficiency Virus (HIV): No (last 2017 negative) Hx Hepatitis C: No Hx Depression: No Hx Suicide Attempt: No Hx Bipolar Disorder: No Hx Schizophrenia: No Other Medical History: no suicidal,no homicidal - Patient Surgical History Past Surgical History: Yes Hx Neurologic Surgery: No Hx Cataract Extraction: No Hx Cardiac Surgery: No Hx Lung Surgery: No Hx Breast Surgery: No Hx Breast Biopsy: No Hx Abdominal Surgery: No Hx Appendectomy: No Hx Cholecystectomy: No Hx Genitourinary Surgery: No Hx Section: No Hx Orthopedic Surgery: No Other Surgical History: removed cyst in the right buttock in 2013 & 2015. Anesthesia Reaction: No - PPD History Previous Implant?: Yes Documented Results: Negative w/o proof Implanted On Prior [facility] Admission?: Yes Date: 11/29/16 Results: 0MM PPD to be Administered?: Yes - Smoking Cessation Smoking history: Current every day smoker Have you smoked in the past 12 months: Yes Aproximately how many cigarettes per day: 4 Cigars Per Day: 0 Hx Chewing Tobacco Use: No Initiated information on smoking cessation: Yes 'Breaking Loose' booklet given: 11/29/18 - Substance & Tx. History Hx Alcohol Use: Yes Hx Substance Use: Yes Substance Use Type: Alcohol, Cocaine Hx Substance Use Treatment: Yes ([facility] 07/19/17 to 07/23/17) - Substances Abused Alcohol Route: Oral Frequency: Daily Amount used: 1 pint of Bacardi and then 6 packs of beer Age of first use: 23 Date of Last Use: 11/21/18 Cocaine Route: Smoking Frequency: Daily Amount used: 50 dollars Age of first use: 23 Date of Last Use: 11/21/18 Family Disease History - Family Disease History Family Disease History: Diabetes: Mother, Sister, CA: Mother, Respiratory: Mother, Brother, Sister, Daughter Admission Physical Exam BHS - Vital Signs Vital Signs: Vital Signs - 24 hr 11/22/18 12:43 Temperature 98 F Pulse Rate 101 H Respiratory 20 Rate Blood Pressure 119/83 - Physical General Appearance: Yes: Moderate Distress, Tremorous, Irritable, Sweating, Anxious HEENTM: Yes: Normal ENT Inspection, DENITA, Pharynx Normal Respiratory: Yes: Lungs Clear, Normal Breath Sounds, No Respiratory Distress Neck: Yes: Supple Breast: Yes: Within Normal Limits Cardiology: Yes: Tachycardia Abdominal: Yes: Non Tender, Soft, Increased Bowel Sounds Genitourinary: Yes: Within Normal Limits Back: Yes: Muscle Spasm Musculoskeletal: Yes: Back pain, Muscle Pain Extremities: Yes: Tremors Neurological: Yes: Within Normal Limits, php engineer II-XII NML intact, Fully Oriented, Alert Integumentary: Yes: Dry Lymphatic: Yes: Within Normal Limits - Diagnostic (1) Alcohol dependence with uncomplicated withdrawal Current Visit: No Status: Acute (2) Cocaine dependence, uncomplicated Current Visit: No Status: Acute (3) Nicotine dependence Current Visit: No Status: Acute Qualifiers: Nicotine product type: cigarettes Substance use status: in withdrawal Qualified Code(s): F17.213 - Nicotine dependence, cigarettes, with withdrawal (4) Asthma Current Visit: No Status: Chronic Qualifiers: Asthma severity: mild Asthma complication type: uncomplicated (5) Diabetes type 2, uncontrolled Current Visit: No Status: Chronic (6) H/O hearing loss Current Visit: No Status: Chronic Comment: childhood trauma (7) Hypertension Current Visit: No Status: Chronic Qualifiers: Hypertension type: essential hypertension Qualified Code(s): I10 - Essential (primary) hypertension (8) Insomnia Current Visit: No Status: Chronic (9) Cerebrovascular accident (CVA) with right hemiparesis Current Visit: Yes Status: Acute (10) Use of cane as ambulatory aid Current Visit: Yes Status: Acute Cleared for Admission [facility] - Detox or Rehab [facility] Level of Care: Medically Managed Detox Regimen/Protocol: Librium [facility] Breath Alcohol Content Breath Alcohol Content: 0 Urine Drug Screen - Results Drug Screen Negative: No Urine Drug Screen Results: YUE-Cocaine, BZO-Benzodiazepines
[2018-11-22] MEDS ORDERED: MAGNESIUM CITRATE 300 ML BOTTLE PO PRN (15:22)
[2018-11-22] MEDS ORDERED: MAGNESIUM HYDROX 2400MG/30ML ORAL SUSPENSION 30 ML CUP PO PRN (15:22)
[2018-11-22] MEDS ORDERED: P-EPHED 60MG/TRIPROLIDI 2.5MG TABLET PO PRN (15:22)
[2018-11-22] MEDS ORDERED: chlordiazePOXIDE HCL 25 MG CAPSULE PO PRN (15:22)
[2018-11-22] MEDS ORDERED: hydrOXYzine PAMOATE 25 MG CAPSULE (FP) PO PRN (15:22)
[2018-11-22] MEDS ORDERED: LOPERAMIDE HCL 2 MG CAPSULE PO PRN (15:22)
[2018-11-22] MEDS ORDERED: MAG HYDROX/AL HYDROX/SIMETH 30 ML UNIT-DOSE CUP PO PRN (15:22)
[2018-11-22] MEDS ORDERED: INSULIN SLIDING SCALE (NOVOLOG) 1 VIAL SQ ONE (17:51)
[2018-11-22] MEDS: metFORMIN HCL 500 MG TABLET (FP) PO SCH (17:55)
[2018-11-22] MEDS: chlordiazePOXIDE HCL 25 MG CAPSULE PO SCH ×2 (17:55→22:35)
[2018-11-22] MEDS: guaiFENesin/D-METHORPHAN HB 10 ML UNIT-DOSE CUPS PO PRN (18:01)
[2018-11-22] MEDS: IBUPROFEN 400 MG TABLET (FP) PO PRN (18:01)
[2018-11-22] MEDS: INSULIN (NOVOLOG) ASPART 100 UNITS/ML 10ML VIAL SQ SCH ×2 (18:02→22:29)
[2018-11-22] MEDS: ACETAMINOPHEN 325 MG TABLET (FP) PO PRN (22:25)
[2018-11-22] MEDS: RANITIDINE HCL 150 MG TABLET (FP) PO SCH (22:25)
[2018-11-22] MEDS: MELATONIN 5 MG TABLETS PO PRN (22:25)
[2018-11-22] MEDS: THIAMINE HCL 100 MG TABLET (FP) PO SCH (22:25)
[2018-11-22] MEDS: INSULIN (LEVEMIR) 100 UNITS/ML UNITS SQ SCH (22:28)
[2018-11-23] MEDS: ALBUTEROL SO4 8 GM HFA INHALER IH PRN ×2 (01:07→23:03)
[2018-11-23] MEDS: guaiFENesin/D-METHORPHAN HB 10 ML UNIT-DOSE CUPS PO PRN ×3 (01:08→22:14)
[2018-11-23 01:58] LABS: URINE APPEARANCE TURBID; URINE BILIRUBIN NEGATIVE (<2.0 mg/dL); URINE COLOR AMBER; URINE GLUCOSE (UA) 3+ (NEGATIVE); URINE KETONE NEGATIVE (NEGATIVE); URINE LEUK ESTERASE NEGATIVE (NEGATIVE); URINE NITRITE NEGATIVE (NEGATIVE); URINE PROTEIN 2+ (NEGATIVE); URINE UROBILINOGEN NEGATIVE mg/dL (0.2-1.0)
[2018-11-23 02:07] LABS: EPI CELLS RARE /HPF (FEW); URINE BACTERIA RARE /hpf (NONE SEEN); URINE MUCUS RARE
[2018-11-23] MEDS: chlordiazePOXIDE HCL 25 MG CAPSULE PO SCH ×4 (05:42→22:10)
[2018-11-23] MEDS: IBUPROFEN 400 MG TABLET (FP) PO PRN ×2 (05:43→23:04)
[2018-11-23] MEDS: MENTHOL/PHENOL 1 EACH UD MM PRN ×3 (05:44→22:14)
[2018-11-23] MEDS: metFORMIN HCL 500 MG TABLET (FP) PO SCH ×2 (06:01→17:00)
[2018-11-23] MEDS ORDERED: INSULIN SLIDING SCALE (NOVOLOG) 1 VIAL SQ ONE ×3 (07:54→22:40)
[2018-11-23] MEDS: INSULIN (NOVOLOG) ASPART 100 UNITS/ML 10ML VIAL SQ SCH ×4 (08:03→22:11)
[2018-11-23 10:08] LABS: HEMATOCRIT 36.4 % (35.4-49); HEMOGLOBIN 12.8 GM/dL (11.7-16.9); MCH 32.2 pg (25.7-33.7); MCHC 35.3 g/dl (32.0-35.9); MEAN CELL VOLUME 91.3 fl (80-96); MEAN PLT VOLUME 8.7 fl (7.5-11.1); PLATELET COUNT 241 K/MM3 (134-434); RBC 3.98 M/mm3 (4.00-5.60); WHITE BLOOD COUNT 4.6 K/mm3 (4.0-10.0)
[2018-11-23] MEDS: PRENATAL VITAMINS W/ FOLIC ACID TABLET (FP) PO SCH (10:23)
[2018-11-23] MEDS: ASPIRIN 81 MG CHEWABLE TABLETS PO SCH (10:23)
[2018-11-23] MEDS: RANITIDINE HCL 150 MG TABLET (FP) PO SCH ×2 (10:23→22:10)
[2018-11-23] MEDS: amLODIPine BESYLATE 10 MG TABLET (FP) PO SCH (10:23)
[2018-11-23] MEDS: ACETAMINOPHEN 325 MG TABLET (FP) PO PRN (10:26)
--- NOTE | 2018-11-23 10:40 | PN ---
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 [facility] dry skin itchy skin tremor sweating Objective: 11/23/18 10:40 Vital Signs Temperature 97.2 F L 11/23/18 09:16 Pulse Rate 85 11/23/18 09:16 Respiratory Rate 18 11/23/18 09:16 Blood Pressure 141/96 11/23/18 09:16 O2 Sat by Pulse Oximetry (%) Laboratory Last Values WBC 4.6 K/mm3 (4.0-10.0) 11/23/18 06:00 RBC 3.98 M/mm3 (4.00-5.60) L 11/23/18 06:00 Hgb 12.8 GM/dL (11.7-16.9) 11/23/18 06:00 Hct 36.4 % (35.4-49) D 11/23/18 06:00 MCV 91.3 fl (80-96) 11/23/18 06:00 MCH 32.2 pg (25.7-33.7) 11/23/18 06:00 MCHC 35.3 g/dl (32.0-35.9) 11/23/18 06:00 RDW 15.0 % (11.9-15.9) 11/23/18 06:00 Plt Count 241 K/MM3 (134-434) D 11/23/18 06:00 MPV 8.7 fl (7.5-11.1) 11/23/18 06:00 POC Glucometer 363 UNITS (80-120) 11/23/18 05:41 Urine Color Valentina 11/22/18 22:33 Urine Appearance Turbid 11/22/18 22:33 Urine pH 5.0 (5.0-8.0) 11/22/18 22:33 Ur Specific [place] 1.036 (1.010-1.035) H 11/22/18 22:33 Urine Protein 2+ (NEGATIVE) H 11/22/18 22:33 Urine Glucose (UA) 3+ (NEGATIVE) H 11/22/18 22:33 Urine Ketones Negative (NEGATIVE) 11/22/18 22:33 Urine Blood Negative (NEGATIVE) 11/22/18 22: Urine Nitrite Negative (NEGATIVE) 11/22/18 22: Urine Bilirubin Negative (<2.0 mg/dL) 11/22/18 22: Urine Urobilinogen Negative mg/dL (0.2-1.0) 11/22/18 22:33 Ur Leukocyte Esterase Negative (NEGATIVE) 11/22/18 22:33 Urine WBC (Auto) 11 /hpf (3-5) 11/22/18 22:33 Urine RBC (Auto) 5 /hpf (0-3) 11/22/18 22:33 Ur Epithelial Cells Rare /HPF (FEW) 11/22/18 22:33 Urine Bacteria Rare /hpf (NONE SEEN) 11/22/18 22:33 Urine Mucus Rare 11/22/18 22:33 lab noted received amlopidine 10 mg around 1030am continue monitoring bp 11/23/18 10:42 Assessment: 11/23/18 10:42 withdrawal sx 11/23/18 10:43 hypertension diabetes asthma Plan: continue detox
[2018-11-23 11:40] LABS: ALBUMIN 3.6 g/dl (3.4-5.0); ALK PHOS 166 U/L (45-117); ANION GAP 8 MMOL/L (8-16); BILIRUBIN,TOTAL 0.2 mg/dL (0.2-1); BLOOD UREA NITROGEN 17 mg/dL (7-18); CALCIUM 8.9 mg/dL (8.5-10.1); CHLORIDE 103 mmol/L (98-107); CO2 24 mmol/L (21-32); CREATININE 1.1 mg/dL (0.55-1.3); POTASSIUM 4.2 mmol/L (3.5-5.1); SGOT/AST 27 U/L (15-37); SGPT/ALT 62 U/L (13-61); SODIUM 135 mmol/L (136-145)
--- NOTE | 2018-11-23 11:41 | EKG ---
Test Reason : Blood Pressure : / mmHG Vent. Rate : 092 BPM Atrial Rate : 092 BPM P-R Int : 182 ms QRS Dur : 098 ms QT Int : 364 ms P-R-T Axes : 056 007 035 degrees QTc Int : 450 ms NORMAL SINUS RHYTHM NORMAL ECG WHEN COMPARED WITH ECG OF 19-JUL-2017 22:24, NO SIGNIFICANT CHANGE WAS FOUND Confirmed by KALA CERVANTES MD ([id number]) on 11/23/2018 11:41:17 AM Referred By: Confirmed By:KALA CERVANTES MD
[2018-11-23] MEDS: MINERAL OIL/PETROLAT/WATER TOPICAL CREAM 454 GM JAR TP SCH (13:02)
[2018-11-23 13:53] LABS: GLUCOSE,RANDOM 309 mg/dL (74-106)
[2018-11-23] MEDS: THIAMINE HCL 100 MG TABLET (FP) PO SCH (22:10)
[2018-11-23] MEDS: MELATONIN 5 MG TABLETS PO PRN (22:10)
[2018-11-23] MEDS: INSULIN (LEVEMIR) 100 UNITS/ML UNITS SQ SCH (22:10)
[2018-11-24] MEDS: chlordiazePOXIDE HCL 25 MG CAPSULE PO SCH ×3 (05:45→10:16)
[2018-11-24] MEDS: IBUPROFEN 400 MG TABLET (FP) PO PRN ×2 (05:46→17:37)
[2018-11-24] MEDS: guaiFENesin/D-METHORPHAN HB 10 ML UNIT-DOSE CUPS PO PRN ×2 (05:46→17:38)
[2018-11-24] MEDS: MENTHOL/PHENOL 1 EACH UD MM PRN ×3 (05:46→22:37)
[2018-11-24] MEDS: metFORMIN HCL 500 MG TABLET (FP) PO SCH ×2 (06:31→16:31)
[2018-11-24] MEDS: INSULIN (NOVOLOG) ASPART 100 UNITS/ML 10ML VIAL SQ SCH ×4 (07:30→22:38)
[2018-11-24] MEDS ORDERED: INSULIN SLIDING SCALE (NOVOLOG) 1 VIAL SQ ONE ×3 (07:51→23:04)
[2018-11-24] MEDS: MINERAL OIL/PETROLAT/WATER TOPICAL CREAM 454 GM JAR TP SCH (10:11)
[2018-11-24] MEDS: amLODIPine BESYLATE 10 MG TABLET (FP) PO SCH (10:11)
[2018-11-24] MEDS: ASPIRIN 81 MG CHEWABLE TABLETS PO SCH (10:11)
[2018-11-24] MEDS: RANITIDINE HCL 150 MG TABLET (FP) PO SCH ×2 (10:11→22:34)
[2018-11-24] MEDS: PRENATAL VITAMINS W/ FOLIC ACID TABLET (FP) PO SCH (10:11)
--- NOTE | 2018-11-24 16:06 | PN ---
S CIWA - CIWA Score Nausea/Vomitin-Mild Nausea/No Vomiting Muscle Tremors: 3 Anxiety: 2 Agitation: 2 Paroxysmal Sweats: 1-Minimal Palms Moist Orientation: 1-Uncertain about Date Tacttile Disturbances: 0-None Auditory Disturbances: 0-None Visual Disturbances: 0-None Headache: 2-Mild CIWA-Ar Total Score: 12 S Progress Note (SOAP) Subjective: diabetes x 4 years does not have primary care provider nor endocrainologist admitted using ER as primary care services for medication strong recommend and discuss the purpose of primary health services and the negative consequences of uncontrolled glycemia mild tremor and sweating otherwise feeling ok Objective: 11/24/18 16:10 Vital Signs Temperature 97.5 F L 11/24/18 09:19 Pulse Rate 88 11/24/18 09:19 Respiratory Rate 18 11/24/18 09:19 Blood Pressure 139/99 11/24/18 09:19 O2 Sat by Pulse Oximetry (%) Laboratory Last Values WBC 4.6 K/mm3 (4.0-10.0) 11/23/18 06:00 RBC 3.98 M/mm3 (4.00-5.60) L 11/23/18 06:00 Hgb 12.8 GM/dL (11.7-16.9) 11/23/18 06:00 Hct 36.4 % (35.4-49) D 11/23/18 06:00 MCV 91.3 fl (80-96) 11/23/18 06:00 MCH 32.2 pg (25.7-33.7) 11/23/18 06:00 MCHC 35.3 g/dl (32.0-35.9) 11/23/18 06:00 RDW 15.0 % (11.9-15.9) 11/23/18 06:00 Plt Count 241 K/MM3 (134-434) D 11/23/18 06:00 MPV 8.7 fl (7.5-11.1) 11/23/18 06:00 Sodium 135 mmol/L (136-145) L 11/23/18 06:00 Potassium 4.2 mmol/L (3.5-5.1) 11/23/18 06:00 Chloride 103 mmol/L (98-107) 11/23/18 06:00 Carbon Dioxide 24 mmol/L (21-32) 11/23/18 06:00 Anion Gap 8 MMOL/L (8-16) 11/23/18 06:00 BUN 17 mg/dL (7-18) 11/23/18 06:00 Creatinine 1.1 mg/dL (0.55-1.3) 11/23/18 06:00 Creat Clearance w eGFR > 60 (>60) 11/23/18 06:00 POC Glucometer 250 UNITS (80-120) 11/24/18 11:31 Random Glucose 309 mg/dL (74-106) H* 11/23/18 06:00 Calcium 8.9 mg/dL (8.5-10.1) 11/23/18 06:00 Total Bilirubin 0.2 mg/dL (0.2-1) 11/23/18 06:00 AST 27 U/L (15-37) 11/23/18 06:00 ALT 62 U/L (13-61) H 11/23/18 06:00 Alkaline Phosphatase 166 U/L (45-117) H 11/23/18 06:00 Total Protein 8.0 g/dl (6.4-8.2) 11/23/18 06:00 Albumin 3.6 g/dl (3.4-5.0) 11/23/18 06:00 Urine Color Valentina 11/22/18 22:33 Urine Appearance Turbid 11/22/18 22:33 Urine pH 5.0 (5.0-8.0) 11/22/18 22:33 Ur Specific [place] 1.036 (1.010-1.035) H 11/22/18 22:33 Urine Protein 2+ (NEGATIVE) H 11/22/18 22:33 Urine Glucose (UA) 3+ (NEGATIVE) H 11/22/18 22:33 Urine Ketones Negative (NEGATIVE) 11/22/18 22:33 Urine Blood Negative (NEGATIVE) 11/22/18 22:33 Urine Nitrite Negative (NEGATIVE) 11/22/18 22:33 Urine Bilirubin Negative (<2.0 mg/dL) 11/22/18 22:33 Urine Urobilinogen Negative mg/dL (0.2-1.0) 11/22/18 22:33 Ur Leukocyte Esterase Negative (NEGATIVE) 11/22/18 22:33 Urine WBC (Auto) 11 /hpf (3-5) 11/22/18 22:33 Urine RBC (Auto) 5 /hpf (0-3) 11/22/18 22:33 Ur Epithelial Cells Rare /HPF (FEW) 11/22/18 22:33 Urine Bacteria Rare /hpf (NONE SEEN) 11/22/18 22:33 Urine Mucus Rare 11/22/18 22:33 RPR Titer Nonreactive (NONREACTIVE) 11/23/18 06:00 lab noted Assessment: 11/24/18 16:11 withdrawal sx Plan: continue detox
[2018-11-24] MEDS: chlordiazePOXIDE 5 MG CAPSULE PO SCH ×2 (17:32→22:33)
[2018-11-24] MEDS: THIAMINE HCL 100 MG TABLET (FP) PO SCH (22:34)
[2018-11-24] MEDS: INSULIN (LEVEMIR) 100 UNITS/ML UNITS SQ SCH (22:38)
[2018-11-25] MEDS: guaiFENesin/D-METHORPHAN HB 10 ML UNIT-DOSE CUPS PO PRN ×2 (02:27→17:27)
[2018-11-25] MEDS: MENTHOL/PHENOL 1 EACH UD MM PRN ×2 (02:28→17:31)
[2018-11-25] MEDS: chlordiazePOXIDE 5 MG CAPSULE PO SCH ×2 (06:28→10:19)
[2018-11-25] MEDS: metFORMIN HCL 500 MG TABLET (FP) PO SCH ×2 (06:29→17:23)
[2018-11-25] MEDS: INSULIN (NOVOLOG) ASPART 100 UNITS/ML 10ML VIAL SQ SCH ×4 (06:33→21:52)
[2018-11-25] MEDS ORDERED: INSULIN SLIDING SCALE (NOVOLOG) 1 VIAL SQ ONE ×4 (06:33→22:49)
[2018-11-25] MEDS: PRENATAL VITAMINS W/ FOLIC ACID TABLET (FP) PO SCH (10:19)
[2018-11-25] MEDS: RANITIDINE HCL 150 MG TABLET (FP) PO SCH ×2 (10:19→22:06)
[2018-11-25] MEDS: ASPIRIN 81 MG CHEWABLE TABLETS PO SCH (10:19)
[2018-11-25] MEDS: MINERAL OIL/PETROLAT/WATER TOPICAL CREAM 454 GM JAR TP SCH (10:19)
[2018-11-25] MEDS: amLODIPine BESYLATE 10 MG TABLET (FP) PO SCH (10:19)
--- NOTE | 2018-11-25 15:33 | PN ---
BHS Progress Note (SOAP) Subjective: Sweating, Interrupted Sleep, Diarrhea. Objective: PATIENT A & O X 3, OBSERVED AMBULATING ON UNIT. IN NO ACUTE DISTRESS. 11/25/18 15:33 Vital Signs Temperature 97.7 F 11/25/18 15:15 Pulse Rate 100 H 11/25/18 15:15 Respiratory Rate 20 11/25/18 15:15 Blood Pressure 141/93 11/25/18 15:15 O2 Sat by Pulse Oximetry (%) Laboratory Tests 11/22/18 11/22/18 11/22/18 15:20 17:49 20:59 WBC RBC Hgb Hct MCV MCH MCHC RDW Plt Count MPV Sodium Potassium Chloride Carbon Dioxide Anion Gap BUN Creatinine Creat Clearance w eGFR POC Glucometer 309 305 126 Random Glucose Calcium Total Bilirubin AST ALT Alkaline Phosphatase Total Protein Albumin Urine Color Urine Appearance Urine pH Ur Specific [place] Urine Protein Urine Glucose (UA) Urine Ketones Urine Blood Urine Nitrite Urine Bilirubin Urine Urobilinogen Ur Leukocyte Esterase Urine WBC (Auto) Urine RBC (Auto) Ur Epithelial Cells Urine Bacteria Urine Mucus RPR Titer 11/22/18 11/23/18 11/23/18 22:33 05:41 06:00 WBC 4.6 RBC 3.98 L Hgb 12.8 Hct 36.4 D MCV 91.3 MCH 32.2 MCHC 35.3 RDW 15.0 Plt Count 241 D MPV 8.7 Sodium Potassium Chloride Carbon Dioxide Anion Gap BUN Creatinine Creat Clearance w eGFR POC Glucometer 363 Random Glucose Calcium Total Bilirubin AST ALT Alkaline Phosphatase Total Protein Albumin Urine Color Valentina Urine Appearance Turbid Urine pH 5.0 Ur Specific [place] 1.036 H Urine Protein 2+ H Urine Glucose (UA) 3+ H Urine Ketones Negative Urine Blood Negative Urine Nitrite Negative Urine Bilirubin Negative Urine Urobilinogen Negative Ur Leukocyte Esterase Negative Urine WBC (Auto) 11 Urine RBC (Auto) 5 Ur Epithelial Cells Rare Urine Bacteria Rare Urine Mucus Rare RPR Titer 11/23/18 11/23/18 11/23/18 06:00 06:00 11:17 WBC RBC Hgb Hct MCV MCH MCHC RDW Plt Count MPV Sodium 135 L Potassium 4.2 Chloride 103 Carbon Dioxide 24 Anion Gap 8 BUN 17 Creatinine 1.1 Creat Clearance w eGFR > 60 POC Glucometer 259 Random Glucose 309 H* Calcium 8.9 Total Bilirubin 0.2 AST 27 ALT 62 H Alkaline Phosphatase 166 H Total Protein 8.0 Albumin 3.6 Urine Color Urine Appearance Urine pH Ur Specific [place] Urine Protein Urine Glucose (UA) Urine Ketones Urine Blood Urine Nitrite Urine Bilirubin Urine Urobilinogen Ur Leukocyte Esterase Urine WBC (Auto) Urine RBC (Auto) Ur Epithelial Cells Urine Bacteria Urine Mucus RPR Titer Nonreactive 11/23/18 11/23/18 11/24/18 16:25 20:50 05:44 WBC RBC Hgb Hct MCV MCH MCHC RDW Plt Count MPV Sodium Potassium Chloride Carbon Dioxide Anion Gap BUN Creatinine Creat Clearance w eGFR POC Glucometer 184 277 265 Random Glucose Calcium Total Bilirubin AST ALT Alkaline Phosphatase Total Protein Albumin Urine Color Urine Appearance Urine pH Ur Specific [place] Urine Protein Urine Glucose (UA) Urine Ketones Urine Blood Urine Nitrite Urine Bilirubin Urine Urobilinogen Ur Leukocyte Esterase Urine WBC (Auto) Urine RBC (Auto) Ur Epithelial Cells Urine Bacteria Urine Mucus RPR Titer 11/24/18 11/24/18 11/24/18 11:31 16:30 21:01 WBC RBC Hgb Hct MCV MCH MCHC RDW Plt Count MPV Sodium Potassium Chloride Carbon Dioxide Anion Gap BUN Creatinine Creat Clearance w eGFR POC Glucometer 250 241 295 Random Glucose Calcium Total Bilirubin AST ALT Alkaline Phosphatase Total Protein Albumin Urine Color Urine Appearance Urine pH Ur Specific [place] Urine Protein Urine Glucose (UA) Urine Ketones Urine Blood Urine Nitrite Urine Bilirubin Urine Urobilinogen Ur Leukocyte Esterase Urine WBC (Auto) Urine RBC (Auto) Ur Epithelial Cells Urine Bacteria Urine Mucus RPR Titer 11/25/18 11/25/18 06:26 10:54 WBC RBC Hgb Hct MCV MCH MCHC RDW Plt Count MPV Sodium Potassium Chloride Carbon Dioxide Anion Gap BUN Creatinine Creat Clearance w eGFR POC Glucometer 227 281 Random Glucose Calcium Total Bilirubin AST ALT Alkaline Phosphatase Total Protein Albumin Urine Color Urine Appearance Urine pH Ur Specific [place] Urine Protein Urine Glucose (UA) Urine Ketones Urine Blood Urine Nitrite Urine Bilirubin Urine Urobilinogen Ur Leukocyte Esterase Urine WBC (Auto) Urine RBC (Auto) Ur Epithelial Cells Urine Bacteria Urine Mucus RPR Titer LABS NOTED. Assessment: 11/25/18 15:34 WITHDRAWAL SYMPTOMS. HYPERTENSION. 11/25/18 15:34 Plan: CONTINUE DETOX. BP ELEVATED FOR LAST TWO CONSECUTIVE AFTERNOON READINGS, DESPITE ADMINISTRATION OF AMLODIPINE IN AM. ORDER CLONIDINE, 0.1 MG X 1. PATIENT SCHEDULED FOR D/C TOMORROW.
[2018-11-25] MEDS ORDERED: cloNIDine HCL 0.1 MG TABLET PO ONE (15:56)
[2018-11-25] MEDS: chlordiazePOXIDE HCL 10 MG CAPSULE PO SCH ×2 (17:24→22:07)
[2018-11-25] MEDS: IBUPROFEN 400 MG TABLET (FP) PO PRN (17:28)
[2018-11-25] MEDS: INSULIN (LEVEMIR) 100 UNITS/ML UNITS SQ SCH (21:52)
[2018-11-25] MEDS: THIAMINE HCL 100 MG TABLET (FP) PO SCH (22:06)
[2018-11-25] MEDS: MELATONIN 5 MG TABLETS PO PRN (22:07)
[2018-11-26] MEDS: chlordiazePOXIDE HCL 10 MG CAPSULE PO SCH ×2 (06:32→10:17)
[2018-11-26] MEDS: metFORMIN HCL 500 MG TABLET (FP) PO SCH (07:52)
[2018-11-26] MEDS: INSULIN (NOVOLOG) ASPART 100 UNITS/ML 10ML VIAL SQ SCH ×2 (08:13→11:28)
[2018-11-26 09:17] VITALS: BP 140/87; PULSE 92; TEMP 96.8
[2018-11-26] MEDS: amLODIPine BESYLATE 10 MG TABLET (FP) PO SCH (10:17)
[2018-11-26] MEDS: ALBUTEROL SO4 8 GM HFA INHALER IH PRN (10:17)
[2018-11-26] MEDS: ASPIRIN 81 MG CHEWABLE TABLETS PO SCH (10:17)
[2018-11-26] MEDS: PRENATAL VITAMINS W/ FOLIC ACID TABLET (FP) PO SCH (10:17)
[2018-11-26] MEDS: MINERAL OIL/PETROLAT/WATER TOPICAL CREAM 454 GM JAR TP SCH (10:17)
[2018-11-26] MEDS: RANITIDINE HCL 150 MG TABLET (FP) PO SCH (10:17)
[2018-11-26] MEDS: guaiFENesin/D-METHORPHAN HB 10 ML UNIT-DOSE CUPS PO PRN (10:18)
[2018-11-26] MEDS: MENTHOL/PHENOL 1 EACH UD MM PRN (10:18)
[2018-11-26] MEDS: IBUPROFEN 400 MG TABLET (FP) PO PRN (10:18)
[2018-11-26] MEDS ORDERED: INSULIN SLIDING SCALE (NOVOLOG) 1 VIAL SQ ONE (11:28)
--- NOTE | 2018-11-26 13:35 | DS ---
[facility] Detox Discharge Summary Admission Date: 11/22/18 Discharge Date: 11/26/18 - History Present History: Alcohol Dependence, Cocaine Dependence Additional Comments: PATIENT GOING TO [facility] ([place], [place]) FOR AFTERCARE. PATIENT WAS DISCHARGED FROM DETOX UNIT TO BE TAKEN OVER TO REHAB UNIT IN STABLE MEDICAL CONDITION. Pertinent Past History: HTN, Type II DM, H/O Hearing Loss, History of CVA with Right-Sided Hemiparesis, Nicotine dependence, Use Of Cane As Ambulatory Aid, G.E.R.D. - Physical Exam Results Vital Signs: Vital Signs Temperature 96.8 F L 11/26/18 09:16 Pulse Rate 92 H 11/26/18 09:16 Respiratory Rate 20 11/26/18 09:16 Blood Pressure 140/87 11/26/18 09:16 O2 Sat by Pulse Oximetry (%) Pertinent Admission Physical Exam Findings: WITHDRAWAL SYMPTOMS. Laboratory Tests 11/22/18 11/22/18 11/22/18 15:20 17:49 20:59 WBC RBC Hgb Hct MCV MCH MCHC RDW Plt Count MPV Sodium Potassium Chloride Carbon Dioxide Anion Gap BUN Creatinine Creat Clearance w eGFR POC Glucometer 309 305 126 Random Glucose Hemoglobin A1c % Calcium Total Bilirubin AST ALT Alkaline Phosphatase Total Protein Albumin Urine Color Urine Appearance Urine pH Ur Specific Grant Urine Protein Urine Glucose (UA) Urine Ketones Urine Blood Urine Nitrite Urine Bilirubin Urine Urobilinogen Ur Leukocyte Esterase Urine WBC (Auto) Urine RBC (Auto) Ur Epithelial Cells Urine Bacteria Urine Mucus RPR Titer 11/22/18 11/23/18 11/23/18 22:33 05:41 06:00 WBC 4.6 RBC 3.98 L Hgb 12.8 Hct 36.4 D MCV 91.3 MCH 32.2 MCHC 35.3 RDW 15.0 Plt Count 241 D MPV 8.7 Sodium Potassium Chloride Carbon Dioxide Anion Gap BUN Creatinine Creat Clearance w eGFR POC Glucometer 363 Random Glucose Hemoglobin A1c % Calcium Total Bilirubin AST ALT Alkaline Phosphatase Total Protein Albumin Urine Color Valentina Urine Appearance Turbid Urine pH 5.0 Ur Specific Grant 1.036 H Urine Protein 2+ H Urine Glucose (UA) 3+ H Urine Ketones Negative Urine Blood Negative Urine Nitrite Negative Urine Bilirubin Negative Urine Urobilinogen Negative Ur Leukocyte Esterase Negative Urine WBC (Auto) 11 Urine RBC (Auto) 5 Ur Epithelial Cells Rare Urine Bacteria Rare Urine Mucus Rare RPR Titer 11/23/18 11/23/18 11/23/18 06:00 06:00 11:17 WBC RBC Hgb Hct MCV MCH MCHC RDW Plt Count MPV Sodium 135 L Potassium 4.2 Chloride 103 Carbon Dioxide 24 Anion Gap 8 BUN 17 Creatinine 1.1 Creat Clearance w eGFR > 60 POC Glucometer 259 Random Glucose 309 H* Hemoglobin A1c % Calcium 8.9 Total Bilirubin 0.2 AST 27 ALT 62 H Alkaline Phosphatase 166 H Total Protein 8.0 Albumin 3.6 Urine Color Urine Appearance Urine pH Ur Specific Grant Urine Protein Urine Glucose (UA) Urine Ketones Urine Blood Urine Nitrite Urine Bilirubin Urine Urobilinogen Ur Leukocyte Esterase Urine WBC (Auto) Urine RBC (Auto) Ur Epithelial Cells Urine Bacteria Urine Mucus RPR Titer Nonreactive 11/23/18 11/23/18 11/24/18 16:25 20:50 05:44 WBC RBC Hgb Hct MCV MCH MCHC RDW Plt Count MPV Sodium Potassium Chloride Carbon Dioxide Anion Gap BUN Creatinine Creat Clearance w eGFR POC Glucometer 184 277 265 Random Glucose Hemoglobin A1c % Calcium Total Bilirubin AST ALT Alkaline Phosphatase Total Protein Albumin Urine Color Urine Appearance Urine pH Ur Specific Grant Urine Protein Urine Glucose (UA) Urine Ketones Urine Blood Urine Nitrite Urine Bilirubin Urine Urobilinogen Ur Leukocyte Esterase Urine WBC (Auto) Urine RBC (Auto) Ur Epithelial Cells Urine Bacteria Urine Mucus RPR Titer 11/24/18 11/24/18 11/24/18 11:31 16:30 21:01 WBC RBC Hgb Hct MCV MCH MCHC RDW Plt Count MPV Sodium Potassium Chloride Carbon Dioxide Anion Gap BUN Creatinine Creat Clearance w eGFR POC Glucometer 250 241 295 Random Glucose Hemoglobin A1c % Calcium Total Bilirubin AST ALT Alkaline Phosphatase Total Protein Albumin Urine Color Urine Appearance Urine pH Ur Specific Grant Urine Protein Urine Glucose (UA) Urine Ketones Urine Blood Urine Nitrite Urine Bilirubin Urine Urobilinogen Ur Leukocyte Esterase Urine WBC (Auto) Urine RBC (Auto) Ur Epithelial Cells Urine Bacteria Urine Mucus RPR Titer 11/25/18 11/25/18 11/25/18 06:26 10:54 15:03 WBC RBC Hgb Hct MCV MCH MCHC RDW Plt Count MPV Sodium Potassium Chloride Carbon Dioxide Anion Gap BUN Creatinine Creat Clearance w eGFR POC Glucometer 227 281 Random Glucose Hemoglobin A1c % 10.6 H Calcium Total Bilirubin AST ALT Alkaline Phosphatase Total Protein Albumin Urine Color Urine Appearance Urine pH Ur Specific Grant Urine Protein Urine Glucose (UA) Urine Ketones Urine Blood Urine Nitrite Urine Bilirubin Urine Urobilinogen Ur Leukocyte Esterase Urine WBC (Auto) Urine RBC (Auto) Ur Epithelial Cells Urine Bacteria Urine Mucus RPR Titer 11/25/18 11/25/18 11/26/18 16:19 21:23 06:28 WBC RBC Hgb Hct MCV MCH MCHC RDW Plt Count MPV Sodium Potassium Chloride Carbon Dioxide Anion Gap BUN Creatinine Creat Clearance w eGFR POC Glucometer 238 301 258 Random Glucose Hemoglobin A1c % Calcium Total Bilirubin AST ALT Alkaline Phosphatase Total Protein Albumin Urine Color Urine Appearance Urine pH Ur Specific Grant Urine Protein Urine Glucose (UA) Urine Ketones Urine Blood Urine Nitrite Urine Bilirubin Urine Urobilinogen Ur Leukocyte Esterase Urine WBC (Auto) Urine RBC (Auto) Ur Epithelial Cells Urine Bacteria Urine Mucus RPR Titer 11/26/18 11:24 WBC RBC Hgb Hct MCV MCH MCHC RDW Plt Count MPV Sodium Potassium Chloride Carbon Dioxide Anion Gap BUN Creatinine Creat Clearance w eGFR POC Glucometer 228 Random Glucose Hemoglobin A1c % Calcium Total Bilirubin AST ALT Alkaline Phosphatase Total Protein Albumin Urine Color Urine Appearance Urine pH Ur Specific Grant Urine Protein Urine Glucose (UA) Urine Ketones Urine Blood Urine Nitrite Urine Bilirubin Urine Urobilinogen Ur Leukocyte Esterase Urine WBC (Auto) Urine RBC (Auto) Ur Epithelial Cells Urine Bacteria Urine Mucus RPR Titer LABS NOTED. - Treatment Hospital Course: Detox Protocol Followed, Detoxed Safely, Responded well, Discharged Condition Good, Rehab Referral Accepted Patient has Accepted a Rehab Referral to: [facility] ([place], [place]). - Medication Discharge Medications: Ambulatory Orders Aspirin [ASA -] 81 mg PO DAILY #30 mg 08/03/17 Famotidine [Pepcid -] 20 mg PO BID #60 mg 08/03/17 Albuterol Sulfate Inhaler - [Ventolin HFA Inhaler -] 2 inh PO Q4H PRN #1 inhaler 11/23/18 Amlodipine Besylate [Norvasc -] 10 mg PO DAILY #30 tablet 11/23/18 Insulin Glargine,Hum.rec.anlog [Lantus (10mL VIAL) -] 35 units SQ HS #1 vial 04/05 metFORMIN HCL [Glucophage -] 1,000 mg PO BID #60 tablet 11/23/18 Albuterol Sulfate Inhaler - [Ventolin Hfa Inhaler -] 1 - 2 inh PO Q4H PRN #1 inhaler 11/25/18 Amlodipine Besylate 10 mg PO DAILY #30 tablet 11/25/18 Aspirin 81 mg PO DAILY #30 tab.chew 11/25/18 Famotidine [Pepcid] 20 mg PO DAILY #30 tablet 11/25/18 Insulin Glargine,Hum.rec.anlog [Lantus] 35 unit SQ HS 30 Days #3 vial 11/25/18 Metformin HCl [Glucophage] 1,000 mg PO BID 30 Days #60 tablet 11/25/18 Syrge-Ndl,Ins 0.3 ml Half Dariusz [Insulin Syringe] 1 each HS #1 box 11/25/18 - Diagnosis (1) Cerebrovascular accident (CVA) with right hemiparesis Current Visit: Yes Status: Chronic (2) Use of cane as ambulatory aid Current Visit: Yes Status: Chronic (3) Alcohol dependence with uncomplicated withdrawal Current Visit: Yes Status: Acute (4) Cocaine dependence, uncomplicated Current Visit: Yes Status: Acute (5) Nicotine dependence Current Visit: Yes Status: Chronic Qualifiers: Nicotine product type: cigarettes Substance use status: in withdrawal Qualified Code(s): F17.213 - Nicotine dependence, cigarettes, with withdrawal (6) Asthma Current Visit: Yes Status: Chronic Qualifiers: Asthma severity: unspecified severity Asthma persistence: unspecified Asthma complication type: uncomplicated Qualified Code(s): J45.909 - Unspecified asthma, uncomplicated (7) Diabetes type 2, uncontrolled Current Visit: Yes Status: Chronic (8) Hypertension Current Visit: Yes Status: Chronic Qualifiers: Hypertension type: essential hypertension Qualified Code(s): I10 - Essential (primary) hypertension (9) H/O hearing loss Current Visit: Yes Status: Chronic (10) Insomnia Current Visit: Yes Status: Chronic Qualifiers: Insomnia type: unspecified Qualified Code(s): G47.00 - Insomnia, unspecified - AMA Did Patient Leave Against Medical Advice: No
== END 2018-11-26 12:38 | disposition other institution (70) | DRG 774 ==
LOC: YASAS 11:09 → Y3N 15:10
PROVIDERS: ADMIT Surgery; ATTEND Surgery
PROC: HZ2ZZZZ Detoxification Services for Substance Abuse Treatment (ICD-10-PCS; principal; 2018-11-22)
DX: F10.230 Alcohol dependence with withdrawal, uncomplicated (principal); F14.20 Cocaine dependence, uncomplicated; F17.213 Nicotine dependence, cigarettes, with withdrawal; G47.00 Insomnia, unspecified; J45.909 Unspecified asthma, uncomplicated; E11.9 Type 2 diabetes mellitus without complications; Z79.4 Long term (current) use of insulin; I10 Essential (primary) hypertension; K21.9 Gastro-esophageal reflux disease without esophagitis; H91.90 Unspecified hearing loss, unspecified ear; R26.89 Other abnormalities of gait and mobility; Z99.89 Dependence on other enabling machines and devices; I69.851 Hemiplegia and hemiparesis following other cerebrovascular disease affecting right dominant side
CPT/HCPCS: 36415; 80053; 81003; 81015; 82962; 83036; 85027; 86593; 93005; 93010; J0735

== ENCOUNTER 2018-11-26 12:40 | Inpatient (IN) | payer OTHER ==
[2018-11-26] MEDS ORDERED: MAG HYDROX/AL HYDROX/SIMETH 30 ML UNIT-DOSE CUP PO PRN (13:42)
[2018-11-26] MEDS ORDERED: LOPERAMIDE HCL 2 MG CAPSULE PO PRN (13:42)
[2018-11-26] MEDS ORDERED: MAGNESIUM HYDROX 2400MG/30ML ORAL SUSPENSION 30 ML CUP PO PRN (13:42)
[2018-11-26] MEDS ORDERED: MAGNESIUM CITRATE 300 ML BOTTLE PO PRN (13:42)
--- NOTE | 2018-11-26 13:51 | HP ---
RISSA ROMANO Rehab Assess/Revision - Admission History Admitted to Rehab from: [facility] Date of Admission to Rehab: 11/26/2018 - Vital signs Vital Signs: NOTED; STABLE. - Findings Detox History & Physical reviewed: Yes Concur with findings: Yes Comments/Additional Findings: PATIENT'S MEDICAL / MEDICATION HISTORY REVIEWED PRIOR TO DISCHARGE FROM DETOX UNIT. PATIENT WAS DISCHARGED FROM DETOX UNIT TO BE TAKEN TO REHAB UNIT IN STABLE MEDICAL CONDITION. Inpatient Rehab Admission - Rehab Decision to Admit Inpatient rehab admission?: Yes - Initial Determination Are CD services needed?: Yes Free of communicable disease: Yes Not in need of hospitalization: Yes - Rehab Admission Criteria Previous failed treatment: Yes Poor recovery environment: Yes Comorbidities: Yes Lacks judgement: No Patient is meeting Inpatient Rehab admission criteria:: Yes
[2018-11-26] MEDS: metFORMIN HCL 500 MG TABLET (FP) PO SCH (17:13)
[2018-11-26] MEDS: INSULIN SLIDING SCALE (NOVOLOG) 1 VIAL SQ SCH ×2 (17:15→21:24)
[2018-11-26] MEDS ORDERED: INSULIN (NOVOLOG) ASPART 100 UNITS/ML 10ML VIAL ONE ×2 (17:55→22:05)
[2018-11-26] MEDS: INSULIN (LEVEMIR) 100 UNITS/ML UNITS SQ SCH (21:25)
[2018-11-26] MEDS: THIAMINE HCL 100 MG TABLET (FP) PO SCH (21:26)
[2018-11-26] MEDS: RANITIDINE HCL 150 MG TABLET (FP) PO SCH (21:26)
[2018-11-26] MEDS: ACETAMINOPHEN 325 MG TABLET (FP) PO PRN (21:28)
[2018-11-26] MEDS: P-EPHED 60MG/TRIPROLIDI 2.5MG TABLET PO PRN (21:29)
[2018-11-26] MEDS: MENTHOL/PHENOL 1 EACH UD MM PRN (21:30)
[2018-11-26] MEDS: guaiFENesin/D-METHORPHAN HB 10 ML UNIT-DOSE CUPS PO PRN (21:30)
[2018-11-27] MEDS: metFORMIN HCL 500 MG TABLET (FP) PO SCH ×2 (06:36→16:49)
[2018-11-27] MEDS: INSULIN SLIDING SCALE (NOVOLOG) 1 VIAL SQ SCH ×4 (06:38→21:08)
[2018-11-27] MEDS: ASPIRIN 81 MG CHEWABLE TABLETS PO SCH (09:56)
[2018-11-27] MEDS: RANITIDINE HCL 150 MG TABLET (FP) PO SCH ×2 (09:56→21:09)
[2018-11-27] MEDS: PRENATAL VITAMINS W/ FOLIC ACID TABLET (FP) PO SCH (09:56)
[2018-11-27] MEDS: amLODIPine BESYLATE 10 MG TABLET (FP) PO SCH (09:56)
[2018-11-27] MEDS ORDERED: INSULIN (NOVOLOG) ASPART 100 UNITS/ML 10ML VIAL ONE ×3 (12:05→22:00)
[2018-11-27] MEDS: ACETAMINOPHEN 325 MG TABLET (FP) PO PRN ×2 (12:12→21:10)
[2018-11-27] MEDS: P-EPHED 60MG/TRIPROLIDI 2.5MG TABLET PO PRN ×2 (12:14→21:11)
[2018-11-27] MEDS: INSULIN (LEVEMIR) 100 UNITS/ML UNITS SQ SCH (21:06)
[2018-11-27] MEDS: THIAMINE HCL 100 MG TABLET (FP) PO SCH (21:09)
[2018-11-27] MEDS: MELATONIN 5 MG TABLETS PO PRN (21:11)
[2018-11-27] MEDS: guaiFENesin/D-METHORPHAN HB 10 ML UNIT-DOSE CUPS PO PRN (21:11)
[2018-11-27] MEDS: MENTHOL/PHENOL 1 EACH UD MM PRN (21:12)
[2018-11-28] MEDS: metFORMIN HCL 500 MG TABLET (FP) PO SCH ×2 (06:25→16:41)
[2018-11-28] MEDS: INSULIN SLIDING SCALE (NOVOLOG) 1 VIAL SQ SCH ×4 (06:27→21:09)
[2018-11-28] MEDS ORDERED: INSULIN (NOVOLOG) ASPART 100 UNITS/ML 10ML VIAL ONE ×4 (06:50→16:48)
[2018-11-28] MEDS: amLODIPine BESYLATE 10 MG TABLET (FP) PO SCH (10:01)
[2018-11-28] MEDS: ACETAMINOPHEN 325 MG TABLET (FP) PO PRN ×2 (10:01→21:03)
[2018-11-28] MEDS: RANITIDINE HCL 150 MG TABLET (FP) PO SCH ×2 (10:01→21:03)
[2018-11-28] MEDS: PRENATAL VITAMINS W/ FOLIC ACID TABLET (FP) PO SCH (10:01)
[2018-11-28] MEDS: ASPIRIN 81 MG CHEWABLE TABLETS PO SCH (10:01)
[2018-11-28] MEDS: guaiFENesin/D-METHORPHAN HB 10 ML UNIT-DOSE CUPS PO PRN ×2 (10:04→21:04)
[2018-11-28] MEDS: P-EPHED 60MG/TRIPROLIDI 2.5MG TABLET PO PRN ×2 (10:04→21:04)
[2018-11-28] MEDS: MENTHOL/PHENOL 1 EACH UD MM PRN ×2 (10:05→21:10)
[2018-11-28] MEDS: THIAMINE HCL 100 MG TABLET (FP) PO SCH (21:03)
[2018-11-28] MEDS: INSULIN (LEVEMIR) 100 UNITS/ML UNITS SQ SCH (21:10)
[2018-11-29] MEDS ORDERED: INSULIN (NOVOLOG) ASPART 100 UNITS/ML 10ML VIAL ONE ×2 (06:15→11:36)
[2018-11-29] MEDS: metFORMIN HCL 500 MG TABLET (FP) PO SCH ×2 (06:17→16:42)
[2018-11-29] MEDS: INSULIN SLIDING SCALE (NOVOLOG) 1 VIAL SQ SCH ×4 (06:17→21:11)
[2018-11-29] MEDS: guaiFENesin/D-METHORPHAN HB 10 ML UNIT-DOSE CUPS PO PRN ×2 (06:17→21:13)
[2018-11-29] MEDS: ACETAMINOPHEN 325 MG TABLET (FP) PO PRN ×2 (06:18→21:14)
[2018-11-29] MEDS: amLODIPine BESYLATE 10 MG TABLET (FP) PO SCH (09:44)
[2018-11-29] MEDS: RANITIDINE HCL 150 MG TABLET (FP) PO SCH ×2 (09:44→21:13)
[2018-11-29] MEDS: ASPIRIN 81 MG CHEWABLE TABLETS PO SCH (09:44)
[2018-11-29] MEDS: PRENATAL VITAMINS W/ FOLIC ACID TABLET (FP) PO SCH (09:44)
[2018-11-29] MEDS: GABAPENTIN 100 MG CAPSULE (FP) PO SCH ×2 (11:00→18:19)
[2018-11-29] MEDS: ALBUTEROL SO4 8 GM HFA INHALER IH PRN (18:19)
[2018-11-29] MEDS: INSULIN (LEVEMIR) 100 UNITS/ML UNITS SQ SCH (21:10)
[2018-11-29] MEDS: THIAMINE HCL 100 MG TABLET (FP) PO SCH (21:13)
[2018-11-29] MEDS: MENTHOL/PHENOL 1 EACH UD MM PRN (21:16)
[2018-11-29] MEDS: P-EPHED 60MG/TRIPROLIDI 2.5MG TABLET PO PRN (21:16)
[2018-11-30] MEDS: GABAPENTIN 100 MG CAPSULE (FP) PO SCH ×3 (02:43→21:04)
[2018-11-30] MEDS: P-EPHED 60MG/TRIPROLIDI 2.5MG TABLET PO PRN ×2 (06:31→21:08)
[2018-11-30] MEDS: metFORMIN HCL 500 MG TABLET (FP) PO SCH ×2 (06:31→16:54)
[2018-11-30] MEDS: guaiFENesin/D-METHORPHAN HB 10 ML UNIT-DOSE CUPS PO PRN ×2 (06:31→21:08)
[2018-11-30] MEDS: MENTHOL/PHENOL 1 EACH UD MM PRN ×2 (06:31→21:09)
[2018-11-30] MEDS: ACETAMINOPHEN 325 MG TABLET (FP) PO PRN ×3 (06:32→21:08)
[2018-11-30] MEDS: INSULIN SLIDING SCALE (NOVOLOG) 1 VIAL SQ SCH ×4 (06:33→21:06)
[2018-11-30] MEDS: PRENATAL VITAMINS W/ FOLIC ACID TABLET (FP) PO SCH (09:40)
[2018-11-30] MEDS: ASPIRIN 81 MG CHEWABLE TABLETS PO SCH (09:40)
[2018-11-30] MEDS: amLODIPine BESYLATE 10 MG TABLET (FP) PO SCH (09:40)
[2018-11-30] MEDS: RANITIDINE HCL 150 MG TABLET (FP) PO SCH ×2 (09:40→21:04)
[2018-11-30] MEDS: ALBUTEROL SO4 8 GM HFA INHALER IH PRN (09:40)
[2018-11-30] MEDS ORDERED: INSULIN (NOVOLOG) ASPART 100 UNITS/ML 10ML VIAL ONE ×2 (11:31→16:32)
[2018-11-30] MEDS: THIAMINE HCL 100 MG TABLET (FP) PO SCH (21:04)
[2018-11-30] MEDS: INSULIN (LEVEMIR) 100 UNITS/ML UNITS SQ SCH (21:06)
[2018-12-01] MEDS: MENTHOL/PHENOL 1 EACH UD MM PRN ×2 (06:19→21:40)
[2018-12-01] MEDS: metFORMIN HCL 500 MG TABLET (FP) PO SCH ×2 (06:19→17:07)
[2018-12-01] MEDS: GABAPENTIN 100 MG CAPSULE (FP) PO SCH ×3 (06:19→21:38)
[2018-12-01] MEDS: ACETAMINOPHEN 325 MG TABLET (FP) PO PRN ×4 (06:20→21:38)
[2018-12-01] MEDS: INSULIN SLIDING SCALE (NOVOLOG) 1 VIAL SQ SCH ×4 (06:20→21:43)
[2018-12-01] MEDS: guaiFENesin/D-METHORPHAN HB 10 ML UNIT-DOSE CUPS PO PRN ×2 (06:20→21:40)
[2018-12-01] MEDS: PRENATAL VITAMINS W/ FOLIC ACID TABLET (FP) PO SCH (10:06)
[2018-12-01] MEDS: ASPIRIN 81 MG CHEWABLE TABLETS PO SCH (10:06)
[2018-12-01] MEDS: RANITIDINE HCL 150 MG TABLET (FP) PO SCH ×2 (10:06→21:38)
[2018-12-01] MEDS: amLODIPine BESYLATE 10 MG TABLET (FP) PO SCH (10:06)
[2018-12-01] MEDS ORDERED: INSULIN (NOVOLOG) ASPART 100 UNITS/ML 10ML VIAL ONE ×3 (12:07→21:36)
[2018-12-01] MEDS: THIAMINE HCL 100 MG TABLET (FP) PO SCH (21:38)
[2018-12-01] MEDS: INSULIN (LEVEMIR) 100 UNITS/ML UNITS SQ SCH (21:43)
[2018-12-01] MEDS: MELATONIN 5 MG TABLETS PO PRN (21:49)
[2018-12-02] MEDS: GABAPENTIN 100 MG CAPSULE (FP) PO SCH ×3 (06:13→21:10)
[2018-12-02] MEDS: metFORMIN HCL 500 MG TABLET (FP) PO SCH ×2 (06:13→16:50)
[2018-12-02] MEDS: INSULIN SLIDING SCALE (NOVOLOG) 1 VIAL SQ SCH ×4 (06:15→21:12)
[2018-12-02] MEDS ORDERED: INSULIN (NOVOLOG) ASPART 100 UNITS/ML 10ML VIAL ONE ×4 (06:59→23:47)
[2018-12-02] MEDS: PRENATAL VITAMINS W/ FOLIC ACID TABLET (FP) PO SCH (10:05)
[2018-12-02] MEDS: amLODIPine BESYLATE 10 MG TABLET (FP) PO SCH (10:05)
[2018-12-02] MEDS: ASPIRIN 81 MG CHEWABLE TABLETS PO SCH (10:05)
[2018-12-02] MEDS: RANITIDINE HCL 150 MG TABLET (FP) PO SCH ×2 (10:05→21:10)
[2018-12-02] MEDS: ACETAMINOPHEN 325 MG TABLET (FP) PO PRN ×2 (10:06→21:14)
[2018-12-02] MEDS: guaiFENesin/D-METHORPHAN HB 10 ML UNIT-DOSE CUPS PO PRN ×2 (10:08→21:15)
[2018-12-02] MEDS: MENTHOL/PHENOL 1 EACH UD MM PRN ×2 (10:08→21:16)
[2018-12-02] MEDS: P-EPHED 60MG/TRIPROLIDI 2.5MG TABLET PO PRN ×2 (10:09→21:15)
[2018-12-02] MEDS: INSULIN (LEVEMIR) 100 UNITS/ML UNITS SQ SCH (21:09)
[2018-12-02] MEDS: THIAMINE HCL 100 MG TABLET (FP) PO SCH (21:10)
[2018-12-02] MEDS: MELATONIN 5 MG TABLETS PO PRN (21:15)
[2018-12-03] MEDS: INSULIN SLIDING SCALE (NOVOLOG) 1 VIAL SQ SCH ×4 (06:16→21:06)
[2018-12-03] MEDS: GABAPENTIN 100 MG CAPSULE (FP) PO SCH ×3 (06:17→21:08)
[2018-12-03] MEDS: metFORMIN HCL 500 MG TABLET (FP) PO SCH ×2 (06:17→16:40)
[2018-12-03] MEDS ORDERED: INSULIN (NOVOLOG) ASPART 100 UNITS/ML 10ML VIAL ONE ×4 (06:17→22:10)
[2018-12-03] MEDS: RANITIDINE HCL 150 MG TABLET (FP) PO SCH ×2 (09:55→21:08)
[2018-12-03] MEDS: PRENATAL VITAMINS W/ FOLIC ACID TABLET (FP) PO SCH (09:55)
[2018-12-03] MEDS: amLODIPine BESYLATE 10 MG TABLET (FP) PO SCH (09:55)
[2018-12-03] MEDS: guaiFENesin/D-METHORPHAN HB 10 ML UNIT-DOSE CUPS PO PRN ×2 (09:55→21:08)
[2018-12-03] MEDS: ACETAMINOPHEN 325 MG TABLET (FP) PO PRN ×2 (09:55→21:09)
[2018-12-03] MEDS: ASPIRIN 81 MG CHEWABLE TABLETS PO SCH (09:55)
[2018-12-03] MEDS: P-EPHED 60MG/TRIPROLIDI 2.5MG TABLET PO PRN (21:08)
[2018-12-03] MEDS: MENTHOL/PHENOL 1 EACH UD MM PRN (21:08)
[2018-12-03] MEDS: INSULIN (LEVEMIR) 100 UNITS/ML UNITS SQ SCH (21:08)
[2018-12-03] MEDS: THIAMINE HCL 100 MG TABLET (FP) PO SCH (21:08)
[2018-12-03] MEDS ORDERED: INSULIN (LEVEMIR) 100 UNITS/ML UNITS SQ ONE (22:10)
[2018-12-04] MEDS: GABAPENTIN 100 MG CAPSULE (FP) PO SCH ×3 (05:57→21:05)
[2018-12-04] MEDS: metFORMIN HCL 500 MG TABLET (FP) PO SCH ×2 (06:15→16:39)
[2018-12-04] MEDS: INSULIN SLIDING SCALE (NOVOLOG) 1 VIAL SQ SCH ×4 (06:15→21:03)
[2018-12-04] MEDS ORDERED: INSULIN (NOVOLOG) ASPART 100 UNITS/ML 10ML VIAL ONE ×3 (06:38→16:11)
[2018-12-04] MEDS: RANITIDINE HCL 150 MG TABLET (FP) PO SCH ×2 (09:38→21:05)
[2018-12-04] MEDS: PRENATAL VITAMINS W/ FOLIC ACID TABLET (FP) PO SCH (09:38)
[2018-12-04] MEDS: ASPIRIN 81 MG CHEWABLE TABLETS PO SCH (09:38)
[2018-12-04] MEDS: amLODIPine BESYLATE 10 MG TABLET (FP) PO SCH (09:38)
[2018-12-04] MEDS: ACETAMINOPHEN 325 MG TABLET (FP) PO PRN ×2 (09:41→21:05)
[2018-12-04] MEDS: ALBUTEROL SO4 8 GM HFA INHALER IH PRN (09:42)
[2018-12-04] MEDS: P-EPHED 60MG/TRIPROLIDI 2.5MG TABLET PO PRN ×2 (09:42→21:07)
[2018-12-04] MEDS: guaiFENesin/D-METHORPHAN HB 10 ML UNIT-DOSE CUPS PO PRN ×2 (09:42→21:05)
[2018-12-04] MEDS: MENTHOL/PHENOL 1 EACH UD MM PRN ×2 (09:42→21:07)
[2018-12-04] MEDS: THIAMINE HCL 100 MG TABLET (FP) PO SCH (21:05)
[2018-12-04] MEDS: INSULIN (LEVEMIR) 100 UNITS/ML UNITS SQ SCH (21:06)
[2018-12-05] MEDS: metFORMIN HCL 500 MG TABLET (FP) PO SCH ×2 (06:37→16:46)
[2018-12-05] MEDS: GABAPENTIN 100 MG CAPSULE (FP) PO SCH ×3 (06:37→21:09)
[2018-12-05] MEDS ORDERED: INSULIN (NOVOLOG) ASPART 100 UNITS/ML 10ML VIAL ONE ×4 (06:40→22:20)
[2018-12-05] MEDS: ACETAMINOPHEN 325 MG TABLET (FP) PO PRN ×2 (06:41→21:10)
[2018-12-05] MEDS: INSULIN SLIDING SCALE (NOVOLOG) 1 VIAL SQ SCH ×4 (06:42→21:07)
[2018-12-05] MEDS: MENTHOL/PHENOL 1 EACH UD MM PRN ×2 (06:42→21:12)
[2018-12-05] MEDS: amLODIPine BESYLATE 10 MG TABLET (FP) PO SCH (09:24)
[2018-12-05] MEDS: ASPIRIN 81 MG CHEWABLE TABLETS PO SCH (09:24)
[2018-12-05] MEDS: RANITIDINE HCL 150 MG TABLET (FP) PO SCH ×2 (09:24→21:09)
[2018-12-05] MEDS: PRENATAL VITAMINS W/ FOLIC ACID TABLET (FP) PO SCH (09:24)
[2018-12-05] MEDS: INSULIN (LEVEMIR) 100 UNITS/ML UNITS SQ SCH (21:07)
[2018-12-05] MEDS: P-EPHED 60MG/TRIPROLIDI 2.5MG TABLET PO PRN (21:11)
[2018-12-05] MEDS: MELATONIN 5 MG TABLETS PO PRN (21:11)
[2018-12-05] MEDS: THIAMINE HCL 100 MG TABLET (FP) PO SCH (21:11)
[2018-12-05] MEDS: guaiFENesin/D-METHORPHAN HB 10 ML UNIT-DOSE CUPS PO PRN (21:12)
[2018-12-06] MEDS: GABAPENTIN 100 MG CAPSULE (FP) PO SCH ×3 (06:22→21:03)
[2018-12-06] MEDS: ACETAMINOPHEN 325 MG TABLET (FP) PO PRN ×3 (06:24→21:05)
[2018-12-06] MEDS ORDERED: INSULIN (NOVOLOG) ASPART 100 UNITS/ML 10ML VIAL ONE ×4 (06:52→21:03)
[2018-12-06] MEDS: metFORMIN HCL 500 MG TABLET (FP) PO SCH ×2 (07:17→16:40)
[2018-12-06] MEDS: INSULIN SLIDING SCALE (NOVOLOG) 1 VIAL SQ SCH ×4 (07:18→21:08)
[2018-12-06] MEDS: ASPIRIN 81 MG CHEWABLE TABLETS PO SCH (09:48)
[2018-12-06] MEDS: amLODIPine BESYLATE 10 MG TABLET (FP) PO SCH (09:48)
[2018-12-06] MEDS: RANITIDINE HCL 150 MG TABLET (FP) PO SCH ×2 (09:48→21:03)
[2018-12-06] MEDS: PRENATAL VITAMINS W/ FOLIC ACID TABLET (FP) PO SCH (09:48)
[2018-12-06] MEDS: guaiFENesin/D-METHORPHAN HB 10 ML UNIT-DOSE CUPS PO PRN ×3 (09:50→21:06)
[2018-12-06] MEDS: MENTHOL/PHENOL 1 EACH UD MM PRN ×2 (09:52→14:12)
[2018-12-06] MEDS: P-EPHED 60MG/TRIPROLIDI 2.5MG TABLET PO PRN (14:10)
[2018-12-06] MEDS: THIAMINE HCL 100 MG TABLET (FP) PO SCH (21:03)
[2018-12-06] MEDS: INSULIN (LEVEMIR) 100 UNITS/ML UNITS SQ SCH (21:07)
[2018-12-06] MEDS: MELATONIN 5 MG TABLETS PO PRN (22:26)
[2018-12-07] MEDS: GABAPENTIN 100 MG CAPSULE (FP) PO SCH ×3 (06:39→21:08)
[2018-12-07] MEDS: ACETAMINOPHEN 325 MG TABLET (FP) PO PRN ×3 (06:40→21:10)
[2018-12-07] MEDS: guaiFENesin/D-METHORPHAN HB 10 ML UNIT-DOSE CUPS PO PRN ×2 (06:41→21:09)
[2018-12-07] MEDS: metFORMIN HCL 500 MG TABLET (FP) PO SCH ×2 (06:41→16:51)
[2018-12-07] MEDS ORDERED: INSULIN (NOVOLOG) ASPART 100 UNITS/ML 10ML VIAL ONE ×3 (06:45→16:33)
[2018-12-07] MEDS: INSULIN SLIDING SCALE (NOVOLOG) 1 VIAL SQ SCH ×4 (08:06→21:06)
[2018-12-07] MEDS: ASPIRIN 81 MG CHEWABLE TABLETS PO SCH (10:00)
[2018-12-07] MEDS: RANITIDINE HCL 150 MG TABLET (FP) PO SCH ×2 (10:00→21:08)
[2018-12-07] MEDS: PRENATAL VITAMINS W/ FOLIC ACID TABLET (FP) PO SCH (10:00)
[2018-12-07] MEDS: amLODIPine BESYLATE 10 MG TABLET (FP) PO SCH (10:00)
[2018-12-07] MEDS: INSULIN (LEVEMIR) 100 UNITS/ML UNITS SQ SCH (21:08)
[2018-12-07] MEDS: THIAMINE HCL 100 MG TABLET (FP) PO SCH (21:08)
[2018-12-07] MEDS: MENTHOL/PHENOL 1 EACH UD MM PRN (21:09)
[2018-12-07] MEDS: P-EPHED 60MG/TRIPROLIDI 2.5MG TABLET PO PRN (21:09)
[2018-12-07] MEDS: MELATONIN 5 MG TABLETS PO PRN (21:09)
[2018-12-08] MEDS: GABAPENTIN 100 MG CAPSULE (FP) PO SCH ×3 (06:31→21:04)
[2018-12-08] MEDS: ACETAMINOPHEN 325 MG TABLET (FP) PO PRN ×3 (06:32→21:05)
[2018-12-08] MEDS: guaiFENesin/D-METHORPHAN HB 10 ML UNIT-DOSE CUPS PO PRN ×2 (06:32→21:05)
[2018-12-08] MEDS: MENTHOL/PHENOL 1 EACH UD MM PRN ×2 (06:33→21:06)
[2018-12-08] MEDS: P-EPHED 60MG/TRIPROLIDI 2.5MG TABLET PO PRN ×2 (06:33→21:06)
[2018-12-08] MEDS: metFORMIN HCL 500 MG TABLET (FP) PO SCH ×2 (07:28→16:59)
[2018-12-08] MEDS: INSULIN SLIDING SCALE (NOVOLOG) 1 VIAL SQ SCH ×4 (07:29→21:04)
[2018-12-08] MEDS: ASPIRIN 81 MG CHEWABLE TABLETS PO SCH (10:02)
[2018-12-08] MEDS: amLODIPine BESYLATE 10 MG TABLET (FP) PO SCH (10:03)
[2018-12-08] MEDS: PRENATAL VITAMINS W/ FOLIC ACID TABLET (FP) PO SCH (10:03)
[2018-12-08] MEDS: RANITIDINE HCL 150 MG TABLET (FP) PO SCH ×2 (10:03→21:04)
[2018-12-08] MEDS ORDERED: INSULIN (NOVOLOG) ASPART 100 UNITS/ML 10ML VIAL ONE ×2 (11:56→16:08)
[2018-12-08] MEDS: THIAMINE HCL 100 MG TABLET (FP) PO SCH (21:03)
[2018-12-08] MEDS: INSULIN (LEVEMIR) 100 UNITS/ML UNITS SQ SCH (21:04)
[2018-12-08] MEDS: MELATONIN 5 MG TABLETS PO PRN (21:05)
[2018-12-08] MEDS: ALBUTEROL SO4 8 GM HFA INHALER IH PRN (21:06)
[2018-12-09 06:55] VITALS: TEMP 98.2
[2018-12-09] MEDS: ACETAMINOPHEN 325 MG TABLET (FP) PO PRN (06:56)
[2018-12-09] MEDS: metFORMIN HCL 500 MG TABLET (FP) PO SCH (06:56)
[2018-12-09] MEDS: GABAPENTIN 100 MG CAPSULE (FP) PO SCH (06:57)
[2018-12-09] MEDS: INSULIN SLIDING SCALE (NOVOLOG) 1 VIAL SQ SCH (06:59)
--- NOTE | 2018-12-09 09:17 | PN ---
[facility] Progress Note Note: PT COMPLETED REHAB AND DISCHARGING TODAY. PT MET WITH HIS COUNSELOR, MS HOLT DAMON. REFERRAL TO [facility] ON [address] [place] [address]. PT IS UNDOMICILED AND PT WAS REMINDED TO FOLLOW UP WITH MEDICAL CARE AT [facility] FOR MEDICAL MANAGEMENT OR IN EMERGENCY. COURTESY RX FOR ALL NEEDED MEDS(SEE AMBULATORY MED LIST) ELECTRONICALLY SENT TO [facility] FOR ENSEMBLE MEMBER. Ambulatory Orders Aspirin [ASA -] 81 mg PO DAILY #30 mg 08/03/17 Famotidine [Pepcid -] 20 mg PO BID #60 mg 08/03/17 Albuterol Sulfate Inhaler - [Ventolin HFA Inhaler -] 2 inh PO Q4H PRN #1 inhaler 11/23/18 Amlodipine Besylate [Norvasc -] 10 mg PO DAILY #30 tablet 11/23/18 Insulin Glargine,Hum.rec.anlog [Lantus (10mL VIAL) -] 35 units SQ HS #1 vial 04/05 metFORMIN HCL [Glucophage -] 1,000 mg PO BID #60 tablet 11/23/18 Albuterol Sulfate Inhaler - [Ventolin Hfa Inhaler -] 1 - 2 inh PO Q4H PRN #1 inhaler 11/25/18 Amlodipine Besylate 10 mg PO DAILY #30 tablet 11/25/18 Aspirin 81 mg PO DAILY #30 tab.chew 11/25/18 Famotidine [Pepcid] 20 mg PO DAILY #30 tablet 11/25/18 Insulin Glargine,Hum.rec.anlog [Lantus] 35 unit SQ HS 30 Days #3 vial 11/25/18 Metformin HCl [Glucophage] 1,000 mg PO BID 30 Days #60 tablet 11/25/18 Syrge-Ndl,Ins 0.3 ml Half Dariusz [Insulin Syringe] 1 each HS #1 box 11/25/18 Gabapentin [Neurontin -] 100 mg PO Q8H #90 capsule 11/29/18 Active Medications Generic Name Dose Route Start Last Admin Trade Name Freq PRN Reason Stop Dose Admin Acetaminophen 650 mg 11/26/18 13:42 12/09/18 06:56 Tylenol - PO 650 mg Q4H PRN Administration FEVER Al Hydroxide/Mg Hydroxide 30 ml 11/26/18 13:42 12/06/18 16:06 Mylanta Oral Suspension - PO 30 ml Q6H PRN Administration DYSPEPSIA Albuterol Sulfate 0 puff 11/26/18 13:44 12/08/18 21:06 Ventolin Hfa Inhaler - IH 1 puff Q4H PRN Administration SHORT OF BREATH/WHEEZING Amlodipine Besylate 10 mg 11/27/18 10:00 12/09/18 09:43 Norvasc - PO 10 mg DAILY LAURA Administration Aspirin 81 mg 11/27/18 10:00 12/09/18 09:43 Asa - PO 81 mg DAILY LAURA Administration Eucalyptus/Menthol/Phenol/Sorbitol 1 each 11/26/18 13:42 12/08/18 21:06 Cepastat Lozenge - MM 1 each Q4H PRN Administration SORE THROAT Gabapentin 100 mg 11/30/18 22:00 12/09/18 06:57 Neurontin - PO 100 mg TID LAURA Administration Guaifenesin 10 ml 11/26/18 13:42 12/08/18 21:05 Robitussin Dm - PO 10 ml Q6H PRN Administration COUGH Insulin Aspart 0 vial 11/26/18 16:30 12/09/18 06:59 Novolog Vial Sliding Scale - SQ Not Given ACHS [facility] Protocol Insulin Detemir 35 units 11/26/18 22:00 12/08/18 21:04 Levemir Vial SQ 35 units HS LAURA Administration Loperamide HCl 4 mg 11/26/18 13:42 Imodium - PO Q6H PRN DIARRHEA Magnesium Citrate 300 ml 11/26/18 13:42 Citroma - PO Q48H PRN CONSTIPATION Magnesium Hydroxide 30 ml 11/26/18 13:42 Milk Of Magnesia - PO DAILY PRN CONSTIPATION Melatonin 5 mg 11/26/18 22:00 12/08/18 21:05 Melatonin PO 5 mg HS PRN Administration INSOMNIA Metformin HCl 1,000 mg 11/26/18 16:30 12/09/18 06:56 Glucophage - PO 1,000 mg BID@0700,1630 LAURA Administration Multivit/Folic Acid/Iron 1 tab 11/27/18 10:00 12/09/18 09:43 Vitamins (Sjr) - PO 1 tab DAILY LAURA Administration Pseudoephedrine/Triprolidine 1 combo 11/26/18 13:42 12/08/18 21:06 Actifed - PO 1 combo TID PRN Administration NASAL CONGESTION Ranitidine HCl 150 mg 11/26/18 22:00 12/09/18 09:43 Zantac - PO 150 mg BID LAURA Administration Thiamine HCl 100 mg 11/26/18 22:00 12/08/18 21:03 Vitamin B1 - PO 100 mg HS LAURA Administration Vital Signs - 24 hr 12/09/18 12/09/18 12/09/18 00:30 03:30 06:54 Temperature 98.2 F Pulse Rate 103 H Respiratory 18 18 18 Rate Blood Pressure 126/97 Laboratory Tests 11/26/18 11/26/18 11/27/18 17:12 21:21 06:34 POC Glucometer 271 258 175 11/27/18 11/27/18 11/27/18 11:59 16:47 21:04 POC Glucometer 218 192 257 11/28/18 11/28/18 11/28/18 06:25 11:58 16:38 POC Glucometer 167 239 275 11/28/18 11/29/18 11/29/18 21:06 06:12 11:34 POC Glucometer 248 213 270 11/29/18 11/29/18 11/30/18 16:39 21:09 06:27 POC Glucometer 216 374 209 11/30/18 11/30/18 11/30/18 11:28 16:51 21:03 POC Glucometer 227 239 377 12/01/18 12/01/18 12/01/18 06:15 12:03 17:03 POC Glucometer 207 329 222 12/01/18 12/02/18 12/02/18 21:32 06:12 12:05 POC Glucometer 282 182 289 12/02/18 12/02/18 12/03/18 16:49 21:05 06:13 POC Glucometer 183 262 205 12/03/18 12/03/18 12/03/18 11:46 16:38 21:04 POC Glucometer 301 263 328 12/04/18 12/04/18 12/04/18 05:56 12:03 16:38 POC Glucometer 164 259 287 12/04/18 12/05/18 12/05/18 21:01 06:37 11:51 POC Glucometer 311 156 200 12/05/18 12/05/18 12/06/18 16:40 21:04 06:47 POC Glucometer 207 211 216 12/06/18 12/06/18 12/06/18 11:48 16:36 21:01 POC Glucometer 251 169 318 12/07/18 12/07/18 12/07/18 06:38 11:48 16:49 POC Glucometer 171 309 183 12/07/18 12/08/18 12/08/18 21:06 06:29 11:52 POC Glucometer 293 148 241 12/08/18 12/08/18 12/09/18 16:57 20:38 06:54 POC Glucometer 243 279 148 NAD MEDICALLY STABLE PLAN:FOLLOW UP WITH AFTERCARE RECOMMENDED PLANNED(SEE COUNSELLING DISCHARGE PLANNING). GO TO [facility] FOR MEDICAL MANAGEMENT NEEDED.
[2018-12-09] MEDS: ASPIRIN 81 MG CHEWABLE TABLETS PO SCH (09:43)
[2018-12-09] MEDS: PRENATAL VITAMINS W/ FOLIC ACID TABLET (FP) PO SCH (09:43)
[2018-12-09] MEDS: RANITIDINE HCL 150 MG TABLET (FP) PO SCH (09:43)
[2018-12-09] MEDS: amLODIPine BESYLATE 10 MG TABLET (FP) PO SCH (09:43)
[2018-12-09 11:30] VITALS: BP 119/79; PULSE 97
== END 2018-12-09 10:30 | disposition home or self-care (01) | DRG 772 ==
LOC: YASAS 12:40 → Y5N 12:41
PROVIDERS: ADMIT Neuromusculoskeletal Medicine & OMM; ATTEND Neuromusculoskeletal Medicine & OMM
PROC: HZ42ZZZ Group Counseling for Substance Abuse Treatment, Cognitive-Behavioral (ICD-10-PCS; principal; 2018-11-26)
DX: F10.230 Alcohol dependence with withdrawal, uncomplicated (principal); F14.20 Cocaine dependence, uncomplicated; F17.213 Nicotine dependence, cigarettes, with withdrawal; G47.00 Insomnia, unspecified; J45.909 Unspecified asthma, uncomplicated; I10 Essential (primary) hypertension; E11.9 Type 2 diabetes mellitus without complications; Z79.4 Long term (current) use of insulin; K21.9 Gastro-esophageal reflux disease without esophagitis; I69.851 Hemiplegia and hemiparesis following other cerebrovascular disease affecting right dominant side; R26.89 Other abnormalities of gait and mobility; Z99.89 Dependence on other enabling machines and devices; H91.90 Unspecified hearing loss, unspecified ear
CPT/HCPCS: 82962

== ENCOUNTER 2019-08-16 09:00 | Inpatient (IN) | payer OTHER ==
[2019-08-16 09:21] VITALS: BMI 33.4
--- NOTE | 2019-08-16 09:59 | HP ---
CIWA Score Nausea/Vomitin Muscle Tremors: 4-Moderate,w/Arms Extend Anxiety: 4-Mod. Anxious/Guarded Agitation: 3 Paroxysmal Sweats: No Perspiration Orientation: 0-Oriented Tacttile Disturbances: 1-Very Mild Itch/Numbness Auditory Disturbances: 0-None Visual Disturbances: 1-Very Mild Sensitivity Headache: 1-Very Mild (appropriate for detox) CIWA-Ar Total Score: 17 - Admission Criteria OASAS Guidelines: Admission for Medically Managed Detox: Requires at least one of the followin. CIWA greater than 12 2. Seizures within the past 24 hours 3. Delirium tremens within the past 24 hours 4. Hallucinations within the past 24 hours 5. Acute intervention needed for co occurring medical disorder 6. Acute intervention needed for co occurring psychiatric disorder 7. Severe withdrawal that cannot be handled at a lower level of care (continued vomiting, continued diarrhea, abnormal vital signs) requiring intravenous medication and/or fluids 8. Admitting History and Physical - Admission Chief Complaint: "I want to stop using drugs and alcohol." History of Present Illness: 48 year old black male with alcohold dependence with withdrawals. He has been drinking since the age of [age] years old and became a heavy drinker at 28 years of age. He now drinks a pint of bacardi, or vodka daily, last drank at 8 PM yesterday. He has had blackouts and poor recall. Denies withdrawal seizures. He was last here in 11/2018 and completed detox and rehab but almost immediately relapsed. He uses $50-100 per day of crack, last used yesterday. He uses marijuana sporadically, last used yesterday. He rarely uses marijuana. PMH: Asthma, HTN with two strokes in 08/2018, DM, GERD; walks with cane. Meds: Metformin, norvasc, pepcid, albuterol All: None Psurg: Abscess right buttock 3 months, secondary to infection due to diabetes. Smokes ciggarettes 4 per day, last smoked this morning. [facility] is homeless, [facility]. Patient denies any legal issues. History Source: Patient Limitations to Obtaining History: Physical Impairment (walks with cane due to prior strokes) - Past Medical History Cardiovascular: Yes: HTN Pulmonary: Yes: Asthma Gastrointestinal: Yes: GERD - Past Surgical History Additional Past Surgical History: right buttock abscess - Advance Directives Advance Directives: No: Living Will, Health Care Proxy, DNR - Smoking History Smoking history: Current every day smoker Have you smoked in the past 12 months: Yes Aproximately how many cigarettes per day: 4 - Alcohol/Substance Use Hx Alcohol Use: Yes Number of Drinks Daily: 4 History of Substance Use: reports: Cocaine, Marijuana - Social History Usual Living Arrangement: Yes: Alone Do you think of yourself as: Straight/Heterosexual ADL: Independent 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 He has been drinking since the age of [age] years old and became a heavy drinker at 28 years of age. He now drinks a pint of bacardi, or vodka daily, last drank at 8 PM yesterday. He has had blackouts and poor recall. Denies withdrawal seizures. He was last here in 11/2018 and completed detox and rehab but almost immediately relapsed. He uses $50-100 per day of crack, last used yesterday. He uses marijuana sporadically, last used yesterday. He rarely uses marijuana. PMH: Asthma, HTN with two strokes in 08/2018, DM, GERD; walks with cane. Meds: Metformin, norvasc, pepcid, albuterol All: None Psurg: Abscess right buttock 3 months, secondary to infection due to diabetes. Smokes ciggarettes 4 per day, last smoked this morning. Patient is homeless, [facility]. Patient denies any legal issues. Exam Limitations: Physical Impairment - Ebola screening Have you traveled outside of the country in the last 21 days: No Have you had contact with anyone from an Ebola affected area: No Have you been sick,other than usual withdrawal symptoms: No Do you have a fever: No - Review of Systems Constitutional: Chills EENT: reports: Blurred Vision Respiratory: reports: Cough (mild and non-productive), SOB with Exertion. denies: Wheezing Cardiac: reports: No Symptoms Reported GI: reports: Nausea, Abdominal cramping : reports: No Symptoms Reported Musculoskeletal: reports: Back Pain, Muscle Pain Integumentary: reports: No Symptoms Reported Neuro: reports: No Symptoms reported Endocrine: reports: No Symptoms Reported Hematology: reports: No Symptoms Reported Psychiatric: reports: No Sypmtoms Reported, Judgement Intact, Mood/Affect Appropiate, Orientated x3 Other Systems: Reviewed and Negative Patient History - Patient Medical History Hx Anemia: No Hx Asthma: Yes Hx Chronic Obstructive Pulmonary Disease (COPD): No Hx Cancer: No Hx Cardiac Disorders: No Hx Congestive Heart Failure: No Hx Hypertension: Yes (on med) Hx Hypercholesterolemia: No Hx Pacemaker: No HX Cerebrovascular Accident: No Hx Seizures: No Hx Dementia: No Hx Diabetes: Yes (IDDM) Hx Gastrointestinal Disorders: Yes (GERD) Hx Liver Disease: No Hx Genitourinary Disorders: No Hx Sexually Transmitted Disorders: No Hx Renal Disease (ESRD): No Hx Thyroid Disease: No Hx Human Immunodeficiency Virus (HIV): No (last 2018 negative) Hx Hepatitis C: No Hx Depression: No Hx Suicide Attempt: No Hx Bipolar Disorder: No Hx Schizophrenia: No - Patient Surgical History Past Surgical History: Yes Hx Neurologic Surgery: No Hx Cataract Extraction: No Hx Cardiac Surgery: No Hx Lung Surgery: No Hx Breast Surgery: No Hx Breast Biopsy: No Hx Abdominal Surgery: No Hx Appendectomy: No Hx Cholecystectomy: No Hx Genitourinary Surgery: No Hx Section: No Hx Orthopedic Surgery: No Other Surgical History: removed cyst in the right buttock in 2013 & 2016. Anesthesia Reaction: No - PPD History Date: 11/24/18 Results: 0 mm. - Smoking Cessation Smoking history: Current every day smoker Have you smoked in the past 12 months: Yes Aproximately how many cigarettes per day: 4 Cigars Per Day: 0 Hx Chewing Tobacco Use: No Initiated information on smoking cessation: Yes 'Breaking Loose' booklet given: 08/16/19 - Substances abused Cocaine Substance route: Smoking Frequency: Daily Amount used: $100 Age of first use: 23 Date of last use: 08/15/19 Alcohol Substance route: Oral Frequency: Daily Amount used: 1 pint of barcardi Age of first use: 23 Date of last use: 08/15/19 Admission Physical Exam [facility] - Vital Signs Vital Signs: Vital Signs - 24 hr 08/16/19 09:09 Temperature 97.1 F L Pulse Rate 82 Respiratory 20 Rate Blood Pressure 154/100 - Physical General Appearance: Yes: Moderate Distress HEENTM: Yes: EOMI, Hearing grossly Normal, Normal ENT Inspection, Normocephalic , Normal Voice, DENITA, Pharynx Normal, Tm's normal Respiratory: Yes: Within Normal Limits, Chest Non-Tender, Lungs Clear, No Respiratory Distress, No Accessory Muscle Use Neck: Yes: No masses,lesions,Nodules, Trachea in good position Breast: Yes: Within Normal Limits Cardiology: Yes: Regular Rhythm, Regular Rate, S1, S2 Abdominal: Yes: Normal Bowel Sounds, Non Tender, Soft, Protuberent Genitourinary: Yes: Within Normal Limits Back: Yes: Within Normal Limits Musculoskeletal: Yes: full range of Motion, Gait Steady Extremities: Yes: Normal Capillary Refill, Normal Inspection, Normal Range of Motion, Non-Tender Neurological: Yes: attending radiologist II-XII NML intact, Fully Oriented, Alert, Motor Strength 5/5, Normal Mood/Affect, Normal Response Integumentary: Yes: Normal Color, Warm Lymphatic: Yes: Within Normal Limits - Diagnostic (1) Alcohol dependence with uncomplicated withdrawal Current Visit: Yes Status: Acute (2) Cocaine dependence, uncomplicated Current Visit: Yes Status: Acute (3) Asthma Current Visit: Yes Status: Chronic Qualifiers: Asthma severity: unspecified severity Asthma persistence: unspecified Asthma complication type: uncomplicated Qualified Code(s): J45.909 - Unspecified asthma, uncomplicated (4) Diabetes type 2, uncontrolled Current Visit: Yes Status: Chronic (5) H/O hearing loss Current Visit: Yes Status: Chronic Comment: childhood trauma (6) Hypertension Current Visit: Yes Status: Chronic Qualifiers: Hypertension type: essential hypertension Qualified Code(s): I10 - Essential (primary) hypertension (7) Nicotine dependence Current Visit: Yes Status: Chronic Qualifiers: Nicotine product type: cigarettes Substance use status: in withdrawal Qualified Code(s): F17.213 - Nicotine dependence, cigarettes, with withdrawal (8) Alcohol dependence Current Visit: No Status: Acute Cleared for Admission S - Detox or Rehab [facility] Level of Care: Medically Managed Detox Regimen/Protocol: Librium Claeared for Rehab Admission: No Screened but not Admitted - Documentation of Visit Screened but not Admitted: No Breathalyzer - Breathalyzer Breathalyzer: 0 (yesterday at 8PM) Vital Signs - Vital Signs Vital signs refused: No Urine Drug Screen - Test Device Lot number: [id number] Expiration date: 04/16/21 - Control Is test valid?: Yes - Results Drug screen NEGATIVE: No Urine drug screen results: THC-Marijuana, YUE-Cocaine Inpatient Rehab Admission - Rehab Decision to Admit Inpatient rehab admission?: No
[2019-08-16] MEDS ORDERED: chlordiazePOXIDE HCL 25 MG CAPSULE PO PRN (10:06)
[2019-08-16] MEDS ORDERED: MAGNESIUM HYDROX 2400MG/30ML ORAL SUSPENSION 30 ML CUP PO PRN (10:06)
[2019-08-16] MEDS ORDERED: ACETAMINOPHEN 325 MG TABLET (FP) PO PRN ×2 (10:06)
[2019-08-16] MEDS ORDERED: MELATONIN 5 MG TABLETS PO PRN (10:06)
[2019-08-16] MEDS ORDERED: MAG HYDROX/AL HYDROX/SIMETH 30 ML UNIT-DOSE CUP PO PRN (10:06)
[2019-08-16] MEDS ORDERED: METHOCARBAMOL 500 MG TABLET PO PRN (10:06)
[2019-08-16] MEDS ORDERED: MAGNESIUM CITRATE 300 ML BOTTLE PO PRN (10:06)
[2019-08-16] MEDS ORDERED: MENTHOL/PHENOL 1 EACH UD MM PRN (10:06)
[2019-08-16] MEDS ORDERED: BISMUTH SUBSALICYLATE 262 MG/15 ML BTL PO PRN (10:06)
[2019-08-16] MEDS ORDERED: hydrOXYzine PAMOATE 25 MG CAPSULE (FP) PO PRN (10:06)
[2019-08-16] MEDS ORDERED: ALBUTEROL SO4 8 GM HFA INHALER IH PRN (10:08)
[2019-08-16] MEDS: GABAPENTIN 100 MG CAPSULE (FP) PO SCH ×2 (11:27→18:08)
[2019-08-16] MEDS: chlordiazePOXIDE HCL 25 MG CAPSULE PO SCH ×3 (11:27→23:29)
[2019-08-16 12:17] LABS: HEMATOCRIT 42.4 % (35.4-49); MCH 30.5 pg (25.7-33.7); MCHC 32.9 g/dl (32.0-35.9); MEAN CELL VOLUME 92.8 fl (80-96); PLATELET COUNT 238 K/MM3 (134-434); RBC 4.57 M/mm3 (4.00-5.60); RDW 15.5 % (11.9-15.9); WHITE BLOOD COUNT 2.7 K/mm3 (4.0-10.0)
[2019-08-16 12:42] LABS: BILIRUBIN,TOTAL 0.1 mg/dL (0.2-1); BLOOD UREA NITROGEN 10.9 mg/dL (7-18); CALCIUM 9.3 mg/dL (8.5-10.1); CREATININE 1.2 mg/dL (0.55-1.3); POTASSIUM 4.1 mmol/L (3.5-5.1); TOT PROT 7.1 g/dl (6.4-8.2)
[2019-08-16] MEDS: metFORMIN HCL 500 MG TABLET (FP) PO SCH (18:08)
[2019-08-16] MEDS: IBUPROFEN 400 MG TABLET (FP) PO PRN (18:10)
[2019-08-16] MEDS ORDERED: cloNIDine HCL 0.1 MG TABLET PO ONE (23:27)
[2019-08-16] MEDS: THIAMINE HCL 100 MG TABLET (FP) PO SCH (23:35)
[2019-08-16] MEDS: FAMOTIDINE 20 MG TABLET PO SCH (23:35)
[2019-08-17] MEDS: GABAPENTIN 100 MG CAPSULE (FP) PO SCH ×3 (03:52→17:39)
[2019-08-17] MEDS: chlordiazePOXIDE HCL 25 MG CAPSULE PO SCH ×4 (07:20→22:31)
[2019-08-17] MEDS: metFORMIN HCL 500 MG TABLET (FP) PO SCH ×2 (07:20→17:25)
--- NOTE | 2019-08-17 10:23 | PN ---
S CIWA - CIWA Score Nausea/Vomitin-Mild Nausea/No Vomiting Muscle Tremors: 2 Anxiety: 2 Agitation: 2 Paroxysmal Sweats: No Perspiration Orientation: 0-Oriented Tacttile Disturbances: 1-Very Mild Itch/Numbness Auditory Disturbances: 0-None Visual Disturbances: 0-None Headache: 2-Mild CIWA-Ar Total Score: 10 S Progress Note (SOAP) Subjective: alert,irritable,anxious,pain in body,tremor Objective: 08/17/19 10:22 Vital Signs Temperature 98.1 F 08/17/19 09:22 Pulse Rate 61 08/17/19 09:22 Respiratory Rate 18 08/17/19 09:22 Blood Pressure 139/81 08/17/19 09:22 O2 Sat by Pulse Oximetry (%) Laboratory Last Values WBC 2.7 K/mm3 (4.0-10.0) L 08/16/19 10:15 RBC 4.57 M/mm3 (4.00-5.60) 08/16/19 10:15 Hgb 14.0 GM/dL (11.7-16.9) 08/16/19 10:15 Hct 42.4 % (35.4-49) D 08/16/19 10:15 MCV 92.8 fl (80-96) 08/16/19 10:15 MCH 30.5 pg (25.7-33.7) 08/16/19 10:15 MCHC 32.9 g/dl (32.0-35.9) 08/16/19 10:15 RDW 15.5 % (11.9-15.9) 08/16/19 10:15 Plt Count 238 K/MM3 (134-434) 08/16/19 10:15 MPV 8.0 fl (7.5-11.1) 08/16/19 10:15 Sodium 139 mmol/L (136-145) 08/16/19 10:15 Potassium 4.1 mmol/L (3.5-5.1) 08/16/19 10:15 Chloride 106 mmol/L (98-107) 08/16/19 10:15 Carbon Dioxide 25 mmol/L (21-32) 08/16/19 10:15 Anion Gap 9 MMOL/L (8-16) 08/16/19 10:15 BUN 10.9 mg/dL (7-18) 08/16/19 10:15 Creatinine 1.2 mg/dL (0.55-1.3) 08/16/19 10:15 Est GFR (CKD-EPI)AfAm 81.23 08/16/19 10:15 Est GFR (CKD-EPI)NonAf 70.09 08/16/19 10:15 POC Glucometer 249 UNITS (80-120) 08/16/19 16:39 Random Glucose 314 mg/dL (74-106) H 08/16/19 10:15 Calcium 9.3 mg/dL (8.5-10.1) 08/16/19 10:15 Total Bilirubin 0.1 mg/dL (0.2-1) L 08/16/19 10:15 AST 14 U/L (15-37) L 08/16/19 10:15 ALT 31 U/L (13-61) 08/16/19 10:15 Alkaline Phosphatase 184 U/L (45-117) H 08/16/19 10:15 Total Protein 7.1 g/dl (6.4-8.2) 08/16/19 10:15 Albumin 3.0 g/dl (3.4-5.0) L 08/16/19 10:15 RPR Titer Nonreactive (NONREACTIVE) 08/16/19 10:15 Assessment: 08/17/19 10:23 withdrawal symptom Plan: continue detox librium regimen,bgm monitoring with metformin 1000 mgs po bid
[2019-08-17] MEDS: ASPIRIN 81 MG CHEWABLE TABLETS PO SCH (10:33)
[2019-08-17] MEDS: PRENATAL VITAMINS W/ FOLIC ACID TABLET (FP) PO SCH (10:33)
[2019-08-17] MEDS: amLODIPine BESYLATE 10 MG TABLET (FP) PO SCH (10:33)
[2019-08-17] MEDS: IBUPROFEN 400 MG TABLET (FP) PO PRN ×2 (10:35→22:36)
[2019-08-17] MEDS: FAMOTIDINE 20 MG TABLET PO SCH ×2 (10:39→22:30)
[2019-08-17] MEDS: NICOTINE 7 MG/24 HOURS TOPICAL PATCH TD SCH (10:39)
[2019-08-17] MEDS: THIAMINE HCL 100 MG TABLET (FP) PO SCH (22:30)
[2019-08-17] MEDS ORDERED: INSULIN (LEVEMIR) 100 UNITS/ML UNITS SQ ONE (22:50)
[2019-08-18] MEDS: chlordiazePOXIDE HCL 25 MG CAPSULE PO SCH ×4 (06:12→22:03)
[2019-08-18] MEDS: metFORMIN HCL 500 MG TABLET (FP) PO SCH ×2 (06:12→17:22)
[2019-08-18] MEDS: GABAPENTIN 100 MG CAPSULE (FP) PO SCH ×3 (06:13→21:21)
[2019-08-18] MEDS: amLODIPine BESYLATE 10 MG TABLET (FP) PO SCH (10:18)
[2019-08-18] MEDS: PRENATAL VITAMINS W/ FOLIC ACID TABLET (FP) PO SCH (10:18)
[2019-08-18] MEDS: NICOTINE 7 MG/24 HOURS TOPICAL PATCH TD SCH (10:18)
[2019-08-18] MEDS: FAMOTIDINE 20 MG TABLET PO SCH ×2 (10:18→21:21)
[2019-08-18] MEDS: IBUPROFEN 400 MG TABLET (FP) PO PRN (10:18)
[2019-08-18] MEDS: ASPIRIN 81 MG CHEWABLE TABLETS PO SCH (10:18)
[2019-08-18] MEDS ORDERED: NICOTINE 21 MG/24 HOURS TOPICAL PATCH TD ONE (11:24)
--- NOTE | 2019-08-18 13:53 | PN ---
S CIWA - CIWA Score Nausea/Vomitin-Mild Nausea/No Vomiting Muscle Tremors: 1-None Visible, but [place] Anxiety: 2 Agitation: 1-Slight > Activity Paroxysmal Sweats: 2 Orientation: 0-Oriented Tacttile Disturbances: 1-Very Mild Itch/Numbness Auditory Disturbances: 0-None Visual Disturbances: 0-None Headache: 0-None Present CIWA-Ar Total Score: 8 BHS Progress Note (SOAP) Subjective: interrupted sleep, sweats , shakes Objective: 08/18/19 13:49 Vital Signs Temperature 98.2 F 08/18/19 13:45 Pulse Rate 98 H 08/18/19 13:45 Respiratory Rate 18 08/18/19 13:45 Blood Pressure 124/78 08/18/19 13:45 O2 Sat by Pulse Oximetry (%) Laboratory Tests 08/16/19 08/16/19 08/16/19 10:15 10:15 10:15 WBC 2.7 L RBC 4.57 Hgb 14.0 Hct 42.4 D MCV 92.8 MCH 30.5 MCHC 32.9 RDW 15.5 Plt Count 238 MPV 8.0 Sodium 139 Potassium 4.1 Chloride 106 Carbon Dioxide 25 Anion Gap 9 BUN 10.9 Creatinine 1.2 Est GFR (CKD-EPI)AfAm 81.23 Est GFR (CKD-EPI)NonAf 70.09 POC Glucometer Random Glucose 314 H Calcium 9.3 Total Bilirubin 0.1 L AST 14 L ALT 31 Alkaline Phosphatase 184 H Total Protein 7.1 Albumin 3.0 L RPR Titer Nonreactive 08/16/19 08/16/19 08/17/19 10:15 16:39 16:30 WBC RBC Hgb Hct MCV MCH MCHC RDW Plt Count MPV Sodium Potassium Chloride Carbon Dioxide Anion Gap BUN Creatinine Est GFR (CKD-EPI)AfAm Est GFR (CKD-EPI)NonAf POC Glucometer 317 249 332 Random Glucose Calcium Total Bilirubin AST ALT Alkaline Phosphatase Total Protein Albumin RPR Titer 08/17/19 08/18/19 22:29 06:15 WBC RBC Hgb Hct MCV MCH MCHC RDW Plt Count MPV Sodium Potassium Chloride Carbon Dioxide pt aox3 in nad ambulating Anion Gap BUN Creatinine Est GFR (CKD-EPI)AfAm Est GFR (CKD-EPI)NonAf POC Glucometer 272 272 Random Glucose Calcium Total Bilirubin AST ALT Alkaline Phosphatase Total Protein Albumin RPR Titer pt aox3 in nad ambulating , cooperative Assessment: 08/18/19 13:50 withdrawal sx's DM Plan: cont. detox increase fluids add a sliding scale - insulin
[2019-08-18] MEDS: INSULIN SLIDING SCALE (NOVOLOG) 1 VIAL SQ SCH (17:22)
[2019-08-18] MEDS ORDERED: cloNIDine HCL 0.1 MG TABLET PO ONE (18:30)
[2019-08-18] MEDS: INSULIN (LEVEMIR) 100 UNITS/ML UNITS SQ SCH (21:21)
[2019-08-18] MEDS: THIAMINE HCL 100 MG TABLET (FP) PO SCH (21:21)
[2019-08-19] MEDS ORDERED: chlordiazePOXIDE HCL 10 MG CAPSULE PO PRN
[2019-08-19] MEDS: chlordiazePOXIDE HCL 10 MG CAPSULE PO SCH ×4 (06:00→23:26)
[2019-08-19] MEDS: GABAPENTIN 100 MG CAPSULE (FP) PO SCH ×3 (06:00→23:26)
[2019-08-19] MEDS ORDERED: INSULIN SLIDING SCALE (NOVOLOG) 1 VIAL SQ ONE (07:36)
[2019-08-19] MEDS: metFORMIN HCL 500 MG TABLET (FP) PO SCH ×2 (07:37→18:01)
[2019-08-19] MEDS: INSULIN SLIDING SCALE (NOVOLOG) 1 VIAL SQ SCH ×3 (07:38→18:05)
--- NOTE | 2019-08-19 09:48 | PN ---
S CIWA - CIWA Score Nausea/Vomitin-No Nausea/No Vomiting Muscle Tremors: 2 Anxiety: 1-Mildly Anxious Agitation: 1-Slight > Activity Paroxysmal Sweats: No Perspiration Orientation: 0-Oriented Tacttile Disturbances: 0-None Auditory Disturbances: 0-None Visual Disturbances: 0-None Headache: 0-None Present CIWA-Ar Total Score: 4 BHS Progress Note (SOAP) Subjective: sweats body aches interrupted sleep finger wound Objective: 08/19/19 09:48 Vital Signs Temperature 98.2 F 08/19/19 09:21 Pulse Rate 97 H 08/19/19 09:22 Respiratory Rate 18 08/19/19 09:22 Blood Pressure 146/108 H 08/19/19 09:22 O2 Sat by Pulse Oximetry (%) Laboratory Tests 08/16/19 08/16/19 08/16/19 10:15 10:15 10:15 WBC 2.7 L RBC 4.57 Hgb 14.0 Hct 42.4 D MCV 92.8 MCH 30.5 MCHC 32.9 RDW 15.5 Plt Count 238 MPV 8.0 Sodium 139 Potassium 4.1 Chloride 106 Carbon Dioxide 25 Anion Gap 9 BUN 10.9 Creatinine 1.2 Est GFR (CKD-EPI)AfAm 81.23 Est GFR (CKD-EPI)NonAf 70.09 POC Glucometer Random Glucose 314 H Calcium 9.3 Total Bilirubin 0.1 L AST 14 L ALT 31 Alkaline Phosphatase 184 H Total Protein 7.1 Albumin 3.0 L RPR Titer Nonreactive 08/16/19 08/16/19 08/17/19 10:15 16:39 16:30 WBC RBC Hgb Hct MCV MCH MCHC RDW Plt Count MPV Sodium Potassium Chloride Carbon Dioxide Anion Gap BUN Creatinine Est GFR (CKD-EPI)AfAm Est GFR (CKD-EPI)NonAf POC Glucometer 317 249 332 Random Glucose Calcium Total Bilirubin AST ALT Alkaline Phosphatase Total Protein Albumin RPR Titer 08/17/19 08/18/19 08/18/19 22:29 06:15 16:30 WBC RBC Hgb Hct MCV MCH MCHC RDW Plt Count MPV Sodium Potassium Chloride Carbon Dioxide Anion Gap BUN Creatinine Est GFR (CKD-EPI)AfAm Est GFR (CKD-EPI)NonAf POC Glucometer 272 272 333 Random Glucose Calcium Total Bilirubin AST ALT Alkaline Phosphatase Total Protein Albumin RPR Titer 08/18/19 08/19/19 20:48 07:19 WBC RBC Hgb Hct MCV MCH MCHC RDW Plt Count MPV Sodium Potassium Chloride Carbon Dioxide Anion Gap BUN Creatinine Est GFR (CKD-EPI)AfAm Est GFR (CKD-EPI)NonAf POC Glucometer 314 248 Random Glucose Calcium Total Bilirubin AST ALT Alkaline Phosphatase Total Protein Albumin RPR Titer labs noted aaox3 ambulating with cane no acute distress Assessment: 08/19/19 09:50 withdrawals right index finger assessed; open wound no pus, no drainage noted, slight odor noted Plan: continue detox increase fluids motrin/muscle relaxant prn encourage to keep wound area free from moisture keep wound dry after wound cleansing with N/S, apply bacitracin ointment and cover with bandaid
[2019-08-19] MEDS ORDERED: NICOTINE 21 MG/24 HOURS TOPICAL PATCH TD SCH (10:00)
[2019-08-19] MEDS: ASPIRIN 81 MG CHEWABLE TABLETS PO SCH (10:27)
[2019-08-19] MEDS: FAMOTIDINE 20 MG TABLET PO SCH ×2 (10:27→23:26)
[2019-08-19] MEDS: PRENATAL VITAMINS W/ FOLIC ACID TABLET (FP) PO SCH (10:27)
[2019-08-19] MEDS: amLODIPine BESYLATE 10 MG TABLET (FP) PO SCH (10:27)
[2019-08-19] MEDS: BACITRACIN 15 GM TUBE TOPICAL OINTMENT TP SCH ×2 (10:27→23:25)
[2019-08-19] MEDS: NICOTINE 7 MG/24 HOURS TOPICAL PATCH TD SCH (10:29)
[2019-08-19] MEDS: IBUPROFEN 400 MG TABLET (FP) PO PRN ×2 (10:31→18:03)
[2019-08-19] MEDS: THIAMINE HCL 100 MG TABLET (FP) PO SCH (23:26)
[2019-08-19] MEDS: INSULIN (LEVEMIR) 100 UNITS/ML UNITS SQ SCH (23:26)
[2019-08-20] MEDS: chlordiazePOXIDE HCL 10 MG CAPSULE PO SCH ×2 (06:38→18:06)
[2019-08-20] MEDS: GABAPENTIN 100 MG CAPSULE (FP) PO SCH ×3 (06:38→22:43)
[2019-08-20] MEDS: metFORMIN HCL 500 MG TABLET (FP) PO SCH ×2 (06:38→18:06)
[2019-08-20] MEDS: INSULIN SLIDING SCALE (NOVOLOG) 1 VIAL SQ SCH ×3 (07:42→18:00)
[2019-08-20] MEDS: FAMOTIDINE 20 MG TABLET PO SCH ×2 (11:18→22:43)
[2019-08-20] MEDS: amLODIPine BESYLATE 10 MG TABLET (FP) PO SCH (11:18)
[2019-08-20] MEDS: PRENATAL VITAMINS W/ FOLIC ACID TABLET (FP) PO SCH (11:18)
[2019-08-20] MEDS: ASPIRIN 81 MG CHEWABLE TABLETS PO SCH (11:18)
[2019-08-20] MEDS: BACITRACIN 15 GM TUBE TOPICAL OINTMENT TP SCH ×2 (11:18→22:43)
[2019-08-20] MEDS: NICOTINE 7 MG/24 HOURS TOPICAL PATCH TD SCH (11:18)
[2019-08-20] MEDS ORDERED: INSULIN SLIDING SCALE (NOVOLOG) 1 VIAL SQ ONE (12:13)
--- NOTE | 2019-08-20 13:06 | PN ---
[facility] CIWA - CIWA Score Nausea/Vomitin-No Nausea/No Vomiting Muscle Tremors: 2 Anxiety: 2 Agitation: 0-Normal Activity Paroxysmal Sweats: 2 Orientation: 0-Oriented Tacttile Disturbances: 0-None Auditory Disturbances: 0-None Visual Disturbances: 0-None Headache: 0-None Present CIWA-Ar Total Score: 6 BHS Progress Note (SOAP) Subjective: Stomachache, sweating of beads on face, interrupted sleep Objective: 08/20/19 13:02 Last Vital Signs Temp Pulse Resp BP Pulse Ox 97.9 F 98 H 20 140/95 08/20/19 09:31 08/20/19 09:31 08/20/19 09:31 08/20/19 09:31 Elevated b/p: has htn (on med) Assessment: 08/20/19 13:05 Withdrawal sxs Noted with hyperglycemia r/t DMT2 and hypoalbuminemia Plan: Continue detox Encouraged PO water intake HTN: continue norvasc, monitor b/p DMT2 with hyperglycemia: continue metformin/levemir and diabetic regimen Hypoalbuminemia: encouraged protein intake
[2019-08-20] MEDS: INSULIN (LEVEMIR) 100 UNITS/ML UNITS SQ SCH (22:43)
[2019-08-20] MEDS: THIAMINE HCL 100 MG TABLET (FP) PO SCH (22:43)
[2019-08-21] MEDS ORDERED: chlordiazePOXIDE HCL 10 MG CAPSULE PO ONE (05:00)
[2019-08-21] MEDS: metFORMIN HCL 500 MG TABLET (FP) PO SCH (06:23)
[2019-08-21] MEDS: GABAPENTIN 100 MG CAPSULE (FP) PO SCH (06:24)
[2019-08-21] MEDS: INSULIN SLIDING SCALE (NOVOLOG) 1 VIAL SQ SCH ×2 (06:25→11:52)
--- NOTE | 2019-08-21 08:53 | DS ---
[facility] Detox Discharge Summary Admission Date: 08/16/19 Discharge Date: 08/21/19 - History Present History: Alcohol Dependence, Cocaine Dependence - Physical Exam Results Vital Signs: Vital Signs Temperature 97.7 F 08/20/19 20:41 Pulse Rate 100 H 08/20/19 20:41 Respiratory Rate 18 08/21/19 03:30 Blood Pressure 152/88 08/20/19 20:41 O2 Sat by Pulse Oximetry (%) Pertinent Admission Physical Exam Findings: pt arrived in withdrawals Vital Signs Temperature 97.7 F 08/20/19 20:41 Pulse Rate 100 H 08/20/19 20:41 Respiratory Rate 18 08/21/19 03:30 Blood Pressure 152/88 08/20/19 20:41 O2 Sat by Pulse Oximetry (%) Laboratory Tests 08/16/19 08/16/19 08/16/19 10:15 10:15 10:15 WBC 2.7 L RBC 4.57 Hgb 14.0 Hct 42.4 D MCV 92.8 MCH 30.5 MCHC 32.9 RDW 15.5 Plt Count 238 MPV 8.0 Sodium 139 Potassium 4.1 Chloride 106 Carbon Dioxide 25 Anion Gap 9 BUN 10.9 Creatinine 1.2 Est GFR (CKD-EPI)AfAm 81.23 Est GFR (CKD-EPI)NonAf 70.09 POC Glucometer Random Glucose 314 H Calcium 9.3 Total Bilirubin 0.1 L AST 14 L ALT 31 Alkaline Phosphatase 184 H Total Protein 7.1 Albumin 3.0 L RPR Titer Nonreactive 08/16/19 08/16/19 08/17/19 10:15 16:39 16:30 WBC RBC Hgb Hct MCV MCH MCHC RDW Plt Count MPV Sodium Potassium Chloride Carbon Dioxide Anion Gap BUN Creatinine Est GFR (CKD-EPI)AfAm Est GFR (CKD-EPI)NonAf POC Glucometer 317 249 332 Random Glucose Calcium Total Bilirubin AST ALT Alkaline Phosphatase Total Protein Albumin RPR Titer 08/17/19 08/18/19 08/18/19 22:29 06:15 16:30 WBC RBC Hgb Hct MCV MCH MCHC RDW Plt Count MPV Sodium Potassium Chloride Carbon Dioxide Anion Gap BUN Creatinine Est GFR (CKD-EPI)AfAm Est GFR (CKD-EPI)NonAf POC Glucometer 272 272 333 Random Glucose Calcium Total Bilirubin AST ALT Alkaline Phosphatase Total Protein Albumin RPR Titer 08/18/19 08/19/19 08/19/19 20:48 07:19 11:57 WBC RBC Hgb Hct MCV MCH MCHC RDW Plt Count MPV Sodium Potassium Chloride Carbon Dioxide Anion Gap BUN Creatinine Est GFR (CKD-EPI)AfAm Est GFR (CKD-EPI)NonAf POC Glucometer 314 248 292 Random Glucose Calcium Total Bilirubin AST ALT Alkaline Phosphatase Total Protein Albumin RPR Titer 08/19/19 08/19/19 08/20/19 16:49 20:43 06:21 WBC RBC Hgb Hct MCV MCH MCHC RDW Plt Count MPV Sodium Potassium Chloride Carbon Dioxide Anion Gap BUN Creatinine Est GFR (CKD-EPI)AfAm Est GFR (CKD-EPI)NonAf POC Glucometer 349 352 235 Random Glucose Calcium Total Bilirubin AST ALT Alkaline Phosphatase Total Protein Albumin RPR Titer 08/20/19 08/20/19 11:32 16:48 WBC RBC Hgb Hct MCV MCH MCHC RDW Plt Count MPV Sodium Potassium Chloride Carbon Dioxide Anion Gap BUN Creatinine Est GFR (CKD-EPI)AfAm Est GFR (CKD-EPI)NonAf POC Glucometer 205 234 Random Glucose Calcium Total Bilirubin AST ALT Alkaline Phosphatase Total Protein Albumin RPR Titer today pt is aaox3 ambulating no acute distress no s/s of withdrawals - Treatment Hospital Course: Detox Protocol Followed, Detoxed Safely, Responded well, Discharged Condition Good, Rehab Referral Accepted Patient has Accepted a Rehab Referral to: pt referred [facility] - Medication Discharge Medications: Ambulatory Orders Famotidine [Pepcid -] 20 mg PO BID #60 mg 08/03/17 metFORMIN HCL [Glucophage -] 1,000 mg PO BID #60 tablet 11/23/18 Albuterol Sulfate Inhaler - [Ventolin Hfa Inhaler -] 1 - 2 inh PO Q4H PRN #1 inhaler 11/25/18 Amlodipine Besylate 10 mg PO DAILY #30 tablet 11/25/18 Aspirin 81 mg PO DAILY #30 tab.chew 11/25/18 Gabapentin [Neurontin -] 100 mg PO Q8H #90 capsule 11/29/18 Insulin Glargine,Hum.rec.anlog [Lantus] 35 unit SQ HS 08/17/19 - Diagnosis (1) Alcohol dependence with uncomplicated withdrawal Current Visit: Yes Status: Chronic (2) Cocaine dependence, uncomplicated Current Visit: Yes Status: Chronic (3) Asthma Current Visit: Yes Status: Chronic Qualifiers: Asthma severity: mild Asthma persistence: unspecified Asthma complication type: unspecified Qualified Code(s): J45.909 - Unspecified asthma , uncomplicated (4) Diabetes type 2, uncontrolled Current Visit: Yes Status: Chronic (5) H/O hearing loss Current Visit: Yes Status: Chronic (6) Hypertension Current Visit: Yes Status: Chronic Qualifiers: Hypertension type: essential hypertension Qualified Code(s): I10 - Essential (primary) hypertension (7) Nicotine dependence Current Visit: Yes Status: Chronic Qualifiers: Nicotine product type: cigarettes Substance use status: uncomplicated Qualified Code(s): F17.210 - Nicotine dependence, cigarettes, uncomplicated (8) Cerebrovascular accident (CVA) with right hemiparesis Current Visit: No Status: Chronic (9) Insomnia Current Visit: No Status: Chronic Qualifiers: Insomnia type: unspecified Qualified Code(s): G47.00 - Insomnia, unspecified (10) Use of cane as ambulatory aid Current Visit: Yes Status: Chronic - AMA Did Patient Leave Against Medical Advice: No
[2019-08-21 09:18] VITALS: BP 129/95; PULSE 63; TEMP 97.5
[2019-08-21] MEDS: BACITRACIN 15 GM TUBE TOPICAL OINTMENT TP SCH (10:00)
[2019-08-21] MEDS: NICOTINE 7 MG/24 HOURS TOPICAL PATCH TD SCH (10:00)
[2019-08-21] MEDS: ASPIRIN 81 MG CHEWABLE TABLETS PO SCH (11:00)
[2019-08-21] MEDS: FAMOTIDINE 20 MG TABLET PO SCH (11:00)
[2019-08-21] MEDS: amLODIPine BESYLATE 10 MG TABLET (FP) PO SCH (11:00)
[2019-08-21] MEDS: PRENATAL VITAMINS W/ FOLIC ACID TABLET (FP) PO SCH (11:00)
[2019-08-21] MEDS ORDERED: INSULIN SLIDING SCALE (NOVOLOG) 1 VIAL SQ ONE (11:58)
== END 2019-08-21 12:35 | disposition other institution (70) | DRG 774 ==
LOC: YASAS 09:00 → Y6N 10:46
PROVIDERS: ADMIT Allergy & Immunology; ATTEND Allergy & Immunology
PROC: HZ2ZZZZ Detoxification Services for Substance Abuse Treatment (ICD-10-PCS; principal; 2019-08-16)
DX: F10.230 Alcohol dependence with withdrawal, uncomplicated (principal); F14.20 Cocaine dependence, uncomplicated; F17.210 Nicotine dependence, cigarettes, uncomplicated; I10 Essential (primary) hypertension; E11.65 Type 2 diabetes mellitus with hyperglycemia; J45.909 Unspecified asthma, uncomplicated; H91.90 Unspecified hearing loss, unspecified ear; I69.351 Hemiplegia and hemiparesis following cerebral infarction affecting right dominant side; K21.9 Gastro-esophageal reflux disease without esophagitis; R26.2 Difficulty in walking, not elsewhere classified; Z99.89 Dependence on other enabling machines and devices; S61.200A Unspecified open wound of right index finger without damage to nail, initial encounter; X58.XXXA Exposure to other specified factors, initial encounter; Y93.9 Activity, unspecified; Y92.9 Unspecified place or not applicable; Z79.84 Long term (current) use of oral hypoglycemic drugs; Z91.018 Allergy to other foods
CPT/HCPCS: 36415; 80053; 82962; 85027; 86593; J0735

== ENCOUNTER 2019-08-21 12:47 | Inpatient (IN) | payer OTHER ==
[2019-08-21] MEDS ORDERED: P-EPHED 60MG/TRIPROLIDI 2.5MG TABLET PO PRN (14:13)
[2019-08-21] MEDS ORDERED: MAG HYDROX/AL HYDROX/SIMETH 30 ML UNIT-DOSE CUP PO PRN (14:13)
[2019-08-21] MEDS ORDERED: MAGNESIUM CITRATE 300 ML BOTTLE PO PRN (14:13)
[2019-08-21] MEDS ORDERED: LOPERAMIDE HCL 2 MG CAPSULE PO PRN (14:13)
[2019-08-21] MEDS ORDERED: NICOTINE POLACRILEX 4 MG GUM BUC PRN (14:13)
[2019-08-21] MEDS ORDERED: hydrOXYzine PAMOATE 50 MG CAPSULE (FP) PO PRN (14:13)
[2019-08-21] MEDS ORDERED: MAGNESIUM HYDROX 2400MG/30ML ORAL SUSPENSION 30 ML CUP PO PRN (14:13)
--- NOTE | 2019-08-21 14:13 | HP ---
[facility] Rehab Assess/Revision - Admission History Ad[facility] to Rehab [facility] - Findings Detox History & Physical reviewed: Yes Concur with findings: Yes Inpatient Rehab Admission - Rehab Decision to Admit Inpatient rehab admission?: Yes - Initial Determination Are CD services needed?: Yes Free of communicable disease: Yes Not in need of hospitalization: Yes - Rehab Admission Criteria Previous failed treatment: Yes Poor recovery environment: Yes Comorbidities: Yes Lacks judgement: Yes Patient is meeting Inpatient Rehab admission criteria:: Yes
[2019-08-21] MEDS: metFORMIN HCL 500 MG TABLET (FP) PO SCH (16:54)
[2019-08-21] MEDS: INSULIN (NOVOLOG) ASPART 100 UNITS/ML 10ML VIAL SQ SCH (16:56)
[2019-08-21] MEDS: IBUPROFEN 400 MG TABLET (FP) PO PRN (16:59)
[2019-08-21] MEDS: GABAPENTIN 100 MG CAPSULE (FP) PO SCH (21:36)
[2019-08-21] MEDS: THIAMINE HCL 100 MG TABLET (FP) PO SCH (21:36)
[2019-08-21] MEDS: MELATONIN 5 MG TABLETS PO PRN (21:36)
[2019-08-21] MEDS: INSULIN (LEVEMIR) 100 UNITS/ML UNITS SQ SCH (21:37)
[2019-08-22] MEDS: metFORMIN HCL 500 MG TABLET (FP) PO SCH ×2 (07:23→17:12)
[2019-08-22] MEDS: GABAPENTIN 100 MG CAPSULE (FP) PO SCH ×3 (07:24→21:46)
[2019-08-22] MEDS: IBUPROFEN 400 MG TABLET (FP) PO PRN ×3 (07:25→21:46)
[2019-08-22] MEDS: INSULIN (NOVOLOG) ASPART 100 UNITS/ML 10ML VIAL SQ SCH ×3 (08:30→17:14)
[2019-08-22] MEDS: PRENATAL VITAMINS W/ FOLIC ACID TABLET (FP) PO SCH (10:57)
[2019-08-22] MEDS: amLODIPine BESYLATE 10 MG TABLET (FP) PO SCH (10:57)
[2019-08-22] MEDS: ASPIRIN 81 MG CHEWABLE TABLETS PO SCH (10:57)
[2019-08-22] MEDS: ACETAMINOPHEN 325 MG TABLET (FP) PO PRN (10:57)
[2019-08-22] MEDS: PANTOPRAZOLE 20 MG TABLET (FP) PO SCH (10:57)
[2019-08-22] MEDS: NICOTINE 21 MG/24 HOURS TOPICAL PATCH TD SCH (10:59)
[2019-08-22] MEDS ORDERED: INSULIN (NOVOLOG) ASPART 100 UNITS/ML 10ML VIAL ONE ×2 (11:59→16:31)
[2019-08-22] MEDS: BACITRACIN 15 GM TUBE TOPICAL OINTMENT TP SCH ×2 (13:13→21:45)
[2019-08-22] MEDS: INSULIN (LEVEMIR) 100 UNITS/ML UNITS SQ SCH (21:45)
[2019-08-22] MEDS: THIAMINE HCL 100 MG TABLET (FP) PO SCH (21:46)
[2019-08-22] MEDS: MELATONIN 5 MG TABLETS PO PRN (21:46)
[2019-08-23] MEDS: IBUPROFEN 400 MG TABLET (FP) PO PRN ×2 (06:40→14:10)
[2019-08-23] MEDS: GABAPENTIN 100 MG CAPSULE (FP) PO SCH ×3 (06:41→21:51)
[2019-08-23] MEDS: metFORMIN HCL 500 MG TABLET (FP) PO SCH ×2 (06:41→16:49)
[2019-08-23] MEDS: INSULIN (NOVOLOG) ASPART 100 UNITS/ML 10ML VIAL SQ SCH ×3 (06:43→16:51)
[2019-08-23] MEDS: amLODIPine BESYLATE 10 MG TABLET (FP) PO SCH (10:49)
[2019-08-23] MEDS: ASPIRIN 81 MG CHEWABLE TABLETS PO SCH (10:49)
[2019-08-23] MEDS: PRENATAL VITAMINS W/ FOLIC ACID TABLET (FP) PO SCH (10:49)
[2019-08-23] MEDS: BACITRACIN 15 GM TUBE TOPICAL OINTMENT TP SCH ×2 (10:50→21:56)
[2019-08-23] MEDS: PANTOPRAZOLE 20 MG TABLET (FP) PO SCH (10:50)
[2019-08-23] MEDS: NICOTINE 21 MG/24 HOURS TOPICAL PATCH TD SCH (10:50)
[2019-08-23] MEDS ORDERED: INSULIN (NOVOLOG) ASPART 100 UNITS/ML 10ML VIAL ONE (12:05)
[2019-08-23] MEDS: THIAMINE HCL 100 MG TABLET (FP) PO SCH (21:51)
[2019-08-23] MEDS: ACETAMINOPHEN 325 MG TABLET (FP) PO PRN (21:52)
[2019-08-23] MEDS: INSULIN (LEVEMIR) 100 UNITS/ML UNITS SQ SCH (21:53)
[2019-08-24] MEDS: metFORMIN HCL 500 MG TABLET (FP) PO SCH ×2 (06:48→17:42)
[2019-08-24] MEDS: GABAPENTIN 100 MG CAPSULE (FP) PO SCH ×3 (06:49→21:49)
[2019-08-24] MEDS ORDERED: INSULIN (NOVOLOG) ASPART 100 UNITS/ML 10ML VIAL ONE ×2 (07:33→12:01)
[2019-08-24] MEDS: INSULIN (NOVOLOG) ASPART 100 UNITS/ML 10ML VIAL SQ SCH ×3 (07:49→17:34)
[2019-08-24] MEDS: PRENATAL VITAMINS W/ FOLIC ACID TABLET (FP) PO SCH (10:47)
[2019-08-24] MEDS: NICOTINE 21 MG/24 HOURS TOPICAL PATCH TD SCH (10:47)
[2019-08-24] MEDS: PANTOPRAZOLE 20 MG TABLET (FP) PO SCH (10:47)
[2019-08-24] MEDS: ASPIRIN 81 MG CHEWABLE TABLETS PO SCH (10:47)
[2019-08-24] MEDS: amLODIPine BESYLATE 10 MG TABLET (FP) PO SCH (10:47)
[2019-08-24] MEDS: IBUPROFEN 400 MG TABLET (FP) PO PRN ×2 (10:48→21:50)
[2019-08-24] MEDS: BACITRACIN 15 GM TUBE TOPICAL OINTMENT TP SCH ×2 (10:49→21:50)
[2019-08-24] MEDS: INSULIN (LEVEMIR) 100 UNITS/ML UNITS SQ SCH (21:49)
[2019-08-24] MEDS: THIAMINE HCL 100 MG TABLET (FP) PO SCH (21:49)
[2019-08-24] MEDS: MELATONIN 5 MG TABLETS PO PRN (21:49)
[2019-08-25] MEDS: GABAPENTIN 100 MG CAPSULE (FP) PO SCH ×3 (07:12→22:02)
[2019-08-25] MEDS: metFORMIN HCL 500 MG TABLET (FP) PO SCH ×2 (07:12→17:49)
[2019-08-25] MEDS: IBUPROFEN 400 MG TABLET (FP) PO PRN ×2 (07:13→22:04)
[2019-08-25] MEDS: INSULIN (NOVOLOG) ASPART 100 UNITS/ML 10ML VIAL SQ SCH ×3 (07:18→17:15)
[2019-08-25] MEDS: ASPIRIN 81 MG CHEWABLE TABLETS PO SCH (11:07)
[2019-08-25] MEDS: amLODIPine BESYLATE 10 MG TABLET (FP) PO SCH (11:07)
[2019-08-25] MEDS: PANTOPRAZOLE 20 MG TABLET (FP) PO SCH (11:08)
[2019-08-25] MEDS: PRENATAL VITAMINS W/ FOLIC ACID TABLET (FP) PO SCH (11:08)
[2019-08-25] MEDS: NICOTINE 21 MG/24 HOURS TOPICAL PATCH TD SCH (11:08)
[2019-08-25] MEDS: ACETAMINOPHEN 325 MG TABLET (FP) PO PRN (11:09)
[2019-08-25] MEDS: BACITRACIN 15 GM TUBE TOPICAL OINTMENT TP SCH ×2 (11:09→22:02)
[2019-08-25] MEDS ORDERED: INSULIN (NOVOLOG) ASPART 100 UNITS/ML 10ML VIAL ONE (12:19)
[2019-08-25] MEDS: METHOCARBAMOL 500 MG TABLET PO PRN ×2 (13:07→22:03)
[2019-08-25] MEDS: LIDOCAINE 5% TOPICAL PATCH TP SCH (13:07)
[2019-08-25] MEDS: INSULIN (LEVEMIR) 100 UNITS/ML UNITS SQ SCH (22:01)
[2019-08-25] MEDS: METHYL SALICYLATE/MENTHOL OINT 30 GM TUBE TP SCH (22:02)
[2019-08-25] MEDS: THIAMINE HCL 100 MG TABLET (FP) PO SCH (22:02)
[2019-08-25] MEDS: LIDOCAINE PATCH REMOVAL MC SCH (22:02)
[2019-08-25] MEDS: MELATONIN 5 MG TABLETS PO PRN (22:03)
[2019-08-26] MEDS: metFORMIN HCL 500 MG TABLET (FP) PO SCH ×2 (07:01→17:15)
[2019-08-26] MEDS: METHOCARBAMOL 500 MG TABLET PO PRN (07:01)
[2019-08-26] MEDS: GABAPENTIN 100 MG CAPSULE (FP) PO SCH ×3 (07:01→21:58)
[2019-08-26] MEDS ORDERED: INSULIN (NOVOLOG) ASPART 100 UNITS/ML 10ML VIAL ONE ×3 (07:07→17:17)
[2019-08-26] MEDS: INSULIN (NOVOLOG) ASPART 100 UNITS/ML 10ML VIAL SQ SCH ×3 (07:09→17:15)
[2019-08-26] MEDS: LIDOCAINE 5% TOPICAL PATCH TP SCH (11:14)
[2019-08-26] MEDS: amLODIPine BESYLATE 10 MG TABLET (FP) PO SCH (11:14)
[2019-08-26] MEDS: PANTOPRAZOLE 20 MG TABLET (FP) PO SCH (11:15)
[2019-08-26] MEDS: PRENATAL VITAMINS W/ FOLIC ACID TABLET (FP) PO SCH (11:16)
[2019-08-26] MEDS: ASPIRIN 81 MG CHEWABLE TABLETS PO SCH (11:16)
[2019-08-26] MEDS: BACITRACIN 15 GM TUBE TOPICAL OINTMENT TP SCH ×2 (11:16→22:01)
[2019-08-26] MEDS: ALBUTEROL SO4 8 GM HFA INHALER IH PRN ×2 (11:20→22:08)
[2019-08-26] MEDS: NICOTINE 21 MG/24 HOURS TOPICAL PATCH TD SCH (11:31)
[2019-08-26] MEDS: THIAMINE HCL 100 MG TABLET (FP) PO SCH (21:58)
[2019-08-26] MEDS: LIDOCAINE PATCH REMOVAL MC SCH (22:01)
[2019-08-26] MEDS: INSULIN (LEVEMIR) 100 UNITS/ML UNITS SQ SCH (22:01)
[2019-08-26] MEDS: METHYL SALICYLATE/MENTHOL OINT 30 GM TUBE TP SCH (22:01)
[2019-08-26] MEDS: IBUPROFEN 400 MG TABLET (FP) PO PRN (22:02)
[2019-08-26] MEDS: MELATONIN 5 MG TABLETS PO PRN (22:03)
[2019-08-27] MEDS: metFORMIN HCL 500 MG TABLET (FP) PO SCH ×2 (06:53→17:20)
[2019-08-27] MEDS: GABAPENTIN 100 MG CAPSULE (FP) PO SCH ×3 (06:53→21:06)
[2019-08-27] MEDS: INSULIN (NOVOLOG) ASPART 100 UNITS/ML 10ML VIAL SQ SCH ×3 (06:55→17:19)
[2019-08-27] MEDS: IBUPROFEN 400 MG TABLET (FP) PO PRN ×2 (06:56→21:06)
[2019-08-27] MEDS: ASPIRIN 81 MG CHEWABLE TABLETS PO SCH (11:09)
[2019-08-27] MEDS: BACITRACIN 15 GM TUBE TOPICAL OINTMENT TP SCH ×2 (11:09→21:05)
[2019-08-27] MEDS: LIDOCAINE 5% TOPICAL PATCH TP SCH (11:09)
[2019-08-27] MEDS: amLODIPine BESYLATE 10 MG TABLET (FP) PO SCH (11:10)
[2019-08-27] MEDS: PANTOPRAZOLE 20 MG TABLET (FP) PO SCH (11:10)
[2019-08-27] MEDS: PRENATAL VITAMINS W/ FOLIC ACID TABLET (FP) PO SCH (11:10)
[2019-08-27] MEDS: NICOTINE 21 MG/24 HOURS TOPICAL PATCH TD SCH (11:10)
[2019-08-27] MEDS: LIDOCAINE PATCH REMOVAL MC SCH (21:05)
[2019-08-27] MEDS: METHYL SALICYLATE/MENTHOL OINT 30 GM TUBE TP SCH (21:05)
[2019-08-27] MEDS: ALBUTEROL SO4 8 GM HFA INHALER IH PRN (21:08)
[2019-08-27] MEDS: THIAMINE HCL 100 MG TABLET (FP) PO SCH (21:09)
[2019-08-27] MEDS: MELATONIN 5 MG TABLETS PO PRN (21:10)
[2019-08-27] MEDS: METHOCARBAMOL 500 MG TABLET PO PRN (21:11)
[2019-08-27] MEDS: INSULIN (LEVEMIR) 100 UNITS/ML UNITS SQ SCH (21:14)
[2019-08-28] MEDS: GABAPENTIN 100 MG CAPSULE (FP) PO SCH ×3 (07:46→22:01)
[2019-08-28] MEDS: metFORMIN HCL 500 MG TABLET (FP) PO SCH ×2 (07:46→16:44)
[2019-08-28] MEDS: METHOCARBAMOL 500 MG TABLET PO PRN ×3 (07:46→22:04)
[2019-08-28] MEDS: ACETAMINOPHEN 325 MG TABLET (FP) PO PRN (07:47)
[2019-08-28] MEDS: INSULIN (NOVOLOG) ASPART 100 UNITS/ML 10ML VIAL SQ SCH ×3 (08:01→16:48)
[2019-08-28] MEDS: BACITRACIN 15 GM TUBE TOPICAL OINTMENT TP SCH ×2 (10:59→22:03)
[2019-08-28] MEDS: PRENATAL VITAMINS W/ FOLIC ACID TABLET (FP) PO SCH (10:59)
[2019-08-28] MEDS: PANTOPRAZOLE 20 MG TABLET (FP) PO SCH (10:59)
[2019-08-28] MEDS: ASPIRIN 81 MG CHEWABLE TABLETS PO SCH (10:59)
[2019-08-28] MEDS: amLODIPine BESYLATE 10 MG TABLET (FP) PO SCH (10:59)
[2019-08-28] MEDS: NICOTINE 21 MG/24 HOURS TOPICAL PATCH TD SCH (11:00)
[2019-08-28] MEDS: LIDOCAINE 5% TOPICAL PATCH TP SCH (11:00)
[2019-08-28] MEDS: IBUPROFEN 400 MG TABLET (FP) PO PRN ×2 (11:04→22:01)
[2019-08-28] MEDS ORDERED: INSULIN (NOVOLOG) ASPART 100 UNITS/ML 10ML VIAL ONE ×2 (11:43→16:46)
[2019-08-28] MEDS: INSULIN (LEVEMIR) 100 UNITS/ML UNITS SQ SCH (22:00)
[2019-08-28] MEDS: MELATONIN 5 MG TABLETS PO PRN (22:01)
[2019-08-28] MEDS: THIAMINE HCL 100 MG TABLET (FP) PO SCH (22:01)
[2019-08-28] MEDS: METHYL SALICYLATE/MENTHOL OINT 30 GM TUBE TP SCH (22:02)
[2019-08-28] MEDS: LIDOCAINE PATCH REMOVAL MC SCH (22:02)
[2019-08-29] MEDS: IBUPROFEN 400 MG TABLET (FP) PO PRN ×3 (07:03→22:00)
[2019-08-29] MEDS: GABAPENTIN 100 MG CAPSULE (FP) PO SCH ×3 (07:03→21:59)
[2019-08-29] MEDS: metFORMIN HCL 500 MG TABLET (FP) PO SCH ×2 (07:03→16:52)
[2019-08-29] MEDS: METHOCARBAMOL 500 MG TABLET PO PRN ×3 (07:03→22:02)
[2019-08-29] MEDS: INSULIN (NOVOLOG) ASPART 100 UNITS/ML 10ML VIAL SQ SCH ×3 (07:04→16:55)
[2019-08-29] MEDS ORDERED: INSULIN (NOVOLOG) ASPART 100 UNITS/ML 10ML VIAL ONE ×3 (07:11→16:28)
[2019-08-29] MEDS: NICOTINE 21 MG/24 HOURS TOPICAL PATCH TD SCH (10:35)
[2019-08-29] MEDS: PRENATAL VITAMINS W/ FOLIC ACID TABLET (FP) PO SCH (10:35)
[2019-08-29] MEDS: amLODIPine BESYLATE 10 MG TABLET (FP) PO SCH (10:35)
[2019-08-29] MEDS: LIDOCAINE 5% TOPICAL PATCH TP SCH (10:35)
[2019-08-29] MEDS: ASPIRIN 81 MG CHEWABLE TABLETS PO SCH (10:35)
[2019-08-29] MEDS: PANTOPRAZOLE 20 MG TABLET (FP) PO SCH (10:35)
[2019-08-29] MEDS: BACITRACIN 15 GM TUBE TOPICAL OINTMENT TP SCH ×2 (10:37→22:03)
[2019-08-29] MEDS: ACETAMINOPHEN 325 MG TABLET (FP) PO PRN (10:44)
[2019-08-29] MEDS: THIAMINE HCL 100 MG TABLET (FP) PO SCH (21:59)
[2019-08-29] MEDS: MELATONIN 5 MG TABLETS PO PRN (21:59)
[2019-08-29] MEDS: LIDOCAINE PATCH REMOVAL MC SCH (22:00)
[2019-08-29] MEDS: INSULIN (LEVEMIR) 100 UNITS/ML UNITS SQ SCH (22:02)
[2019-08-29] MEDS: METHYL SALICYLATE/MENTHOL OINT 30 GM TUBE TP SCH (22:04)
[2019-08-30] MEDS: GABAPENTIN 100 MG CAPSULE (FP) PO SCH ×3 (06:41→22:02)
[2019-08-30] MEDS: ACETAMINOPHEN 325 MG TABLET (FP) PO PRN (06:42)
[2019-08-30] MEDS: metFORMIN HCL 500 MG TABLET (FP) PO SCH ×2 (07:05→16:52)
[2019-08-30] MEDS: INSULIN (NOVOLOG) ASPART 100 UNITS/ML 10ML VIAL SQ SCH ×3 (07:05→16:54)
[2019-08-30] MEDS: PANTOPRAZOLE 20 MG TABLET (FP) PO SCH (10:56)
[2019-08-30] MEDS: NICOTINE 21 MG/24 HOURS TOPICAL PATCH TD SCH (10:56)
[2019-08-30] MEDS: BACITRACIN 15 GM TUBE TOPICAL OINTMENT TP SCH ×2 (10:56→22:03)
[2019-08-30] MEDS: ASPIRIN 81 MG CHEWABLE TABLETS PO SCH (10:56)
[2019-08-30] MEDS: amLODIPine BESYLATE 10 MG TABLET (FP) PO SCH (10:56)
[2019-08-30] MEDS: PRENATAL VITAMINS W/ FOLIC ACID TABLET (FP) PO SCH (10:56)
[2019-08-30] MEDS: LIDOCAINE 5% TOPICAL PATCH TP SCH (10:56)
[2019-08-30] MEDS: METHOCARBAMOL 500 MG TABLET PO PRN ×2 (10:57→22:02)
[2019-08-30] MEDS: IBUPROFEN 400 MG TABLET (FP) PO PRN ×2 (10:58→22:02)
[2019-08-30] MEDS ORDERED: INSULIN (NOVOLOG) ASPART 100 UNITS/ML 10ML VIAL ONE ×2 (11:55→16:11)
[2019-08-30] MEDS: INSULIN (LEVEMIR) 100 UNITS/ML UNITS SQ SCH (22:00)
[2019-08-30] MEDS: THIAMINE HCL 100 MG TABLET (FP) PO SCH (22:01)
[2019-08-30] MEDS: MELATONIN 5 MG TABLETS PO PRN (22:02)
[2019-08-30] MEDS: LIDOCAINE PATCH REMOVAL MC SCH (22:02)
[2019-08-30] MEDS: METHYL SALICYLATE/MENTHOL OINT 30 GM TUBE TP SCH (22:03)
[2019-08-30] MEDS: guaiFENesin 200 MG/10 ML 10 ML UNIT-DOSE CUPS PO PRN (22:04)
[2019-08-31] MEDS: metFORMIN HCL 500 MG TABLET (FP) PO SCH ×2 (06:57→17:00)
[2019-08-31] MEDS: GABAPENTIN 100 MG CAPSULE (FP) PO SCH ×3 (06:57→21:57)
[2019-08-31] MEDS: METHOCARBAMOL 500 MG TABLET PO PRN ×2 (06:57→22:00)
[2019-08-31] MEDS: INSULIN (NOVOLOG) ASPART 100 UNITS/ML 10ML VIAL SQ SCH ×3 (07:55→16:56)
[2019-08-31] MEDS: ASPIRIN 81 MG CHEWABLE TABLETS PO SCH (11:24)
[2019-08-31] MEDS: PANTOPRAZOLE 20 MG TABLET (FP) PO SCH (11:24)
[2019-08-31] MEDS: BACITRACIN 15 GM TUBE TOPICAL OINTMENT TP SCH ×2 (11:24→22:18)
[2019-08-31] MEDS: NICOTINE 21 MG/24 HOURS TOPICAL PATCH TD SCH (11:24)
[2019-08-31] MEDS: amLODIPine BESYLATE 10 MG TABLET (FP) PO SCH (11:24)
[2019-08-31] MEDS: PRENATAL VITAMINS W/ FOLIC ACID TABLET (FP) PO SCH (11:24)
[2019-08-31] MEDS: LIDOCAINE 5% TOPICAL PATCH TP SCH (11:25)
[2019-08-31] MEDS: guaiFENesin 200 MG/10 ML 10 ML UNIT-DOSE CUPS PO PRN ×2 (11:33→22:00)
[2019-08-31] MEDS ORDERED: INSULIN (NOVOLOG) ASPART 100 UNITS/ML 10ML VIAL ONE (11:49)
[2019-08-31] MEDS: ACETAMINOPHEN 325 MG TABLET (FP) PO PRN (16:58)
[2019-08-31] MEDS: MENTHOL/PHENOL 1 EACH UD MM PRN ×2 (17:01→22:03)
[2019-08-31] MEDS: THIAMINE HCL 100 MG TABLET (FP) PO SCH (21:57)
[2019-08-31] MEDS: MELATONIN 5 MG TABLETS PO PRN (21:57)
[2019-08-31] MEDS: INSULIN (LEVEMIR) 100 UNITS/ML UNITS SQ SCH (21:58)
[2019-08-31] MEDS: LIDOCAINE PATCH REMOVAL MC SCH (21:58)
[2019-08-31] MEDS: ALBUTEROL SO4 8 GM HFA INHALER IH PRN (22:00)
[2019-08-31] MEDS: IBUPROFEN 400 MG TABLET (FP) PO PRN (22:01)
[2019-08-31] MEDS: METHYL SALICYLATE/MENTHOL OINT 30 GM TUBE TP SCH (22:18)
[2019-09-01] MEDS: GABAPENTIN 100 MG CAPSULE (FP) PO SCH ×3 (07:11→22:22)
[2019-09-01] MEDS: metFORMIN HCL 500 MG TABLET (FP) PO SCH ×2 (08:20→17:04)
[2019-09-01] MEDS: INSULIN (NOVOLOG) ASPART 100 UNITS/ML 10ML VIAL SQ SCH ×3 (08:20→17:48)
[2019-09-01] MEDS: amLODIPine BESYLATE 10 MG TABLET (FP) PO SCH (10:57)
[2019-09-01] MEDS: ASPIRIN 81 MG CHEWABLE TABLETS PO SCH (10:57)
[2019-09-01] MEDS: BACITRACIN 15 GM TUBE TOPICAL OINTMENT TP SCH ×2 (10:58→22:22)
[2019-09-01] MEDS: NICOTINE 21 MG/24 HOURS TOPICAL PATCH TD SCH (10:59)
[2019-09-01] MEDS: guaiFENesin 200 MG/10 ML 10 ML UNIT-DOSE CUPS PO PRN ×2 (11:03→22:26)
[2019-09-01] MEDS: PANTOPRAZOLE 20 MG TABLET (FP) PO SCH (11:03)
[2019-09-01] MEDS: MENTHOL/PHENOL 1 EACH UD MM PRN ×2 (11:03→22:27)
[2019-09-01] MEDS: PRENATAL VITAMINS W/ FOLIC ACID TABLET (FP) PO SCH (11:06)
[2019-09-01] MEDS: LIDOCAINE 5% TOPICAL PATCH TP SCH (11:06)
[2019-09-01] MEDS ORDERED: INSULIN (NOVOLOG) ASPART 100 UNITS/ML 10ML VIAL ONE ×2 (11:14→16:43)
[2019-09-01] MEDS: ALBUTEROL SO4 8 GM HFA INHALER IH PRN (11:17)
--- NOTE | 2019-09-01 11:42 | PN ---
[facility] Progress Note Note: Pt is a 48 y/o male with a hx of ROSIBEL and comorbid medical conditions admitted to rehab after detoxing [facility] after completing treatment. Pt is scheduled for discharge on 09/04/19 and has met with his counselor, Ms Moe Jaquez who has connected him to CD aftercare referral site at [facility]. Pt has no Primary care provider and reports goes to Emergency rooms for care. Pt has been referred and encouraged to follow up at [facility] for medical management of his comorbid conditions. Pt is currently homeless and has been referred to [facility] for housing needs. Vital Signs - 24 hr 09/01/19 09/01/19 09/01/19 00:30 03:30 07:55 Pulse Rate Respiratory 18 18 18 Rate Blood Pressure 09/01/19 12:00 Pulse Rate 102 H Respiratory 18 Rate Blood Pressure 136/91 A/P Asthma CVA with right hemiparesis HTN DM Neuropathy Use of Cane for ambulation Pt's medications and diabetic management kits were ordered and have been sent to [place] pharmacy for roller picker on discharge. Pt was reminded to follow up with primary care for appropriate management of his health conditions. pt agreeable with poc.
[2019-09-01] MEDS: ACETAMINOPHEN 325 MG TABLET (FP) PO PRN (14:22)
[2019-09-01] MEDS: MINERAL OIL/PETROLAT/WATER TOPICAL CREAM 113 GM JAR TP SCH (14:24)
[2019-09-01] MEDS: LIDOCAINE PATCH REMOVAL MC SCH (22:22)
[2019-09-01] MEDS: THIAMINE HCL 100 MG TABLET (FP) PO SCH (22:22)
[2019-09-01] MEDS: METHYL SALICYLATE/MENTHOL OINT 30 GM TUBE TP SCH (22:22)
[2019-09-01] MEDS: INSULIN (LEVEMIR) 100 UNITS/ML UNITS SQ SCH (22:23)
[2019-09-01] MEDS: METHOCARBAMOL 500 MG TABLET PO PRN (22:26)
[2019-09-01] MEDS: IBUPROFEN 400 MG TABLET (FP) PO PRN (22:28)
[2019-09-01] MEDS: MELATONIN 5 MG TABLETS PO PRN (22:29)
[2019-09-02] MEDS: metFORMIN HCL 500 MG TABLET (FP) PO SCH ×2 (07:09→16:41)
[2019-09-02] MEDS: GABAPENTIN 100 MG CAPSULE (FP) PO SCH ×3 (07:09→22:03)
[2019-09-02] MEDS: INSULIN (NOVOLOG) ASPART 100 UNITS/ML 10ML VIAL SQ SCH ×3 (07:10→16:42)
[2019-09-02] MEDS: IBUPROFEN 400 MG TABLET (FP) PO PRN ×2 (07:11→16:45)
[2019-09-02] MEDS: guaiFENesin 200 MG/10 ML 10 ML UNIT-DOSE CUPS PO PRN ×2 (07:27→22:04)
[2019-09-02] MEDS: MENTHOL/PHENOL 1 EACH UD MM PRN (07:28)
[2019-09-02] MEDS: PANTOPRAZOLE 20 MG TABLET (FP) PO SCH (10:59)
[2019-09-02] MEDS: ASPIRIN 81 MG CHEWABLE TABLETS PO SCH (10:59)
[2019-09-02] MEDS: amLODIPine BESYLATE 10 MG TABLET (FP) PO SCH (10:59)
[2019-09-02] MEDS: PRENATAL VITAMINS W/ FOLIC ACID TABLET (FP) PO SCH (10:59)
[2019-09-02] MEDS: BACITRACIN 15 GM TUBE TOPICAL OINTMENT TP SCH ×2 (11:00→22:08)
[2019-09-02] MEDS: LIDOCAINE 5% TOPICAL PATCH TP SCH (11:00)
[2019-09-02] MEDS: MINERAL OIL/PETROLAT/WATER TOPICAL CREAM 113 GM JAR TP SCH (11:00)
[2019-09-02] MEDS: NICOTINE 21 MG/24 HOURS TOPICAL PATCH TD SCH (11:01)
[2019-09-02] MEDS: ACETAMINOPHEN 325 MG TABLET (FP) PO PRN ×2 (11:03→22:05)
[2019-09-02] MEDS: METHOCARBAMOL 500 MG TABLET PO PRN ×2 (11:03→22:03)
[2019-09-02] MEDS ORDERED: INSULIN (NOVOLOG) ASPART 100 UNITS/ML 10ML VIAL ONE ×2 (11:57→16:33)
[2019-09-02] MEDS: INSULIN (LEVEMIR) 100 UNITS/ML UNITS SQ SCH (22:02)
[2019-09-02] MEDS: THIAMINE HCL 100 MG TABLET (FP) PO SCH (22:03)
[2019-09-02] MEDS: MELATONIN 5 MG TABLETS PO PRN (22:03)
[2019-09-02] MEDS: LIDOCAINE PATCH REMOVAL MC SCH (22:08)
[2019-09-02] MEDS: METHYL SALICYLATE/MENTHOL OINT 30 GM TUBE TP SCH (22:08)
[2019-09-03] MEDS: IBUPROFEN 400 MG TABLET (FP) PO PRN ×3 (01:25→17:50)
[2019-09-03] MEDS: GABAPENTIN 100 MG CAPSULE (FP) PO SCH ×3 (06:30→21:55)
[2019-09-03] MEDS: metFORMIN HCL 500 MG TABLET (FP) PO SCH ×2 (07:47→16:44)
[2019-09-03] MEDS: ACETAMINOPHEN 325 MG TABLET (FP) PO PRN ×3 (07:48→21:57)
[2019-09-03] MEDS: INSULIN (NOVOLOG) ASPART 100 UNITS/ML 10ML VIAL SQ SCH ×3 (07:50→16:46)
[2019-09-03] MEDS: MINERAL OIL/PETROLAT/WATER TOPICAL CREAM 113 GM JAR TP SCH (10:30)
[2019-09-03] MEDS: PRENATAL VITAMINS W/ FOLIC ACID TABLET (FP) PO SCH (10:30)
[2019-09-03] MEDS: PANTOPRAZOLE 20 MG TABLET (FP) PO SCH (10:30)
[2019-09-03] MEDS: BACITRACIN 15 GM TUBE TOPICAL OINTMENT TP SCH ×2 (10:30→21:59)
[2019-09-03] MEDS: amLODIPine BESYLATE 10 MG TABLET (FP) PO SCH (10:30)
[2019-09-03] MEDS: NICOTINE 21 MG/24 HOURS TOPICAL PATCH TD SCH (10:30)
[2019-09-03] MEDS: ASPIRIN 81 MG CHEWABLE TABLETS PO SCH (10:30)
[2019-09-03] MEDS: MENTHOL/PHENOL 1 EACH UD MM PRN (10:34)
[2019-09-03] MEDS: guaiFENesin 200 MG/10 ML 10 ML UNIT-DOSE CUPS PO PRN ×2 (10:34→21:59)
[2019-09-03] MEDS: METHOCARBAMOL 500 MG TABLET PO PRN ×2 (10:34→21:57)
[2019-09-03] MEDS: LIDOCAINE 5% TOPICAL PATCH TP SCH (10:36)
[2019-09-03] MEDS ORDERED: INSULIN (NOVOLOG) ASPART 100 UNITS/ML 10ML VIAL ONE ×2 (11:39→16:03)
[2019-09-03] MEDS: MELATONIN 5 MG TABLETS PO PRN (21:55)
[2019-09-03] MEDS: THIAMINE HCL 100 MG TABLET (FP) PO SCH (21:55)
[2019-09-03] MEDS: LIDOCAINE PATCH REMOVAL MC SCH (21:59)
[2019-09-03] MEDS: METHYL SALICYLATE/MENTHOL OINT 30 GM TUBE TP SCH (22:00)
[2019-09-03] MEDS: INSULIN (LEVEMIR) 100 UNITS/ML UNITS SQ SCH (22:02)
[2019-09-04] MEDS: metFORMIN HCL 500 MG TABLET (FP) PO SCH (06:53)
[2019-09-04] MEDS: GABAPENTIN 100 MG CAPSULE (FP) PO SCH (06:53)
[2019-09-04] MEDS: MENTHOL/PHENOL 1 EACH UD MM PRN (06:54)
[2019-09-04] MEDS: guaiFENesin 200 MG/10 ML 10 ML UNIT-DOSE CUPS PO PRN (06:55)
[2019-09-04] MEDS: ACETAMINOPHEN 325 MG TABLET (FP) PO PRN (06:55)
[2019-09-04 07:27] VITALS: BP 153/94; PULSE 95; TEMP 97.8
[2019-09-04] MEDS ORDERED: INSULIN (NOVOLOG) ASPART 100 UNITS/ML 10ML VIAL ONE (07:42)
[2019-09-04] MEDS: INSULIN (NOVOLOG) ASPART 100 UNITS/ML 10ML VIAL SQ SCH (07:42)
--- NOTE | 2019-09-04 09:17 | DS ---
[facility] Rehab Discharge Summary - [facility] Rehab Discharge Summary Admission Date: 08/21/19 Discharge Date: 09/04/19 - History Present History: Alcohol dependence, Cocaine dependence Additional Comments: Pt is a 48 y/o male with a hx of ROSIBEL and comorbid medical conditions admitted to rehab after detoxing [facility] [address] after completing treatment. Pt is scheduled for discharge today on 09/04/19 and has met with his counselor, Ms Moe Jaquez who has connected him to CD aftercare referral site at [facility]. Pt has no Primary care provider and reports goes to Emergency rooms for care. Pt has been referred and encouraged to follow up at [facility] for medical management of his comorbid conditions. Pt is currently homeless and has been referred to [facility] Assessment [facility] for housing needs. Pertinent Past History: Asthma GERD HTN CVA with right Hemiparesis Hx Hearing Loss Obesity Use of Cane as ambulatory Aid - Discharge Physical Exam Vital Signs: Vital Signs Temperature 97.8 F 09/04/19 07:26 Pulse Rate 95 H 09/04/19 07:26 Respiratory Rate 18 09/04/19 07:26 Blood Pressure 153/94 09/04/19 07:26 O2 Sat by Pulse Oximetry (%) Pertinent Admission Physical Exam Findings: Laboratory Tests 08/21/19 08/21/19 08/22/19 16:55 21:34 07:21 POC Glucometer 404 347 214 08/22/19 08/22/19 08/22/19 11:54 17:13 20:45 POC Glucometer 372 227 369 08/23/19 08/23/19 08/23/19 06:41 11:51 16:48 POC Glucometer 216 423 216 08/23/19 08/24/19 08/24/19 21:49 06:47 11:54 POC Glucometer 269 225 297 08/24/19 08/25/19 08/25/19 20:43 11:57 21:59 POC Glucometer 340 353 360 08/26/19 08/26/19 08/26/19 07:02 11:24 16:37 POC Glucometer 273 383 294 08/27/19 08/27/19 08/28/19 06:52 21:13 11:49 POC Glucometer 192 326 359 08/28/19 08/28/19 08/29/19 16:43 21:58 07:01 POC Glucometer 275 332 251 08/29/19 08/29/19 08/29/19 11:54 16:52 21:57 POC Glucometer 273 272 340 08/30/19 08/30/19 08/30/19 07:04 11:54 16:51 POC Glucometer 190 318 304 08/30/19 08/31/19 08/31/19 21:58 06:55 11:30 POC Glucometer 248 256 315 08/31/19 08/31/19 09/01/19 16:50 20:45 11:09 POC Glucometer 248 315 347 09/01/19 09/02/19 09/02/19 20:54 11:55 16:39 POC Glucometer 274 404 168 09/02/19 09/03/19 09/03/19 22:01 11:37 16:44 POC Glucometer 397 364 284 09/03/19 09/04/19 20:22 06:52 POC Glucometer 311 241 - Treatment Discharge Condition: Discharge condition good Hospital Course: Rehabilitated safely and responded well CD aftercare referral accepted - Medication Discharge Medications: Ambulatory Orders Albuterol Sulfate Inhaler - [Ventolin HFA Inhaler -] 2 inh PO Q4H PRN #1 inhaler 09/01/19 Alcohol Antiseptic Pads [Alcohol Swabs] 1 each TP DAILY #1 box 09/01/19 Amlodipine Besylate 10 mg PO DAILY #30 tablet 09/01/19 Aspirin 81 mg PO DAILY #30 tab.chew 09/01/19 Blood Sugar Diagnostic [Test Strips] 1 each MC BID #1 box 09/01/19 Famotidine [Pepcid -] 20 mg PO BID #60 mg 09/01/19 Gabapentin [Neurontin -] 300 mg PO Q8H #90 capsule 09/01/19 Insulin Glargine,Hum.rec.anlog [Basaglar Kwikpen U-100] 35 unit SQ HS #1 insuln.pen 09/01/19 Lancets 1 each MC BID #1 box 09/01/19 Miscellaneous Medical Supply [Glucometer Device] 1 each SQ ASDIR #1 kit Pen Needle, Diabetic [1St Tier Unifine Pentips Plus] 1 each MC DAILY #3 dis.needle 09/01/19 metFORMIN HCL [Glucophage -] 1,000 mg PO BID #60 tablet 09/01/19 - Medication-Assisted Treatment (MAT) Medication-Assisted Treatment (MAT): No - Discharge Instructions Diet, activity, other medical instructions: Diet:BRIAN/NCS Activity: oob ad lupe Other medical instructions:follow up with primary care with [facility] for medical management within 1-2 weeks after discharge. Follow up with CD aftercare referral as recommended and scheduled. - Diagnosis (1) Alcohol dependence Status: Chronic Qualifiers: Substance use status: uncomplicated Qualified Code(s): F10.20 - Alcohol dependence, uncomplicated (2) Asthma Status: Chronic Qualifiers: Asthma severity: mild Asthma persistence: unspecified Asthma complication type: unspecified Qualified Code(s): J45.909 - Unspecified asthma , uncomplicated (3) Cerebrovascular accident (CVA) with right hemiparesis Status: Chronic (4) Diabetes type 2, uncontrolled Status: Chronic (5) Hypertension Status: Chronic Qualifiers: Hypertension type: essential hypertension Qualified Code(s): I10 - Essential (primary) hypertension (6) Nicotine dependence Status: Chronic Qualifiers: Nicotine product type: cigarettes Substance use status: uncomplicated Qualified Code(s): F17.210 - Nicotine dependence, cigarettes, uncomplicated (7) Use of cane as ambulatory aid Status: Chronic (8) Obesity (BMI 30.0-34.9) Status: Chronic (9) GERD (gastroesophageal reflux disease) Status: Chronic Qualifiers: Esophagitis presence: esophagitis presence not specified Qualified Code(s) : K21.9 - Gastro-esophageal reflux disease without esophagitis - Follow-up Referral Minutes to complete discharge: 30 - AMA Did Patient Leave Against Medical Advice: No Additional Comments: [facility]esy Rx and diabetic machine with supplies electronically sent to [facility] 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 Pt instructe dto follow up with primary care as referred.
[2019-09-04] MEDS: PRENATAL VITAMINS W/ FOLIC ACID TABLET (FP) PO SCH (09:58)
[2019-09-04] MEDS: MINERAL OIL/PETROLAT/WATER TOPICAL CREAM 113 GM JAR TP SCH (09:58)
[2019-09-04] MEDS: ASPIRIN 81 MG CHEWABLE TABLETS PO SCH (09:58)
[2019-09-04] MEDS: amLODIPine BESYLATE 10 MG TABLET (FP) PO SCH (09:58)
[2019-09-04] MEDS: PANTOPRAZOLE 20 MG TABLET (FP) PO SCH (09:58)
[2019-09-04] MEDS: NICOTINE 21 MG/24 HOURS TOPICAL PATCH TD SCH (09:58)
[2019-09-04] MEDS: BACITRACIN 15 GM TUBE TOPICAL OINTMENT TP SCH (09:59)
[2019-09-04] MEDS: LIDOCAINE 5% TOPICAL PATCH TP SCH (09:59)
[2019-09-04] MEDS: IBUPROFEN 400 MG TABLET (FP) PO PRN (10:00)
[2019-09-04] MEDS: METHOCARBAMOL 500 MG TABLET PO PRN (10:02)
== END 2019-09-04 10:25 | disposition home or self-care (01) | DRG 772 ==
LOC: YASAS 12:47 → Y5N 12:48
PROVIDERS: ADMIT Neuromusculoskeletal Medicine & OMM; ATTEND Neuromusculoskeletal Medicine & OMM
PROC: HZ42ZZZ Group Counseling for Substance Abuse Treatment, Cognitive-Behavioral (ICD-10-PCS; principal; 2019-08-21)
DX: F10.20 Alcohol dependence, uncomplicated (principal); F14.20 Cocaine dependence, uncomplicated; I10 Essential (primary) hypertension; J45.909 Unspecified asthma, uncomplicated; K21.9 Gastro-esophageal reflux disease without esophagitis; H91.93 Unspecified hearing loss, bilateral; I69.851 Hemiplegia and hemiparesis following other cerebrovascular disease affecting right dominant side; E66.9 Obesity, unspecified; Z68.32 Body mass index [BMI] 32.0-32.9, adult; Z99.89 Dependence on other enabling machines and devices
CPT/HCPCS: 82962

== ENCOUNTER 2020-09-14 11:52 | Inpatient (IN) | payer OTHER ==
[2020-09-14] MEDS ORDERED: MAGNESIUM HYDROX 2400MG/30ML ORAL SUSPENSION 30 ML CUP PO PRN (14:47)
[2020-09-14] MEDS ORDERED: ACETAMINOPHEN 325 MG TABLET (FP) PO PRN ×2 (14:47)
[2020-09-14] MEDS ORDERED: BISMUTH SUBSALICYLATE 524 MG/30 ML UD PO PRN (14:47)
[2020-09-14] MEDS ORDERED: METHOCARBAMOL 500 MG TABLET PO PRN (14:47)
[2020-09-14] MEDS ORDERED: ONDANSETRON *ODT* 4 MG TABLET SL PRN (14:47)
[2020-09-14] MEDS ORDERED: MAGNESIUM CITRATE 300 ML BOTTLE PO PRN (14:47)
[2020-09-14] MEDS ORDERED: MENTHOL/PHENOL 1 EACH UD MM PRN (14:47)
[2020-09-14] MEDS ORDERED: hydrOXYzine PAMOATE 25 MG CAPSULE (FP) PO PRN (14:47)
[2020-09-14] MEDS ORDERED: MAG HYDROX/AL HYDROX/SIMETH 30 ML UNIT-DOSE CUP PO PRN (14:47)
[2020-09-14] MEDS ORDERED: NICOTINE POLACRILEX 2 MG GUM BUC PRN (14:48)
[2020-09-14] MEDS ORDERED: chlordiazePOXIDE HCL 25 MG CAPSULE PO PRN (14:49)
[2020-09-14 16:37] VITALS: BMI 30.4
[2020-09-14] MEDS: amLODIPine BESYLATE 10 MG TABLET (FP) PO SCH (16:49)
[2020-09-14] MEDS: INSULIN SLIDING SCALE (NOVOLOG) 1 VIAL SQ SCH ×2 (16:49→22:14)
[2020-09-14] MEDS ORDERED: amLODIPine BESYLATE 5 MG TABLET (FP) ONE ×2 (16:51→16:54)
[2020-09-14] MEDS ORDERED: INSULIN (NOVOLOG) ASPART 100 UNITS/ML 10ML VIAL ONE ×2 (16:51→21:56)
[2020-09-14] MEDS: ASPIRIN 81 MG CHEWABLE TABLETS PO SCH (17:43)
[2020-09-14] MEDS: chlordiazePOXIDE HCL 25 MG CAPSULE PO SCH ×2 (17:44→22:08)
[2020-09-14] MEDS ORDERED: PATIENT'S OWN MEDICATION (NON-FORMULARY) (Insulin Glargine,Hum.Rec.Anlog [Basaglar Kwikpen SQ SCH (22:00)
[2020-09-14] MEDS: FAMOTIDINE 20 MG TABLET PO SCH (22:08)
[2020-09-14] MEDS: metFORMIN HCL 500 MG TABLET (FP) PO SCH (22:08)
[2020-09-14] MEDS: THIAMINE HCL 100 MG TABLET (FP) PO SCH (22:09)
[2020-09-14] MEDS: IBUPROFEN 400 MG TABLET (FP) PO PRN (22:09)
[2020-09-14] MEDS: MELATONIN 5 MG TABLETS PO PRN (22:10)
[2020-09-14] MEDS: INSULIN (LEVEMIR) 100 UNITS/ML UNITS SQ SCH (22:13)
[2020-09-15] MEDS: chlordiazePOXIDE HCL 25 MG CAPSULE PO SCH ×4 (05:55→22:19)
[2020-09-15] MEDS: INSULIN SLIDING SCALE (NOVOLOG) 1 VIAL SQ SCH ×4 (08:00→22:54)
[2020-09-15] MEDS: metFORMIN HCL 500 MG TABLET (FP) PO SCH ×2 (08:01→22:19)
[2020-09-15 10:07] LABS: BLOOD UREA NITROGEN 27.6 mg/dL (7-18); CALCIUM 8.3 mg/dL (8.5-10.1)
[2020-09-15 10:10] LABS: CREATININE 1.3 mg/dL (0.55-1.3)
[2020-09-15 10:12] LABS: BILIRUBIN,TOTAL 0.2 mg/dL (0.2-1)
[2020-09-15] MEDS: ALBUTEROL SO4 HFA INHALER IH PRN (10:33)
[2020-09-15] MEDS: FAMOTIDINE 20 MG TABLET PO SCH ×2 (10:33→22:19)
[2020-09-15] MEDS: amLODIPine BESYLATE 10 MG TABLET (FP) PO SCH (10:33)
[2020-09-15] MEDS: ASPIRIN 81 MG CHEWABLE TABLETS PO SCH (10:33)
[2020-09-15] MEDS: PRENATAL VITAMINS W/ FOLIC ACID TABLET (FP) PO SCH (10:35)
[2020-09-15 10:36] LABS: HEMATOCRIT 40.9 % (35.4-49); HEMOGLOBIN 13.8 GM/dL (11.7-16.9); MCH 31.7 pg (25.7-33.7); MCHC 33.7 g/dl (32.0-35.9); MEAN CELL VOLUME 94.1 fl (80-96); MEAN PLT VOLUME 8.4 fl (7.5-11.1); PLATELET COUNT 163 K/MM3 (134-434); RBC 4.35 M/mm3 (4.00-5.60); RDW 13.5 % (11.9-15.9)
[2020-09-15] MEDS ORDERED: INSULIN (NOVOLOG) ASPART 100 UNITS/ML 10ML VIAL ONE ×2 (16:59→22:18)
[2020-09-15] MEDS: THIAMINE HCL 100 MG TABLET (FP) PO SCH (22:19)
[2020-09-15] MEDS: MELATONIN 5 MG TABLETS PO PRN (22:21)
[2020-09-15] MEDS: IBUPROFEN 400 MG TABLET (FP) PO PRN (22:23)
[2020-09-15] MEDS: INSULIN (LEVEMIR) 100 UNITS/ML UNITS SQ SCH (22:54)
[2020-09-16] MEDS: chlordiazePOXIDE HCL 10 MG CAPSULE PO SCH ×4 (06:02→22:33)
[2020-09-16] MEDS: metFORMIN HCL 500 MG TABLET (FP) PO SCH ×2 (06:06→22:32)
[2020-09-16] MEDS ORDERED: INSULIN (NOVOLOG) ASPART 100 UNITS/ML 10ML VIAL ONE ×3 (06:09→22:32)
[2020-09-16] MEDS: INSULIN SLIDING SCALE (NOVOLOG) 1 VIAL SQ SCH ×4 (06:47→22:38)
[2020-09-16] MEDS: ASPIRIN 81 MG CHEWABLE TABLETS PO SCH (10:37)
[2020-09-16] MEDS: FAMOTIDINE 20 MG TABLET PO SCH ×2 (10:37→22:33)
[2020-09-16] MEDS: PRENATAL VITAMINS W/ FOLIC ACID TABLET (FP) PO SCH (10:37)
[2020-09-16] MEDS: amLODIPine BESYLATE 10 MG TABLET (FP) PO SCH (10:37)
[2020-09-16] MEDS: IBUPROFEN 400 MG TABLET (FP) PO PRN ×2 (10:39→22:33)
[2020-09-16] MEDS: ALBUTEROL SO4 HFA INHALER IH PRN (20:52)
[2020-09-16] MEDS: THIAMINE HCL 100 MG TABLET (FP) PO SCH (22:33)
[2020-09-16] MEDS: MELATONIN 5 MG TABLETS PO PRN (22:34)
[2020-09-16] MEDS: INSULIN (LEVEMIR) 100 UNITS/ML UNITS SQ SCH (22:37)
[2020-09-17] MEDS ORDERED: chlordiazePOXIDE HCL 10 MG CAPSULE PO PRN
[2020-09-17] MEDS ORDERED: chlordiazePOXIDE HCL 10 MG CAPSULE PO SCH (05:00)
[2020-09-17] MEDS: metFORMIN HCL 500 MG TABLET (FP) PO SCH (06:39)
[2020-09-17] MEDS: INSULIN SLIDING SCALE (NOVOLOG) 1 VIAL SQ SCH ×2 (06:40→10:23)
[2020-09-17] MEDS: amLODIPine BESYLATE 10 MG TABLET (FP) PO SCH (09:27)
[2020-09-17] MEDS: ASPIRIN 81 MG CHEWABLE TABLETS PO SCH (09:27)
[2020-09-17] MEDS: FAMOTIDINE 20 MG TABLET PO SCH (09:27)
[2020-09-17] MEDS: PRENATAL VITAMINS W/ FOLIC ACID TABLET (FP) PO SCH (10:23)
[2020-09-17 10:55] VITALS: BP 161/104; PULSE 91; TEMP 98.2
[2020-09-17 11:08] LABS: BASO % 1.6 % (0-2.0); HEMATOCRIT 38.5 % (35.4-49); HEMOGLOBIN 12.7 GM/dL (11.7-16.9); LYMPH % 47.2 % (8-40); MCH 30.7 pg (25.7-33.7); MCHC 33.1 g/dl (32.0-35.9); MEAN CELL VOLUME 92.7 fl (80-96); MEAN PLT VOLUME 8.4 fl (7.5-11.1); MONO % 12.8 % (3.8-10.2); NEUT % 34.4 % (42.8-82.8); PLATELET COUNT 164 K/MM3 (134-434); RBC 4.15 M/mm3 (4.00-5.60); WHITE BLOOD COUNT 2.8 K/mm3 (4.0-10.0)
[2020-09-17 11:14] LABS: POTASSIUM 3.7 mmol/L (3.5-5.1)
[2020-09-17 11:20] LABS: BLOOD UREA NITROGEN 17.1 mg/dL (7-18)
[2020-09-17 11:23] LABS: BILIRUBIN,TOTAL 0.4 mg/dL (0.2-1)
[2020-09-17 11:39] LABS: CREATININE 1.1 mg/dL (0.55-1.3)
[2020-09-17 11:41] LABS: ALBUMIN 2.9 g/dl (3.4-5.0)
[2020-09-17 11:45] LABS: CALCIUM 9.2 mg/dL (8.5-10.1)
[2020-09-18] MEDS ORDERED: chlordiazePOXIDE HCL 10 MG CAPSULE PO ONE (05:00)
== END 2020-09-17 18:17 | disposition short-term general hospital (02) | DRG 774 ==
LOC: YASAS 11:52 → Y6N 16:48
PROVIDERS: ADMIT Allergy & Immunology; ATTEND Allergy & Immunology
PROC: HZ2ZZZZ Detoxification Services for Substance Abuse Treatment (ICD-10-PCS; principal; 2020-09-14)
DX: F10.230 Alcohol dependence with withdrawal, uncomplicated (principal); F14.20 Cocaine dependence, uncomplicated; F17.210 Nicotine dependence, cigarettes, uncomplicated; I69.851 Hemiplegia and hemiparesis following other cerebrovascular disease affecting right dominant side; I10 Essential (primary) hypertension; J45.909 Unspecified asthma, uncomplicated; K21.9 Gastro-esophageal reflux disease without esophagitis; E11.9 Type 2 diabetes mellitus without complications; R29.810 Facial weakness; R47.81 Slurred speech; H53.8 Other visual disturbances; H91.92 Unspecified hearing loss, left ear; Z91.81 History of falling; Z79.4 Long term (current) use of insulin
CPT/HCPCS: 36415; 80053; 82962; 85025; 85027; 86593; 86780; C9803; U0003

== ENCOUNTER 2020-09-17 10:07 | Inpatient (IN) | payer OTHER ==
[2020-09-17] MEDS ORDERED: SODIUM CHLORIDE 1,000 ML IV SCH (10:15)
[2020-09-17] MEDS ORDERED: ASPIRIN 81 MG CHEWABLE TABLETS PO ONE (10:29)
[2020-09-17] MEDS ORDERED: ASPIRIN 81 MG CHEWABLE TABLETS ONE (10:42)
[2020-09-17] MEDS ORDERED: ATORVASTATIN CA 80 MG TABLET (FP) PO ONE (10:53)
[2020-09-17 11:08] LABS: BASO % 1.2 % (0-2.0); EOS % 4.1 % (0-4.5); HEMATOCRIT 41.7 % (35.4-49); HEMOGLOBIN 13.6 GM/dL (11.7-16.9); LYMPH % 45.4 % (8-40); MCH 30.5 pg (25.7-33.7); MCHC 32.6 g/dl (32.0-35.9); MEAN CELL VOLUME 93.5 fl (80-96); MEAN PLT VOLUME 8.1 fl (7.5-11.1); MONO % 11.3 % (3.8-10.2); PLATELET COUNT 173 K/MM3 (134-434); RBC 4.46 M/mm3 (4.00-5.60); RDW 13.7 % (11.9-15.9)
[2020-09-17 11:13] LABS: INR 0.9 (0.83-1.09); PROTHROMBIN TIME (PATIENT) 11.1 SEC (9.7-13.0)
[2020-09-17] MEDS ORDERED: LABETALOL HCL 5 MG/1 ML (100MG/20 ML VIAL) IVPUSH ONE (11:17)
[2020-09-17] MEDS ORDERED: ATORVASTATIN CA 80 MG TABLET (FP) ONE (11:22)
[2020-09-17] MEDS ORDERED: LABETALOL HCL 5 MG/1 ML (200MG/40ML VIAL) IVPB ONE (11:23)
[2020-09-17] MEDS ORDERED: ACETAMINOPHEN 1000 MG/100 ML VIAL (NON FORMULARY) IVPB ONE (11:30)
[2020-09-17 11:31] LABS: CHLORIDE 106 mmol/L (98-107); POTASSIUM 4.2 mmol/L (3.5-5.1); SODIUM 140 mmol/L (136-145)
[2020-09-17 11:36] LABS: BLOOD UREA NITROGEN 14.8 mg/dL (7-18); CALCIUM 9.2 mg/dL (8.5-10.1)
[2020-09-17 11:37] LABS: ALBUMIN 3.1 g/dl (3.4-5.0); ANION GAP 7 MMOL/L (8-16); CO2 28 mmol/L (21-32); GLUCOSE,RANDOM 216 mg/dL (74-106); SGPT/ALT 49 U/L (13-61)
[2020-09-17 11:38] LABS: CREATININE 1.1 mg/dL (0.55-1.3)
[2020-09-17 11:39] LABS: BILIRUBIN,TOTAL 0.2 mg/dL (0.2-1); CHOLESTEROL 119 mg/dL (50-200); LDL CHOLESTEROL (ONLY SJRH) 54 mg/dL (5-100); TRIGLYCERIDES 145 mg/dL (0-150)
[2020-09-17 11:40] LABS: ALK PHOS 144 U/L (45-117); HDL CHOLESTEROL 58 mg/dL (40-60); SGOT/AST 23 U/L (15-37); TOT PROT 7.6 g/dl (6.4-8.2)
[2020-09-17] MEDS ORDERED: ACETAMINOPHEN INJECTION 100 ML IVPB ONE (11:50)
[2020-09-17] MEDS ORDERED: morphine SULFATE 4 MG/ML VIAL IVPUSH ONE (14:16)
[2020-09-17] MEDS ORDERED: morphine SULFATE 4 MG/ML VIAL ONE (14:49)
[2020-09-17 15:58] LABS: EPI CELLS 6 /uL (0-25.1); HYALINE CASTS 0 /uL (0-3.1); URINE APPEARANCE CLEAR; URINE BACTERIA 44 /uL (0-1359); URINE BILIRUBIN NEGATIVE (NEGATIVE); URINE COLOR YELLOW; URINE GLUCOSE (UA) 2+ (NEGATIVE); URINE KETONE NEGATIVE (NEGATIVE); URINE LEUK ESTERASE NEGATIVE (NEGATIVE); URINE NITRITE NEGATIVE (NEGATIVE); URINE PROTEIN 2+ (NEGATIVE); URINE RBC 5 /uL (0-23.9); URINE UROBILINOGEN 0.2 mg/dL (0.2-1.0); URINE WBC 32 /uL (0-25.8)
[2020-09-18 04:53] VITALS: BMI 31.9
[2020-09-18] MEDS: LACTATED RINGERS SOLUTION 1,000 ML/1,000 ML INFUS.BAG IV SCH ×2 (05:16→13:21)
[2020-09-18 07:21] LABS: HEMATOCRIT 39.9 % (35.4-49); HEMOGLOBIN 13.4 GM/dL (11.7-16.9); MCH 31.1 pg (25.7-33.7); MCHC 33.6 g/dl (32.0-35.9); MEAN CELL VOLUME 92.4 fl (80-96); MEAN PLT VOLUME 8.3 fl (7.5-11.1); PLATELET COUNT 172 K/MM3 (134-434); RBC 4.32 M/mm3 (4.00-5.60); RDW 13.3 % (11.9-15.9); WHITE BLOOD COUNT 3.3 K/mm3 (4.0-10.0)
[2020-09-18 07:24] LABS: INR 0.97 (0.83-1.09)
[2020-09-18 07:27] LABS: ACTIVATED PTT 28.3 SECONDS (25.2-36.5)
[2020-09-18 07:41] LABS: ALBUMIN 3.2 g/dl (3.4-5.0); CALCIUM 8.9 mg/dL (8.5-10.1)
[2020-09-18 07:42] LABS: BLOOD UREA NITROGEN 15.6 mg/dL (7-18); MAGNESIUM 1.8 mg/dL (1.8-2.4)
[2020-09-18 07:45] LABS: PHOSPHOROUS 4.1 mg/dL (2.5-4.9)
[2020-09-18 07:46] LABS: BILIRUBIN,TOTAL 0.3 mg/dL (0.2-1)
[2020-09-18 07:47] LABS: TOT PROT 7.2 g/dl (6.4-8.2)
[2020-09-18] MEDS ORDERED: ASPIRIN 325 MG TABLET PO SCH (10:00)
[2020-09-18] MEDS ORDERED: ASPIRIN 81 MG CHEWABLE TABLETS PO SCH (10:00)
[2020-09-18] MEDS ORDERED: chlordiazePOXIDE HCL 10 MG CAPSULE PO ONE (10:00)
[2020-09-18] MEDS: ENOXAPARIN NA (PORCINE) 40 MG/0.4 ML DISP.SYRIN SQ SCH (10:14)
[2020-09-18] MEDS: CLOPIDOGREL BISULFATE 75 MG TABLET (FP) PO SCH (10:17)
[2020-09-18] MEDS: FOLIC ACID 1 MG TABLET (FP) PO SCH (10:17)
[2020-09-18] MEDS: MULTIVITAMINS (DAILY MVI) TABLET (FP) PO SCH (10:17)
[2020-09-18] MEDS: THIAMINE HCL 100 MG TABLET (FP) PO SCH (10:17)
[2020-09-18] MEDS ORDERED: ALBUTEROL SO4 HFA INHALER IH PRN (10:46)
[2020-09-18] MEDS: INSULIN SLIDING SCALE (NOVOLOG) 1 VIAL SQ SCH ×3 (13:22→21:55)
[2020-09-18] MEDS ORDERED: KETOROLAC TROMETHAMINE 15 MG/ML VIAL IVPUSH ONE (17:01)
[2020-09-18] MEDS ORDERED: ACETAMINOPHEN 650 MG/20.3 ML ORAL SOLUTION (CUPS) PO PRN (17:43)
[2020-09-18] MEDS ORDERED: LORazepam 2 MG/ML SDV VIAL IVPUSH ONE (19:39)
[2020-09-18] MEDS: GABAPENTIN 300 MG CAPSULE PO SCH (21:55)
[2020-09-18] MEDS ORDERED: ATORVASTATIN CA 80 MG TABLET (FP) PO SCH (22:00)
[2020-09-19] MEDS: GABAPENTIN 300 MG CAPSULE PO SCH (06:07)
[2020-09-19] MEDS: INSULIN SLIDING SCALE (NOVOLOG) 1 VIAL SQ SCH (08:00)
[2020-09-19] MEDS: MULTIVITAMINS (DAILY MVI) TABLET (FP) PO SCH (09:59)
[2020-09-19] MEDS: CLOPIDOGREL BISULFATE 75 MG TABLET (FP) PO SCH (09:59)
[2020-09-19] MEDS: FOLIC ACID 1 MG TABLET (FP) PO SCH (09:59)
[2020-09-19] MEDS: ENOXAPARIN NA (PORCINE) 40 MG/0.4 ML DISP.SYRIN SQ SCH (09:59)
[2020-09-19] MEDS: THIAMINE HCL 100 MG TABLET (FP) PO SCH (09:59)
[2020-09-19] MEDS ORDERED: amLODIPine BESYLATE 10 MG TABLET (FP) PO SCH (10:00)
[2020-09-19] MEDS ORDERED: PNEUMOC 13-VAL CONJ-DIP CRM/PF 0.5 ML DISP.SYRIN IM ONE (10:00)
[2020-09-19] MEDS ORDERED: KETOROLAC TROMETHAMINE 15 MG/ML VIAL IVPUSH ONE (10:07)
[2020-09-19 11:13] LABS: HEMATOCRIT 41.9 % (35.4-49); HEMOGLOBIN 14.2 GM/dL (11.7-16.9); MCH 31.6 pg (25.7-33.7); MEAN CELL VOLUME 93.1 fl (80-96); MEAN PLT VOLUME 8.4 fl (7.5-11.1); PLATELET COUNT 178 K/MM3 (134-434); RDW 13.6 % (11.9-15.9); WHITE BLOOD COUNT 4.2 K/mm3 (4.0-10.0)
[2020-09-19 11:33] LABS: BLOOD UREA NITROGEN 18.8 mg/dL (7-18); CALCIUM 8.9 mg/dL (8.5-10.1)
[2020-09-19 11:34] LABS: MAGNESIUM 1.9 mg/dL (1.8-2.4)
[2020-09-19 11:37] LABS: CREATININE 1.2 mg/dL (0.55-1.3); PHOSPHOROUS 3.3 mg/dL (2.5-4.9)
[2020-09-19 12:52] VITALS: BP 136/98; PULSE 82; TEMP 97.6
== END 2020-09-19 13:43 | disposition other institution (70) | DRG 45 ==
LOC: JER 10:07 → JERBED 16:54 → J4S 09-18 04:14 → J4W 09-18 11:51
PROC: HZ2ZZZZ Detoxification Services for Substance Abuse Treatment (ICD-10-PCS; principal; 2020-09-17)
DX: I63.9 Cerebral infarction, unspecified (principal); R29.705 NIHSS score 5; E11.9 Type 2 diabetes mellitus without complications; F14.10 Cocaine abuse, uncomplicated; I69.354 Hemiplegia and hemiparesis following cerebral infarction affecting left non-dominant side; I69.351 Hemiplegia and hemiparesis following cerebral infarction affecting right dominant side; E11.65 Type 2 diabetes mellitus with hyperglycemia; F17.210 Nicotine dependence, cigarettes, uncomplicated; J45.20 Mild intermittent asthma, uncomplicated; I16.1 Hypertensive emergency; Z59.0 Homelessness
CPT/HCPCS: 36415; 70450-TC; 70496-TC; 70498-TC; 70551-TC; 80048; 80053; 80061; 81003; 82550; 82962; 83036; 83721; 83735; 84100; 84484; 85025; 85027; 85610; 85730; 86780; 86850; 86900; 86901; 93005; 93010; 93306-TC; 97116-GP; 97161-GP; 99291; J0131; Q9967

== ENCOUNTER 2020-09-19 14:30 | Inpatient (IN) | payer OTHER ==
[2020-09-19 16:24] VITALS: BMI 31.7
[2020-09-19] MEDS ORDERED: NICOTINE POLACRILEX 2 MG GUM BC PRN (16:39)
[2020-09-19] MEDS ORDERED: LOPERAMIDE HCL 2 MG CAPSULE PO PRN (16:39)
[2020-09-19] MEDS ORDERED: guaiFENesin 200 MG/10 ML 10 ML UNIT-DOSE CUPS PO PRN (16:39)
[2020-09-19] MEDS ORDERED: MAGNESIUM HYDROX 2400MG/30ML ORAL SUSPENSION 30 ML CUP PO PRN (16:39)
[2020-09-19] MEDS ORDERED: MAGNESIUM CITRATE 300 ML BOTTLE PO PRN (16:39)
[2020-09-19] MEDS ORDERED: P-EPHED 60MG/TRIPROLIDI 2.5MG TABLET PO PRN (16:39)
[2020-09-19] MEDS ORDERED: MAG HYDROX/AL HYDROX/SIMETH 30 ML UNIT-DOSE CUP PO PRN (16:39)
[2020-09-19] MEDS ORDERED: IBUPROFEN 400 MG TABLET (FP) PO PRN (16:39)
[2020-09-19] MEDS: ALBUTEROL SO4 HFA INHALER IH PRN ×2 (17:48→23:27)
[2020-09-19] MEDS: metFORMIN HCL 500 MG TABLET (FP) PO SCH (17:49)
[2020-09-19] MEDS: CLOPIDOGREL BISULFATE 75 MG TABLET (FP) PO SCH (17:49)
[2020-09-19] MEDS: amLODIPine BESYLATE 10 MG TABLET (FP) PO SCH (17:49)
[2020-09-19] MEDS: hydrOXYzine PAMOATE 25 MG CAPSULE (FP) PO SCH ×2 (20:10→23:21)
[2020-09-19] MEDS: INSULIN (LEVEMIR) 100 UNITS/ML UNITS SQ SCH (21:24)
[2020-09-19] MEDS: INSULIN SLIDING SCALE (NOVOLOG) 1 VIAL SQ SCH (21:25)
[2020-09-19] MEDS: ACETAMINOPHEN 325 MG TABLET (FP) PO PRN (21:27)
[2020-09-19] MEDS: MELATONIN 5 MG TABLETS PO SCH (21:28)
[2020-09-19] MEDS: THIAMINE HCL 100 MG TABLET (FP) PO SCH (21:28)
[2020-09-19] MEDS: GABAPENTIN 300 MG CAPSULE PO SCH (21:28)
[2020-09-19] MEDS: ATORVASTATIN CA 40 MG TABLET (FP) PO SCH (21:28)
[2020-09-19] MEDS: FAMOTIDINE 20 MG TABLET PO SCH (21:29)
[2020-09-19] MEDS ORDERED: TUBERCULIN PPD 5 TU/0.1ML VIAL ID ONE (23:26)
[2020-09-20] MEDS: GABAPENTIN 300 MG CAPSULE PO SCH ×3 (06:43→21:45)
[2020-09-20] MEDS: metFORMIN HCL 500 MG TABLET (FP) PO SCH ×2 (06:43→17:11)
[2020-09-20] MEDS: hydrOXYzine PAMOATE 25 MG CAPSULE (FP) PO SCH ×5 (06:43→21:46)
[2020-09-20] MEDS: ACETAMINOPHEN 325 MG TABLET (FP) PO PRN ×3 (06:44→21:50)
[2020-09-20] MEDS: INSULIN SLIDING SCALE (NOVOLOG) 1 VIAL SQ SCH ×4 (06:47→21:46)
[2020-09-20] MEDS: CLOPIDOGREL BISULFATE 75 MG TABLET (FP) PO SCH (10:20)
[2020-09-20] MEDS: amLODIPine BESYLATE 10 MG TABLET (FP) PO SCH (10:20)
[2020-09-20] MEDS: PRENATAL VITAMINS W/ FOLIC ACID TABLET (FP) PO SCH (10:20)
[2020-09-20] MEDS: NICOTINE 7 MG/24 HOURS TOPICAL PATCH TD SCH (10:20)
[2020-09-20] MEDS: ALBUTEROL SO4 HFA INHALER IH PRN ×2 (10:20→21:45)
[2020-09-20] MEDS: FAMOTIDINE 20 MG TABLET PO SCH ×2 (10:20→21:46)
[2020-09-20] MEDS ORDERED: INSULIN (NOVOLOG) ASPART 100 UNITS/ML 10ML VIAL ONE (11:40)
[2020-09-20] MEDS: THIAMINE HCL 100 MG TABLET (FP) PO SCH (21:45)
[2020-09-20] MEDS: MELATONIN 5 MG TABLETS PO SCH (21:46)
[2020-09-20] MEDS: ATORVASTATIN CA 40 MG TABLET (FP) PO SCH (21:46)
[2020-09-20] MEDS: INSULIN (LEVEMIR) 100 UNITS/ML UNITS SQ SCH (21:49)
[2020-09-21] MEDS: hydrOXYzine PAMOATE 25 MG CAPSULE (FP) PO SCH ×5 (07:01→21:06)
[2020-09-21] MEDS: metFORMIN HCL 500 MG TABLET (FP) PO SCH ×2 (07:01→16:34)
[2020-09-21] MEDS: GABAPENTIN 300 MG CAPSULE PO SCH ×3 (07:01→21:12)
[2020-09-21] MEDS: INSULIN SLIDING SCALE (NOVOLOG) 1 VIAL SQ SCH ×4 (07:02→21:10)
[2020-09-21] MEDS ORDERED: INSULIN (NOVOLOG) ASPART 100 UNITS/ML 10ML VIAL ONE ×4 (07:24→22:08)
[2020-09-21] MEDS: amLODIPine BESYLATE 10 MG TABLET (FP) PO SCH (09:57)
[2020-09-21] MEDS: PRENATAL VITAMINS W/ FOLIC ACID TABLET (FP) PO SCH (09:58)
[2020-09-21] MEDS: CLOPIDOGREL BISULFATE 75 MG TABLET (FP) PO SCH (09:58)
[2020-09-21] MEDS: NICOTINE 7 MG/24 HOURS TOPICAL PATCH TD SCH (09:58)
[2020-09-21] MEDS: FAMOTIDINE 20 MG TABLET PO SCH ×2 (09:58→21:11)
[2020-09-21] MEDS: ACETAMINOPHEN 325 MG TABLET (FP) PO PRN ×2 (10:06→21:10)
[2020-09-21] MEDS: ATORVASTATIN CA 40 MG TABLET (FP) PO SCH (21:06)
[2020-09-21] MEDS: MELATONIN 5 MG TABLETS PO SCH (21:06)
[2020-09-21] MEDS: THIAMINE HCL 100 MG TABLET (FP) PO SCH (21:06)
[2020-09-21] MEDS: INSULIN (LEVEMIR) 100 UNITS/ML UNITS SQ SCH (21:12)
[2020-09-21] MEDS ORDERED: INSULIN (LEVEMIR) 100 UNITS/ML UNITS SQ ONE (22:08)
[2020-09-22] MEDS: INSULIN SLIDING SCALE (NOVOLOG) 1 VIAL SQ SCH ×4 (07:18→22:04)
[2020-09-22] MEDS: hydrOXYzine PAMOATE 25 MG CAPSULE (FP) PO SCH ×5 (07:18→21:59)
[2020-09-22] MEDS: GABAPENTIN 300 MG CAPSULE PO SCH ×3 (07:18→21:59)
[2020-09-22] MEDS: metFORMIN HCL 500 MG TABLET (FP) PO SCH ×2 (07:18→17:08)
[2020-09-22] MEDS ORDERED: INSULIN (NOVOLOG) ASPART 100 UNITS/ML 10ML VIAL ONE ×3 (07:25→22:42)
[2020-09-22] MEDS: PRENATAL VITAMINS W/ FOLIC ACID TABLET (FP) PO SCH (10:08)
[2020-09-22] MEDS: NICOTINE 7 MG/24 HOURS TOPICAL PATCH TD SCH (10:08)
[2020-09-22] MEDS: CLOPIDOGREL BISULFATE 75 MG TABLET (FP) PO SCH (10:08)
[2020-09-22] MEDS: FAMOTIDINE 20 MG TABLET PO SCH ×2 (10:08→21:59)
[2020-09-22] MEDS: amLODIPine BESYLATE 10 MG TABLET (FP) PO SCH (10:08)
[2020-09-22] MEDS: MELATONIN 5 MG TABLETS PO SCH (21:59)
[2020-09-22] MEDS: THIAMINE HCL 100 MG TABLET (FP) PO SCH (22:00)
[2020-09-22] MEDS: INSULIN (LEVEMIR) 100 UNITS/ML UNITS SQ SCH (22:02)
[2020-09-22] MEDS: ATORVASTATIN CA 40 MG TABLET (FP) PO SCH (22:36)
[2020-09-23] MEDS: metFORMIN HCL 500 MG TABLET (FP) PO SCH ×2 (06:52→17:08)
[2020-09-23] MEDS: hydrOXYzine PAMOATE 25 MG CAPSULE (FP) PO SCH ×5 (06:52→21:12)
[2020-09-23] MEDS: GABAPENTIN 300 MG CAPSULE PO SCH ×3 (06:52→21:12)
[2020-09-23] MEDS: INSULIN SLIDING SCALE (NOVOLOG) 1 VIAL SQ SCH ×4 (06:57→21:09)
[2020-09-23] MEDS: ALBUTEROL SO4 HFA INHALER IH PRN ×2 (07:30→21:08)
[2020-09-23] MEDS: amLODIPine BESYLATE 10 MG TABLET (FP) PO SCH (10:22)
[2020-09-23] MEDS: PRENATAL VITAMINS W/ FOLIC ACID TABLET (FP) PO SCH (10:22)
[2020-09-23] MEDS: NICOTINE 7 MG/24 HOURS TOPICAL PATCH TD SCH (10:22)
[2020-09-23] MEDS: FAMOTIDINE 20 MG TABLET PO SCH ×2 (10:23→21:12)
[2020-09-23] MEDS: CLOPIDOGREL BISULFATE 75 MG TABLET (FP) PO SCH (10:24)
[2020-09-23] MEDS: ACETAMINOPHEN 325 MG TABLET (FP) PO PRN ×3 (10:24→21:12)
[2020-09-23] MEDS ORDERED: INSULIN (NOVOLOG) ASPART 100 UNITS/ML 10ML VIAL ONE (12:03)
[2020-09-23] MEDS: INSULIN (LEVEMIR) 100 UNITS/ML UNITS SQ SCH (21:08)
[2020-09-23] MEDS: ATORVASTATIN CA 40 MG TABLET (FP) PO SCH (21:11)
[2020-09-23] MEDS: MELATONIN 5 MG TABLETS PO SCH (21:11)
[2020-09-23] MEDS: THIAMINE HCL 100 MG TABLET (FP) PO SCH (21:12)
[2020-09-24] MEDS: hydrOXYzine PAMOATE 25 MG CAPSULE (FP) PO SCH ×5 (07:33→22:09)
[2020-09-24] MEDS: metFORMIN HCL 500 MG TABLET (FP) PO SCH ×2 (07:33→17:08)
[2020-09-24] MEDS: GABAPENTIN 300 MG CAPSULE PO SCH ×3 (07:33→22:09)
[2020-09-24] MEDS: INSULIN SLIDING SCALE (NOVOLOG) 1 VIAL SQ SCH ×4 (07:35→22:12)
[2020-09-24] MEDS ORDERED: INSULIN (NOVOLOG) ASPART 100 UNITS/ML 10ML VIAL ONE ×2 (07:40→12:04)
[2020-09-24] MEDS: CLOPIDOGREL BISULFATE 75 MG TABLET (FP) PO SCH (10:34)
[2020-09-24] MEDS: amLODIPine BESYLATE 10 MG TABLET (FP) PO SCH (10:34)
[2020-09-24] MEDS: ALBUTEROL SO4 HFA INHALER IH PRN ×2 (10:34→22:11)
[2020-09-24] MEDS: FAMOTIDINE 20 MG TABLET PO SCH ×2 (10:35→23:16)
[2020-09-24] MEDS: NICOTINE 7 MG/24 HOURS TOPICAL PATCH TD SCH (10:35)
[2020-09-24] MEDS: PRENATAL VITAMINS W/ FOLIC ACID TABLET (FP) PO SCH (10:35)
[2020-09-24] MEDS: ACETAMINOPHEN 325 MG TABLET (FP) PO PRN ×3 (10:36→22:09)
[2020-09-24] MEDS: ATORVASTATIN CA 40 MG TABLET (FP) PO SCH (22:09)
[2020-09-24] MEDS: MELATONIN 5 MG TABLETS PO SCH (22:09)
[2020-09-24] MEDS: THIAMINE HCL 100 MG TABLET (FP) PO SCH (22:09)
[2020-09-24] MEDS: INSULIN (LEVEMIR) 100 UNITS/ML UNITS SQ SCH (22:15)
[2020-09-25] MEDS: metFORMIN HCL 500 MG TABLET (FP) PO SCH ×2 (07:15→16:48)
[2020-09-25] MEDS: GABAPENTIN 300 MG CAPSULE PO SCH ×3 (07:20→21:00)
[2020-09-25] MEDS: INSULIN SLIDING SCALE (NOVOLOG) 1 VIAL SQ SCH ×4 (07:20→21:03)
[2020-09-25] MEDS: hydrOXYzine PAMOATE 25 MG CAPSULE (FP) PO SCH ×5 (07:20→21:01)
[2020-09-25] MEDS ORDERED: INSULIN (NOVOLOG) ASPART 100 UNITS/ML 10ML VIAL ONE ×2 (07:38→12:06)
[2020-09-25] MEDS: amLODIPine BESYLATE 10 MG TABLET (FP) PO SCH (09:16)
[2020-09-25] MEDS: CLOPIDOGREL BISULFATE 75 MG TABLET (FP) PO SCH (09:16)
[2020-09-25] MEDS: ACETAMINOPHEN 325 MG TABLET (FP) PO PRN ×2 (09:16→21:01)
[2020-09-25] MEDS: PRENATAL VITAMINS W/ FOLIC ACID TABLET (FP) PO SCH (09:16)
[2020-09-25] MEDS: NICOTINE 7 MG/24 HOURS TOPICAL PATCH TD SCH (09:17)
[2020-09-25] MEDS: FAMOTIDINE 20 MG TABLET PO SCH ×2 (09:17→21:01)
[2020-09-25] MEDS: MELATONIN 5 MG TABLETS PO SCH (21:01)
[2020-09-25] MEDS: THIAMINE HCL 100 MG TABLET (FP) PO SCH (21:01)
[2020-09-25] MEDS: ATORVASTATIN CA 40 MG TABLET (FP) PO SCH (21:01)
[2020-09-25] MEDS: INSULIN (LEVEMIR) 100 UNITS/ML UNITS SQ SCH (21:03)
[2020-09-26] MEDS: metFORMIN HCL 500 MG TABLET (FP) PO SCH ×2 (07:30→16:53)
[2020-09-26] MEDS: GABAPENTIN 300 MG CAPSULE PO SCH ×3 (07:30→22:19)
[2020-09-26] MEDS: hydrOXYzine PAMOATE 25 MG CAPSULE (FP) PO SCH ×5 (07:30→22:19)
[2020-09-26] MEDS: INSULIN SLIDING SCALE (NOVOLOG) 1 VIAL SQ SCH ×4 (07:31→22:58)
[2020-09-26] MEDS: CLOPIDOGREL BISULFATE 75 MG TABLET (FP) PO SCH (07:31)
[2020-09-26] MEDS ORDERED: INSULIN (NOVOLOG) ASPART 100 UNITS/ML 10ML VIAL ONE ×4 (07:48→22:52)
[2020-09-26] MEDS: FAMOTIDINE 20 MG TABLET PO SCH ×2 (10:25→22:20)
[2020-09-26] MEDS: ACETAMINOPHEN 325 MG TABLET (FP) PO PRN (10:28)
[2020-09-26] MEDS: PRENATAL VITAMINS W/ FOLIC ACID TABLET (FP) PO SCH (10:28)
[2020-09-26] MEDS: amLODIPine BESYLATE 10 MG TABLET (FP) PO SCH (10:28)
[2020-09-26] MEDS: NICOTINE 7 MG/24 HOURS TOPICAL PATCH TD SCH (10:30)
[2020-09-26] MEDS: MELATONIN 5 MG TABLETS PO SCH (22:19)
[2020-09-26] MEDS: THIAMINE HCL 100 MG TABLET (FP) PO SCH (22:19)
[2020-09-26] MEDS: ATORVASTATIN CA 40 MG TABLET (FP) PO SCH (22:19)
[2020-09-26] MEDS ORDERED: INSULIN (LEVEMIR) 100 UNITS/ML UNITS SQ ONE (22:51)
[2020-09-26] MEDS: INSULIN (LEVEMIR) 100 UNITS/ML UNITS SQ SCH (22:58)
[2020-09-27] MEDS: GABAPENTIN 300 MG CAPSULE PO SCH ×3 (07:04→21:06)
[2020-09-27] MEDS: metFORMIN HCL 500 MG TABLET (FP) PO SCH ×2 (07:04→17:07)
[2020-09-27] MEDS: hydrOXYzine PAMOATE 25 MG CAPSULE (FP) PO SCH ×5 (07:04→21:06)
[2020-09-27] MEDS: INSULIN SLIDING SCALE (NOVOLOG) 1 VIAL SQ SCH ×4 (07:05→21:06)
[2020-09-27] MEDS: CLOPIDOGREL BISULFATE 75 MG TABLET (FP) PO SCH (07:05)
[2020-09-27] MEDS: PRENATAL VITAMINS W/ FOLIC ACID TABLET (FP) PO SCH (10:52)
[2020-09-27] MEDS: amLODIPine BESYLATE 10 MG TABLET (FP) PO SCH (10:53)
[2020-09-27] MEDS: NICOTINE 7 MG/24 HOURS TOPICAL PATCH TD SCH (10:53)
[2020-09-27] MEDS: FAMOTIDINE 20 MG TABLET PO SCH ×2 (10:53→21:06)
[2020-09-27] MEDS ORDERED: INSULIN (NOVOLOG) ASPART 100 UNITS/ML 10ML VIAL ONE ×3 (12:07→21:06)
[2020-09-27] MEDS: INSULIN (LEVEMIR) 100 UNITS/ML UNITS SQ SCH (21:04)
[2020-09-27] MEDS: ALBUTEROL SO4 HFA INHALER IH PRN (21:06)
[2020-09-27] MEDS: ATORVASTATIN CA 40 MG TABLET (FP) PO SCH (21:06)
[2020-09-27] MEDS: MELATONIN 5 MG TABLETS PO SCH (21:06)
[2020-09-27] MEDS: THIAMINE HCL 100 MG TABLET (FP) PO SCH (21:07)
[2020-09-28] MEDS: metFORMIN HCL 500 MG TABLET (FP) PO SCH ×2 (07:18→16:57)
[2020-09-28] MEDS ORDERED: INSULIN (NOVOLOG) ASPART 100 UNITS/ML 10ML VIAL ONE ×2 (07:18→12:08)
[2020-09-28] MEDS: hydrOXYzine PAMOATE 25 MG CAPSULE (FP) PO SCH ×5 (07:19→21:47)
[2020-09-28] MEDS: GABAPENTIN 300 MG CAPSULE PO SCH ×3 (07:19→21:47)
[2020-09-28] MEDS: INSULIN SLIDING SCALE (NOVOLOG) 1 VIAL SQ SCH ×4 (07:20→21:51)
[2020-09-28] MEDS: CLOPIDOGREL BISULFATE 75 MG TABLET (FP) PO SCH (07:31)
[2020-09-28] MEDS: NICOTINE 7 MG/24 HOURS TOPICAL PATCH TD SCH (10:34)
[2020-09-28] MEDS: PRENATAL VITAMINS W/ FOLIC ACID TABLET (FP) PO SCH (10:34)
[2020-09-28] MEDS: FAMOTIDINE 20 MG TABLET PO SCH ×2 (10:35→21:47)
[2020-09-28] MEDS: amLODIPine BESYLATE 10 MG TABLET (FP) PO SCH (10:35)
[2020-09-28] MEDS: ACETAMINOPHEN 325 MG TABLET (FP) PO PRN ×2 (10:35→21:48)
[2020-09-28] MEDS: MELATONIN 5 MG TABLETS PO SCH (21:47)
[2020-09-28] MEDS: ATORVASTATIN CA 40 MG TABLET (FP) PO SCH (21:47)
[2020-09-28] MEDS: THIAMINE HCL 100 MG TABLET (FP) PO SCH (21:47)
[2020-09-28] MEDS: INSULIN (LEVEMIR) 100 UNITS/ML UNITS SQ SCH (21:51)
[2020-09-29] MEDS ORDERED: INSULIN (NOVOLOG) ASPART 100 UNITS/ML 10ML VIAL ONE ×2 (06:44→11:59)
[2020-09-29] MEDS: GABAPENTIN 300 MG CAPSULE PO SCH ×3 (06:45→21:08)
[2020-09-29] MEDS: INSULIN SLIDING SCALE (NOVOLOG) 1 VIAL SQ SCH ×4 (06:46→21:09)
[2020-09-29] MEDS: CLOPIDOGREL BISULFATE 75 MG TABLET (FP) PO SCH (06:46)
[2020-09-29] MEDS: metFORMIN HCL 500 MG TABLET (FP) PO SCH ×2 (06:46→16:56)
[2020-09-29] MEDS: hydrOXYzine PAMOATE 25 MG CAPSULE (FP) PO SCH ×5 (06:46→21:08)
[2020-09-29] MEDS ORDERED: MASKS NR ONE (07:05)
[2020-09-29] MEDS: PRENATAL VITAMINS W/ FOLIC ACID TABLET (FP) PO SCH (10:59)
[2020-09-29] MEDS: amLODIPine BESYLATE 10 MG TABLET (FP) PO SCH (11:00)
[2020-09-29] MEDS: FAMOTIDINE 20 MG TABLET PO SCH ×2 (11:00→21:08)
[2020-09-29] MEDS: NICOTINE 7 MG/24 HOURS TOPICAL PATCH TD SCH (11:00)
[2020-09-29] MEDS: ACETAMINOPHEN 325 MG TABLET (FP) PO PRN ×2 (11:00→21:07)
[2020-09-29] MEDS: ALBUTEROL SO4 HFA INHALER IH PRN (11:02)
[2020-09-29] MEDS ORDERED: ATORVASTATIN CA 20 MG TABLET (FP) ONE (19:38)
[2020-09-29] MEDS: ATORVASTATIN CA 40 MG TABLET (FP) PO SCH (21:07)
[2020-09-29] MEDS: MELATONIN 5 MG TABLETS PO SCH (21:08)
[2020-09-29] MEDS: THIAMINE HCL 100 MG TABLET (FP) PO SCH (21:08)
[2020-09-29] MEDS: INSULIN (LEVEMIR) 100 UNITS/ML UNITS SQ SCH (21:09)
[2020-09-30] MEDS: GABAPENTIN 300 MG CAPSULE PO SCH (06:53)
[2020-09-30] MEDS: hydrOXYzine PAMOATE 25 MG CAPSULE (FP) PO SCH ×2 (06:53→09:54)
[2020-09-30] MEDS: CLOPIDOGREL BISULFATE 75 MG TABLET (FP) PO SCH (06:53)
[2020-09-30] MEDS: metFORMIN HCL 500 MG TABLET (FP) PO SCH (06:54)
[2020-09-30] MEDS: INSULIN SLIDING SCALE (NOVOLOG) 1 VIAL SQ SCH ×2 (07:00→12:06)
[2020-09-30] MEDS ORDERED: INSULIN (NOVOLOG) ASPART 100 UNITS/ML 10ML VIAL ONE ×3 (07:29→12:09)
[2020-09-30] MEDS: NICOTINE 7 MG/24 HOURS TOPICAL PATCH TD SCH (09:53)
[2020-09-30] MEDS: amLODIPine BESYLATE 10 MG TABLET (FP) PO SCH (09:53)
[2020-09-30] MEDS: PRENATAL VITAMINS W/ FOLIC ACID TABLET (FP) PO SCH (09:54)
[2020-09-30] MEDS: FAMOTIDINE 20 MG TABLET PO SCH (09:54)
[2020-09-30 10:32] VITALS: BP 121/91; PULSE 111; TEMP 98
== END 2020-09-30 12:55 | disposition home or self-care (01) | DRG 772 ==
LOC: YASAS 14:30 → Y5N 15:25
PROVIDERS: ADMIT Allergy & Immunology; ATTEND Allergy & Immunology
PROC: HZ42ZZZ Group Counseling for Substance Abuse Treatment, Cognitive-Behavioral (ICD-10-PCS; principal; 2020-09-19)
DX: F10.20 Alcohol dependence, uncomplicated (principal); F14.20 Cocaine dependence, uncomplicated; F17.210 Nicotine dependence, cigarettes, uncomplicated; I63.9 Cerebral infarction, unspecified; G81.94 Hemiplegia, unspecified affecting left nondominant side; I69.351 Hemiplegia and hemiparesis following cerebral infarction affecting right dominant side; K21.9 Gastro-esophageal reflux disease without esophagitis; J45.909 Unspecified asthma, uncomplicated; E11.65 Type 2 diabetes mellitus with hyperglycemia; E66.9 Obesity, unspecified; Z68.31 Body mass index [BMI] 31.0-31.9, adult; R26.2 Difficulty in walking, not elsewhere classified; Z91.81 History of falling; Z79.4 Long term (current) use of insulin; Z79.84 Long term (current) use of oral hypoglycemic drugs
CPT/HCPCS: 82962; C9803; U0003

== ENCOUNTER 2021-01-03 09:22 | Inpatient (IN) | payer OTHER ==
[2021-01-03 10:51] VITALS: BMI 33.1
[2021-01-03] MEDS ORDERED: chlordiazePOXIDE HCL 25 MG CAPSULE PO PRN (11:32)
[2021-01-03] MEDS ORDERED: MAGNESIUM CITRATE 300 ML BOTTLE PO PRN (11:32)
[2021-01-03] MEDS ORDERED: MENTHOL/PHENOL 1 EACH UD MM PRN (11:32)
[2021-01-03] MEDS ORDERED: NICOTINE POLACRILEX 2 MG GUM BUC PRN (11:32)
[2021-01-03] MEDS ORDERED: BISMUTH SUBSALICYLATE 262 MG/15 ML BTL PO PRN (11:32)
[2021-01-03] MEDS ORDERED: ACETAMINOPHEN 325 MG TABLET (FP) PO PRN ×2 (11:32)
[2021-01-03] MEDS ORDERED: METHOCARBAMOL 500 MG TABLET PO PRN (11:32)
[2021-01-03] MEDS ORDERED: MAG HYDROX/AL HYDROX/SIMETH 30 ML UNIT-DOSE CUP PO PRN (11:32)
[2021-01-03] MEDS ORDERED: MAGNESIUM HYDROX 2400MG/30ML ORAL SUSPENSION 30 ML CUP PO PRN (11:32)
[2021-01-03] MEDS ORDERED: ONDANSETRON *ODT* 4 MG TABLET SL PRN (11:32)
[2021-01-03] MEDS ORDERED: ALBUTEROL SO4 HFA INHALER IH PRN (11:34)
[2021-01-03] MEDS: chlordiazePOXIDE HCL 25 MG CAPSULE PO SCH ×3 (15:01→23:01)
[2021-01-03] MEDS: GABAPENTIN 300 MG CAPSULE PO SCH ×2 (15:01→23:01)
[2021-01-03] MEDS: hydrOXYzine PAMOATE 25 MG CAPSULE (FP) PO SCH ×3 (15:01→23:02)
[2021-01-03] MEDS: PRENATAL VITAMINS W/ FOLIC ACID TABLET (FP) PO SCH (15:02)
[2021-01-03] MEDS: NICOTINE 7 MG/24 HOURS TOPICAL PATCH TD SCH (15:08)
[2021-01-03] MEDS ORDERED: Insulin (LOG) Aspart 100 UNITS/ML VIAL SQ SCH ×2 (16:30)
[2021-01-03] MEDS ORDERED: INSULIN SLIDING SCALE (NOVOLOG) 1 VIAL SQ ONE ×3 (17:19→23:17)
[2021-01-03] MEDS: INSULIN SLIDING SCALE (NOVOLOG) 1 VIAL SQ SCH ×2 (17:20→23:14)
[2021-01-03] MEDS: metFORMIN HCL 500 MG TABLET (FP) PO SCH (17:20)
[2021-01-03] MEDS: traZODone HCL 50 MG TABLET (FP) PO SCH (23:00)
[2021-01-03] MEDS: THIAMINE HCL 100 MG TABLET (FP) PO SCH (23:01)
[2021-01-03] MEDS: FAMOTIDINE 20 MG TABLET PO SCH (23:01)
[2021-01-03] MEDS: ATORVASTATIN CA 80 MG TABLET (FP) PO SCH (23:01)
[2021-01-03] MEDS: MELATONIN 5 MG TABLETS PO SCH (23:02)
[2021-01-03] MEDS: INSULIN (LEVEMIR) 100 UNITS/ML UNITS SQ SCH (23:13)
[2021-01-04] MEDS ORDERED: GABAPENTIN 300 MG CAPSULE PO SCH (01:40)
[2021-01-04] MEDS: chlordiazePOXIDE HCL 25 MG CAPSULE PO SCH ×4 (06:25→22:30)
[2021-01-04] MEDS: GABAPENTIN 300 MG CAPSULE PO SCH ×3 (06:25→22:31)
[2021-01-04] MEDS: metFORMIN HCL 500 MG TABLET (FP) PO SCH ×2 (06:26→18:03)
[2021-01-04] MEDS: hydrOXYzine PAMOATE 25 MG CAPSULE (FP) PO SCH ×5 (06:26→22:31)
[2021-01-04] MEDS: IBUPROFEN 400 MG TABLET (FP) PO PRN (06:29)
[2021-01-04] MEDS ORDERED: INSULIN SLIDING SCALE (NOVOLOG) 1 VIAL SQ ONE ×3 (07:11→22:36)
[2021-01-04] MEDS: INSULIN SLIDING SCALE (NOVOLOG) 1 VIAL SQ SCH ×4 (07:12→22:31)
[2021-01-04 10:22] LABS: HEMATOCRIT 38.1 % (35.4-49); HEMOGLOBIN 12.7 GM/dL (11.7-16.9); MCH 31.4 pg (25.7-33.7); MCHC 33.3 g/dl (32.0-35.9); MEAN CELL VOLUME 94.4 fl (80-96); MEAN PLT VOLUME 8.5 fl (7.5-11.1); PLATELET COUNT 253 K/MM3 (134-434); POTASSIUM 4.4 mmol/L (3.5-5.1); RBC 4.03 M/mm3 (4.00-5.60); RDW 15.6 % (11.9-15.9); WHITE BLOOD COUNT 4.2 K/mm3 (4.0-10.0)
[2021-01-04 10:24] LABS: ALBUMIN 3.4 g/dl (3.4-5.0); BLOOD UREA NITROGEN 16.6 mg/dL (7-18); CALCIUM 9.1 mg/dL (8.5-10.1)
[2021-01-04 10:27] LABS: CREATININE 1.4 mg/dL (0.55-1.3)
[2021-01-04 10:29] LABS: BILIRUBIN,TOTAL 0.5 mg/dL (0.2-1); TOT PROT 7.5 g/dl (6.4-8.2)
[2021-01-04] MEDS: CLOPIDOGREL BISULFATE 75 MG TABLET (FP) PO SCH (11:02)
[2021-01-04] MEDS: FAMOTIDINE 20 MG TABLET PO SCH ×2 (11:02→22:31)
[2021-01-04] MEDS: amLODIPine BESYLATE 10 MG TABLET (FP) PO SCH (11:02)
[2021-01-04] MEDS: NICOTINE 7 MG/24 HOURS TOPICAL PATCH TD SCH (11:03)
[2021-01-04] MEDS: PRENATAL VITAMINS W/ FOLIC ACID TABLET (FP) PO SCH (11:03)
[2021-01-04] MEDS: MELATONIN 5 MG TABLETS PO SCH (22:31)
[2021-01-04] MEDS: traZODone HCL 50 MG TABLET (FP) PO SCH (22:31)
[2021-01-04] MEDS: THIAMINE HCL 100 MG TABLET (FP) PO SCH (22:31)
[2021-01-04] MEDS: ATORVASTATIN CA 80 MG TABLET (FP) PO SCH (22:31)
[2021-01-04] MEDS: INSULIN (LEVEMIR) 100 UNITS/ML UNITS SQ SCH (22:32)
[2021-01-05] MEDS: chlordiazePOXIDE HCL 25 MG CAPSULE PO SCH ×4 (06:35→23:13)
[2021-01-05] MEDS: GABAPENTIN 300 MG CAPSULE PO SCH ×3 (06:36→23:14)
[2021-01-05] MEDS: hydrOXYzine PAMOATE 25 MG CAPSULE (FP) PO SCH ×5 (06:36→23:14)
[2021-01-05] MEDS: metFORMIN HCL 500 MG TABLET (FP) PO SCH ×2 (06:38→18:38)
[2021-01-05] MEDS ORDERED: INSULIN SLIDING SCALE (NOVOLOG) 1 VIAL SQ ONE ×3 (06:52→23:11)
[2021-01-05] MEDS: INSULIN SLIDING SCALE (NOVOLOG) 1 VIAL SQ SCH ×4 (06:57→23:11)
[2021-01-05] MEDS: NICOTINE 7 MG/24 HOURS TOPICAL PATCH TD SCH (10:48)
[2021-01-05] MEDS: PRENATAL VITAMINS W/ FOLIC ACID TABLET (FP) PO SCH (11:07)
[2021-01-05] MEDS: CLOPIDOGREL BISULFATE 75 MG TABLET (FP) PO SCH (11:07)
[2021-01-05] MEDS: FAMOTIDINE 20 MG TABLET PO SCH ×2 (11:07→23:14)
[2021-01-05] MEDS: amLODIPine BESYLATE 10 MG TABLET (FP) PO SCH (11:07)
[2021-01-05] MEDS: INSULIN (LEVEMIR) 100 UNITS/ML UNITS SQ SCH (23:08)
[2021-01-05] MEDS: THIAMINE HCL 100 MG TABLET (FP) PO SCH (23:14)
[2021-01-05] MEDS: MELATONIN 5 MG TABLETS PO SCH (23:14)
[2021-01-05] MEDS: ATORVASTATIN CA 80 MG TABLET (FP) PO SCH (23:14)
[2021-01-05] MEDS: traZODone HCL 50 MG TABLET (FP) PO SCH (23:14)
[2021-01-05] MEDS: IBUPROFEN 400 MG TABLET (FP) PO PRN (23:17)
[2021-01-06] MEDS ORDERED: chlordiazePOXIDE HCL 10 MG CAPSULE PO PRN
[2021-01-06] MEDS: GABAPENTIN 300 MG CAPSULE PO SCH ×3 (05:57→23:08)
[2021-01-06] MEDS: hydrOXYzine PAMOATE 25 MG CAPSULE (FP) PO SCH ×5 (05:58→23:09)
[2021-01-06] MEDS: chlordiazePOXIDE HCL 10 MG CAPSULE PO SCH ×4 (05:58→23:08)
[2021-01-06] MEDS: metFORMIN HCL 500 MG TABLET (FP) PO SCH ×2 (06:01→18:37)
[2021-01-06] MEDS: INSULIN SLIDING SCALE (NOVOLOG) 1 VIAL SQ SCH ×4 (07:04→23:06)
[2021-01-06] MEDS ORDERED: INSULIN SLIDING SCALE (NOVOLOG) 1 VIAL SQ ONE ×4 (07:06→23:07)
[2021-01-06] MEDS: NICOTINE 7 MG/24 HOURS TOPICAL PATCH TD SCH (11:02)
[2021-01-06] MEDS: PRENATAL VITAMINS W/ FOLIC ACID TABLET (FP) PO SCH (11:10)
[2021-01-06] MEDS: CLOPIDOGREL BISULFATE 75 MG TABLET (FP) PO SCH (11:10)
[2021-01-06] MEDS: amLODIPine BESYLATE 10 MG TABLET (FP) PO SCH (11:10)
[2021-01-06] MEDS: FAMOTIDINE 20 MG TABLET PO SCH ×2 (11:10→23:09)
[2021-01-06] MEDS ORDERED: cloNIDine HCL 0.1 MG TABLET PO ONE (21:53)
[2021-01-06] MEDS: INSULIN (LEVEMIR) 100 UNITS/ML UNITS SQ SCH (23:07)
[2021-01-06] MEDS: MELATONIN 5 MG TABLETS PO SCH (23:08)
[2021-01-06] MEDS: traZODone HCL 50 MG TABLET (FP) PO SCH (23:08)
[2021-01-06] MEDS: ATORVASTATIN CA 80 MG TABLET (FP) PO SCH (23:08)
[2021-01-06] MEDS: THIAMINE HCL 100 MG TABLET (FP) PO SCH (23:08)
[2021-01-06] MEDS: IBUPROFEN 400 MG TABLET (FP) PO PRN (23:30)
[2021-01-07] MEDS: chlordiazePOXIDE HCL 10 MG CAPSULE PO SCH ×2 (07:49→18:15)
[2021-01-07] MEDS: hydrOXYzine PAMOATE 25 MG CAPSULE (FP) PO SCH ×2 (07:49→10:47)
[2021-01-07] MEDS: GABAPENTIN 300 MG CAPSULE PO SCH ×3 (07:49→22:06)
[2021-01-07] MEDS: INSULIN SLIDING SCALE (NOVOLOG) 1 VIAL SQ SCH ×4 (09:05→22:16)
[2021-01-07] MEDS: metFORMIN HCL 500 MG TABLET (FP) PO SCH ×2 (09:07→17:16)
[2021-01-07] MEDS: FAMOTIDINE 20 MG TABLET PO SCH ×2 (10:46→22:07)
[2021-01-07] MEDS: NICOTINE 7 MG/24 HOURS TOPICAL PATCH TD SCH (10:46)
[2021-01-07] MEDS: CLOPIDOGREL BISULFATE 75 MG TABLET (FP) PO SCH (10:46)
[2021-01-07] MEDS: amLODIPine BESYLATE 10 MG TABLET (FP) PO SCH (10:46)
[2021-01-07] MEDS: PRENATAL VITAMINS W/ FOLIC ACID TABLET (FP) PO SCH (10:46)
[2021-01-07] MEDS ORDERED: INSULIN SLIDING SCALE (NOVOLOG) 1 VIAL SQ ONE ×3 (11:11→23:07)
[2021-01-07] MEDS ORDERED: hydrOXYzine PAMOATE 25 MG CAPSULE (FP) PO PRN (12:18)
[2021-01-07] MEDS: IBUPROFEN 400 MG TABLET (FP) PO PRN (18:16)
[2021-01-07] MEDS: ATORVASTATIN CA 80 MG TABLET (FP) PO SCH (22:06)
[2021-01-07] MEDS: THIAMINE HCL 100 MG TABLET (FP) PO SCH (22:07)
[2021-01-07] MEDS: INSULIN (LEVEMIR) 100 UNITS/ML UNITS SQ SCH (22:16)
[2021-01-07] MEDS: MELATONIN 5 MG TABLETS PO SCH (23:20)
[2021-01-08] MEDS ORDERED: chlordiazePOXIDE HCL 10 MG CAPSULE PO ONE (05:00)
[2021-01-08] MEDS: IBUPROFEN 400 MG TABLET (FP) PO PRN (05:31)
[2021-01-08] MEDS: GABAPENTIN 300 MG CAPSULE PO SCH (05:31)
[2021-01-08] MEDS: metFORMIN HCL 500 MG TABLET (FP) PO SCH (06:51)
[2021-01-08 09:06] VITALS: BP 146/93; PULSE 91; TEMP 96.6
[2021-01-08] MEDS: CLOPIDOGREL BISULFATE 75 MG TABLET (FP) PO SCH (09:35)
[2021-01-08] MEDS: NICOTINE 7 MG/24 HOURS TOPICAL PATCH TD SCH (09:35)
[2021-01-08] MEDS: FAMOTIDINE 20 MG TABLET PO SCH (09:35)
[2021-01-08] MEDS: amLODIPine BESYLATE 10 MG TABLET (FP) PO SCH (09:35)
[2021-01-08] MEDS: PRENATAL VITAMINS W/ FOLIC ACID TABLET (FP) PO SCH (09:36)
== END 2021-01-08 11:26 | disposition other institution (70) | DRG 774 ==
LOC: YASAS 09:22 → Y3N 14:18
PROVIDERS: ADMIT Allergy & Immunology; ATTEND Allergy & Immunology
PROC: HZ2ZZZZ Detoxification Services for Substance Abuse Treatment (ICD-10-PCS; principal; 2021-01-03)
DX: F10.230 Alcohol dependence with withdrawal, uncomplicated (principal); F14.20 Cocaine dependence, uncomplicated; F17.210 Nicotine dependence, cigarettes, uncomplicated; F19.24 Other psychoactive substance dependence with psychoactive substance-induced mood disorder; I10 Essential (primary) hypertension; I69.851 Hemiplegia and hemiparesis following other cerebrovascular disease affecting right dominant side; J45.909 Unspecified asthma, uncomplicated; K21.9 Gastro-esophageal reflux disease without esophagitis; E11.65 Type 2 diabetes mellitus with hyperglycemia; Z79.4 Long term (current) use of insulin; G47.00 Insomnia, unspecified; R79.89 Other specified abnormal findings of blood chemistry; E66.9 Obesity, unspecified; Z68.33 Body mass index [BMI] 33.0-33.9, adult; Z99.89 Dependence on other enabling machines and devices; Z86.69 Personal history of other diseases of the nervous system and sense organs; Z59.0 Homelessness
CPT/HCPCS: 36415; 80053; 82962; 85027; 86593; 86780; C9803; J0735; U0003

== ENCOUNTER 2021-01-08 11:28 | Inpatient (IN) | payer OTHER ==
[2021-01-08] MEDS ORDERED: MAGNESIUM CITRATE 300 ML BOTTLE PO PRN (13:41)
[2021-01-08] MEDS ORDERED: NICOTINE POLACRILEX 2 MG GUM BUC PRN (13:41)
[2021-01-08] MEDS ORDERED: LOPERAMIDE HCL 2 MG CAPSULE PO PRN (13:41)
[2021-01-08] MEDS ORDERED: P-EPHED 60MG/TRIPROLIDI 2.5MG TABLET PO PRN (13:41)
[2021-01-08] MEDS ORDERED: guaiFENesin 200 MG/10 ML 10 ML UNIT-DOSE CUPS PO PRN (13:41)
[2021-01-08] MEDS ORDERED: MENTHOL/PHENOL 1 EACH UD MM PRN (13:41)
[2021-01-08] MEDS ORDERED: MAG HYDROX/AL HYDROX/SIMETH 30 ML UNIT-DOSE CUP PO PRN (13:41)
[2021-01-08] MEDS ORDERED: IBUPROFEN 400 MG TABLET (FP) PO PRN (13:41)
[2021-01-08] MEDS ORDERED: MAGNESIUM HYDROX 2400MG/30ML ORAL SUSPENSION 30 ML CUP PO PRN (13:41)
[2021-01-08] MEDS: GABAPENTIN 300 MG CAPSULE PO SCH ×2 (14:40→21:01)
[2021-01-08] MEDS: ALBUTEROL SO4 HFA INHALER IH SCH ×3 (14:40→21:02)
[2021-01-08] MEDS: ACETAMINOPHEN 325 MG TABLET (FP) PO PRN ×2 (14:42→21:02)
[2021-01-08] MEDS: metFORMIN HCL 500 MG TABLET (FP) PO SCH (16:27)
[2021-01-08] MEDS ORDERED: INSULIN (NOVOLOG) ASPART 100 UNITS/ML 10ML VIAL ONE ×2 (16:27→20:59)
[2021-01-08] MEDS: INSULIN SLIDING SCALE (NOVOLOG) 1 VIAL SQ SCH ×2 (16:29→21:04)
[2021-01-08] MEDS: MELATONIN 5 MG TABLETS PO SCH (21:00)
[2021-01-08] MEDS: THIAMINE HCL 100 MG TABLET (FP) PO SCH (21:00)
[2021-01-08] MEDS ORDERED: ATORVASTATIN CA 40 MG TABLET (FP) ONE (21:01)
[2021-01-08] MEDS: FAMOTIDINE 20 MG TABLET PO SCH (21:02)
[2021-01-08] MEDS: ATORVASTATIN CA 80 MG TABLET (FP) PO SCH (21:02)
[2021-01-08] MEDS: traZODone HCL 100 MG TABLET (FP) PO SCH (21:02)
[2021-01-08] MEDS: INSULIN (LEVEMIR) 100 UNITS/ML UNITS SQ SCH (21:03)
[2021-01-09] MEDS: ALBUTEROL SO4 HFA INHALER IH SCH ×3 (03:06→10:21)
[2021-01-09] MEDS: metFORMIN HCL 500 MG TABLET (FP) PO SCH ×2 (06:13→16:27)
[2021-01-09] MEDS: GABAPENTIN 300 MG CAPSULE PO SCH ×3 (06:13→21:05)
[2021-01-09] MEDS: ACETAMINOPHEN 325 MG TABLET (FP) PO PRN ×3 (06:15→21:08)
[2021-01-09] MEDS ORDERED: INSULIN (NOVOLOG) ASPART 100 UNITS/ML 10ML VIAL ONE ×4 (06:27→21:07)
[2021-01-09] MEDS: INSULIN SLIDING SCALE (NOVOLOG) 1 VIAL SQ SCH ×4 (06:29→21:10)
[2021-01-09] MEDS: hydrOXYzine PAMOATE 25 MG CAPSULE (FP) PO PRN ×2 (10:22→14:50)
[2021-01-09] MEDS: FAMOTIDINE 20 MG TABLET PO SCH ×2 (10:22→21:05)
[2021-01-09] MEDS: NICOTINE 7 MG/24 HOURS TOPICAL PATCH TD SCH (10:22)
[2021-01-09] MEDS: amLODIPine BESYLATE 10 MG TABLET (FP) PO SCH (10:22)
[2021-01-09] MEDS: PRENATAL VITAMINS W/ FOLIC ACID TABLET (FP) PO SCH (10:22)
[2021-01-09] MEDS: CLOPIDOGREL BISULFATE 75 MG TABLET (FP) PO SCH (10:22)
[2021-01-09] MEDS ORDERED: ALBUTEROL SO4 HFA INHALER IH PRN (10:41)
[2021-01-09] MEDS ORDERED: ATORVASTATIN CA 40 MG TABLET (FP) ONE (18:27)
[2021-01-09] MEDS: MELATONIN 5 MG TABLETS PO SCH (21:04)
[2021-01-09] MEDS: THIAMINE HCL 100 MG TABLET (FP) PO SCH (21:04)
[2021-01-09] MEDS: ATORVASTATIN CA 80 MG TABLET (FP) PO SCH (21:05)
[2021-01-09] MEDS: traZODone HCL 100 MG TABLET (FP) PO SCH (21:05)
[2021-01-09] MEDS: INSULIN (LEVEMIR) 100 UNITS/ML UNITS SQ SCH (21:09)
[2021-01-10] MEDS: metFORMIN HCL 500 MG TABLET (FP) PO SCH (06:19)
[2021-01-10] MEDS: GABAPENTIN 300 MG CAPSULE PO SCH (06:19)
[2021-01-10] MEDS: ACETAMINOPHEN 325 MG TABLET (FP) PO PRN (06:22)
[2021-01-10 07:04] VITALS: BP 135/95; PULSE 80; TEMP 97.9
[2021-01-10] MEDS: INSULIN SLIDING SCALE (NOVOLOG) 1 VIAL SQ SCH (07:30)
[2021-01-10] MEDS: PRENATAL VITAMINS W/ FOLIC ACID TABLET (FP) PO SCH (09:39)
[2021-01-10] MEDS: CLOPIDOGREL BISULFATE 75 MG TABLET (FP) PO SCH (09:39)
[2021-01-10] MEDS: NICOTINE 7 MG/24 HOURS TOPICAL PATCH TD SCH (09:40)
[2021-01-10] MEDS: amLODIPine BESYLATE 10 MG TABLET (FP) PO SCH (09:40)
[2021-01-10] MEDS: FAMOTIDINE 20 MG TABLET PO SCH (09:40)
== END 2021-01-10 09:55 | disposition left against medical advice (07) | DRG 770 ==
LOC: YASAS 11:28 → Y3W 11:30
PROVIDERS: ADMIT Allergy & Immunology; ATTEND Allergy & Immunology
PROC: HZ42ZZZ Group Counseling for Substance Abuse Treatment, Cognitive-Behavioral (ICD-10-PCS; principal; 2021-01-08)
DX: F10.20 Alcohol dependence, uncomplicated (principal); F14.20 Cocaine dependence, uncomplicated; F17.210 Nicotine dependence, cigarettes, uncomplicated; E78.5 Hyperlipidemia, unspecified; E11.9 Type 2 diabetes mellitus without complications; Z79.4 Long term (current) use of insulin; I10 Essential (primary) hypertension
CPT/HCPCS: 82962

== ENCOUNTER 2023-11-02 13:40 | Inpatient (IN) | payer OTHER ==
[2023-11-02 15:42] VITALS: BMI 28.6
[2023-11-02] MEDS ORDERED: hydrOXYzine PAMOATE 25 MG CAPSULE (FP) PO PRN (16:23)
[2023-11-02] MEDS ORDERED: guaiFENesin 600 MG TABLET.ER (FP) PO PRN (16:23)
[2023-11-02] MEDS ORDERED: MAGNESIUM HYDROX 2400MG/30ML ORAL SUSPENSION 30 ML CUP PO PRN (16:23)
[2023-11-02] MEDS ORDERED: NALOXONE HCL 0.4 MG/ML VIAL IM PRN (16:23)
[2023-11-02] MEDS ORDERED: POLYETHYLENE GLYCOL (HEALTHYLAX) 3350 17 GM PACKET PO PRN (16:23)
[2023-11-02] MEDS ORDERED: BENZOCAINE/MENTHOL (CHLORASEPTIC ) LOZENGE MM PRN (16:23)
[2023-11-02] MEDS ORDERED: MAG HYDROX/AL HYDROX/SIMETH 30 ML UNIT-DOSE CUP PO PRN (16:23)
[2023-11-02] MEDS ORDERED: BENZONATATE 200 MG CAPSULE PO PRN (16:23)
[2023-11-02] MEDS ORDERED: IBUPROFEN 400 MG TABLET (FP) PO PRN (16:23)
[2023-11-02] MEDS ORDERED: LOPERAMIDE HCL 2 MG CAPSULE PO PRN (16:23)
[2023-11-02] MEDS ORDERED: NALOXONE HCL (KLOXXADO) 8 MG SPRAY NS PRN (16:23)
[2023-11-02] MEDS ORDERED: ACETAMINOPHEN 325 MG TABLET (FP) PO PRN (16:23)
[2023-11-02] MEDS ORDERED: IBUPROFEN 600 MG TABLET (FP) PO PRN (16:23)
[2023-11-02] MEDS ORDERED: NICOTINE POLACRILEX 2 MG GUM BUC PRN (16:23)
[2023-11-02] MEDS ORDERED: cloNIDine HCL 0.1 MG TABLET ONE (16:49)
[2023-11-02] MEDS ORDERED: cloNIDine HCL 0.1 MG TABLET PO ONE (17:00)
[2023-11-02] MEDS ORDERED: ALBUTEROL SO4 HFA INHALER IH PRN (18:12)
[2023-11-02] MEDS ORDERED: TUBERCULIN PPD 5 TU/0.1ML SYRINGE (IN PATIENT USE ONLY) ID ONE (20:25)
[2023-11-02] MEDS ORDERED: ATORVASTATIN CA 40 MG TABLET (FP) ONE (22:07)
[2023-11-02] MEDS: THIAMINE HCL 100 MG TABLET (FP) PO SCH (22:53)
[2023-11-02] MEDS: FAMOTIDINE 20 MG TABLET PO SCH (22:53)
[2023-11-02] MEDS: MELATONIN 5 MG TABLETS PO SCH (23:09)
[2023-11-02] MEDS: ATORVASTATIN CA 80 MG TABLET (FP) PO SCH (23:09)
[2023-11-03] MEDS: metFORMIN HCL 500 MG TABLET (FP) PO SCH ×2 (06:26→16:53)
[2023-11-03] MEDS: amLODIPine BESYLATE 10 MG TABLET (FP) PO SCH ×2 (10:42→10:57)
[2023-11-03] MEDS: PRENATAL VITAMINS W/ FOLIC ACID TABLET (FP) PO SCH ×2 (10:43→10:57)
[2023-11-03] MEDS: FAMOTIDINE 20 MG TABLET PO SCH ×3 (10:43→23:29)
[2023-11-03] MEDS: CLOPIDOGREL BISULFATE 75 MG TABLET (FP) PO SCH ×3 (10:43→10:57)
[2023-11-03 11:41] LABS: CHLORIDE 111 mmol/L (98-107); POTASSIUM 3.9 mmol/L (3.5-5.1); SODIUM 140 mmol/L (136-145)
[2023-11-03 11:45] LABS: CALCIUM 8.4 mg/dL (8.5-10.1)
[2023-11-03 11:46] LABS: ALBUMIN 2.1 g/dl (3.4-5.0); ANION GAP 3 mmol/L (4-13); BLOOD UREA NITROGEN 13.5 mg/dL (7-18); CO2 26 mmol/L (21-32)
[2023-11-03 11:49] LABS: CREATININE 1.1 mg/dL (0.55-1.3); GLUCOSE,RANDOM 163 mg/dL (74-106); SGOT/AST 11 U/L (15-37); SGPT/ALT 17 U/L (13-61)
[2023-11-03 11:51] LABS: ALK PHOS 114 U/L (45-117); BILIRUBIN,TOTAL 0.1 mg/dL (0.2-1); TOT PROT 5.8 g/dl (6.4-8.2)
[2023-11-03 12:06] LABS: HEMATOCRIT 33.7 % (35.4-49); HEMOGLOBIN 10.9 GM/dL (11.7-16.9); MCH 28.9 pg (25.7-33.7); MCHC 32.4 g/dl (32.0-35.9); MEAN CELL VOLUME 89.2 fl (80-96); MEAN PLT VOLUME 7.8 fl (7.5-11.1); PLATELET COUNT 172 10^3/uL (134-434); RBC 3.78 M/mm3 (4.00-5.60); RDW 14.9 % (11.9-15.9); WHITE BLOOD COUNT 3.9 K/mm3 (4.0-10.0)
[2023-11-03] MEDS ORDERED: ATORVASTATIN CA 40 MG TABLET (FP) ONE (20:31)
[2023-11-03] MEDS: ATORVASTATIN CA 80 MG TABLET (FP) PO SCH (23:29)
[2023-11-03] MEDS: MELATONIN 5 MG TABLETS PO SCH (23:29)
[2023-11-03] MEDS: THIAMINE HCL 100 MG TABLET (FP) PO SCH (23:30)
[2023-11-04] MEDS: metFORMIN HCL 500 MG TABLET (FP) PO SCH ×2 (06:39→17:12)
[2023-11-04] MEDS: PRENATAL VITAMINS W/ FOLIC ACID TABLET (FP) PO SCH (11:35)
[2023-11-04] MEDS: FAMOTIDINE 20 MG TABLET PO SCH ×2 (11:36→21:05)
[2023-11-04] MEDS: amLODIPine BESYLATE 10 MG TABLET (FP) PO SCH (11:36)
[2023-11-04] MEDS: CLOPIDOGREL BISULFATE 75 MG TABLET (FP) PO SCH (11:36)
[2023-11-04] MEDS ORDERED: ATORVASTATIN CA 40 MG TABLET (FP) ONE (20:04)
[2023-11-04] MEDS: MELATONIN 5 MG TABLETS PO SCH (21:05)
[2023-11-04] MEDS: THIAMINE HCL 100 MG TABLET (FP) PO SCH (21:05)
[2023-11-04] MEDS: ATORVASTATIN CA 80 MG TABLET (FP) PO SCH (21:05)
[2023-11-05] MEDS: metFORMIN HCL 500 MG TABLET (FP) PO SCH ×2 (07:05→17:42)
[2023-11-05] MEDS: FAMOTIDINE 20 MG TABLET PO SCH ×2 (09:39→23:01)
[2023-11-05] MEDS: amLODIPine BESYLATE 10 MG TABLET (FP) PO SCH (09:39)
[2023-11-05] MEDS: CLOPIDOGREL BISULFATE 75 MG TABLET (FP) PO SCH (09:39)
[2023-11-05] MEDS: PRENATAL VITAMINS W/ FOLIC ACID TABLET (FP) PO SCH (09:39)
[2023-11-05] MEDS ORDERED: INSULIN (NOVOLOG) ASPART 100 UNITS/ML 10ML VIAL ONE (16:20)
[2023-11-05] MEDS ORDERED: ATORVASTATIN CA 40 MG TABLET (FP) ONE (19:25)
[2023-11-05] MEDS: ATORVASTATIN CA 80 MG TABLET (FP) PO SCH (23:01)
[2023-11-05] MEDS: MELATONIN 5 MG TABLETS PO SCH (23:01)
[2023-11-05] MEDS: THIAMINE HCL 100 MG TABLET (FP) PO SCH (23:02)
[2023-11-06] MEDS: metFORMIN HCL 500 MG TABLET (FP) PO SCH ×2 (07:23→17:49)
[2023-11-06] MEDS: PRENATAL VITAMINS W/ FOLIC ACID TABLET (FP) PO SCH (09:00)
[2023-11-06] MEDS: CLOPIDOGREL BISULFATE 75 MG TABLET (FP) PO SCH (09:00)
[2023-11-06] MEDS: FAMOTIDINE 20 MG TABLET PO SCH ×2 (09:00→22:16)
[2023-11-06] MEDS: amLODIPine BESYLATE 10 MG TABLET (FP) PO SCH (09:00)
[2023-11-06] MEDS ORDERED: INSULIN (NOVOLOG) ASPART 100 UNITS/ML 10ML VIAL ONE (16:18)
[2023-11-06] MEDS ORDERED: ATORVASTATIN CA 40 MG TABLET (FP) ONE (19:14)
[2023-11-06] MEDS: THIAMINE HCL 100 MG TABLET (FP) PO SCH (22:16)
[2023-11-06] MEDS: ATORVASTATIN CA 80 MG TABLET (FP) PO SCH (22:16)
[2023-11-06] MEDS: MELATONIN 5 MG TABLETS PO SCH (22:16)
[2023-11-07] MEDS: metFORMIN HCL 500 MG TABLET (FP) PO SCH ×2 (06:49→17:34)
[2023-11-07] MEDS: CLOPIDOGREL BISULFATE 75 MG TABLET (FP) PO SCH (09:35)
[2023-11-07] MEDS: PRENATAL VITAMINS W/ FOLIC ACID TABLET (FP) PO SCH (09:35)
[2023-11-07] MEDS: amLODIPine BESYLATE 10 MG TABLET (FP) PO SCH (09:36)
[2023-11-07] MEDS: FAMOTIDINE 20 MG TABLET PO SCH ×2 (09:36→21:48)
[2023-11-07] MEDS ORDERED: ATORVASTATIN CA 40 MG TABLET (FP) ONE (19:31)
[2023-11-07] MEDS: MELATONIN 5 MG TABLETS PO SCH (21:48)
[2023-11-07] MEDS: THIAMINE HCL 100 MG TABLET (FP) PO SCH (21:48)
[2023-11-07] MEDS: ATORVASTATIN CA 80 MG TABLET (FP) PO SCH (21:48)
[2023-11-08] MEDS: metFORMIN HCL 500 MG TABLET (FP) PO SCH ×2 (06:48→17:10)
[2023-11-08 08:20] LABS: EPI CELLS 15 /uL (0-25.1); HYALINE CASTS 9 /uL (0-3.1); URINE APPEARANCE CLEAR; URINE BACTERIA 398 /uL (0-1359); URINE BILIRUBIN NEGATIVE (NEGATIVE); URINE COLOR YELLOW; URINE GLUCOSE (UA) TRACE (NEGATIVE); URINE KETONE TRACE (NEGATIVE); URINE LEUK ESTERASE TRACE (NEGATIVE); URINE NITRITE NEGATIVE (NEGATIVE); URINE PROTEIN 4+ (NEGATIVE); URINE UROBILINOGEN 0.2 mg/dL (0.2-1.0); URINE WBC 337 /uL (0-25.8)
[2023-11-08 08:24] LABS: URINE RBC 31.3 /uL (0-23.9)
[2023-11-08] MEDS: FAMOTIDINE 20 MG TABLET PO SCH ×2 (09:39→22:42)
[2023-11-08] MEDS: amLODIPine BESYLATE 10 MG TABLET (FP) PO SCH (09:39)
[2023-11-08] MEDS: PRENATAL VITAMINS W/ FOLIC ACID TABLET (FP) PO SCH (09:39)
[2023-11-08] MEDS: CLOPIDOGREL BISULFATE 75 MG TABLET (FP) PO SCH (09:39)
[2023-11-08] MEDS ORDERED: ATORVASTATIN CA 40 MG TABLET (FP) ONE (19:38)
[2023-11-08] MEDS: THIAMINE HCL 100 MG TABLET (FP) PO SCH (22:42)
[2023-11-08] MEDS: ATORVASTATIN CA 80 MG TABLET (FP) PO SCH (22:42)
[2023-11-08] MEDS: MELATONIN 5 MG TABLETS PO SCH (22:42)
[2023-11-09] MEDS: metFORMIN HCL 500 MG TABLET (FP) PO SCH ×2 (06:31→17:36)
[2023-11-09] MEDS: amLODIPine BESYLATE 10 MG TABLET (FP) PO SCH (09:31)
[2023-11-09] MEDS: CLOPIDOGREL BISULFATE 75 MG TABLET (FP) PO SCH (09:31)
[2023-11-09] MEDS: FAMOTIDINE 20 MG TABLET PO SCH ×2 (09:31→23:14)
[2023-11-09] MEDS: PRENATAL VITAMINS W/ FOLIC ACID TABLET (FP) PO SCH (09:31)
[2023-11-09] MEDS ORDERED: ATORVASTATIN CA 40 MG TABLET (FP) ONE (19:19)
[2023-11-09] MEDS: ATORVASTATIN CA 80 MG TABLET (FP) PO SCH (23:14)
[2023-11-09] MEDS: MELATONIN 5 MG TABLETS PO SCH (23:14)
[2023-11-09] MEDS: THIAMINE HCL 100 MG TABLET (FP) PO SCH (23:15)
[2023-11-10] MEDS: metFORMIN HCL 500 MG TABLET (FP) PO SCH ×2 (06:40→16:58)
[2023-11-10] MEDS: CLOPIDOGREL BISULFATE 75 MG TABLET (FP) PO SCH (10:25)
[2023-11-10] MEDS: FAMOTIDINE 20 MG TABLET PO SCH ×2 (10:25→21:03)
[2023-11-10] MEDS: PRENATAL VITAMINS W/ FOLIC ACID TABLET (FP) PO SCH (10:26)
[2023-11-10] MEDS: amLODIPine BESYLATE 10 MG TABLET (FP) PO SCH (10:26)
[2023-11-10] MEDS ORDERED: ATORVASTATIN CA 40 MG TABLET (FP) ONE (19:47)
[2023-11-10] MEDS: THIAMINE HCL 100 MG TABLET (FP) PO SCH (21:02)
[2023-11-10] MEDS: ATORVASTATIN CA 80 MG TABLET (FP) PO SCH (21:03)
[2023-11-10] MEDS: MELATONIN 5 MG TABLETS PO SCH (21:03)
[2023-11-11] MEDS: metFORMIN HCL 500 MG TABLET (FP) PO SCH ×2 (06:47→17:05)
[2023-11-11] MEDS: CLOPIDOGREL BISULFATE 75 MG TABLET (FP) PO SCH (09:47)
[2023-11-11] MEDS: amLODIPine BESYLATE 10 MG TABLET (FP) PO SCH (09:47)
[2023-11-11] MEDS: PRENATAL VITAMINS W/ FOLIC ACID TABLET (FP) PO SCH (09:47)
[2023-11-11] MEDS: FAMOTIDINE 20 MG TABLET PO SCH ×2 (09:47→21:49)
[2023-11-11] MEDS ORDERED: ATORVASTATIN CA 40 MG TABLET (FP) ONE (19:21)
[2023-11-11] MEDS: MELATONIN 5 MG TABLETS PO SCH (21:49)
[2023-11-11] MEDS: THIAMINE HCL 100 MG TABLET (FP) PO SCH (21:49)
[2023-11-11] MEDS: ATORVASTATIN CA 80 MG TABLET (FP) PO SCH (21:49)
[2023-11-11] MEDS ORDERED: P-EPHED 60MG/TRIPROLIDI 2.5MG TABLET PO PRN (23:28)
[2023-11-12] MEDS: metFORMIN HCL 500 MG TABLET (FP) PO SCH ×2 (06:08→17:17)
[2023-11-12] MEDS: amLODIPine BESYLATE 10 MG TABLET (FP) PO SCH (10:29)
[2023-11-12] MEDS: FAMOTIDINE 20 MG TABLET PO SCH ×2 (10:29→21:11)
[2023-11-12] MEDS: PRENATAL VITAMINS W/ FOLIC ACID TABLET (FP) PO SCH (10:29)
[2023-11-12] MEDS: CLOPIDOGREL BISULFATE 75 MG TABLET (FP) PO SCH (10:29)
[2023-11-12] MEDS ORDERED: ATORVASTATIN CA 40 MG TABLET (FP) ONE (19:48)
[2023-11-12] MEDS: MELATONIN 5 MG TABLETS PO SCH (21:11)
[2023-11-12] MEDS: ATORVASTATIN CA 80 MG TABLET (FP) PO SCH (21:11)
[2023-11-12] MEDS: THIAMINE HCL 100 MG TABLET (FP) PO SCH (21:11)
[2023-11-13] MEDS: metFORMIN HCL 500 MG TABLET (FP) PO SCH ×2 (07:12→17:21)
[2023-11-13] MEDS: amLODIPine BESYLATE 10 MG TABLET (FP) PO SCH (10:34)
[2023-11-13] MEDS: CLOPIDOGREL BISULFATE 75 MG TABLET (FP) PO SCH (10:34)
[2023-11-13] MEDS: PRENATAL VITAMINS W/ FOLIC ACID TABLET (FP) PO SCH (10:34)
[2023-11-13] MEDS: FAMOTIDINE 20 MG TABLET PO SCH ×2 (10:34→21:35)
[2023-11-13] MEDS ORDERED: ATORVASTATIN CA 40 MG TABLET (FP) ONE (20:03)
[2023-11-13] MEDS: THIAMINE HCL 100 MG TABLET (FP) PO SCH (21:35)
[2023-11-13] MEDS: MELATONIN 5 MG TABLETS PO SCH (21:36)
[2023-11-13] MEDS: ATORVASTATIN CA 80 MG TABLET (FP) PO SCH (21:36)
[2023-11-14] MEDS: metFORMIN HCL 500 MG TABLET (FP) PO SCH ×2 (06:44→16:30)
[2023-11-14] MEDS: PRENATAL VITAMINS W/ FOLIC ACID TABLET (FP) PO SCH (09:49)
[2023-11-14] MEDS: CLOPIDOGREL BISULFATE 75 MG TABLET (FP) PO SCH (09:49)
[2023-11-14] MEDS: amLODIPine BESYLATE 10 MG TABLET (FP) PO SCH (09:49)
[2023-11-14] MEDS: FAMOTIDINE 20 MG TABLET PO SCH ×2 (09:49→21:34)
[2023-11-14] MEDS ORDERED: ATORVASTATIN CA 40 MG TABLET (FP) ONE (19:47)
[2023-11-14] MEDS: THIAMINE HCL 100 MG TABLET (FP) PO SCH (21:34)
[2023-11-14] MEDS: MELATONIN 5 MG TABLETS PO SCH (21:34)
[2023-11-14] MEDS: ATORVASTATIN CA 80 MG TABLET (FP) PO SCH (21:35)
[2023-11-15] MEDS: metFORMIN HCL 500 MG TABLET (FP) PO SCH ×2 (06:44→17:34)
[2023-11-15] MEDS: CLOPIDOGREL BISULFATE 75 MG TABLET (FP) PO SCH (09:24)
[2023-11-15] MEDS: amLODIPine BESYLATE 10 MG TABLET (FP) PO SCH (09:24)
[2023-11-15] MEDS: FAMOTIDINE 20 MG TABLET PO SCH ×2 (09:24→22:07)
[2023-11-15] MEDS: PRENATAL VITAMINS W/ FOLIC ACID TABLET (FP) PO SCH (09:24)
[2023-11-15] MEDS ORDERED: ATORVASTATIN CA 40 MG TABLET (FP) ONE (19:11)
[2023-11-15] MEDS: MELATONIN 5 MG TABLETS PO SCH (22:07)
[2023-11-15] MEDS: ATORVASTATIN CA 80 MG TABLET (FP) PO SCH (22:07)
[2023-11-15] MEDS: THIAMINE HCL 100 MG TABLET (FP) PO SCH (22:07)
[2023-11-16] MEDS: metFORMIN HCL 500 MG TABLET (FP) PO SCH (06:00)
[2023-11-16] MEDS: CLOPIDOGREL BISULFATE 75 MG TABLET (FP) PO SCH (09:49)
[2023-11-16] MEDS: amLODIPine BESYLATE 10 MG TABLET (FP) PO SCH (09:49)
[2023-11-16] MEDS: PRENATAL VITAMINS W/ FOLIC ACID TABLET (FP) PO SCH (09:49)
[2023-11-16] MEDS: FAMOTIDINE 20 MG TABLET PO SCH (09:49)
[2023-11-16 12:00] VITALS: BP 151/90; PULSE 91; RESP 16; TEMP 97.8
== END 2023-11-16 12:43 | disposition home or self-care (01) | DRG 772 ==
LOC: YASAS 13:40 → Y5N 20:14
PROVIDERS: ADMIT Allergy & Immunology; ATTEND Psychiatry & Neurology Pain Medicine
PROC: HZ42ZZZ Group Counseling for Substance Abuse Treatment, Cognitive-Behavioral (ICD-10-PCS; principal; 2023-11-02)
DX: F14.20 Cocaine dependence, uncomplicated (principal); F17.210 Nicotine dependence, cigarettes, uncomplicated; E78.5 Hyperlipidemia, unspecified; I25.10 Atherosclerotic heart disease of native coronary artery without angina pectoris; I10 Essential (primary) hypertension; K21.9 Gastro-esophageal reflux disease without esophagitis; J45.909 Unspecified asthma, uncomplicated; E11.65 Type 2 diabetes mellitus with hyperglycemia; Z79.4 Long term (current) use of insulin; Z79.84 Long term (current) use of oral hypoglycemic drugs; I69.854 Hemiplegia and hemiparesis following other cerebrovascular disease affecting left non-dominant side; I69.853 Hemiplegia and hemiparesis following other cerebrovascular disease affecting right non-dominant side; Z59.00 Homelessness unspecified; Z28.310 Unvaccinated for COVID-19; Z28.9 Immunization not carried out for unspecified reason
CPT/HCPCS: 36415; 80053; 80307; 81003; 82962; 85027; 86593; 86780; 87635; 93005; 93010

== ENCOUNTER 2023-12-08 12:43 | Inpatient (IN) | payer OTHER ==
[2023-12-08 13:38] VITALS: BMI 30.1
[2023-12-08] MEDS ORDERED: DOCUSATE SODIUM 100 MG CAPSULE (FP) PO PRN (18:40)
[2023-12-08] MEDS ORDERED: MAGNESIUM HYDROX 2400MG/30ML ORAL SUSPENSION 30 ML CUP PO PRN (18:40)
[2023-12-08] MEDS ORDERED: guaiFENesin 600 MG TABLET.ER (FP) PO PRN (18:40)
[2023-12-08] MEDS ORDERED: NICOTINE POLACRILEX 2 MG GUM BUC PRN (18:40)
[2023-12-08] MEDS ORDERED: LOPERAMIDE HCL 2 MG CAPSULE PO PRN (18:40)
[2023-12-08] MEDS ORDERED: BENZONATATE 200 MG CAPSULE PO PRN (18:40)
[2023-12-08] MEDS ORDERED: POLYETHYLENE GLYCOL (HEALTHYLAX) 3350 17 GM PACKET PO PRN (18:40)
[2023-12-08] MEDS ORDERED: MAG HYDROX/AL HYDROX/SIMETH 30 ML UNIT-DOSE CUP PO PRN (18:40)
[2023-12-08] MEDS ORDERED: ALBUTEROL SO4 HFA INHALER IH PRN (18:42)
[2023-12-09] MEDS: THIAMINE HCL 100 MG TABLET (FP) PO SCH
[2023-12-09] MEDS: FAMOTIDINE 20 MG TABLET PO SCH (00:01)
[2023-12-09] MEDS: amLODIPine BESYLATE 10 MG TABLET (FP) PO ONE (00:01)
[2023-12-09] MEDS: ATORVASTATIN CA 80 MG TABLET (FP) PO SCH (00:02)
[2023-12-09] MEDS: MELATONIN 5 MG TABLETS PO SCH (00:02)
[2023-12-09] MEDS: INSULIN ASPART SLIDING SCALE (NOVOLOG) 1 VIAL SQ SCH (00:03)
[2023-12-09] MEDS: PATIENT'S OWN MEDICATION (NON-FORMULARY) (Cefdinir [Cefdinir] 300 MG Capsule) PO SCH (00:04)
[2023-12-09] MEDS: amLODIPine BESYLATE 10 MG TABLET (FP) PO SCH (00:07)
[2023-12-09] MEDS: metFORMIN HCL 500 MG TABLET (FP) PO SCH (06:47)
[2023-12-09] MEDS: TAMSULOSIN HCL 0.4 MG CAP PO SCH (09:30)
[2023-12-09] MEDS: PRENATAL VITAMINS W/ FOLIC ACID TABLET (FP) PO SCH (10:30)
[2023-12-09 10:59] LABS: CHLORIDE 108 mmol/L (98-107); POTASSIUM 4.1 mmol/L (3.5-5.1); SODIUM 141 mmol/L (136-145)
[2023-12-09 11:03] LABS: ALBUMIN 2.2 g/dl (3.4-5.0); ANION GAP 4 mmol/L (4-13); BLOOD UREA NITROGEN 16.5 mg/dL (7-18); CALCIUM 8.3 mg/dL (8.5-10.1); CO2 29 mmol/L (21-32); GLUCOSE,RANDOM 182 mg/dL (74-106); HEMATOCRIT 31.7 % (35.4-49); HEMOGLOBIN 10.4 GM/dL (11.7-16.9); MCHC 32.9 g/dl (32.0-35.9); MEAN CELL VOLUME 88.3 fl (80-96); MEAN PLT VOLUME 7.6 fl (7.5-11.1); PLATELET COUNT 217 10^3/uL (134-434); RBC 3.59 M/mm3 (4.00-5.60); RDW 14.5 % (11.9-15.9); WHITE BLOOD COUNT 4.3 K/mm3 (4.0-10.0)
[2023-12-09 11:06] LABS: SGOT/AST 15 U/L (15-37); SGPT/ALT 19 U/L (13-61)
[2023-12-09 11:08] LABS: BILIRUBIN,TOTAL 0.1 mg/dL (0.2-1); TOT PROT 6.6 g/dl (6.4-8.2)
[2023-12-09 11:09] LABS: ALK PHOS 121 U/L (45-117)
[2023-12-09] MEDS: ACETAMINOPHEN 325 MG TABLET (FP) PO PRN (17:19)
[2023-12-09] MEDS: cloNIDine HCL 0.1 MG TABLET PO ONE (19:00)
[2023-12-10] MEDS ORDERED: INSULIN ASPART SLIDING SCALE (NOVOLOG) 1 VIAL SQ ONE (07:55)
[2023-12-10] MEDS: LOSARTAN 50MG/HCTZ 12.5MG 1 TAB PO SCH (14:55)
[2023-12-10] MEDS: MINERAL OIL/PETROLAT/WATER TOPICAL CREAM 113 GM JAR TP SCH (14:55)
[2023-12-10] MEDS: MINERAL OIL/PET HY-PHL TOPICAL OINTMENT 454 GM JAR TP SCH (21:13)
[2023-12-11] MEDS ORDERED: INSULIN ASPART SLIDING SCALE (NOVOLOG) 1 VIAL SQ ONE (07:51)
[2023-12-14 10:36] LABS: EPI CELLS 16 /uL (0-25.1); HYALINE CASTS 2 /uL (0-3.1); URINE APPEARANCE CLEAR; URINE BACTERIA 60 /uL (0-1359); URINE BILIRUBIN NEGATIVE (NEGATIVE); URINE COLOR YELLOW; URINE GLUCOSE (UA) 2+ (NEGATIVE); URINE KETONE NEGATIVE (NEGATIVE); URINE LEUK ESTERASE NEGATIVE (NEGATIVE); URINE NITRITE NEGATIVE (NEGATIVE); URINE PROTEIN 3+ (NEGATIVE); URINE RBC 22 /uL (0-23.9); URINE UROBILINOGEN 0.2 mg/dL (0.2-1.0); URINE WBC 17 /uL (0-25.8)
[2023-12-14] MEDS ORDERED: INSULIN ASPART SLIDING SCALE (NOVOLOG) 1 VIAL SQ ONE (12:04)
[2023-12-14] MEDS: CLOPIDOGREL BISULFATE 75 MG TABLET (FP) PO SCH (16:30)
[2023-12-14] MEDS: traZODone HCL 50 MG TABLET (FP) PO SCH (22:05)
[2023-12-15] MEDS ORDERED: ATORVASTATIN CA 40 MG TABLET (FP) ONE (21:30)
[2023-12-16] MEDS ORDERED: INSULIN ASPART SLIDING SCALE (NOVOLOG) 1 VIAL SQ ONE (11:24)
[2023-12-16] MEDS ORDERED: ATORVASTATIN CA 40 MG TABLET (FP) ONE (18:58)
[2023-12-17] MEDS ORDERED: ATORVASTATIN CA 40 MG TABLET (FP) ONE (21:50)
[2023-12-18] MEDS ORDERED: ATORVASTATIN CA 40 MG TABLET (FP) ONE (18:49)
[2023-12-19] MEDS ORDERED: ATORVASTATIN CA 40 MG TABLET (FP) ONE (19:20)
[2023-12-20] MEDS ORDERED: ATORVASTATIN CA 40 MG TABLET (FP) ONE (20:48)
[2023-12-21] MEDS ORDERED: ATORVASTATIN CA 40 MG TABLET (FP) ONE (19:05)
[2023-12-22] MEDS ORDERED: INSULIN ASPART SLIDING SCALE (NOVOLOG) 1 VIAL SQ ONE (11:49)
[2023-12-22] MEDS ORDERED: ATORVASTATIN CA 40 MG TABLET (FP) ONE (19:06)
[2023-12-23] MEDS ORDERED: ATORVASTATIN CA 40 MG TABLET (FP) ONE (18:39)
[2023-12-24] MEDS: BENZOCAINE/MENTHOL (CHLORASEPTIC ) LOZENGE MM PRN (06:29)
[2023-12-24] MEDS: P-EPHED 60MG/TRIPROLIDI 2.5MG TABLET PO PRN (06:29)
[2023-12-24] MEDS ORDERED: ATORVASTATIN CA 40 MG TABLET (FP) ONE (18:57)
[2023-12-25] MEDS ORDERED: ATORVASTATIN CA 40 MG TABLET (FP) ONE (20:48)
[2023-12-26] MEDS ORDERED: ATORVASTATIN CA 40 MG TABLET (FP) ONE (19:27)
[2023-12-27] MEDS: LISINOPRIL 5 MG TABLET PO SCH (12:19)
[2023-12-27] MEDS ORDERED: ATORVASTATIN CA 40 MG TABLET (FP) ONE (20:34)
[2023-12-27] MEDS: BACLOFEN 10 MG TABLET (FP) PO SCH (21:02)
[2023-12-28] MEDS ORDERED: ATORVASTATIN CA 40 MG TABLET (FP) ONE (19:10)
[2023-12-29] MEDS ORDERED: ATORVASTATIN CA 40 MG TABLET (FP) ONE (18:40)
[2023-12-30] MEDS ORDERED: LISINOPRIL 5 MG TABLET PO SCH (09:23)
[2023-12-30] MEDS: INSULIN ASPART SLIDING SCALE (NOVOLOG) 1 VIAL SQ SCH (09:54)
[2023-12-30] MEDS ORDERED: ATORVASTATIN CA 40 MG TABLET (FP) ONE (19:01)
[2023-12-31 07:09] VITALS: RESP 18; TEMP 97.7
[2023-12-31 09:16] VITALS: BP 151/77; PULSE 105
[2023-12-31] MEDS ORDERED: LISINOPRIL 10 MG TABLET PO SCH (10:00)
== END 2023-12-31 09:36 | disposition home or self-care (01) | DRG 772 ==
LOC: YASAS 12:43 → Y3NR 22:12 → Y3W 12-15 18:10
PROVIDERS: ADMIT Allergy & Immunology; ATTEND Psychiatry & Neurology Pain Medicine
PROC: HZ42ZZZ Group Counseling for Substance Abuse Treatment, Cognitive-Behavioral (ICD-10-PCS; principal; 2023-12-08)
DX: F14.20 Cocaine dependence, uncomplicated (principal); F10.20 Alcohol dependence, uncomplicated; F17.210 Nicotine dependence, cigarettes, uncomplicated; I25.10 Atherosclerotic heart disease of native coronary artery without angina pectoris; I10 Essential (primary) hypertension; J45.909 Unspecified asthma, uncomplicated; K21.9 Gastro-esophageal reflux disease without esophagitis; E11.65 Type 2 diabetes mellitus with hyperglycemia; Z79.4 Long term (current) use of insulin; Z79.84 Long term (current) use of oral hypoglycemic drugs; H91.92 Unspecified hearing loss, left ear; B33.8 Other specified viral diseases; B97.4 Respiratory syncytial virus as the cause of diseases classified elsewhere; I69.851 Hemiplegia and hemiparesis following other cerebrovascular disease affecting right dominant side; Z99.89 Dependence on other enabling machines and devices; Z28.310 Unvaccinated for COVID-19; Z28.9 Immunization not carried out for unspecified reason
CPT/HCPCS: 0241U-QW; 36415; 80053; 80307; 81003; 82962; 85027; 86593; 86780; 87635; J0475

== ENCOUNTER 2024-04-24 16:38 | Inpatient (IN) | payer OTHER ==
[2024-04-24 18:03] VITALS: BMI 29.9
[2024-04-24] MEDS ORDERED: LOPERAMIDE HCL 2 MG CAPSULE PO PRN (20:26)
[2024-04-24] MEDS ORDERED: NICOTINE POLACRILEX 2 MG LOZENGE BC PRN (20:26)
[2024-04-24] MEDS ORDERED: POLYETHYLENE GLYCOL (HEALTHYLAX) 3350 17 GM PACKET PO PRN (20:26)
[2024-04-24] MEDS ORDERED: BENZOCAINE/MENTHOL (CHLORASEPTIC ) LOZENGE MM PRN (20:26)
[2024-04-24] MEDS ORDERED: IBUPROFEN 600 MG TABLET (FP) PO PRN (20:26)
[2024-04-24] MEDS ORDERED: MAGNESIUM HYDROX 2400MG/30ML ORAL SUSPENSION 30 ML CUP PO PRN (20:26)
[2024-04-24] MEDS ORDERED: guaiFENesin 600 MG TABLET.ER (FP) PO PRN (20:26)
[2024-04-24] MEDS ORDERED: ACETAMINOPHEN 325 MG TABLET (FP) PO PRN (20:26)
[2024-04-24] MEDS ORDERED: BENZONATATE 200 MG CAPSULE PO PRN (20:26)
[2024-04-24] MEDS ORDERED: DOCUSATE SODIUM 100 MG CAPSULE (FP) PO PRN (20:26)
[2024-04-24] MEDS ORDERED: P-EPHED 60MG/TRIPROLIDI 2.5MG TABLET PO PRN (20:26)
[2024-04-24] MEDS ORDERED: NICOTINE POLACRILEX 2 MG GUM BUC PRN (20:26)
[2024-04-24] MEDS ORDERED: IBUPROFEN 400 MG TABLET (FP) PO PRN (20:26)
[2024-04-24] MEDS ORDERED: MAG HYDROX/AL HYDROX/SIMETH 30 ML UNIT-DOSE CUP PO PRN (20:26)
[2024-04-24] MEDS ORDERED: ALBUTEROL SO4 HFA INHALER IH PRN (20:44)
[2024-04-25] MEDS: THIAMINE 100 MG TABLET PO SCH (05:30)
[2024-04-25] MEDS: MELATONIN 5 MG TABLETS PO SCH (05:30)
[2024-04-25] MEDS: SULFAMETHOXAZOLE/TRIMETHOPRIM 800MG/160MG D.S. TABLET PO SCH (05:30)
[2024-04-25] MEDS: ATORVASTATIN CA 80 MG TABLET (FP) PO SCH (05:30)
[2024-04-25] MEDS: FAMOTIDINE 20 MG TABLET PO SCH (05:30)
[2024-04-25] MEDS: INSULIN ASPART SLIDING SCALE (NOVOLOG) 1 VIAL SQ SCH (05:31)
[2024-04-25] MEDS: cloNIDine HCL 0.1 MG TABLET PO ONE (06:40)
[2024-04-25] MEDS: metFORMIN HCL 500 MG TABLET (FP) PO SCH (06:40)
[2024-04-25] MEDS: TAMSULOSIN HCL 0.4 MG CAP PO SCH (07:40)
[2024-04-25] MEDS: amLODIPine BESYLATE 10 MG TABLET (FP) PO SCH (10:28)
[2024-04-25] MEDS: PRENATAL VITAMINS W/ FOLIC ACID TABLET (FP) PO SCH (10:28)
[2024-04-25] MEDS ORDERED: INSULIN ASPART SLIDING SCALE (NOVOLOG) 1 VIAL SQ ONE (11:08)
[2024-04-25] MEDS: LISINOPRIL 10 MG TABLET PO SCH (12:11)
[2024-04-25 13:49] LABS: HEMATOCRIT 31.8 % (35.4-49); HEMOGLOBIN 10.4 GM/dL (11.7-16.9); MCH 28.7 pg (25.7-33.7); MCHC 32.7 g/dl (32.0-35.9); MEAN CELL VOLUME 87.9 fl (80-96); MEAN PLT VOLUME 7.7 fl (7.5-11.1); PLATELET COUNT 200 10^3/uL (134-434); RBC 3.62 M/mm3 (4.00-5.60); RDW 14.8 % (11.9-15.9); WHITE BLOOD COUNT 3.2 K/mm3 (4.0-10.0)
[2024-04-25] MEDS ORDERED: ATORVASTATIN CA 40 MG TABLET (FP) ONE (20:32)
[2024-04-26] MEDS ORDERED: ATORVASTATIN CA 40 MG TABLET (FP) ONE ×2 (21:12)
[2024-04-27] MEDS ORDERED: ATORVASTATIN CA 40 MG TABLET (FP) ONE (20:47)
[2024-04-28] MEDS ORDERED: ATORVASTATIN CA 40 MG TABLET (FP) ONE (21:18)
[2024-05-01] MEDS ORDERED: ATORVASTATIN CA 40 MG TABLET (FP) ONE (21:28)
[2024-05-02] MEDS ORDERED: ATORVASTATIN CA 40 MG TABLET (FP) ONE (21:37)
[2024-05-03] MEDS ORDERED: ATORVASTATIN CA 40 MG TABLET (FP) ONE (20:57)
[2024-05-05] MEDS ORDERED: ATORVASTATIN CA 40 MG TABLET (FP) ONE (20:45)
[2024-05-06] MEDS ORDERED: INSULIN ASPART SLIDING SCALE (NOVOLOG) 1 VIAL SQ ONE (12:06)
[2024-05-06] MEDS ORDERED: ATORVASTATIN CA 40 MG TABLET (FP) ONE (21:01)
[2024-05-06] MEDS: hydrOXYzine PAMOATE 25 MG CAPSULE (FP) PO PRN (21:04)
[2024-05-07] MEDS ORDERED: INSULIN ASPART SLIDING SCALE (NOVOLOG) 1 VIAL SQ ONE (11:35)
[2024-05-07] MEDS ORDERED: ATORVASTATIN CA 40 MG TABLET (FP) ONE (20:03)
[2024-05-08 06:15] VITALS: RESP 18
[2024-05-08] MEDS ORDERED: ATORVASTATIN CA 40 MG TABLET (FP) ONE (20:47)
[2024-05-09 06:57] VITALS: TEMP 98
[2024-05-09 09:13] VITALS: BP 139/92; PULSE 94
== END 2024-05-09 11:00 | disposition home or self-care (01) | DRG 772 ==
LOC: YASAS 16:38 → Y3W 04-25 05:44
PROVIDERS: ADMIT Allergy & Immunology; ATTEND Psychiatry & Neurology Pain Medicine
PROC: HZ42ZZZ Group Counseling for Substance Abuse Treatment, Cognitive-Behavioral (ICD-10-PCS; principal; 2024-04-25)
DX: F14.20 Cocaine dependence, uncomplicated (principal); F10.20 Alcohol dependence, uncomplicated; F17.210 Nicotine dependence, cigarettes, uncomplicated; F19.24 Other psychoactive substance dependence with psychoactive substance-induced mood disorder; I25.10 Atherosclerotic heart disease of native coronary artery without angina pectoris; I10 Essential (primary) hypertension; E78.5 Hyperlipidemia, unspecified; J45.909 Unspecified asthma, uncomplicated; K21.9 Gastro-esophageal reflux disease without esophagitis; E11.65 Type 2 diabetes mellitus with hyperglycemia; Z79.84 Long term (current) use of oral hypoglycemic drugs; N40.0 Benign prostatic hyperplasia without lower urinary tract symptoms; I69.851 Hemiplegia and hemiparesis following other cerebrovascular disease affecting right dominant side; Z59.00 Homelessness unspecified
CPT/HCPCS: 36415; 80305; 80307; 81003; 82962; 85027; 86593; 86780; 87086; 87811; 99284-25